=== PATIENT | male | born 1945 | race Caucasian/White ===

== ENCOUNTER 2018-08-20 23:29 | Inpatient (IN) | payer BC, MEDICARE ==
[2018-08-20] MEDS ORDERED: TRANEXAMIC ACID 1,000 MG in SODIUM CHLORIDE 0.9% 50 ML IVPB ONE (23:40)
[2018-08-20] MEDS ORDERED: LIDOCAINE 1%-EPI 1:100,000 30 ML VIAL SQ STA (23:42)
[2018-08-20] MEDS ORDERED: OXYMETAZOLINE 0.05% NASL SPRAY 1 SPRAY BOTTLE NASAL STA (23:42)
[2018-08-20] MEDS ORDERED: cloNIDine HCL 0.1 MG TAB PO STA (23:59)
[2018-08-21 00:07] LABS: Basophils % (A) 1 %; Eosinophils # (A) 0.2 k/uL (0-0.7); Eosinophils % (A) 3 %; HCT 40.9 % (39.0-53.0); HGB 13.8 gm/dL (13.0-17.5); Lymphocytes # (A) 1.8 k/uL (1.0-4.8); Lymphocytes % (A) 28 %; MCH 32.7 pg (25.0-35.0); MCHC 33.7 g/dL (31.0-37.0); Mean Platelet Volume 7.7; Monocytes # (A) 0.5 k/uL (0-1.0); Monocytes % (A) 8 %; Neutrophils # (A) 3.8 k/uL (1.3-7.7); Neutrophils % (A) 59 %; Platelet Count 167 k/uL (150-450); RBC 4.22 m/uL (4.30-5.90); RDW 12.8 % (11.5-15.5); WBC 6.5 k/uL (3.8-10.6)
[2018-08-21 00:15] LABS: INR 1.1 (<1.2); Partial Thromboplastin Time 23.4 sec (22.0-30.0); Prothrombin Time 10.7 sec (9.0-12.0)
[2018-08-21 00:17] LABS: ALT 34 U/L (21-72); AST 27 U/L (17-59); Albumin 3.9 g/dL (3.5-5.0); Alkaline Phosphatase 56 U/L (38-126); Anion Gap 8 mmol/L; Blood Urea Nitrogen 17 mg/dL (9-20); Calcium 8.9 mg/dL (8.4-10.2); Carbon Dioxide 23 mmol/L (22-30); Chloride 109 mmol/L (98-107); Glucose 108 mg/dL (74-99); Potassium 3.6 mmol/L (3.5-5.1); Sodium 140 mmol/L (137-145); Total Bilirubin 0.4 mg/dL (0.2-1.3); Total Protein 6.2 g/dL (6.3-8.2)
[2018-08-21] MEDS ORDERED: ISOSORBIDE MONONITRATE ER 30 MG TAB.ER.24H PO STA (00:54)
[2018-08-21] MEDS ORDERED: ATENOLOL 25 MG TAB PO STA (00:54)
[2018-08-21] MEDS ORDERED: DOXAZOSIN 1 MG TAB PO STA (00:54)
[2018-08-21] MEDS ORDERED: ONDANSETRON 4 MG/2 ML VIAL IVP STA (01:07)
[2018-08-21] MEDS ORDERED: NALOXONE 0.4 MG/ML 1 ML VIAL IV PRN (01:50)
[2018-08-21] MEDS ORDERED: ONDANSETRON 4 MG/2 ML VIAL IVP PRN (01:50)
--- NOTE | 2018-08-21 01:52 | ED ---
ENT HPI - General Chief complaint: ENT Stated complaint: nose bleed Time Seen by Provider: 08/20/18 23:40 Source: patient, EMS Mode of arrival: EMS Limitations: no limitations - History of Present Illness Initial comments: Kapil is a 73-year-old male with a history of coronary artery disease status post CABG is currently on Plavix who presents the emergency department today for evaluation of a persistent nosebleed. Patient states he does not have a history of nosebleeds though did have a brief nosebleed approximately 2 weeks ago and yesterday had a nosebleed lasting approximately 30 minutes. Patient reports that this evening his nosebleed began spontaneously, it lasted for approximately one hour despite him applying direct pressure by holding both of his nares. Patient reports that while holding direct pressure he noted that he could taste blood that he was swallowing and a blood began to come out of both of his eyes. This was very concerning for his who called 911 for transport to the hospital. Patient denies any recent head trauma or injury. He reports he's been compliant with his Plavix. He does report these recently traveled to [place] back to [place] and feels that some of the environmental changes contributed to his nosebleeds. Patient denies any lightheadedness, chest pain, palpitations, nausea or vomiting prior to arrival. - Related Data Home Medications Medication Instructions Recorded Confirmed ALPRAZolam [Xanax] 0.25 mg PO Q8HR PRN 10/17/17 10/17/17 Acetaminophen-Codeine 300-30mg 1 tab PO Q4-6H PRN 10/17/17 10/17/17 [Tylenol #3] Ascorbic Acid [Vitamin C with Abeba 500 mg PO HS 10/17/17 10/17/17 Hips] Aspirin 162 mg PO DAILY 10/17/17 10/17/17 Atenolol [Tenormin] 25 mg PO DAILY 10/17/17 10/17/17 Atorvastatin [Lipitor] 20 mg PO HS 10/17/17 10/17/17 Calcium Carbonate/Vitamin D3 1 tab PO HS 10/17/17 10/17/17 [Calcium 600-Vit D3 400 Tablet] Ciprofloxacin HCl [Cipro] 500 mg PO Q12HR 10/17/17 10/17/17 Clopidogrel [Plavix] 75 mg PO DAILY 10/17/17 10/17/17 Garlic 1 tab PO HS 10/17/17 10/17/17 Isosorbide Mononitrate ER [Imdur] 30 mg PO DAILY 10/17/17 10/17/17 Latanoprost Ophth [Xalatan 0.005%] 1 drops BOTH EYES HS 10/17/17 10/17/17 Meloxicam [Mobic] 15 mg PO DAILY 10/17/17 10/17/17 Multivitamins, Thera [Multivitamin 1 tab PO DAILY 10/17/17 10/17/17 (formulary)] [place]-3 Fatty Acids [[place]-3] 1,000 mg PO DAILY 10/17/17 10/17/17 Omeprazole Magnesium [Prilosec OTC] 20 mg PO DAILY 10/17/17 10/17/17 Psyllium Husk 100% [Metamucil 6 gm PO HS 10/17/17 10/17/17 Packet] Ranolazine [Ranexa] 500 mg PO BID 10/17/17 10/17/17 Retinavites 1 tab PO BID 10/17/17 10/17/17 Terazosin HCl 1 mg PO HS@199910/17/17 10/17/17 Vitamin B Complex 1 cap PO DAILY 10/17/17 10/17/17 chlordiazePOXIDE/CLIDINIUM BR 1 cap PO BID 10/17/17 10/17/17 [Librax] Previous Rx's Medication Instructions Recorded HYDROcodone/APAP 5-325MG [[place] 1 tab PO Q6HR PRN #30 tab 10/17/17 5-325] Naproxen [Naprosyn] 500 mg PO Q12HR PRN #30 tab 10/17/17 Ondansetron Odt [Zofran ODT] 4 mg PO Q8HR PRN #30 tab 10/17/17 Allergies Allergy/AdvReac Type Severity Reaction Status Date / Time No Known Allergies Allergy Verified 08/20/18 23:39 Review of Systems ROS Statement: Those systems with pertinent positive or pertinent negative responses have been documented in the HPI. ROS Other: All systems not noted in ROS Statement are negative. Past Medical History Past Medical History: Coronary Artery Disease (CAD), Hyperlipidemia, Hypertension Additional Past Medical History / Comment(s): diverticulitis. History of Any Multi-Drug Resistant Organisms: None Reported Past Surgical History: Coronary Bypass/CABG, Hernia Repair Past Psychological History: No Psychological Hx Reported Smoking Status: Former smoker Past Alcohol Use History: Occasional Past Drug Use History: None Reported General Exam - General Exam Comments Initial Comments: GENERAL: Elderly gentleman in moderate distress with an active nosebleed HENT: Normocephalic, Atraumatic. Neck is soft and supple. No significant lymphadenopathy is noted. There is persistent bleeding from bilateral nares, right greater than left, there is blood in the posterior oropharynx as well as blood from bilateral tear ducts Mallampati score 3 EYES: blood from bilateral tear ducts PULMONARY: Unlabored respirations. Good breath sounds bilaterally. No audible rales rhonchi or wheezing was noted. CARDIOVASCULAR: There is a regular rate and rhythm without any murmurs gallops or rubs. ABDOMEN: Soft and nontender with normal bowel sounds. SKIN: Skin is clear with no lesions or rashes and otherwise unremarkable. NEUROLOGIC: Patient is alert and oriented x3. Cranial nerves II through XII are grossly intact. Motor and sensory are also intact. Normal speech, volume and content. Symmetrical smile. MUSCULOSKELETAL: Normal extremities with adequate strength and full range of motion. No lower extremity swelling or edema. No calf tenderness. LYMPHATICS: No significant lymphadenopathy is noted PSYCHIATRIC: appropriately anxious Limitations: no limitations Limitations: no limitations Course Vital Signs 08/20/18 08/21/18 08/21/18 23:39 00:27 00:30 Temperature 97.6 F Pulse Rate 72 68 69 Respiratory 18 15 17 Rate Blood Pressure 194/99 192/79 O2 Sat by Pulse 94 L 95 97 Oximetry 08/21/18 08/21/18 08/21/18 00:40 00:50 01:00 Temperature Pulse Rate 65 67 63 Respiratory 25 H 22 20 Rate Blood Pressure 191/83 177/81 177/81 O2 Sat by Pulse 97 97 Oximetry 08/21/18 08/21/18 08/21/18 01:10 01:20 01:30 Temperature Pulse Rate 63 65 66 Respiratory 18 25 H 16 Rate Blood Pressure 175/79 167/70 167/70 O2 Sat by Pulse 93 L 94 L Oximetry 08/21/18 08/21/18 01:40 02:30 Temperature Pulse Rate 62 62 Respiratory 12 20 Rate Blood Pressure 176/75 146/62 O2 Sat by Pulse 96 97 Oximetry Procedures - Procedures Initial comment: Posterior nasal packing Verbal Consent was obtained Patient was on the joint terminal attack controller Right-sided posterior Rhino Rocket was placed Patient tolerated the procedure well Medical Decision Making - Medical Decision Making Patient was seen and evaluated history was obtained from the patient and his Patient is on Plavix and having a profuse nose bleed for approximately 1 hour, patient is noted be hypertensive with a heart rate in the 70s to 80s Due to the volume of blood from the nares I was unable to determine exact source of the bleed, I advised the patient to continue with direct pressure. Treated him with Afrin nasal spray and then placed posterior nasal packing which was soaked with lidocaine with epinephrine. Patient reported the previous nosebleeds were out of the right naris and that the nosebleed began out of the right therefore packing was placed in the right. Anterior packing was placed on the left Medications including TXA were ordered. Clonidine was ordered for blood pressure management Patient was reevaluated, noted to have persistent trickling of blood around the packing. Pressure was increased and the packing. TX A was infusing Patient was re-evaluated after TXA, clonidine, blood pressure is improving, bleeding has decreased Patient continues to have slow trickling of blood whenever he manipulates the packing or coughs. Technically difficult evaluation of the posterior oropharynx due to the patient's Mallampati score and very reactive gag reflex, I see only a mild trickling of blood in the posterior oropharynx. Patient's home oral antihypertensives were ordered for blood pressure management Patient care was discussed with [facility], Dr. Cartagena who agrees with the plan for admission to medicine with a ENT consult. He states she will evaluate the patient in the morning. Admission orders placed. - Lab Data Result diagrams: 08/20/18 23:40 08/20/18 23:40 Lab Results 08/20/18 08/20/18 08/20/18 Range/Units 23:40 23:40 23:40 WBC 6.5 (3.8-10.6) k/uL RBC 4.22 L (4.30-5.90) m/uL Hgb 13.8 (13.0-17.5) gm/dL Hct 40.9 (39.0-53.0) % MCV 97.0 (80.0-100.0) fL MCH 32.7 (25.0-35.0) pg MCHC 33.7 (31.0-37.0) g/dL RDW 12.8 (11.5-15.5) % Plt Count 167 (150-450) k/uL Neutrophils % 59 % Lymphocytes % 28 % Monocytes % 8 % Eosinophils % 3 % Basophils % 1 % Neutrophils # 3.8 (1.3-7.7) k/uL Lymphocytes # 1.8 (1.0-4.8) k/uL Monocytes # 0.5 (0-1.0) k/uL Eosinophils # 0.2 (0-0.7) k/uL Basophils # 0.0 (0-0.2) k/uL PT (9.0-12.0) sec INR (<1.2) APTT (22.0-30.0) sec Sodium 140 (137-145) mmol/L Potassium 3.6 (3.5-5.1) mmol/L Chloride 109 H (98-107) mmol/L Carbon Dioxide 23 (22-30) mmol/L Anion Gap 8 mmol/L BUN 17 (9-20) mg/dL Creatinine 0.70 (0.66-1.25) mg/dL Est GFR (CKD-EPI)AfAm >90 (>60 ml/min/1.73 sqM) Est GFR (CKD-EPI)NonAf >90 (>60 ml/min/1.73 sqM) Glucose 108 H (74-99) mg/dL Calcium 8.9 (8.4-10.2) mg/dL Total Bilirubin 0.4 (0.2-1.3) mg/dL AST 27 (17-59) U/L ALT 34 (21-72) U/L Alkaline Phosphatase 56 (38-126) U/L Total Protein 6.2 L (6.3-8.2) g/dL Albumin 3.9 (3.5-5.0) g/dL Blood Type AB Positive Blood Type Recheck No Antibody Screen NEGATIVE Spec Expiration Date 08/23/2018 - 233908/20/18 Range/Units 23:40 WBC (3.8-10.6) k/uL RBC (4.30-5.90) m/uL Hgb (13.0-17.5) gm/dL Hct (39.0-53.0) % MCV (80.0-100.0) fL MCH (25.0-35.0) pg MCHC (31.0-37.0) g/dL RDW (11.5-15.5) % Plt Count (150-450) k/uL Neutrophils % % Lymphocytes % % Monocytes % % Eosinophils % % Basophils % % Neutrophils # (1.3-7.7) k/uL Lymphocytes # (1.0-4.8) k/uL Monocytes # (0-1.0) k/uL Eosinophils # (0-0.7) k/uL Basophils # (0-0.2) k/uL PT 10.7 (9.0-12.0) sec INR 1.1 (<1.2) APTT 23.4 (22.0-30.0) sec Sodium (137-145) mmol/L Potassium (3.5-5.1) mmol/L Chloride (98-107) mmol/L Carbon Dioxide (22-30) mmol/L Anion Gap mmol/L BUN (9-20) mg/dL Creatinine (0.66-1.25) mg/dL Est GFR (CKD-EPI)AfAm (>60 ml/min/1.73 sqM) Est GFR (CKD-EPI)NonAf (>60 ml/min/1.73 sqM) Glucose (74-99) mg/dL Calcium (8.4-10.2) mg/dL Total Bilirubin (0.2-1.3) mg/dL AST (17-59) U/L ALT (21-72) U/L Alkaline Phosphatase (38-126) U/L Total Protein (6.3-8.2) g/dL Albumin (3.5-5.0) g/dL Blood Type Blood Type Recheck Antibody Screen Spec Expiration Date Critical Care Time Critical Care Time: Yes Total Critical Care Time: 45 Critical Care Time: Critical Care Critical care time was exclusive of separately billable procedures and treating other patients and teaching time. Critical care was necessary to treat or prevent imminent or life-threatening deterioration. Critical care was time spent personally by me on the following activities: development of treatment plan with patient or surrogate, discussions with consultants, discussions with primary provider, evaluation of patient's response to treatment, examination of patient, obtaining history from patient or surrogate, ordering and performing treatments and interventions, ordering and review of laboratory studies, ordering and review of radiographic studies, pulse oximetry, re-evaluation of patient's condition and review of old charts. Disposition Clinical Impression: Nosebleed Disposition: ADMITTED IP TO THIS HOSP Condition: Serious Is patient prescribed a controlled substance at d/c from ED?: No
[2018-08-21] MEDS ORDERED: SODIUM CHLORIDE 0.9% 1,000 ML IV SCH (02:00)
[2018-08-21 03:48] VITALS: BMI 33.4
[2018-08-21] MEDS: ISOSORBIDE MONONITRATE ER 30 MG TAB.ER.24H PO SCH (08:38)
[2018-08-21] MEDS: ATENOLOL 25 MG TAB PO SCH (08:38)
[2018-08-21] MEDS: MORPHINE SULFATE 4 MG/ML SYRINGE IV PRN ×4 (09:51→23:26)
--- NOTE | 2018-08-21 13:10 | P.HPIM ---
History of Present Illness This is a pleasant 73 years old male with past medical history of coronary artery disease status post CABG. , hyperlipidemia, hypertension, diverticulitis. Presents because of nosebleeds from both nostrils of one-day duration. The nosebleeds last about 3 hours as stopped after they came to the emergency room and had packed place into his right no stroke. However patient overnight To have some oozing from his right side and irrigated this morning he has mild epistaxis also from the left side. Of note patient has similar episode of epistaxis about one week ago from his right nostril which last about 20 minutes and controlled with local pressure. Patient denies any other history of bleeding. He denies also current or recent bleeding from the mouth or GI, or some other places. Patient denies headache. No blurred vision. No chest pain or dyspnea. No change in urine or bowel habits. No fever. Patient has history of coronary artery disease and open heart surgery service 2010 and his been placed on aspirin and Plavix since then with no problems and for this reasons he follow-up only with his ECP Dr. Gardiner his heart doctor is Dr. de jesus at [facility] which retired recently and he doesn't follow up with tobacco shaker is then. Also patient was taken Mobic daily since last January for chronic low back pain, which I advised him to stop it. Administrative we will place him on the lidocaine patch. In the emergency room patient got tranexamic acid, oxymetazoline, as well as blood pressure medication including clonidine, doxazosin sitting and atenolol with morphine for pain control. It was a started on IV fluids of normal saline at 50 mm per hour. Review of Systems CONSTITUTIONAL: No fever, no malaise, no fatigue. HEENT: No recent visual problems or hearing problems. Denied any sore throat. CARDIOVASCULAR: No orthopnea, PND, no palpitations, no syncope. PULMONARY: No shortness of breath, no cough, no hemoptysis. GASTROINTESTINAL: No diarrhea, no nausea, no vomiting, no abdominal pain. Normoactive bowel sounds. NEUROLOGICAL: No headaches, no weakness, no numbness. HEMATOLOGICAL: Denies any bleeding or petechiae. GENITOURINARY: Denies any burning micturition, frequency, or urgency. MUSCULOSKELETAL/RHEUMATOLOGICAL: Denies any joint pain, swelling, or any muscle pain. ENDOCRINE: Denies any polyuria or polydipsia. Past Medical History Past Medical History: Coronary Artery Disease (CAD), Hyperlipidemia, Hypertension Additional Past Medical History / Comment(s): diverticulitis. History of Any Multi-Drug Resistant Organisms: None Reported Past Surgical History: Coronary Bypass/CABG, Hernia Repair Past Psychological History: No Psychological Hx Reported Smoking Status: Former smoker Past Alcohol Use History: Occasional Past Drug Use History: None Reported Medications and Allergies Home Medications Medication Instructions Recorded Confirmed Type ALPRAZolam [Xanax] 0.25 mg PO Q8HR PRN 10/17/17 08/21/18 History Ascorbic Acid [Vitamin C with [place] 500 mg PO HS 10/17/17 08/21/18 History Hips] Atenolol [Tenormin] 25 mg PO DAILY 10/17/17 08/21/18 History Clopidogrel [Plavix] 75 mg PO DAILY 10/17/17 08/21/18 History Isosorbide Mononitrate ER [Imdur] 30 mg PO DAILY 10/17/17 08/21/18 History Latanoprost Ophth [Xalatan 0.005%] 1 drops BOTH EYES HS 10/17/17 08/21/18 History Meloxicam [Mobic] 15 mg PO DAILY 10/17/17 08/21/18 History Multivitamins, Thera [Multivitamin 1 tab PO DAILY 10/17/17 08/21/18 History (formulary)] Omeprazole Magnesium [Prilosec OTC] 20 mg PO DAILY 10/17/17 08/21/18 History Psyllium Husk 100% [Metamucil 6 gm PO HS 10/17/17 08/21/18 History Packet] RX: Aspirin 162 mg PO DAILY 10/17/17 08/21/18 History RX: Terazosin HCl 1 mg PO HS@199910/17/17 08/21/18 History RX: Vitamin B Complex 1 cap PO DAILY 10/17/17 08/21/18 History Ranolazine [Ranexa] 500 mg PO BID 10/17/17 08/21/18 History Retinavites 1 tab PO BID 10/17/17 08/21/18 History chlordiazePOXIDE/CLIDINIUM BR 1 cap PO BID 10/17/17 08/21/18 History [Librax] Atorvastatin [Lipitor] 40 mg PO DAILY 08/21/18 08/21/18 History Sulfamethox-Tmp 800-160Mg [Bactrim 1 tab PO BID 08/21/18 08/21/18 History DS 800-160 mg] Allergies Allergy/AdvReac Type Severity Reaction Status Date / Time No Known Allergies Allergy Verified 08/21/18 11:53 Physical Exam Vitals: Vital Signs Temp Pulse Pulse Resp BP BP Pulse Ox 08/21/18 12:00 52 L 08/21/18 11:44 52 L 16 153/70 96 08/21/18 08:00 97.0 F L 59 L 16 151/81 94 L 08/21/18 04:35 63 20 08/21/18 03:40 97.4 F L 63 20 140/84 93 L 08/21/18 03:00 97.4 F L 08/21/18 02:30 62 20 146/62 97 08/21/18 01:40 62 12 176/75 96 08/21/18 01:30 66 16 167/70 94 L 08/21/18 01:20 65 25 H 167/70 93 L 08/21/18 01:10 63 18 175/79 08/21/18 01:00 63 20 177/81 08/21/18 00:50 67 22 177/81 97 08/21/18 00:40 65 25 H 191/83 97 08/21/18 00:30 69 17 192/79 97 08/21/18 00:27 68 15 95 08/20/18 23:39 97.6 F 72 18 194/99 94 L Intake and Output 08/20/18 08/21/18 08/21/18 22:59 06:59 14:59 Intake Total 0 Output Total 1100 Balance 0 -1100 Intake: Oral 0 Output: Urine 1100 Other: Voiding Method Urinal # Voids 1 1 Weight 99.2 kg GENERAL: The patient is alert and oriented x3, not in any acute distress. Well developed, well nourished. HEENT: Pupils are round and equally reacting to light. EOMI. No scleral icterus. No conjunctival pallor. Normocephalic, atraumatic. No pharyngeal erythema. No thyromegaly. CARDIOVASCULAR: S1 and S2 present. No murmurs, rubs, or gallops. PULMONARY: Chest is clear to auscultation, no wheezing or crackles. ABDOMEN: Soft, nontender, nondistended, normoactive bowel sounds. No palpable organomegaly. MUSCULOSKELETAL: No joint swelling or deformity. EXTREMITIES: No cyanosis, clubbing, or pedal edema. NEUROLOGICAL: Gross neurological examination did not reveal any focal deficits. SKIN: No rashes. Results CBC & Chem 7: 08/20/18 23:40 08/20/18 23:40 Labs: Abnormal Lab Results - Last 24 Hours (Table) 08/20/18 08/20/18 Range/Units 23:40 23:40 RBC 4.22 L (4.30-5.90) m/uL Chloride 109 H (98-107) mmol/L Glucose 108 H (74-99) mg/dL Total Protein 6.2 L (6.3-8.2) g/dL Thrombosis Risk Factor Assmnt - Choose All That Apply Any of the Below Risk Factors Present?: Yes Each Factor Represents 1 point: Medical pt on bed rest Other Risk Factors: Yes Each Risk Factor Represents 2 Points: Age 61-74 years Other congenital or acquired thrombophilia - If yes, enter type in comment: No Thrombosis Risk Factor Assessment Total Risk Factor Score: 3 Thrombosis Risk Factor Assessment Level: Moderate Risk Assessment and Plan Assessment: Epistaxis, uncontrolled Essential hypertension History of coronary artery disease status post CABG on aspirin and Plavix Chronic low back pain on Mobic which was discontinued Plan: This is a pleasant 73 years old male who presents with epistaxis. Labs and medication were reviewed. Patient is an aspirin and Plavix. Will call cardiology consult for their recommendation about medication adjustment. ENT been consulted. Patient is already has packed in his right nostril. DC Mobic. Continue aspirin and Plavix as per cardiology team recommendation. Monitor hemoglobin. Continue with antihypertensive. Continue with same treatment. Continue symptomatic treatment. Resume home medication. Monitor vitals. GI and DVT prophylaxis. Further recommendation is based on the clinical course of the patient DVT prophylaxis: No heparin or anticoagulation in view of his bleed from his nose GI prophylaxis: Pepcid Prognosis is guarded
[2018-08-21] MEDS: amLODIPine 5 MG TAB PO SCH (13:12)
[2018-08-21 14:31] LABS: HCT 37.8 % (39.0-53.0); MCH 33.5 pg (25.0-35.0); MCHC 34.3 g/dL (31.0-37.0); MCV 97.6 fL (80.0-100.0); Mean Platelet Volume 7.3; Platelet Count 154 k/uL (150-450); RBC 3.87 m/uL (4.30-5.90); RDW 12.9 % (11.5-15.5); WBC 5.4 k/uL (3.8-10.6)
[2018-08-21] MEDS: hydrALAZINE HCL 25 MG TAB PO PRN (16:36)
[2018-08-21] MEDS ORDERED: FUROSEMIDE 10 MG/ML 4 ML VIAL IV STA (18:22)
--- NOTE | 2018-08-21 20:31 | CONS ---
CONSULTATION REASON FOR CONSULTATION: Epistaxis. HISTORY: This is a 73-year-old white male who a week ago had a brief episode of right-sided epistaxis. This stopped after a few minutes at his house with local pressure. He then had recurrence this week and quite significantly last night with right-sided epistaxis. He presented to the ER and had a balloon pack placed on the right and some mild gauze packing on the left. This controlled the bleeding. He is on Plavix and aspirin chronically as well as Mobic. He also was noted to have hypertension in the ER with a blood pressure 194/99 with a pulse of 72. This had improved during the day today, but this afternoon had diastolics twice again 190 or above. He has not had epistaxis previous to this and has no chronic nasal or sinus difficulties. PAST MEDICAL HISTORY: Positive for coronary artery disease, hyperlipidemia, hypertension. PAST SURGICAL HISTORY: Bypass surgery, coronary artery bypass surgery, herniorrhaphy. SOCIAL HISTORY: Did smoke. Does not now. Alcohol consumption is occasional. FAMILY HISTORY: Noncontributory. MEDICATIONS: Xanax, vitamin C, atenolol, Plavix, Imdur, Xalatan, Mobic, multivitamin, omeprazole, Metamucil, aspirin, terazosin, vitamin D, Ranexa, Librax, Lipitor, and Bactrim. ALLERGIES: No known drug allergies. REVIEW OF SYSTEMS: Noncontributory other than as above. PHYSICAL EXAM: Well-developed, pleasant adult white male in no acute distress. He is alert, awake, and oriented x3. HEENT: Head normocephalic and atraumatic. Ears bilaterally canals clear. Membranes unremarkable and mobile. The nose shows a gauze packing in the left side of the nose, which is dry. This was removed. No bleeding or active bleeding or even old blood on the left side. Nasal airway is patent. On the right, there is a double balloon pack in place with old blood anteriorly, but no active bleeding. Oropharynx shows no blood in the posterior oropharynx. Neck is supple without adenopathy or tenderness. ASSESSMENT: 1. Right sided epistaxis, presumed posterior based on history. 2. Hypertension. 3. Anticoagulated status. PLAN: Recommend utilizing and continuing the right nasal pack for 3 days and therefore this would be removed on Friday. This can be done in my office if the patient is discharged by then. Certainly prior to that, his hypertension needs to be better controlled. The Plavix and aspirin has been held at this point, which may be helpful also. He is on prophylactic antibiotics here and if he is discharged in the meantime, then would need continued prophylactic antibiotics at home such as Keflex or even the Bactrim that he was on previously would be adequate. Also analgesics in the meantime. If there are questions or concerns in the meantime, please feel free to contact me. If he is discharged prior to Friday, please have him call first thing Friday to our office to arrange pack removed in the office and if still hospitalized on Friday, please call office so that we can round on this patient in the hospital again after the weekend. Approximately 45 minutes was utilized for consultation, the majority in counseling. VANDANA / ALANN: [id number] /
[2018-08-21] MEDS ORDERED: ceFAZolin IN SWFI 2 GM/20 ML SYRINGE IVP SCH (21:00)
[2018-08-21] MEDS: FAMOTIDINE 20 MG/2 ML VIAL IV SCH (21:38)
[2018-08-21] MEDS: ceFAZolin 1,000 MG in DEXTROSE/WATER 1 50ML.BAG IVPB SCH (21:38)
[2018-08-22 07:06] LABS: Basophils % (A) 0 %; Eosinophils # (A) 0.1 k/uL (0-0.7); Eosinophils % (A) 2 %; HCT 41.5 % (39.0-53.0); HGB 13.7 gm/dL (13.0-17.5); Lymphocytes # (A) 1.4 k/uL (1.0-4.8); Lymphocytes % (A) 18 %; MCH 32.2 pg (25.0-35.0); MCHC 33.1 g/dL (31.0-37.0); MCV 97.5 fL (80.0-100.0); Mean Platelet Volume 7.4; Monocytes # (A) 0.6 k/uL (0-1.0); Monocytes % (A) 8 %; Neutrophils # (A) 5.4 k/uL (1.3-7.7); Neutrophils % (A) 71 %; Platelet Count 174 k/uL (150-450); RBC 4.26 m/uL (4.30-5.90); RDW 12.8 % (11.5-15.5); WBC 7.7 k/uL (3.8-10.6)
[2018-08-22 07:18] LABS: ALT 31 U/L (21-72); AST 24 U/L (17-59); Albumin 3.7 g/dL (3.5-5.0); Alkaline Phosphatase 50 U/L (38-126); Anion Gap 6 mmol/L; Blood Urea Nitrogen 15 mg/dL (9-20); Calcium 8.8 mg/dL (8.4-10.2); Carbon Dioxide 31 mmol/L (22-30); Chloride 102 mmol/L (98-107); Glucose 112 mg/dL (74-99); Potassium 4.1 mmol/L (3.5-5.1); Sodium 139 mmol/L (137-145); Total Bilirubin 0.5 mg/dL (0.2-1.3); Total Protein 6.1 g/dL (6.3-8.2)
[2018-08-22] MEDS: ATENOLOL 25 MG TAB PO SCH (08:28)
[2018-08-22] MEDS: amLODIPine 5 MG TAB PO SCH ×2 (08:28→18:50)
[2018-08-22] MEDS: ISOSORBIDE MONONITRATE ER 30 MG TAB.ER.24H PO SCH (08:28)
[2018-08-22] MEDS: MORPHINE SULFATE 4 MG/ML SYRINGE IV PRN (08:28)
[2018-08-22] MEDS: FAMOTIDINE 20 MG/2 ML VIAL IV SCH ×2 (08:28→19:45)
[2018-08-22] MEDS: ceFAZolin 1,000 MG in DEXTROSE/WATER 1 50ML.BAG IVPB SCH ×2 (08:29→18:50)
[2018-08-22] MEDS: hydrALAZINE HCL 25 MG TAB PO PRN (11:20)
--- NOTE | 2018-08-22 11:59 | P.CRDCN ---
History of Present Illness Consult date: 08/22/18 Requesting physician: Jose E Michelle Reason for Consult (text): nosebleed on plavix Chief complaint: nose bleed History of present illness: This is a pleasant 73-year-old gentleman with history significant for CAD, hypertension, hyperlipidemia, prior CABG in 2010, episode of atrial fibrillation in 2011, was on Coumadin for about a year. Currently on aspirin and Plavix. Presented to the emergency department with significant nosebleed lasting for over an hour. Currently has right nasal packing. We were asked to see the patient in consultation as the patient has not been seen by cardiology in several years. 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 He has not had any recent cardiac workup. Home medications include Terazosin, Ranexa, omeprazole, Mobic, Imdur, Plavix, Lipitor, Tenormin and aspirin. Upon admission blood pressure was noted to be elevated. He's been started on amlodipine 5 mg daily as well as hydralazine 25 mg by mouth 4 times a day. Laboratory values show normal renal function and no evidence of anemia. Upon examination, patient is resting comfortably in bed. He denies having any complaints of chest discomfort, palpitations, shortness of breath or edema. He does admit to having intermittent blurred vision which she is now attributing to poorly controlled hypertension. He is maintaining sinus rhythm. Past Medical History Past Medical History: Coronary Artery Disease (CAD), Hyperlipidemia, Hypertension Additional Past Medical History / Comment(s): diverticulitis. History of Any Multi-Drug Resistant Organisms: None Reported Past Surgical History: Coronary Bypass/CABG, Hernia Repair Past Psychological History: No Psychological Hx Reported Smoking Status: Former smoker Past Alcohol Use History: Occasional Past Drug Use History: None Reported Medications and Allergies Home Medications Medication Instructions Recorded Confirmed Type ALPRAZolam [Xanax] 0.25 mg PO Q8HR PRN 10/17/17 08/21/18 History Ascorbic Acid [Vitamin C with Abeba 500 mg PO HS 10/17/17 08/21/18 History Hips] Aspirin 162 mg PO DAILY 10/17/17 08/21/18 History Atenolol [Tenormin] 25 mg PO DAILY 10/17/17 08/21/18 History Clopidogrel [Plavix] 75 mg PO DAILY 10/17/17 08/21/18 History Isosorbide Mononitrate ER [Imdur] 30 mg PO DAILY 10/17/17 08/21/18 History Latanoprost Ophth [Xalatan 0.005%] 1 drops BOTH EYES HS 10/17/17 08/21/18 History Meloxicam [Mobic] 15 mg PO DAILY 10/17/17 08/21/18 History Multivitamins, Thera [Multivitamin 1 tab PO DAILY 10/17/17 08/21/18 History (formulary)] Omeprazole Magnesium [Prilosec OTC] 20 mg PO DAILY 10/17/17 08/21/18 History Psyllium Husk 100% [Metamucil 6 gm PO HS 10/17/17 08/21/18 History Packet] Ranolazine [Ranexa] 500 mg PO BID 10/17/17 08/21/18 History Retinavites 1 tab PO BID 10/17/17 08/21/18 History Terazosin HCl 1 mg PO HS@199910/17/17 08/21/18 History Vitamin B Complex 1 cap PO DAILY 10/17/17 08/21/18 History chlordiazePOXIDE/CLIDINIUM BR 1 cap PO BID 10/17/17 08/21/18 History [Librax] Atorvastatin [Lipitor] 40 mg PO DAILY 08/21/18 08/21/18 History Sulfamethox-Tmp 800-160Mg [Bactrim 1 tab PO BID 08/21/18 08/21/18 History DS 800-160 mg] Allergies Allergy/AdvReac Type Severity Reaction Status Date / Time No Known Allergies Allergy Verified 08/21/18 11:53 Physical Exam Vitals: Vital Signs Temp Pulse Resp BP BP BP Pulse Ox 08/22/18 08:00 63 18 159/83 95 08/22/18 03:47 97.4 F L 60 18 160/81 95 08/22/18 00:00 98.0 F 65 17 145/74 95 08/21/18 20:00 97.8 F 58 L 18 161/68 94 L 08/21/18 17:15 196/90 08/21/18 16:00 57 L 198/86 08/21/18 15:31 192/78 212/93 196/83 08/21/18 15:17 57 L 16 192/85 95 08/21/18 12:00 52 L 08/21/18 11:44 52 L 16 153/70 96 Intake and Output 08/21/18 08/22/18 08/22/18 22:59 06:59 14:59 Output Total 1700 Balance -1700 Output: Urine 1700 Other: Voiding Method Urinal Urinal # Voids 1 1 Weight 95.2 kg PHYSICAL EXAMINATION: HEENT: Head is atraumatic, normocephalic. Pupils equal, round. Neck is supple. There is no elevated jugular venous pressure. Packing noted to right nare. HEART EXAMINATION: Heart sounds regular, S1 and S2 normal. No murmur or gallop heard. CHEST EXAMINATION: Lungs are clear to auscultation and precussion. No chest wall tenderness is noted on palpation or with deep breathing. ABDOMEN: Soft, nontender. Bowel sounds are heard. No organomegaly noted. EXTREMITIES: 2+ peripheral pulses with no evidence of peripheral edema and no calf tenderness noted. NEUROLOGIC patient is awake, alert and oriented x3. . Results 08/22/18 06:21 08/22/18 06:21 Cardiac Enzymes 08/22/18 Range/Units 06:21 AST 24 (17-59) U/L CBC 08/21/18 08/22/18 Range/Units 14:15 06:21 WBC 5.4 7.7 (3.8-10.6) k/uL RBC 3.87 L 4.26 L (4.30-5.90) m/uL Hgb 13.0 13.7 (13.0-17.5) gm/dL Hct 37.8 L 41.5 (39.0-53.0) % Plt Count 154 174 (150-450) k/uL Comprehensive Metabolic Panel 08/22/18 Range/Units 06:21 Sodium 139 (137-145) mmol/L Potassium 4.1 (3.5-5.1) mmol/L Chloride 102 (98-107) mmol/L Carbon Dioxide 31 H (22-30) mmol/L BUN 15 (9-20) mg/dL Creatinine 0.92 (0.66-1.25) mg/dL Glucose 112 H (74-99) mg/dL Calcium 8.8 (8.4-10.2) mg/dL AST 24 (17-59) U/L ALT 31 (21-72) U/L Alkaline Phosphatase 50 (38-126) U/L Total Protein 6.1 L (6.3-8.2) g/dL Albumin 3.7 (3.5-5.0) g/dL Current Medications Generic Name Dose Route Start Last Admin Trade Name Freq PRN Reason Stop Dose Admin Amlodipine Besylate 5 mg 08/21/18 12:30 08/22/18 08:28 Norvasc PO 5 mg DAILY JOE Administration Atenolol 25 mg 08/21/18 09:00 08/22/18 08:28 Tenormin PO 25 mg DAILY JOE Administration Famotidine 20 mg 08/21/18 21:00 08/22/18 08:28 Pepcid IV 20 mg Q12HR JOE Administration Hydralazine HCl 25 mg 08/21/18 15:19 08/21/18 16:36 Apresoline PO 25 mg QID PRN Administration Blood Pressure - High Cefazolin Sodium/Dextrose 1, 50 mls @ 100 mls/hr 08/21/18 21:00 08/22/18 08: 29 000 mg/ IV Solution IVPB 100 mls/hr Q12HR JOE Administration Isosorbide Mononitrate 30 mg 08/21/18 09:00 08/22/18 08:28 Imdur PO 30 mg DAILY JOE Administration Morphine Sulfate 4 mg 08/21/18 01:50 08/22/18 08:28 Morphine Sulfate (Inj) IV 4 mg Q4HR PRN Administration Severe Pain Naloxone HCl 0.2 mg 08/21/18 01:50 Narcan IV Q2M PRN Opioid Reversal Ondansetron HCl 4 mg 08/21/18 01:50 Zofran IVP Q8HR PRN Nausea And Vomiting Intake and Output 08/21/18 08/22/18 08/22/18 22:59 06:59 14:59 Output Total 1700 Balance -1700 Output: Urine 1700 Other: Voiding Method Urinal Urinal # Voids 1 1 Weight 95.2 kg 08/22/18 06:21 08/22/18 06:21 Assessment and Plan Assessment: #1 posterior nosebleed, on Lasix and aspirin as well as Mobic. #2 CAD with prior CABG in 2010 #3 history of paroxysmal atrial fibrillation, not currently on anticoagulation #4 hypertension, poorly controlled #5 hyperlipidemia Plan: From cardiology perspective, continue to hold aspirin and Plavix until follow- up with ENT. We will hold off on pursuing anticoagulation for history of PAF for now. We will start the patient on losartan 50 mg daily and increase Norvasc to 5 mg by mouth twice a day. Discontinue hydralazine. We'll follow- up with the patient as an outpatient and likely pursue further cardiac workup such as echocardiogram and stress testing as needed. SENIOR SYSTEMS ARCHITECT note has been reviewed, I agree with a documented findings and plan of care. Patient was seen and examined.
[2018-08-22] MEDS: LOSARTAN 50 MG TAB PO SCH (13:56)
--- NOTE | 2018-08-22 18:25 | P.PN ---
Subjective This is a pleasant 73 years old male with past medical history of coronary artery disease status post CABG. , hyperlipidemia, hypertension, diverticulitis. Presents because of nosebleeds from both nostrils of one-day duration. The nosebleeds last about 3 hours as stopped after they came to the emergency room and had packed place into his right no stroke. However patient overnight To have some oozing from his right side and irrigated this morning he has mild epistaxis also from the left side. Of note patient has similar episode of epistaxis about one week ago from his right nostril which last about 20 minutes and controlled with local pressure. Patient denies any other history of bleeding. He denies also current or recent bleeding from the mouth or GI, or some other places. Patient denies headache. No blurred vision. No chest pain or dyspnea. No change in urine or bowel habits. No fever. Patient has history of coronary artery disease and open heart surgery service 2010 and his been placed on aspirin and Plavix since then with no problems and for this reasons he follow-up only with his ECP Dr. Gardiner his heart doctor is Dr. de jesus at [facility] which retired recently and he doesn't follow up with senior cognos developer is then. Also patient was taken Mobic daily since last January for chronic low back pain, which I advised him to stop it. Administrative we will place him on the lidocaine patch. In the emergency room patient got tranexamic acid, oxymetazoline, as well as blood pressure medication including clonidine, doxazosin sitting and atenolol with morphine for pain control. It was a started on IV fluids of normal saline at 50 mm per hour. 08/22/2018 Patient back nostril for epistaxis is in a Place at small oozing of blood this morning which is stopped eventually. ENT evaluated the patient and recommended to keep the pack for 3 days until Friday. Commercial Construction Superintendent evaluated the patient and both ENT and cardiology recommended to hold aspirin and Plavix for now and follow-up as an outpatient. Patient hydralazine was stopped and they put him on low Zartan 50 mg daily and increase Norvasc to 5 mg twice a day and recommended outpatient follow-up as echocardiogram and stress test as needed. Patient vitals are stable blood pressure is improved 145/70. Vitals and hemoglobin is stable Objective - Vital Signs Vital signs: Vital Signs Temp 97.4 F L 08/22/18 03:47 Pulse 61 08/22/18 13:55 Resp 16 08/22/18 15:34 BP 145/70 08/22/18 13:55 Pulse Ox 94 L 08/22/18 13:55 Intake & Output 08/21/18 08/22/18 08/22/18 18:59 06:59 18:59 Intake Total 480 480 Output Total 1800 1700 Balance -1320 -1700 480 Weight 95.2 kg Intake: Oral 480 480 Output: Urine 1800 1700 Other: Voiding Method Urinal # Voids 1 1 3 - Labs CBC & Chem 7: 08/22/18 06:21 08/22/18 06:21 Labs: Abnormal Lab Results - Last 24 Hours (Table) 08/22/18 08/22/18 Range/Units 06:21 06:21 RBC 4.26 L (4.30-5.90) m/uL Carbon Dioxide 31 H (22-30) mmol/L Glucose 112 H (74-99) mg/dL Total Protein 6.1 L (6.3-8.2) g/dL
[2018-08-22] MEDS: traMADol 50 MG TAB PO SCH (19:08)
[2018-08-22] MEDS: HYDROCHLOROTHIAZIDE 25 MG TAB PO SCH (19:44)
[2018-08-22] MEDS: RANOLAZINE 500 MG TAB.ER.12H PO SCH (19:45)
[2018-08-22] MEDS: LATANOPROST 0.005% OPHTH DROPS 2.5 ML BTL BOTH EYES SCH (20:58)
[2018-08-23] MEDS: traMADol 50 MG TAB PO SCH ×5 (06:30→20:29)
[2018-08-23] MEDS: ISOSORBIDE MONONITRATE ER 30 MG TAB.ER.24H PO SCH (08:15)
[2018-08-23] MEDS: amLODIPine 5 MG TAB PO SCH ×2 (08:16→20:28)
[2018-08-23] MEDS: ceFAZolin 1,000 MG in DEXTROSE/WATER 1 50ML.BAG IVPB SCH ×2 (08:16→20:28)
[2018-08-23] MEDS: ATENOLOL 25 MG TAB PO SCH (08:16)
[2018-08-23] MEDS: FAMOTIDINE 20 MG/2 ML VIAL IV SCH ×2 (08:16→20:28)
[2018-08-23] MEDS: ATORVASTATIN 40 MG TAB PO SCH (08:16)
[2018-08-23] MEDS: LOSARTAN 50 MG TAB PO SCH (08:16)
[2018-08-23] MEDS: HYDROCHLOROTHIAZIDE 25 MG TAB PO SCH (08:16)
[2018-08-23] MEDS: RANOLAZINE 500 MG TAB.ER.12H PO SCH ×2 (08:17→20:29)
--- NOTE | 2018-08-23 10:40 | P.DS ---
Providers Date of admission: 08/21/18 01:50 Attending physician: Jose Martinez MD Consults: 08/21/18 01:50 Consult Physician Stat Consulting Provider: Varun Wahl Consult Reason/Comments: posterior nosebleed Do you want consulting provider notified?: Already Contacted 08/21/18 12:58 Consult Physician Urgent Consulting Provider: Kaveh Rizvi Consult Reason/Comments: nosebleed, on plavix Do you want consulting provider notified?: Yes Primary care physician: Physician Nonstaff Hospital Course: 89-year-old admitted with her nosebleeds. Patient had a cardiac catheterization and stents 3 years ago and patient continues to be on dual antiplatelet therapy with Plavix aspirin including nonsteroidal anti- inflammatory medications all of which were discontinued. Patient will not require any dual antiplatelet therapy aspirin can be started as an outpatient once his os bleed issue is addressed. Patient blood pressure remains higher patient just received increased dose of hydrocodone thiazide losartan and amlodipine. Will monitor his blood pressure until later in the day if it doesn' t come down patient will change the doses of these medications possibility of discharge today depending on his blood pressure and nosebleed. PHYSICAL EXAMINATION: GENERAL: The patient is alert and oriented x3, not in any acute distress. Well developed, well nourished. HEENT: Pupils are round and equally reacting to light. EOMI. No scleral icterus. No conjunctival pallor. Normocephalic, atraumatic. No pharyngeal erythema. No thyromegaly. Nasal packing CARDIOVASCULAR: S1 and S2 present. No murmurs, rubs, or gallops. PULMONARY: Chest is clear to auscultation, no wheezing or crackles. ABDOMEN: Soft, nontender, nondistended, normoactive bowel sounds. No palpable organomegaly. MUSCULOSKELETAL: No joint swelling or deformity. EXTREMITIES: No cyanosis, clubbing, or pedal edema. NEUROLOGICAL: Gross neurological examination did not reveal any focal deficits. SKIN: No rashes. epistaxis: Secondary to dual antiplatelet therapy further management as mentioned above -Essential hypertension, accelerated hypertension: Further management as mentioned above -Coronary artery disease -Chronic low back pain - obesity Patient Condition at Discharge: Serious Plan - Discharge Summary Discharge Rx Participant: No New Discharge Prescriptions: New amLODIPine [Norvasc] 5 mg PO BID #60 tab Cephalexin [Keflex] 500 mg PO Q8HR #6 cap Losartan [Cozaar] 50 mg PO DAILY #30 tab Hydrochlorothiazide [Hydrodiuril] 25 mg PO DAILY #30 tab traMADol HCL [Ultram] 50 mg PO Q6HR PRN 2 Days #8 tab PRN Reason: Pain Continue Vitamin B Complex 1 cap PO DAILY Ascorbic Acid [Vitamin C with Abeba Hips] 500 mg PO HS Psyllium Husk 100% [Metamucil Packet] 6 gm PO HS chlordiazePOXIDE/CLIDINIUM BR [Librax] 1 cap PO BID Multivitamins, Thera [Multivitamin (formulary)] 1 tab PO DAILY Retinavites 1 tab PO BID Terazosin HCl 1 mg PO HS@2000 Ranolazine [Ranexa] 500 mg PO BID Omeprazole Magnesium [PriLOSEC OTC] 20 mg PO DAILY Isosorbide Mononitrate ER [Imdur] 30 mg PO DAILY Latanoprost Ophth [Xalatan 0.005%] 1 drops BOTH EYES HS Atenolol [Tenormin] 25 mg PO DAILY Atorvastatin [Lipitor] 40 mg PO DAILY Sulfamethox-Tmp 800-160Mg [Bactrim DS 800-160 mg] 1 tab PO BID Discontinued ALPRAZolam [Xanax] 0.25 mg PO Q8HR PRN PRN Reason: Anxiety Clopidogrel [Plavix] 75 mg PO DAILY Aspirin 162 mg PO DAILY Meloxicam [Mobic] 15 mg PO DAILY Discharge Medication List Ascorbic Acid [Vitamin C with Abeba Hips] 500 mg PO HS 10/17/17 [History] Atenolol [Tenormin] 25 mg PO DAILY 10/17/17 [History] Isosorbide Mononitrate ER [Imdur] 30 mg PO DAILY 10/17/17 [History] Latanoprost Ophth [Xalatan 0.005%] 1 drops BOTH EYES HS 10/17/17 [History] Multivitamins, Thera [Multivitamin (formulary)] 1 tab PO DAILY 10/17/17 [History ] Omeprazole Magnesium [PriLOSEC OTC] 20 mg PO DAILY 10/17/17 [History] Psyllium Husk 100% [Metamucil Packet] 6 gm PO HS 10/17/17 [History] Ranolazine [Ranexa] 500 mg PO BID 10/17/17 [History] Retinavites 1 tab PO BID 10/17/17 [History] Terazosin HCl 1 mg PO HS@2000 10/17/17 [History] Vitamin B Complex 1 cap PO DAILY 10/17/17 [History] chlordiazePOXIDE/CLIDINIUM BR [Librax] 1 cap PO BID 10/17/17 [History] Atorvastatin [Lipitor] 40 mg PO DAILY 08/21/18 [History] Sulfamethox-Tmp 800-160Mg [Bactrim DS 800-160 mg] 1 tab PO BID 08/21/18 [History ] Cephalexin [Keflex] 500 mg PO Q8HR #6 cap 08/22/18 [Rx] Hydrochlorothiazide [Hydrodiuril] 25 mg PO DAILY #30 tab 08/22/18 [Rx] Losartan [Cozaar] 50 mg PO DAILY #30 tab 08/22/18 [Rx] amLODIPine [Norvasc] 5 mg PO BID #60 tab 08/22/18 [Rx] traMADol HCL [Ultram] 50 mg PO Q6HR PRN 2 Days #8 tab 08/22/18 [Rx] Follow up Appointment(s)/Referral(s): Thomas Martinez MD [STAFF PHYSICIAN] - 08/25/18 3:45 pm Varun Wahl MD [STAFF PHYSICIAN] - 08/26/18 12:45 pm (please follow up on friday08/24/2018 ( rather than 08/24/18) as per Dr. Wahl recommendation for removal of your right nasal pack ) Nonstaff,Physician [Primary Care Provider] - 08/24/18 4:15 pm (Appointment made with Dr. De Paz we recommend you check your blood test with your doctor including basic metabolic panel (BMP) in 1-2 weeks) Patient Instructions/Handouts: Nosebleed (ED) Activity/Diet/Wound Care/Special Instructions: Cardiac diet Activity is limited till you see your doctor Work release form is good until 08/31/18. Please speak with your physicians in case they feel it needs to be extended. Discharge recommendation we recommend you check your blood test with your doctor including basic metabolic panel (BMP) Discharge/Stand Alone Forms: Work/School Release, Work/Release Restrictions Form Discharge Disposition: HOME SELF-CARE
[2018-08-23] MEDS ORDERED: HYDROCHLOROTHIAZIDE 25 MG TAB PO STA (11:08)
--- NOTE | 2018-08-23 11:48 | P.PN ---
Subjective Progress Note Date: 08/23/18 Principal diagnosis: CAD/hypertension This is a pleasant 73-year-old gentleman with history significant for CAD, hypertension, hyperlipidemia, prior CABG in 2010, episode of atrial fibrillation in 2011, was on Coumadin for about a year. Currently on aspirin and Plavix. Presented to the emergency department with significant nosebleed lasting for over an hour. Currently has right nasal packing. We were asked to see the patient in consultation as the patient has not been seen by cardiology in several years. 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 He has not had any recent cardiac workup. Home medications include Terazosin, Ranexa, omeprazole, Mobic, Imdur, Plavix, Lipitor, Tenormin and aspirin. Upon admission blood pressure was noted to be elevated. He's been started on amlodipine 5 mg daily as well as hydralazine 25 mg by mouth 4 times a day. Laboratory values show normal renal function and no evidence of anemia. On follow-up with the patient today, he continues to be asymptomatic from a cardiac vascular standpoint and denies having any chest pain or discomfort or shortness of breath. He did have some nosebleed earlier today. Beside that the blood pressure continues to be not well-controlled with a systolic pressure around 180 mmHg. I am going to increase the dose of losartan 100 mg by mouth daily. I recommended continue monitoring the patient for additional 24 hours. Objective - Vital Signs Vital signs: Vital Signs Temp 97.9 F 08/23/18 07:54 Pulse 61 08/23/18 10:57 Resp 16 08/23/18 11:09 BP 182/80 08/23/18 10:57 Pulse Ox 93 L 08/23/18 10:57 Intake & Output 08/22/18 08/23/18 08/23/18 18:59 06:59 18:59 Intake Total 480 230 Balance 480 230 Intake: Oral 480 230 Other: Voiding Method Urinal # Voids 3 1 1 - Constitutional General appearance: Present: no acute distress - Respiratory Respiratory: bilateral: CTA - Cardiovascular Rhythm: regular Heart sounds: normal: S1, S2 - Labs CBC & Chem 7: 08/22/18 06:21 08/22/18 06:21 Assessment and Plan Assessment: Assessment #1 nosebleed. #2 CAD with prior CABG #3 Paroxysmal atrial fibrillation #4 uncontrolled hypertension Plan #1 continue holding the aspirin and Plavix in view of the persistent bleeding #2 increase the dose of losartan 200 mg daily #3 follow-up with the patient.
[2018-08-23] MEDS ORDERED: LOSARTAN 50 MG TAB PO STA (12:52)
[2018-08-23] MEDS: LATANOPROST 0.005% OPHTH DROPS 2.5 ML BTL BOTH EYES SCH (20:23)
[2018-08-24 01:01] VITALS: RESP 16
[2018-08-24 04:09] VITALS: TEMP 97.7
[2018-08-24] MEDS: amLODIPine 5 MG TAB PO SCH (08:28)
[2018-08-24] MEDS: RANOLAZINE 500 MG TAB.ER.12H PO SCH (08:28)
[2018-08-24] MEDS: ATENOLOL 25 MG TAB PO SCH (08:28)
[2018-08-24] MEDS: ATORVASTATIN 40 MG TAB PO SCH (08:28)
[2018-08-24] MEDS: ISOSORBIDE MONONITRATE ER 30 MG TAB.ER.24H PO SCH (08:28)
[2018-08-24] MEDS: traMADol 50 MG TAB PO SCH (08:28)
[2018-08-24] MEDS: FAMOTIDINE 20 MG/2 ML VIAL IV SCH (08:29)
[2018-08-24 08:43] VITALS: BP 146/67; PULSE 68
[2018-08-24] MEDS ORDERED: HYDROCHLOROTHIAZIDE 50 MG TAB PO SCH (09:00)
[2018-08-24] MEDS ORDERED: LOSARTAN 50 MG TAB PO SCH ×2 (09:00)
--- NOTE | 2018-08-24 10:38 | P.DS ---
Providers Date of admission: 08/21/18 01:50 Attending physician: Jose Martinez MD Consults: 08/21/18 01:50 Consult Physician Stat Consulting Provider: Varun Wahl Consult Reason/Comments: posterior nosebleed Do you want consulting provider notified?: Already Contacted 08/21/18 12:58 Consult Physician Urgent Consulting Provider: Kaveh Rizvi Consult Reason/Comments: nosebleed, on plavix Do you want consulting provider notified?: Yes Primary care physician: Physician Nonstaff Hospital Course: Please refer to my discharge summary from yesterday patient blood pressure was still high because of which the cardiology recommended that patient stays 1 night. Patient blood pressure is well controlled today patient will be discharged on increased dose of hydrochlorothiazide and Keflex because of the nostril packing if cleared by ENT patient will be discharged today. PHYSICAL EXAMINATION: GENERAL: The patient is alert and oriented x3, not in any acute distress. Well developed, well nourished. HEENT: Pupils are round and equally reacting to light. EOMI. No scleral icterus. No conjunctival pallor. Normocephalic, atraumatic. No pharyngeal erythema. No thyromegaly. Nasal packing CARDIOVASCULAR: S1 and S2 present. No murmurs, rubs, or gallops. PULMONARY: Chest is clear to auscultation, no wheezing or crackles. ABDOMEN: Soft, nontender, nondistended, normoactive bowel sounds. No palpable organomegaly. MUSCULOSKELETAL: No joint swelling or deformity. EXTREMITIES: No cyanosis, clubbing, or pedal edema. NEUROLOGICAL: Gross neurological examination did not reveal any focal deficits. SKIN: No rashes. epistaxis: Secondary to dual antiplatelet therapy further management as mentioned above -Essential hypertension, accelerated hypertension: Further management as mentioned above -Coronary artery disease -Chronic low back pain - obesity Patient Condition at Discharge: Serious Plan - Discharge Summary Discharge Rx Participant: No New Discharge Prescriptions: New amLODIPine [Norvasc] 5 mg PO BID #60 tab Cephalexin [Keflex] 500 mg PO Q8HR #6 cap Losartan [Cozaar] 50 mg PO DAILY #30 tab traMADol HCL [Ultram] 50 mg PO Q6HR PRN 2 Days #8 tab PRN Reason: Pain Hydrochlorothiazide [Hydrodiuril] 50 mg PO DAILY #30 tab Continue Vitamin B Complex 1 cap PO DAILY Ascorbic Acid [Vitamin C with Abeba Hips] 500 mg PO HS Psyllium Husk 100% [Metamucil Packet] 6 gm PO HS chlordiazePOXIDE/CLIDINIUM BR [Librax] 1 cap PO BID Multivitamins, Thera [Multivitamin (formulary)] 1 tab PO DAILY Retinavites 1 tab PO BID Terazosin HCl 1 mg PO HS@1999 Ranolazine [Ranexa] 500 mg PO BID Omeprazole Magnesium [PriLOSEC OTC] 20 mg PO DAILY Isosorbide Mononitrate ER [Imdur] 30 mg PO DAILY Latanoprost Ophth [Xalatan 0.005%] 1 drops BOTH EYES HS Atenolol [Tenormin] 25 mg PO DAILY Atorvastatin [Lipitor] 40 mg PO DAILY Discontinued ALPRAZolam [Xanax] 0.25 mg PO Q8HR PRN PRN Reason: Anxiety Clopidogrel [Plavix] 75 mg PO DAILY Aspirin 162 mg PO DAILY Meloxicam [Mobic] 15 mg PO DAILY Sulfamethox-Tmp 800-160Mg [Bactrim DS 800-160 mg] 1 tab PO BID Discharge Medication List Ascorbic Acid [Vitamin C with Abeba Hips] 500 mg PO HS 10/17/17 [History] Atenolol [Tenormin] 25 mg PO DAILY 10/17/17 [History] Isosorbide Mononitrate ER [Imdur] 30 mg PO DAILY 10/17/17 [History] Latanoprost Ophth [Xalatan 0.005%] 1 drops BOTH EYES HS 10/17/17 [History] Multivitamins, Thera [Multivitamin (formulary)] 1 tab PO DAILY 10/17/17 [History ] Omeprazole Magnesium [PriLOSEC OTC] 20 mg PO DAILY 10/17/17 [History] Psyllium Husk 100% [Metamucil Packet] 6 gm PO HS 10/17/17 [History] Ranolazine [Ranexa] 500 mg PO BID 10/17/17 [History] Retinavites 1 tab PO BID 10/17/17 [History] Terazosin HCl 1 mg PO HS@199910/17/17 [History] Vitamin B Complex 1 cap PO DAILY 10/17/17 [History] chlordiazePOXIDE/CLIDINIUM BR [Librax] 1 cap PO BID 10/17/17 [History] Atorvastatin [Lipitor] 40 mg PO DAILY 08/21/18 [History] Cephalexin [Keflex] 500 mg PO Q8HR #6 cap 08/22/18 [Rx] Losartan [Cozaar] 50 mg PO DAILY #30 tab 08/22/18 [Rx] amLODIPine [Norvasc] 5 mg PO BID #60 tab 08/22/18 [Rx] traMADol HCL [Ultram] 50 mg PO Q6HR PRN 2 Days #8 tab 08/22/18 [Rx] Hydrochlorothiazide [Hydrodiuril] 50 mg PO DAILY #30 tab 08/24/18 [Rx] Follow up Appointment(s)/Referral(s): Thomas Martinez MD [STAFF PHYSICIAN] - 08/25/18 3:45 pm Varun Wahl MD [STAFF PHYSICIAN] - 08/24/18 1:30 pm (Today. Please arrive at 1pm to fill out paperwork) Sasha,Physician [Primary Care Provider] - 08/24/18 4:15 pm (Appointment made with Dr. De Paz we recommend you check your blood test with your doctor including basic metabolic panel (BMP) in 1-2 weeks) Patient Instructions/Handouts: Nosebleed (ED), Heart Healthy Diet (DC) Activity/Diet/Wound Care/Special Instructions: Cardiac diet Activity is limited till you see your doctor Discharge recommendation we recommend you check your blood test with your doctor including basic metabolic panel (BMP) Discharge Disposition: HOME SELF-CARE
== END 2018-08-24 11:10 | disposition home or self-care (01) | DRG 151 ==
LOC: EC 23:29 → 3SCARD 08-21 01:50
PROVIDERS: ADMIT Internal Medicine; ATTEND Internal Medicine
PROC: 2Y41X5Z Packing of Nasal Region using Packing Material (ICD-10-PCS; principal; 2018-08-21)
DX: R04.0 Epistaxis (principal); E78.5 Hyperlipidemia, unspecified; G89.29 Other chronic pain; I10 Essential (primary) hypertension; I25.10 Atherosclerotic heart disease of native coronary artery without angina pectoris; I48.0 Paroxysmal atrial fibrillation; K57.30 Diverticulosis of large intestine without perforation or abscess without bleeding; Z79.01 Long term (current) use of anticoagulants; Z79.02 Long term (current) use of antithrombotics/antiplatelets; Z79.1 Long term (current) use of non-steroidal anti-inflammatories (NSAID); Z79.82 Long term (current) use of aspirin; Z79.899 Other long term (current) drug therapy; Z87.891 Personal history of nicotine dependence; Z95.1 Presence of aortocoronary bypass graft; Z79.891 Long term (current) use of opiate analgesic
CPT/HCPCS: 30901; 36415; 80053; 85025; 85027; 85610; 85730; 86850; 86900; 86901; 96365; 96375; 99285

== ENCOUNTER 2019-02-21 11:21 | Observation (INO) | payer BC, MEDICARE ==
--- NOTE | 2019-02-21 11:41 | ED ---
General Adult HPI - General Chief complaint: Chest Pain Stated complaint: chest pain Time Seen by Provider: 02/21/19 11:22 Source: patient, EMS Mode of arrival: EMS Limitations: no limitations - History of Present Illness Initial comments: Dictation was produced using [employer] dictation software. please excuse any grammatical, word or spelling errors. Chief Complaint: 73-year-old male with past medical history of coronary artery disease, bypass presents with chest pain. History of Present Illness: Patient is a 73-year-old male. He has history of coronary artery bypass grafting. He presents today with chief complaint of chest pain. Patient states he was at [employer] today when he began feeling bilateral chest pressure. He states that he also had associated nausea and vomiting. Denies any diaphoresis. Positive radiation of pain to his back or shoulders or jaw. Patient has history of cardiac disease. 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 Patient was just placed back on Ranexa. Began feeling these symptoms while at [employer]. He took a sublingual nitroglycerin that was . EMS was called and patient was given aspirin and nitroglycerin. Patient states that his symptoms improved after being given the nitroglycerin. Patient otherwise feels a symptomatic at this time. Prior to today's episode patient has otherwise been feeling at baseline. The ROS documented in this emergency department record has been reviewed and confirmed by me. Those systems with pertinent positive or negative responses have been documented in the HPI. All other systems are other negative and/or noncontributory. PHYSICAL EXAM: General Impression: Alert and oriented x3, not in acute distress HEENT: Normocephalic atraumatic, extra-ocular movements intact, pupils equal and reactive to light bilaterally, mucous membranes moist. Cardiovascular: Heart regular rate and rhythm, S1&S2 audible, no murmurs, rubs or gallops Chest: Lungs clear to auscultation bilaterally, no rhonchi, no wheeze, no rales Abdomen: Bowel sounds present, abdomen soft, non-tender, non-distended, no organomegaly Musculoskeletal: Pulses present and equal in all extremities, no peripheral edema Motor: no focal deficits noted Neurological: CN II-XII grossly intact, no focal motor or sensory deficits noted Skin: Intact with no visualized rashes Psych: Normal affect and mood ED course: 73-year-old male past medical history of coronary artery disease pres ents with chief complaint of angina. Given HPI and cardiac history is concern that patient's symptoms reflect acute coronary syndrome. EKG does not show any signs of ischemia or infarction at this time. Laboratory evaluation obtained. CBC, coag panel, metabolic panel is unremarkable. Cardiac enzymes negative. Chest x-ray is nonacute. Patient reevaluated and continues to be asymptomatic. At this point patient is high risk. Recommend patient be admitted to observation for suture troponins and cardiology consultation. Patient really had received aspirin and nitroglycerin prior to the emergency department. Patient is understandable and agreeable to disposition. EKG interpretation: Ventricular rate 57, sinus bradycardia, AL interval 28, QS 84, QTC 460. No AL prolongation, no QTC prolongation, no ST or T-wave changes noted. . Overall, this EKG is unremarkable - Related Data Home Medications Medication Instructions Recorded Confirmed Ascorbic Acid [Vitamin C with Abeba 500 mg PO HS 10/17/17 02/21/19 Hips] Atenolol [Tenormin] 25 mg PO DAILY 10/17/17 02/21/19 Isosorbide Mononitrate ER [Imdur] 30 mg PO DAILY 10/17/17 02/21/19 Latanoprost Ophth [Xalatan 0.005%] 1 drops BOTH EYES HS 10/17/17 02/21/19 Multivitamins, Thera [Multivitamin 1 tab PO DAILY 10/17/17 02/21/19 (formulary)] Psyllium Husk 100% [Metamucil 6 gm PO HS 10/17/17 02/21/19 Packet] Ranolazine [Ranexa] 500 mg PO BID 10/17/17 02/21/19 Retinavites 1 tab PO BID 10/17/17 02/21/19 Terazosin HCl 1 mg PO HS@199910/17/17 02/21/19 Vitamin B Complex 1 cap PO DAILY 10/17/17 02/21/19 chlordiazePOXIDE/CLIDINIUM BR 1 cap PO BID 10/17/17 02/21/19 [Librax] Atorvastatin [Lipitor] 40 mg PO DAILY 08/21/18 02/21/19 Ciprofloxacin HCl [Cipro] 500 mg PO BID 02/21/19 02/21/19 Hydrochlorothiazide 12.5 mg PO DAILY 02/21/19 02/21/19 Meloxicam 15 mg PO DAILY 02/21/19 02/21/19 Montelukast Sodium [Singulair] 10 mg PO HS 02/21/19 02/21/19 Omeprazole 40 mg PO BID 02/21/19 02/21/19 Timolol 0.5% Ophth Gel Forming 1 drop LEFT EYE QAM 02/21/19 02/21/19 [Timoptic-Xe 0.5% Gel Form] Previous Rx's Medication Instructions Recorded Losartan [Cozaar] 50 mg PO DAILY #30 tab 08/22/18 amLODIPine [Norvasc] 5 mg PO BID #60 tab 08/22/18 Allergies Allergy/AdvReac Type Severity Reaction Status Date / Time No Known Allergies Allergy Verified 02/21/19 11:49 Review of Systems ROS Statement: Those systems with pertinent positive or pertinent negative responses have been documented in the HPI. ROS Other: All systems not noted in ROS Statement are negative. Past Medical History Past Medical History: Coronary Artery Disease (CAD), Hyperlipidemia, Hypertension Additional Past Medical History / Comment(s): diverticulitis. History of Any Multi-Drug Resistant Organisms: None Reported Past Surgical History: Coronary Bypass/CABG, Hernia Repair Past Psychological History: No Psychological Hx Reported Smoking Status: Former smoker Past Alcohol Use History: Occasional Past Drug Use History: None Reported General Exam Limitations: no limitations Course Vital Signs 02/21/19 02/21/19 02/21/19 11:22 11:43 12:10 Temperature 97.9 F Pulse Rate 57 L 56 L Pulse Rate [ 57 L Rehabilitation Services Aide ] Respiratory 18 18 Rate Blood Pressure 129/70 122/67 O2 Sat by Pulse 98 96 Oximetry 02/21/19 13:02 Temperature Pulse Rate 55 L Pulse Rate [ Rehabilitation Services Aide ] Respiratory 18 Rate Blood Pressure 119/58 O2 Sat by Pulse 96 Oximetry Medical Decision Making - Lab Data Result diagrams: 02/21/19 11:30 02/21/19 11:30 Lab Results 02/21/19 02/21/19 02/21/19 Range/Units 11:30 11:30 11:30 WBC 5.8 (3.8-10.6) k/uL RBC 4.44 (4.30-5.90) m/uL Hgb 13.6 (13.0-17.5) gm/dL Hct 41.3 (39.0-53.0) % MCV 93.0 (80.0-100.0) fL MCH 30.7 (25.0-35.0) pg MCHC 33.0 (31.0-37.0) g/dL RDW 14.0 (11.5-15.5) % Plt Count 170 (150-450) k/uL Neutrophils % 63 % Lymphocytes % 25 % Monocytes % 8 % Eosinophils % 2 % Basophils % 0 % Neutrophils # 3.7 (1.3-7.7) k/uL Lymphocytes # 1.4 (1.0-4.8) k/uL Monocytes # 0.5 (0-1.0) k/uL Eosinophils # 0.1 (0-0.7) k/uL Basophils # 0.0 (0-0.2) k/uL PT 10.7 (9.0-12.0) sec INR 1.0 (<1.2) APTT 23.2 (22.0-30.0) sec Sodium 139 (137-145) mmol/L Potassium 4.0 (3.5-5.1) mmol/L Chloride 107 (98-107) mmol/L Carbon Dioxide 20 L (22-30) mmol/L Anion Gap 12 mmol/L BUN 15 (9-20) mg/dL Creatinine 0.75 (0.66-1.25) mg/dL Est GFR (CKD-EPI)AfAm >90 (>60 ml/min/1.73 sqM) Est GFR (CKD-EPI)NonAf >90 (>60 ml/min/1.73 sqM) Glucose 117 H (74-99) mg/dL Calcium 9.3 (8.4-10.2) mg/dL Magnesium 1.9 (1.6-2.3) mg/dL Total Bilirubin 1.0 (0.2-1.3) mg/dL AST 28 (17-59) U/L ALT 28 (21-72) U/L Alkaline Phosphatase 51 (38-126) U/L Troponin I (0.000-0.034) ng/mL Total Protein 6.3 (6.3-8.2) g/dL Albumin 4.1 (3.5-5.0) g/dL Lipase 126 (23-300) U/L 02/21/19 Range/Units 11:30 WBC (3.8-10.6) k/uL RBC (4.30-5.90) m/uL Hgb (13.0-17.5) gm/dL Hct (39.0-53.0) % MCV (80.0-100.0) fL MCH (25.0-35.0) pg MCHC (31.0-37.0) g/dL RDW (11.5-15.5) % Plt Count (150-450) k/uL Neutrophils % % Lymphocytes % % Monocytes % % Eosinophils % % Basophils % % Neutrophils # (1.3-7.7) k/uL Lymphocytes # (1.0-4.8) k/uL Monocytes # (0-1.0) k/uL Eosinophils # (0-0.7) k/uL Basophils # (0-0.2) k/uL PT (9.0-12.0) sec INR (<1.2) APTT (22.0-30.0) sec Sodium (137-145) mmol/L Potassium (3.5-5.1) mmol/L Chloride (98-107) mmol/L Carbon Dioxide (22-30) mmol/L Anion Gap mmol/L BUN (9-20) mg/dL Creatinine (0.66-1.25) mg/dL Est GFR (CKD-EPI)AfAm (>60 ml/min/1.73 sqM) Est GFR (CKD-EPI)NonAf (>60 ml/min/1.73 sqM) Glucose (74-99) mg/dL Calcium (8.4-10.2) mg/dL Magnesium (1.6-2.3) mg/dL Total Bilirubin (0.2-1.3) mg/dL AST (17-59) U/L ALT (21-72) U/L Alkaline Phosphatase (38-126) U/L Troponin I <0.012 (0.000-0.034) ng/mL Total Protein (6.3-8.2) g/dL Albumin (3.5-5.0) g/dL Lipase (23-300) U/L Disposition Clinical Impression: Chest pain Disposition: ADMITTED IP TO THIS [facility] Condition: Fair Referrals: Nonstaff,Physician [Primary Care Provider] - 1-2 days Decision Time: 13:55
[2019-02-21 12:14] LABS: Basophils % (A) 0 %; Eosinophils # (A) 0.1 k/uL (0-0.7); Eosinophils % (A) 2 %; HCT 41.3 % (39.0-53.0); HGB 13.6 gm/dL (13.0-17.5); Lymphocytes # (A) 1.4 k/uL (1.0-4.8); Lymphocytes % (A) 25 %; MCH 30.7 pg (25.0-35.0); Mean Platelet Volume 7.9; Monocytes # (A) 0.5 k/uL (0-1.0); Monocytes % (A) 8 %; Neutrophils # (A) 3.7 k/uL (1.3-7.7); Neutrophils % (A) 63 %; Platelet Count 170 k/uL (150-450); RBC 4.44 m/uL (4.30-5.90); WBC 5.8 k/uL (3.8-10.6)
[2019-02-21 12:23] LABS: Partial Thromboplastin Time 23.2 sec (22.0-30.0); Prothrombin Time 10.7 sec (9.0-12.0)
[2019-02-21 12:32] LABS: ALT 28 U/L (21-72); AST 28 U/L (17-59); Albumin 4.1 g/dL (3.5-5.0); Alkaline Phosphatase 51 U/L (38-126); Anion Gap 12 mmol/L; Blood Urea Nitrogen 15 mg/dL (9-20); Calcium 9.3 mg/dL (8.4-10.2); Carbon Dioxide 20 mmol/L (22-30); Chloride 107 mmol/L (98-107); Glucose 117 mg/dL (74-99); Lipase 126 U/L (23-300); Magnesium 1.9 mg/dL (1.6-2.3); Sodium 139 mmol/L (137-145); Total Protein 6.3 g/dL (6.3-8.2)
--- NOTE | 2019-02-21 13:07 | XR ---
EXAMINATION TYPE: XR chest 2V DATE OF EXAM: 02/21/2019 COMPARISON: NONE HISTORY: Chest pain TECHNIQUE: Frontal and lateral views of the chest are obtained. FINDINGS: Heart size is normal. Lungs are clear. There are sternal wires. There is no pleural effusi on. Bony thorax is intact. IMPRESSION: No active cardiopulmonary disease. Normal heart
[2019-02-21] MEDS ORDERED: NITROGLYCERIN SL TABS 0.4 MG TAB SUBLINGUAL PRN (13:53)
--- NOTE | 2019-02-21 14:58 | P.HPIM ---
History of Present Illness H&P Date: 02/21/19 Chief Complaint: Chest pain and shortness of breath The patient is a 73-year-old male the past medical history of essential hypertension, hyperlipidemia, coronary artery disease with stenting X2 and 2 vessel CABG in 1995 and 2010 respectively at [facility] who presents to the ER via EMS with chief complaint of chest pain. Apparently the patient began having chest discomfort on his way to [facility] while his was driving, at [facility] the patient's pain increased in intensity of 8 out of 10 described as tightness and squeezing with radiation into his upper arms with associated shortness of breath, he denied any diaphoresis, palpitations, syncope or pres yncope or lower extremity swelling. The patient took a nitro tab at [facility] which improved his discomfort and received a second dose on route here by EMS and is now chest pain-free. The patient reports last having a stress test in September of last year that was reportedly normal, recently he was discontinued off his Ranexa at the beginning of the month but was just restarted yesterday by his primary regional sales engineer. In the ER the patient had a comprehensive workup, EKG shows sinus bradycardia wi thout any suggestion of any acute ischemia, initial troponin was negative less than 0.012, chest x-ray showed no acute cardio pulmonary disease. His labs were unremarkable normal with the exception of the serum bicarb of 20 and blood sugar of 117. It is recommended for admission to rule out ACS Review of Systems Pertinent positives per HPI all other systems otherwise negative Past Medical History Past Medical History: Coronary Artery Disease (CAD), Hyperlipidemia, Hypertension Additional Past Medical History / Comment(s): diverticulitis. History of Any Multi-Drug Resistant Organisms: None Reported Past Surgical History: Coronary Bypass/CABG, Hernia Repair Past Psychological History: No Psychological Hx Reported Smoking Status: Former smoker Past Alcohol Use History: Occasional Past Drug Use History: None Reported Medications and Allergies Home Medications Medication Instructions Recorded Confirmed Type Ascorbic Acid [Vitamin C with Abeba 500 mg PO HS 10/17/17 02/21/19 History Hips] Atenolol [Tenormin] 25 mg PO DAILY 10/17/17 02/21/19 History Isosorbide Mononitrate ER [Imdur] 30 mg PO DAILY 10/17/17 02/21/19 History Latanoprost Ophth [Xalatan 0.005%] 1 drops BOTH EYES HS 10/17/17 02/21/19 History Multivitamins, Thera [Multivitamin 1 tab PO DAILY 10/17/17 02/21/19 History (formulary)] Psyllium Husk 100% [Metamucil 6 gm PO HS 10/17/17 02/21/19 History Packet] Ranolazine [Ranexa] 500 mg PO BID 10/17/17 02/21/19 History Retinavites 1 tab PO BID 10/17/17 02/21/19 History Terazosin HCl 1 mg PO HS@199910/17/17 02/21/19 History Vitamin B Complex 1 cap PO DAILY 10/17/17 02/21/19 History chlordiazePOXIDE/CLIDINIUM BR 1 cap PO BID 10/17/17 02/21/19 History [Librax] Atorvastatin [Lipitor] 40 mg PO DAILY 08/21/18 02/21/19 History Losartan [Cozaar] 50 mg PO DAILY #30 tab 08/22/18 02/21/19 Rx amLODIPine [Norvasc] 5 mg PO BID #60 tab 08/22/18 02/21/19 Rx Ciprofloxacin HCl [Cipro] 500 mg PO BID 02/21/19 02/21/19 History Hydrochlorothiazide 12.5 mg PO DAILY 02/21/19 02/21/19 History Meloxicam 15 mg PO DAILY 02/21/19 02/21/19 History Montelukast Sodium [Singulair] 10 mg PO HS 02/21/19 02/21/19 History Omeprazole 40 mg PO BID 02/21/19 02/21/19 History Timolol 0.5% Ophth Gel Forming 1 drop LEFT EYE QAM 02/21/19 02/21/19 History [Timoptic-Xe 0.5% Gel Form] Allergies Allergy/AdvReac Type Severity Reaction Status Date / Time No Known Allergies Allergy Verified 02/21/19 11:49 Physical Exam Vitals: Vital Signs Temp Pulse Pulse Resp BP Pulse Ox 02/21/19 14:36 97.8 F 57 L 18 118/60 95 02/21/19 13:02 55 L 18 119/58 96 02/21/19 12:10 56 L 18 122/67 96 02/21/19 11:43 57 L 02/21/19 11:22 97.9 F 57 L 18 129/70 98 Intake and Output 02/20/19 02/21/19 02/21/19 22:59 06:59 14:59 Other: Weight 99.79 kg Constitutional: No acute distress, conversant, pleasant Eyes: Anicteric sclerae, moist conjunctiva, no lid-lag, PERRLA ENMT: NC/AT,Oropharynx clear, no erythema, exudates Neck:Supple, FROM, no masses, or JVD, No carotid bruits; No thyromegaly Lungs: Clear to auscultation, Clear to percussion, Normal respiratory effort, no accessory muscle use Cardiovascular: Heart regular in rate and rhythm, No murmurs, gallops, or rubs no peripheral edema Abdominal: Soft Nontender, nom distended, no guarding, no rebound or rigidity, Normoactive bowel sounds No hepatomegaly, No splenomegaly, No palpable mass No abdominal wall hernia noted Skin: Normal temperature, tone, texture, turgor, No induration No subcutaneous nodules, No rash, lesions, No ulcers Extremities:No digital cyanosis No clubbing, Pedal pulses intact and symmetrical Radial pulses intact and symmetrical Normal gait and station, No calf tenderness Psychiatric: Alert and oriented to person, place and time, Appropriate affect Intact judgement Neuro: Muscles Strength 5/5 in all 4 extremities, Sensation to light touch grossly present throughout, Cranial nerves II-XII grossly intact. No focal sensory deficits Results CBC & Chem 7: 02/21/19 11:30 02/21/19 11:30 Labs: Abnormal Lab Results - Last 24 Hours (Table) 02/21/19 Range/Units 11:30 Carbon Dioxide 20 L (22-30) mmol/L Glucose 117 H (74-99) mg/dL Assessment and Plan (1) Chest pain Current Visit: Yes Status: Acute Code(s): R07.9 - CHEST PAIN, UNSPECIFIED SNOMED Code(s): 35749769 (2) Coronary artery disease Current Visit: Yes Status: Acute Code(s): I25.10 - ATHSCL HEART DISEASE OF [place] CORONARY ARTERY W/O ANG PCTRS SNOMED Code(s): 21813319 (3) History of two vessel coronary artery bypass graft Current Visit: Yes Status: Acute Code(s): Z95.1 - PRESENCE OF AORTOCORONARY BYPASS GRAFT SNOMED Code(s): 131395612 (4) Essential hypertension Current Visit: Yes Status: Acute Code(s): I10 - ESSENTIAL (PRIMARY) HYPERTENSION SNOMED Code(s): 49888232 (5) Hyperlipidemia Current Visit: Yes Status: Acute Code(s): E78.5 - HYPERLIPIDEMIA, UNSPECIFIED SNOMED Code(s): 07261349 Plan: Patient is patient observation anticipate a less than 2 midnight stay after presenting with chest pain with history of coronary disease with stenting and previous CABG with ongoing cardiac risk factors, patient is currently chest pain-free is hemodynamically stable with some slight bradycardia. Initial workup with troponins and EKG is negative for any suggestion of his acute is chemia, we'll continue to trend troponins, continue routine chest pain orders continue antiplatelet therapy with aspirin, continue statin therapy with Lipitor, continue beta rosalba with atenolol. We'll plan to consult cardiology for further recommendations and continue to follow his clinical course. CODE STATUS: Full code Discussed plan of care with the patient Anticipated discharge : 1-2 days Prophylaxis: PPI therapy/ SCDs and heparin Time with Patient: Greater than 30
[2019-02-21] MEDS: HEPARIN SODIUM,PORCINE 5,000 UNIT/ML 1 ML VIAL SQ SCH (15:38)
[2019-02-21] MEDS: PANTOPRAZOLE 40 MG TABLET PO SCH (15:38)
[2019-02-21] MEDS ORDERED: DOXAZOSIN 1 MG TAB PO SCH (20:00)
[2019-02-21] MEDS ORDERED: LATANOPROST 0.005% OPHTH DROPS 2.5 ML BTL BOTH EYES SCH (21:00)
[2019-02-21] MEDS ORDERED: ASCORBIC ACID 500 MG TAB PO SCH (21:00)
[2019-02-21] MEDS ORDERED: MONTELUKAST 10 MG TAB PO SCH (21:00)
[2019-02-21] MEDS ORDERED: PSYLLIUM HUSK 100% 6 GM PACKET PO SCH (21:00)
[2019-02-21 21:55] LABS: Cholesterol 145 mg/dL (<200); HDL Cholesterol 53 mg/dL (40-60); LDL Cholesterol,Calculated 70 mg/dL (0-99); Triglycerides 111 mg/dL (<150)
[2019-02-21] MEDS: FOLIC ACID-VIT B COMPLEX-VIT C 1 CAP PO SCH (22:00)
[2019-02-21] MEDS: CLIDINIUM-chlordiazePOXIDE (2.5-5 MG) CAP PO SCH ×2 (22:00→22:01)
[2019-02-21] MEDS: CIPROFLOXACIN HCL 500 MG TAB PO SCH (22:01)
[2019-02-21] MEDS: RANOLAZINE 500 MG TAB.ER.12H PO SCH (22:01)
[2019-02-21] MEDS: amLODIPine 5 MG TAB PO SCH (22:01)
[2019-02-22] MEDS: PANTOPRAZOLE 40 MG TABLET PO SCH (06:50)
[2019-02-22 08:54] VITALS: BP 138/65; PULSE 63; RESP 18; TEMP 96.9
[2019-02-22] MEDS ORDERED: LOSARTAN 50 MG TAB PO SCH (09:00)
[2019-02-22] MEDS ORDERED: ATORVASTATIN 40 MG TAB PO SCH (09:00)
[2019-02-22] MEDS ORDERED: MELOXICAM 7.5 MG TAB PO SCH (09:00)
[2019-02-22] MEDS ORDERED: ASPIRIN 325 MG TAB PO SCH (09:00)
[2019-02-22] MEDS ORDERED: ISOSORBIDE MONONITRATE ER 30 MG TAB.ER.24H PO SCH (09:00)
[2019-02-22] MEDS ORDERED: HYDROCHLOROTHIAZIDE 12.5 MG CAP PO SCH (09:00)
[2019-02-22] MEDS ORDERED: ATENOLOL 25 MG TAB PO SCH (09:00)
[2019-02-22] MEDS ORDERED: TIMOLOL 0.5% OPHTH DROPS 5 ML BTL LEFT EYE SCH (09:00)
[2019-02-22] MEDS ORDERED: Vitamin B Complex [Vitamin B Complex] 1 CAP PO SCH (09:00)
[2019-02-22] MEDS: CIPROFLOXACIN HCL 500 MG TAB PO SCH (09:02)
[2019-02-22] MEDS: RANOLAZINE 500 MG TAB.ER.12H PO SCH (09:03)
[2019-02-22] MEDS: amLODIPine 5 MG TAB PO SCH (09:03)
[2019-02-22] MEDS: HEPARIN SODIUM,PORCINE 5,000 UNIT/ML 1 ML VIAL SQ SCH (09:04)
[2019-02-22] MEDS: FOLIC ACID-VIT B COMPLEX-VIT C 1 CAP PO SCH (09:07)
--- NOTE | 2019-02-22 10:21 | CONS ---
CONSULTATION CHIEF COMPLAINT: Chest pain. Mr. Kimball is a 73-year-old gentleman with history of coronary artery disease, status post CABG in 2010, who follows with a operational review sergeant at [place], was at [employer] yesterday, had an episode of chest pain. He ran out of his Ranexa recently and his nitroglycerin was old. He was thinking of going home and taking a nitroglycerin. There was some the soap drier operator at the [employer] that brought him to hospital. He remained ray chest pain-free since coming to the hospital. At the time of my evaluation, he is pain- free and hemodynamically stable and in no apparent distress. He has had 3 sets of troponins that are all within normal limits. Had an EKG that shows sinus bradycardia with evidence of prior inferior wall myocardial infarction. PAST MEDICAL HISTORY: Past medical history is significant for coronary artery disease, status post CABG, hypertension, dyslipidemia. MEDICATIONS: Medications at home included Tenormin 25 q. daily, Lipitor 40 q. daily, hydrochlorothiazide, Imdur, Cozaar, aspirin, meloxicam, Librax, Singulair, terazosin, and Ranexa. ALLERGIES: There are no known drug allergies. FAMILY HISTORY: Family history is negative for premature coronary artery disease. SOCIAL HISTORY: Social history is negative for current smoking, EtOH abuse or drug abuse. REVIEW OF SYSTEMS: HEENT is unremarkable. CARDIAC: As described above. RESPIRATORY: Negative. GI: Negative. GENITOURINARY: Negative. ALLERGY/IMMUNOLOGY: Negative. SKIN: Negative. MUSCULOSKELETAL: Significant for arthritis. PSYCHOSOCIAL: Negative. ENDOCRINE: Negative. HEMATOLOGICAL: Negative. DERM: Negative. CONSTITUTIONAL: Negative. ONCOLOGICAL: Negative. Rest of the system review is not relevant. PHYSICAL EXAMINATION: On exam, patient is comfortable at rest. Vital signs are stable. There is no jugular venous distention. Carotid upstroke is normal. There is no bruit. Chest exam reveals good air entry bilaterally. Heart exam reveals first and second heart sounds. No gallop. No murmur. No rub. Abdomen is soft, nontender. Examination of extremities did not reveal any edema. Peripheral pulses are felt. LABS: Labs show that 3 sets of troponins are negative. LDL is 70. EKG does not reveal acute ischemic changes. ASSESSMENT: Precordial chest pain probably related to angina. Patient is currently chest pain free. I advised him to undergo cardiac catheterization for further evaluation. Understanding risks and benefits, he does not want to have any testing done here. He wishes to manage medically to go home and follow up with his own operational review sergeant. I emphasized the importance of taking his Ranexa on a regular basis along with the nitrates. The patient should also get a sublingual nitroglycerin prescription as he goes home. Thank you for allowing us to participate in this pleasant gentleman. VANDANA / CELINA: [phone] /
[2019-02-22] MEDS ORDERED: MULTIVITAMINS, THERA 1 EACH TAB PO SCH (12:00)
--- NOTE | 2019-02-22 12:28 | ECHOF ---
Referral Reason:chest pain MEASUREMENTS -------- HEIGHT: 172.7 cm WEIGHT: 93.4 kg BP: 134/72 RVIDd: 2.4 cm (< 3.3) IVSd: 1.3 cm (0.6 - 1.1) LVIDd: 4.3 cm (3.9 - 5.3) LVPWd: 1.3 cm (0.6 - 1.1) IVSs: 1.3 cm LVIDs: 3.8 cm LVPWs: 1.2 cm LA Diam: 3.4 cm (2.7 - 3.8) LAESV Index (A-L): 23.84 ml/m Ao Diam: 3.2 cm (2.0 - 3.7) AV Cusp: 1.7 cm (1.5 - 2.6) MV EXCURSION: 21.171 mm (> 18.000) MV EF SLOPE: 88 mm/s (70 - 150) EPSS: 0.5 cm MV E Reyes: 0.53 m/s MV DecT: 291 ms MV A Reyes: 0.68 m/s MV E/A Ratio: 0.77 RAP: 5.00 mmHg RVSP: 27.65 mmHg FINDINGS -------- Sinus rhythm. This was a technically adequate study. The left ventricular size is normal. There is mild concentric left ventricular hypertrophy. Overa ll left ventricular systolic function is normal with, an EF between 55 - 60 %. The right ventricle is normal in size. The left atrial size is normal. The right atrial size is normal. Interatrial and interventricular septum intact. The aortic valve is trileaflet, and appears structurally normal. No aortic stenosis or regurgitation. Mild mitral annular calcification present. Mild mitral regurgitation is present. Mild tricuspid regurgitation present. There is no evidence of pulmonary hypertension. The right v entricular systolic pressure, as measured by Doppler, is 27.65mmHg. There is no pulmonic regurgitation present. The aortic root size is normal. Normal inferior vena cava with normal inspiratory collapse consistent with estimated right atrial pre ssure of 5 mmHg. There is no pericardial effusion. CONCLUSIONS -------- 1. The left ventricular size is normal. 2. There is mild concentric left ventricular hypertrophy. 3. Overall left ventricular systolic function is normal with, an EF between 55 - 60 %. 4. The right ventricle is normal in size. 5. The left atrial size is normal. 6. The right atrial size is normal. 7. Interatrial and interventricular septum intact. 8. The aortic valve is trileaflet, and appears structurally normal. No aortic stenosis or regurgitati on. 9. Mild mitral annular calcification present. 10. Mild mitral regurgitation is present. 11. Mild tricuspid regurgitation present. 12. There is no evidence of pulmonary hypertension. 13. The right ventricular systolic pressure, as measured by Doppler, is 27.65mmHg. 14. There is no pulmonic regurgitation present. 15. The aortic root size is normal. 16. Normal inferior vena cava with normal inspiratory collapse consistent with estimated right atrial pressure of 5 mmHg. 17. There is no pericardial effusion. SUPERVISOR BU[employer]ING [employer]STING: Dianne Ernandez RDCS
== END 2019-02-22 12:32 | disposition home or self-care (01) ==
LOC: EC 11:21 → 1SOBS 13:53 → 3SCARD 14:35
PROVIDERS: ADMIT Family Medicine; ATTEND Family Medicine
DX: R07.2 Precordial pain (principal); I25.10 Atherosclerotic heart disease of native coronary artery without angina pectoris; R00.1 Bradycardia, unspecified; I10 Essential (primary) hypertension; E78.5 Hyperlipidemia, unspecified; R06.02 Shortness of breath; Z95.1 Presence of aortocoronary bypass graft; Z79.82 Long term (current) use of aspirin; Z79.899 Other long term (current) drug therapy; Z87.891 Personal history of nicotine dependence; Z98.890 Other specified postprocedural states
CPT/HCPCS: 96372 ×2; 99285; 36415; 94760; 93005; 93306; 80061; 80053; 83690; 83735; 84484 ×2; 85025; 85610; 85730; 71046; G0378 ×3; J1644 ×2

== ENCOUNTER → 2019-03-12 | Outpatient (CLI) | payer BC, MEDICARE ==
[2019-03-12 11:18] LABS: Blood Urea Nitrogen 16 mg/dL (9-20)
--- NOTE | 2019-03-12 12:42 | CT ---
EXAMINATION TYPE: CT abdomen pelvis wo/w con DATE OF EXAM: 03/12/2019 COMPARISON: CT abdomen pelvis October 17, 2017 HISTORY: Lower abdominal pain CT DLP: 2395 mGycm, Automated Exposure Control for Dose Reduction was Utilized. CONTRAST: CT scan of the abdomen and pelvis is performed with oral and without and with IV Contrast, patient in jected with 100 ml mL of Isovue 300. FINDINGS: LUNG BASES: No significant abnormality is appreciated. LIVER/GB: Simple appearing 2.1 cm thin-walled cyst right hepatic lobe axial image 32 is present. PANCREAS: No significant abnormality is seen. SPLEEN: No significant abnormality is seen. ADRENALS: No significant abnormality is seen. KIDNEYS: There are roughly 4 calculi scattered throughout the right kidney with largest calculus javid uring up to 3 mm in size lower pole level coronal image 72. There are similar for calculi scattered t hroughout the left kidney measuring up to 3 mm in size, largest stone is seen coronal image 84 upper pole level. 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 No intraluminal calcul us and bladder is present. Mild distention of bladder is noted. BOWEL: Oral contrast extends to level of splenic flexure. There is no suspicious small or large bowel dilatation. There are diverticula in the left and sigmoid colon. There is no CT evidence for acute d iverticulitis. PROSTATE/SEMINAL VESICLES: No gross abnormality seen. LYMPH NODES: No greater than 1cm abdominal or pelvic lymph nodes are appreciated. OSSEOUS STRUCTURES: Moderate multilevel spurring in the thoracic spine is present mild to moderate di sc space narrowing L5-S1 level is seen. There is facet arthropathy in the lower lumbar spine there is moderate narrowing and spurring in both hip joints. OTHER: There is moderate calcified plaque of aorta extending into iliac branch vessels. IMPRESSION: There are small renal calculi redemonstrated bilaterally. No hydronephrosis or obstructin g ureter calculi are clearly seen bilaterally on current study. 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 No suspicious acute finding is seen to account for patient's symptoms . Distal colonic diverticulosis without CT evidence for acute diverticulitis.
== END | disposition home or self-care (01) ==
LOC: RADCTMAIN 10:28
PROVIDERS: ATTEND Internal Medicine Gastroenterology
DX: N20.0 Calculus of kidney (principal); Q63.8 Other specified congenital malformations of kidney; K57.30 Diverticulosis of large intestine without perforation or abscess without bleeding
CPT/HCPCS: 82565; 84520; 74178; 36415; Q9967

== ENCOUNTER 2020-10-11 14:46 | Inpatient (IN) | payer BC, MEDICARE ==
[2020-10-11] MEDS ORDERED: DEXAMETHASONE SOD PHOSPHATE 10 MG/ML 1 ML VIAL IV STA (15:25)
--- NOTE | 2020-10-11 15:28 | ED ---
General Adult HPI - General Chief complaint: Shortness of Breath Stated complaint: SOB,Poss Pneumonia Time Seen by Provider: 10/11/20 14:57 Source: patient Mode of arrival: wheelchair Limitations: no limitations - History of Present Illness Initial comments: Dictation was produced using [employer] dictation software. please excuse any grammatical, word or spelling errors. This patient was cared for during a federal and state declared state of emerg ency secondary to Covid 19 Chief Complaint: 75-year-old male with past medical history of coronary artery disease, disability of hypertension, CABG presents today with dyspnea History of Present Illness: 75-year-old male with past medical history of cardiac comorbidities presents to emergency department today for persistent dyspnea. Patient states that he's been sick for approximately one week. He had symptoms of fever, shortness of breath and nonproductive cough. Patient was tested for coronavirus and with a negative result. Call his primary care physician today told him to come to the emergency department. Patient states that his symptoms aren't improving. He states that he is short of breath and coughing and can't get comfortable to rest at night. Patient states he has not had any fever since 2 days ago. He does have worsening cough and dyspnea. Denies any lower extremity symptoms. No pitting edema. Denies any pain complaints. Denies any loss of taste or smell. Patient denies any exposure to anybody with coronavirus or URI-type symptoms. The ROS documented in this emergency department record has been reviewed and confirmed by me. Those systems with pertinent positive or negative responses have been documented in the HPI. All other systems are other negative and/or noncontributory. PHYSICAL EXAM: General Impression: Alert and oriented x3, not in acute distress HEENT: Normocephalic atraumatic, extra-ocular movements intact, pupils equal and reactive to light bilaterally, mucous membranes moist. Cardiovascular: Heart regular rate and rhythm Chest: Able to complete full sentences, no retractions, no tachypnea Abdomen: abdomen soft, non-tender, non-distended, no organomegaly Musculoskeletal: Pulses present and equal in all extremities, no peripheral edema Motor: no focal deficits noted Neurological: CN II-XII grossly intact, no focal motor or sensory deficits noted Skin: Intact with no visualized rashes Psych: Normal affect and mood ED course: 75-year-old male presents with persistent URI type symptoms. Signs upon arrival are within acceptable limits. Clinical presentation strongly suspicious for Covid 19 despite reported negative test. Vital signs upon arrival shows a 6% on room air, worse vital signs within acceptable limits. Patient's oxygen was turned off and patient's hypoxia was measured at 83%. Laboratory evaluation obtained. CBC is unremarkable. There is 0.2 lymphocytes any appear coag panel is negative. D-dimer 0.3. Metabolic panel shows some 129 CRP is 36.5, LDH 855. Chronic virus PCR is negative. Chest x-ray shows diffuse scattered bilateral infiltrates compatible with atypical pneumonia. There is c oncern for bacterial pneumonia. Patient given azithromycin and ceftriaxone. Patient reevaluated after being on high flow nasal cannula for several minutes and found to be in stable medical condition. Patient be admitted. Case discussed Dr. torres, he is willing to accept patients care patient's care. Pulmonology will be consulted. EKG interpretation: Ventricular rate 61, sinus rhythm,. Interval 200, QRS 80, QTC 42. No WI prolongation, no QTC prolongation, no ST or T-wave changes noted. EKG compared to February 21 2019 showing no changes. Overall, this EKG is unremarkable - Related Data Home Medications Medication Instructions Recorded Confirmed Ascorbic Acid [Vitamin C with Abeba 500 mg PO HS 10/17/17 10/11/20 Hips] Isosorbide Mononitrate ER [Imdur] 30 mg PO DAILY 10/17/17 10/11/20 Latanoprost Ophth [Xalatan 0.005%] 1 drops BOTH EYES HS 10/17/17 10/11/20 Multivitamins, Thera [Multivitamin 1 tab PO DAILY 10/17/17 10/11/20 (formulary)] Psyllium Husk 100% [Metamucil 6 gm PO HS 10/17/17 10/11/20 Packet] Ranolazine [Ranexa] 500 mg PO BID 10/17/17 10/11/20 Retinavites 1 tab PO BID 10/17/17 10/11/20 Terazosin HCl 1 mg PO HS@199910/17/17 10/11/20 Vitamin B Complex 1 cap PO DAILY 10/17/17 10/11/20 atenoloL [Tenormin] 25 mg PO DAILY 10/17/17 10/11/20 chlordiazePOXIDE/CLIDINIUM BR 1 cap PO BID 10/17/17 10/11/20 [Librax] Hydrochlorothiazide 12.5 mg PO DAILY 02/21/19 10/11/20 [hydroCHLOROthiazide] Meloxicam 15 mg PO DAILY 02/21/19 10/11/20 Montelukast Sodium [Singulair] 10 mg PO HS PRN 02/21/19 10/11/20 Omeprazole 40 mg PO DAILY 02/21/19 10/11/20 Timolol 0.5% Ophth Gel Forming 1 drop BOTH EYES QAM 02/21/19 10/11/20 [Timoptic-Xe 0.5% Gel Form] ALPRAZolam [Xanax] 0.25 mg PO BID PRN 10/11/20 10/11/20 Aspirin EC [Ecotrin Low Dose] 81 mg PO DAILY 10/11/20 10/11/20 Atorvastatin [Lipitor] 20 mg PO HS 10/11/20 10/11/20 Moxifloxacin HCl [Avelox] 400 mg PO DAILY 10/11/20 10/11/20 Nitroglycerin Sl Tabs [Nitrostat] 0.4 mg SUBLINGUAL Q5M PRN 10/11/20 10/11/20 amLODIPine [Norvasc] 5 mg PO DAILY 10/11/20 10/11/20 predniSONE 10 mg PO TID 10/11/20 10/11/20 traMADol HCL 50 mg PO DAILY PRN 10/11/20 10/11/20 Previous Rx's Medication Instructions Recorded Losartan [Cozaar] 50 mg PO DAILY #30 tab 08/22/18 Allergies Allergy/AdvReac Type Severity Reaction Status Date / Time No Known Allergies Allergy Verified 10/11/20 16:31 Review of Systems ROS Statement: Those systems with pertinent positive or pertinent negative responses have been documented in the HPI. ROS Other: All systems not noted in ROS Statement are negative. Past Medical History Past Medical History: Coronary Artery Disease (CAD), Hyperlipidemia, Hypertension Additional Past Medical History / Comment(s): diverticulitis. History of Any Multi-Drug Resistant Organisms: None Reported Past Surgical History: Coronary Bypass/CABG, Hernia Repair Additional Past Surgical History / Comment(s): stents x 6 Past Anesthesia/Blood Transfusion Reactions: No Reported Reaction Date of Last Stent Placement:: 1997 Past Psychological History: No Psychological Hx Reported Smoking Status: Never smoker Past Alcohol Use History: Occasional Past Drug Use History: None Reported - Past Family History Father Family Medical History: Coronary Artery Disease (CAD) Sister(s) Family Medical History: Coronary Artery Disease (CAD) General Exam Limitations: no limitations Course Vital Signs 10/11/20 10/11/20 10/11/20 14:49 15:39 16:50 Temperature 97.8 F Pulse Rate 72 58 L Respiratory 18 22 26 H Rate Blood Pressure 110/75 104/67 O2 Sat by Pulse 92 L Oximetry Medical Decision Making - Lab Data Result diagrams: 10/11/20 15:30 10/11/20 15:30 Lab Results 10/11/20 10/11/20 10/11/20 Range/Units 15:30 15:30 15:30 WBC 5.1 (3.8-10.6) k/uL RBC 4.48 (4.30-5.90) m/uL Hgb 14.6 (13.0-17.5) gm/dL Hct 41.0 (39.0-53.0) % MCV 91.4 (80.0-100.0) fL MCH 32.5 (25.0-35.0) pg MCHC 35.5 (31.0-37.0) g/dL RDW 12.0 (11.5-15.5) % Plt Count 179 (150-450) k/uL MPV 7.5 Neutrophils % 85 % Lymphocytes % 5 % Monocytes % 7 % Eosinophils % 0 % Basophils % 2 % Neutrophils # 4.4 (1.3-7.7) k/uL Lymphocytes # 0.2 L (1.0-4.8) k/uL Monocytes # 0.4 (0-1.0) k/uL Eosinophils # 0.0 (0-0.7) k/uL Basophils # 0.1 (0-0.2) k/uL PT 10.7 (9.0-12.0) sec INR 1.0 (<1.2) APTT 28.0 (22.0-30.0) sec D-Dimer 0.30 (<0.60) mg/L FEU Sodium (137-145) mmol/L Potassium (3.5-5.1) mmol/L Chloride (98-107) mmol/L Carbon Dioxide (22-30) mmol/L Anion Gap mmol/L BUN (9-20) mg/dL Creatinine (0.66-1.25) mg/dL Est GFR (CKD-EPI)AfAm (>60 ml/min/1.73 sqM) Est GFR (CKD-EPI)NonAf (>60 ml/min/1.73 sqM) Glucose (74-99) mg/dL Plasma Lactic Acid Ralph (0.7-2.0) mmol/L Calcium (8.4-10.2) mg/dL Magnesium (1.6-2.3) mg/dL Total Bilirubin (0.2-1.3) mg/dL AST (17-59) U/L ALT (4-49) U/L Alkaline Phosphatase (38-126) U/L Lactate Dehydrogenase (313-618) U/L C-Reactive Protein (<10.0) mg/L NT-Pro-B Natriuret Pep pg/mL Total Protein (6.3-8.2) g/dL Albumin (3.5-5.0) g/dL Coronavirus (PCR) Not Detected (Not Detectd) 10/11/20 10/11/20 10/11/20 Range/Units 15:30 15:30 15:30 WBC (3.8-10.6) k/uL RBC (4.30-5.90) m/uL Hgb (13.0-17.5) gm/dL Hct (39.0-53.0) % MCV (80.0-100.0) fL MCH (25.0-35.0) pg MCHC (31.0-37.0) g/dL RDW (11.5-15.5) % Plt Count (150-450) k/uL MPV Neutrophils % % Lymphocytes % % Monocytes % % Eosinophils % % Basophils % % Neutrophils # (1.3-7.7) k/uL Lymphocytes # (1.0-4.8) k/uL Monocytes # (0-1.0) k/uL Eosinophils # (0-0.7) k/uL Basophils # (0-0.2) k/uL PT (9.0-12.0) sec INR (<1.2) APTT (22.0-30.0) sec D-Dimer (<0.60) mg/L FEU Sodium 129 L (137-145) mmol/L Potassium 4.4 (3.5-5.1) mmol/L Chloride 97 L (98-107) mmol/L Carbon Dioxide 23 (22-30) mmol/L Anion Gap 9 mmol/L BUN 26 H (9-20) mg/dL Creatinine 1.15 (0.66-1.25) mg/dL Est GFR (CKD-EPI)AfAm 72 (>60 ml/min/1.73 sqM) Est GFR (CKD-EPI)NonAf 62 (>60 ml/min/1.73 sqM) Glucose 125 H (74-99) mg/dL Plasma Lactic Acid Ralph 1.5 (0.7-2.0) mmol/L Calcium 8.4 (8.4-10.2) mg/dL Magnesium 2.6 H (1.6-2.3) mg/dL Total Bilirubin 0.6 (0.2-1.3) mg/dL AST 70 H (17-59) U/L ALT 49 (4-49) U/L Alkaline Phosphatase 47 (38-126) U/L Lactate Dehydrogenase 855 H (313-618) U/L C-Reactive Protein 36.5 H (<10.0) mg/L NT-Pro-B Natriuret Pep 512 pg/mL Total Protein 6.4 (6.3-8.2) g/dL Albumin 3.7 (3.5-5.0) g/dL Coronavirus (PCR) (Not Detectd) Disposition Clinical Impression: Chronic respiratory failure with hypoxia Disposition: ADMITTED IP TO THIS HOSP Condition: Fair Referrals: Nonstaff,Physician [Primary Care Provider] - 1-2 days Decision Time: 17:29
[2020-10-11 16:03] LABS: Basophils # (A) 0.1 k/uL (0-0.2); Basophils % (A) 2 %; Eosinophils % (A) 0 %; HGB 14.6 gm/dL (13.0-17.5); Lymphocytes # (A) 0.2 k/uL (1.0-4.8); Lymphocytes % (A) 5 %; MCH 32.5 pg (25.0-35.0); MCHC 35.5 g/dL (31.0-37.0); MCV 91.4 fL (80.0-100.0); Mean Platelet Volume 7.5; Monocytes # (A) 0.4 k/uL (0-1.0); Monocytes % (A) 7 %; Neutrophils # (A) 4.4 k/uL (1.3-7.7); Neutrophils % (A) 85 %; Platelet Count 179 k/uL (150-450); RBC 4.48 m/uL (4.30-5.90); WBC 5.1 k/uL (3.8-10.6)
[2020-10-11 16:17] LABS: D-Dimer 0.3 mg/L FEU (<0.60); Prothrombin Time 10.7 sec (9.0-12.0)
[2020-10-11 16:26] LABS: Albumin 3.7 g/dL (3.5-5.0); C Reactive Protein 36.5 mg/L (<10.0); Calcium 8.4 mg/dL (8.4-10.2); Magnesium 2.6 mg/dL (1.6-2.3); Potassium 4.4 mmol/L (3.5-5.1); Total Bilirubin 0.6 mg/dL (0.2-1.3); Total Protein 6.4 g/dL (6.3-8.2)
--- NOTE | 2020-10-11 16:33 | XR ---
EXAMINATION TYPE: XR chest 1V portable DATE OF EXAM: 10/11/2020 COMPARISON: 02/21/2019 INDICATION: Suspected Covid, cough, short of breath TECHNIQUE: Single frontal view of the chest is obtained. FINDINGS: The heart size is normal. The pulmonary vasculature is normal. Diffuse increased lung markings are present greater in the left lower lobe. Findings are nonspecific and can be compatible with atypical pneumonia IMPRESSION: 1. Diffuse scattered bilateral infiltrates can be compatible with atypical pneumonia.
[2020-10-11] MEDS ORDERED: NALOXONE 0.4 MG/ML 1 ML VIAL IV PRN (17:14)
[2020-10-11] MEDS ORDERED: AZITHROMYCIN 500 MG in SODIUM CHLORIDE 0.9% 250 ML IVPB STA (17:25)
[2020-10-11] MEDS ORDERED: cefTRIAXone IN SWFI 1,000 MG/10 ML SYRINGE IVP STA (17:25)
[2020-10-11] MEDS: SODIUM CHLORIDE 0.9% 1,000 ML IV SCH (17:44)
[2020-10-11] MEDS ORDERED: MONTELUKAST 10 MG TAB PO PRN (18:57)
[2020-10-11] MEDS ORDERED: NITROGLYCERIN SL TABS 0.4 MG TAB SUBLINGUAL PRN (18:57)
[2020-10-11] MEDS: ALBUTEROL HFA INHALER INHALATION SCH (20:50)
[2020-10-11] MEDS: ASCORBIC ACID 500 MG TAB PO SCH (21:39)
[2020-10-11] MEDS: ATORVASTATIN 20 MG TAB PO SCH (21:40)
[2020-10-11] MEDS: LATANOPROST 0.005% OPHTH DROPS 2.5 ML BTL BOTH EYES SCH (21:40)
[2020-10-11] MEDS: RANOLAZINE 500 MG TAB.ER.12H PO SCH (21:40)
[2020-10-11] MEDS: CLIDINIUM-chlordiazePOXIDE (2.5-5 MG) CAP PO SCH (21:41)
[2020-10-11] MEDS: predniSONE 10 MG TAB PO SCH (21:42)
[2020-10-12 04:38] LABS: Ferritin 468.7 ng/mL (22.0-322.0)
[2020-10-12] MEDS: PANTOPRAZOLE 40 MG TABLET PO SCH (06:57)
[2020-10-12] MEDS: RANOLAZINE 500 MG TAB.ER.12H PO SCH ×2 (08:23→22:50)
[2020-10-12] MEDS: LOSARTAN 50 MG TAB PO SCH (08:23)
[2020-10-12] MEDS: atenoloL 25 MG TAB PO SCH (08:23)
[2020-10-12] MEDS: ISOSORBIDE MONONITRATE ER 30 MG TAB.ER.24H PO SCH (08:23)
[2020-10-12] MEDS: CLIDINIUM-chlordiazePOXIDE (2.5-5 MG) CAP PO SCH ×2 (08:23→22:50)
[2020-10-12] MEDS: ASPIRIN 81 MG PO SCH (08:23)
[2020-10-12] MEDS: predniSONE 10 MG TAB PO SCH (08:23)
[2020-10-12] MEDS: ENOXAPARIN 40 MG/0.4 ML SYRINGE SQ SCH (08:23)
[2020-10-12 08:35] LABS: Basophils % (A) 1 %; Eosinophils % (A) 0 %; HCT 41.1 % (39.0-53.0); Lymphocytes # (A) 0.3 k/uL (1.0-4.8); Lymphocytes % (A) 5 %; MCV 93.9 fL (80.0-100.0); Monocytes # (A) 0.2 k/uL (0-1.0); Monocytes % (A) 4 %; Neutrophils # (A) 5.1 k/uL (1.3-7.7); Neutrophils % (A) 90 %; Platelet Count 179 k/uL (150-450); RBC 4.38 m/uL (4.30-5.90); WBC 5.7 k/uL (3.8-10.6)
[2020-10-12] MEDS: ALBUTEROL HFA INHALER INHALATION SCH ×4 (08:38→20:43)
[2020-10-12 08:46] LABS: C Reactive Protein 23.5 mg/L (<10.0); Calcium 8.4 mg/dL (8.4-10.2); Potassium 4.7 mmol/L (3.5-5.1)
[2020-10-12] MEDS ORDERED: hydroCHLOROthiazide 12.5 MG CAP PO SCH (09:00)
[2020-10-12] MEDS ORDERED: RX INFO: IV CONTRAST WAS GIVEN 1 EACH MISC MISCELLANE PRN (10:18)
--- NOTE | 2020-10-12 10:22 | P.CNPUL ---
History of Present Illness Consult date: 10/12/20 Reason for consult: pneumonia History of present illness: 75-year-old patient, known history of coronary artery disease hypertension and previous bypass surgery, came into the emergency department feeling sick for almost a week. He had fever and shortness of breath and cough. He had tested COVID 19 and the results came back negative. Because of his worsening condition, he was told them to come to the ED by his PCP. He was not improving. He stated that he was getting progressively more short of breath. He started off by having symptoms of URI. Denies having any loss in the taste or smell. Denies having any chest pain. He was alert and oriented 3. In the emergency department, the patient was found to be hypoxic and the patient is currently on 15 L about 2 by nasal cannula. She is chest x-ray showed bilateral interstitial pulmonary infiltrates worse in the left lower lobe. The patient had some lymphopenia on his blood work with a d-dimer of 0.3. CRP was 36.5. LDH was 855 and a repeat coronavirus Covid 19 testing was done that came back negative by PCR. She is on level is at 0.08. Review of Systems Constitutional: Reports weakness Eyes: denies as per HPI, denies blurred vision, denies bulging eye, denies decreased vision, denies diplopia, denies discharge, denies dry eye, denies irritation, denies itching, denies pain, denies photophobia, denies loss of peripheral vision, denies loss of vision, denies tunnel vision/blind spots Ears: deny: decreased hearing, ear discharge, earache, tinnitus Ears, nose, mouth and throat: Reports ant. neck pain Cardiovascular: Reports shortness of breath Respiratory: Reports cough, Reports dyspnea Gastrointestinal: Reports as per HPI Genitourinary: Reports as per HPI Musculoskeletal: Reports as per HPI Musculoskeletal: absent: ankle pain, ankle stiffness, ankle swelling Integumentary: Reports as per HPI Neurological: Reports as per HPI Psychiatric: Reports as per HPI Endocrine: Reports as per HPI, Reports fatigue Hematologic/Lymphatic: Reports as per HPI Allergic/Immunologic: Reports as per HPI Past Medical History Past Medical History: Coronary Artery Disease (CAD), Hyperlipidemia, Hypertension Additional Past Medical History / Comment(s): diverticulosis/diverticulitis. History of Any Multi-Drug Resistant Organisms: None Reported Past Surgical History: Coronary Bypass/CABG, Hernia Repair Additional Past Surgical History / Comment(s): stents x 6 Past Anesthesia/Blood Transfusion Reactions: No Reported Reaction Date of Last Stent Placement:: 1997 Past Psychological History: No Psychological Hx Reported Smoking Status: Former smoker Past Alcohol Use History: Occasional Past Drug Use History: None Reported - Past Family History Father Family Medical History: Coronary Artery Disease (CAD) Sister(s) Family Medical History: Coronary Artery Disease (CAD) Medications and Allergies Home Medications Medication Instructions Recorded Confirmed Type Ascorbic Acid [Vitamin C with Abeba 500 mg PO HS 10/17/17 10/11/20 History Hips] Isosorbide Mononitrate ER [Imdur] 30 mg PO DAILY 10/17/17 10/11/20 History Latanoprost Ophth [Xalatan 0.005%] 1 drops BOTH EYES HS 10/17/17 10/11/20 History Multivitamins, Thera [Multivitamin 1 tab PO DAILY 10/17/17 10/11/20 History (formulary)] Psyllium Husk 100% [Metamucil 6 gm PO HS 10/17/17 10/11/20 History Packet] Ranolazine [Ranexa] 500 mg PO BID 10/17/17 10/11/20 History Retinavites 1 tab PO BID 10/17/17 10/11/20 History Terazosin HCl 1 mg PO HS@199910/17/17 10/11/20 History Vitamin B Complex 1 cap PO DAILY 10/17/17 10/11/20 History atenoloL [Tenormin] 25 mg PO DAILY 10/17/17 10/11/20 History chlordiazePOXIDE/CLIDINIUM BR 1 cap PO BID 10/17/17 10/11/20 History [Librax] Losartan [Cozaar] 50 mg PO DAILY #30 tab 08/22/18 10/11/20 Rx Hydrochlorothiazide 12.5 mg PO DAILY 02/21/19 10/11/20 History [hydroCHLOROthiazide] Meloxicam 15 mg PO DAILY 02/21/19 10/11/20 History Montelukast Sodium [Singulair] 10 mg PO HS PRN 02/21/19 10/11/20 History Omeprazole 40 mg PO DAILY 02/21/19 10/11/20 History Timolol 0.5% Ophth Gel Forming 1 drop BOTH EYES QAM 02/21/19 10/11/20 History [Timoptic-Xe 0.5% Gel Form] ALPRAZolam [Xanax] 0.25 mg PO BID PRN 10/11/20 10/11/20 History Aspirin EC [Ecotrin Low Dose] 81 mg PO DAILY 10/11/20 10/11/20 History Atorvastatin [Lipitor] 20 mg PO HS 10/11/20 10/11/20 History Moxifloxacin HCl [Avelox] 400 mg PO DAILY 10/11/20 10/11/20 History Nitroglycerin Sl Tabs [Nitrostat] 0.4 mg SUBLINGUAL Q5M PRN 10/11/20 10/11/20 History amLODIPine [Norvasc] 5 mg PO DAILY 10/11/20 10/11/20 History predniSONE 10 mg PO TID 10/11/20 10/11/20 History traMADol HCL 50 mg PO DAILY PRN 10/11/20 10/11/20 History Allergies Allergy/AdvReac Type Severity Reaction Status Date / Time No Known Allergies Allergy Verified 10/11/20 16:31 Physical Exam Vitals: Vital Signs Temp Pulse Pulse Resp BP BP Pulse Ox 10/12/20 08:00 97.6 F 83 20 145/82 95 10/12/20 04:32 63 20 102/54 91 L 10/12/20 02:06 60 16 10/11/20 23:51 97.7 F 58 L 16 109/60 88 L 10/11/20 23:00 56 L 20 109/60 88 L 10/11/20 22:00 60 20 103/52 87 L 10/11/20 21:30 63 19 156/74 90 L 10/11/20 21:05 22 86 L 10/11/20 18:49 59 L 22 108/91 92 L 10/11/20 16:50 58 L 26 H 104/67 92 L 10/11/20 15:39 22 10/11/20 14:52 60 19 135/66 91 L 10/11/20 14:49 97.8 F 72 18 110/75 Intake and Output 10/11/20 10/12/20 10/12/20 22:59 06:59 14:59 Intake Total 480 Balance 480 Intake: Oral 480 Other: Voiding Method Toilet # Voids 0 1 Weight 102.058 kg 99 kg Results - Laboratory Findings CBC and BMP: 10/12/20 08:08 10/12/20 08:08 PT/INR, D-dimer PT 10.7 sec (9.0-12.0) 10/11/20 15:30 INR 1.0 (<1.2) 10/11/20 15:30 D-Dimer 0.30 mg/L FEU (<0.60) 10/11/20 15:30 Abnormal lab findings: Abnormal Labs 10/11/20 10/11/20 10/12/20 15:30 15:30 08:08 Lymphocytes # 0.2 L 0.3 L Sodium 129 L Chloride 97 L BUN 26 H Glucose 125 H Magnesium 2.6 H Ferritin 468.7 H AST 70 H Lactate Dehydrogenase 855 H C-Reactive Protein 36.5 H 10/12/20 08:08 Lymphocytes # Sodium 134 L Chloride BUN 27 H Glucose 187 H Magnesium Ferritin AST Lactate Dehydrogenase 826 H C-Reactive Protein 23.5 H - Diagnostic Findings Chest x-ray: image reviewed Assessment and Plan Plan: 1 acute hypoxic respiratory failure with development of interstitial but the pulmonary infiltrates, most consistent with a viral pneumonia, consider coronavirus coordinating infection despite the negative PCR on 2 separate occasions. Presentation is typical. Consider also poor embolism. doubt a bacterial infection at this point in time. 2 shortness of breath and cough secondary to above 3 elevated inflammatory markers likely secondary to above 4 coronary artery disease appears bypass surgery and previous coronary stenting 5 hypertension 6 hyperlipidemia PLAN Proceed with a CTA of the chest. This will further characterize the pulmonary valve abnormalities and may support an underlying viral infection. Also rule out pulmonary embolism. Check influenza A/B nasal swab Provide the patient Decadron 6 mg by mouth daily Wean down the FiO2 and titrated down to maintain a saturation above 90% Lovenox 40 mg subcu for DVT prophylaxis. We'll continue to follow
[2020-10-12] MEDS ORDERED: traMADol 50 MG TAB PO PRN (11:24)
[2020-10-12] MEDS ORDERED: amLODIPine 5 MG TAB PO SCH (11:30)
[2020-10-12] MEDS: TIMOLOL 0.5% OPHTH DROPS 5 ML BTL BOTH EYES SCH (11:51)
[2020-10-12] MEDS: dexAMETHasone 2 MG TAB PO SCH (11:51)
--- NOTE | 2020-10-12 12:26 | CT ---
EXAMINATION TYPE: CT angio chest DATE OF EXAM: 10/12/2020 11:27 AM COMPARISON: Chest x-ray 10/11/2020 HISTORY: Hypoxemia, r/o PE. CT DLP: 481.1 mGycm Automated exposure control for dose reduction was used. CONTRAST: CTA scan of the thorax is performed with IV Contrast, patient injected with 100 mL of Isovue 370, pul monary embolism protocol. . FINDINGS: LUNGS: There are diffuse groundglass infiltrates bilaterally correlate for pneumonia. The heart is en larged and there are sternotomy wires. Underlying COPD suspected. Areas of consolidation are also see n particularly posteriorly and along the lung bases. Assessment for nodules limited. No obvious pneum othorax or sizable pleural effusion. MEDIASTINUM: Coronary artery calcifications are noted. The heart is enlarged. Artifact limits the exa m. There is soft tissue fullness involving both perihilar regions greater on the left aorta measures approximately 1.3 cm in greatest axis. Findings compatible with bilateral hilar adenopathy. Severe artifact limits assessment of the pulmonary arteries. Greater limitation with regard to the se condary and distal branches. There is suboptimal enhancement in the right lower lobe pulmonary artery branch on image 79. No central pulmonary embolism. OTHER: Suspect a soft tissue lipoma along the right chest wall laterally measuring 4.7 cm. Atypical lipoma not excluded. Hypertrophic and degenerative changes of the spine. Sternotomy wires noted. IMPRESSION: 1. Limited assessment for pulmonary embolism due to artifact demonstrates no diagnostic evidence of c entral pulmonary embolism. Cannot exclude a small distal pulmonary embolism on axial image 79 within the right lower lobe. 2. Diffuse areas of ground glass and areas of consolidation suggestive of widespread pneumonia or BENITA S. 3. Right flank soft tissue lipoma. Atypical lipoma in the differential diagnosis correlate clinically .
--- NOTE | 2020-10-12 13:26 | P.HPIM ---
History of Present Illness Patient came in with complaints of short of breath and cough. Patient is negative for Covid 19. She is lab data and hypoxemia is consistent with Covid 19. Patient started having symptoms on the October 05 at that time patient was tested for Covid 19 as well which was negative. Repeat PCR testing at this time is also negative. Patient is presently on 15 L of oxygen by mask cannula patient was on Avelox as an outpatient. Patient has a influenza testing that was done today which was also negative. Review of Systems REVIEW OF SYSTEMS: CONSTITUTIONAL: No fever, no malaise, no fatigue. HEENT: No recent visual problems or hearing problems. Denied any sore throat. CARDIOVASCULAR: No chest pain, orthopnea, PND, no palpitations, no syncope. PULMONARY: no hemoptysis. GASTROINTESTINAL: No diarrhea, no nausea, no vomiting, no abdominal pain. NEUROLOGICAL: No headaches, no weakness, no numbness. HEMATOLOGICAL: Denies any bleeding or petechiae. GENITOURINARY: Denies any burning micturition, frequency, or urgency. MUSCULOSKELETAL/RHEUMATOLOGICAL: Denies any joint pain, swelling, or any muscle pain. ENDOCRINE: Denies any polyuria or polydipsia. The rest of the 14-point review of systems is negative. Past Medical History Past Medical History: Coronary Artery Disease (CAD), Hyperlipidemia, Hypertension Additional Past Medical History / Comment(s): diverticulosis/diverticulitis. History of Any Multi-Drug Resistant Organisms: None Reported Past Surgical History: Coronary Bypass/CABG, Hernia Repair Additional Past Surgical History / Comment(s): stents x 6 Past Anesthesia/Blood Transfusion Reactions: No Reported Reaction Date of Last Stent Placement:: 1997 Past Psychological History: No Psychological Hx Reported Smoking Status: Former smoker Past Alcohol Use History: Occasional Past Drug Use History: None Reported - Past Family History Father Family Medical History: Coronary Artery Disease (CAD) Sister(s) Family Medical History: Coronary Artery Disease (CAD) Medications and Allergies Home Medications Medication Instructions Recorded Confirmed Type Ascorbic Acid [Vitamin C with Abeba 500 mg PO HS 10/17/17 10/11/20 History Hips] Isosorbide Mononitrate ER [Imdur] 30 mg PO DAILY 10/17/17 10/11/20 History Latanoprost Ophth [Xalatan 0.005%] 1 drops BOTH EYES HS 10/17/17 10/11/20 History Multivitamins, Thera [Multivitamin 1 tab PO DAILY 10/17/17 10/11/20 History (formulary)] Psyllium Husk 100% [Metamucil 6 gm PO HS 10/17/17 10/11/20 History Packet] Ranolazine [Ranexa] 500 mg PO BID 10/17/17 10/11/20 History Retinavites 1 tab PO BID 10/17/17 10/11/20 History Terazosin HCl 1 mg PO HS@199910/17/17 10/11/20 History Vitamin B Complex 1 cap PO DAILY 10/17/17 10/11/20 History atenoloL [Tenormin] 25 mg PO DAILY 10/17/17 10/11/20 History chlordiazePOXIDE/CLIDINIUM BR 1 cap PO BID 10/17/17 10/11/20 History [Librax] Losartan [Cozaar] 50 mg PO DAILY #30 tab 08/22/18 10/11/20 Rx Hydrochlorothiazide 12.5 mg PO DAILY 02/21/19 10/11/20 History [hydroCHLOROthiazide] Meloxicam 15 mg PO DAILY 02/21/19 10/11/20 History Montelukast Sodium [Singulair] 10 mg PO HS PRN 02/21/19 10/11/20 History Omeprazole 40 mg PO DAILY 02/21/19 10/11/20 History Timolol 0.5% Ophth Gel Forming 1 drop BOTH EYES QAM 02/21/19 10/11/20 History [Timoptic-Xe 0.5% Gel Form] ALPRAZolam [Xanax] 0.25 mg PO BID PRN 10/11/20 10/11/20 History Aspirin EC [Ecotrin Low Dose] 81 mg PO DAILY 10/11/20 10/11/20 History Atorvastatin [Lipitor] 20 mg PO HS 10/11/20 10/11/20 History Moxifloxacin HCl [Avelox] 400 mg PO DAILY 10/11/20 10/11/20 History Nitroglycerin Sl Tabs [Nitrostat] 0.4 mg SUBLINGUAL Q5M PRN 10/11/20 10/11/20 History amLODIPine [Norvasc] 5 mg PO DAILY 10/11/20 10/11/20 History predniSONE 10 mg PO TID 10/11/20 10/11/20 History traMADol HCL 50 mg PO DAILY PRN 10/11/20 10/11/20 History Allergies Allergy/AdvReac Type Severity Reaction Status Date / Time No Known Allergies Allergy Verified 10/11/20 16:31 Physical Exam Vitals: Vital Signs Temp Pulse Pulse Resp BP BP Pulse Ox 10/12/20 11:44 96.9 F L 63 20 114/66 90 L 10/12/20 08:00 97.6 F 83 20 145/82 95 10/12/20 04:32 63 20 102/54 91 L 10/12/20 02:06 60 16 10/11/20 23:51 97.7 F 58 L 16 109/60 88 L 10/11/20 23:00 56 L 20 109/60 88 L 10/11/20 22:00 60 20 103/52 87 L 10/11/20 21:30 63 19 156/74 90 L 10/11/20 21:05 22 86 L 10/11/20 18:49 59 L 22 108/91 92 L 10/11/20 16:50 58 L 26 H 104/67 92 L 10/11/20 15:39 22 10/11/20 14:52 60 19 135/66 91 L 10/11/20 14:49 97.8 F 72 18 110/75 Intake and Output 10/11/20 10/12/20 10/12/20 22:59 06:59 14:59 Intake Total 480 Balance 480 Intake: Oral 480 Other: Voiding Method Toilet # Voids 0 1 Weight 102.058 kg 99 kg PHYSICAL EXAMINATION: GENERAL: The patient is alert and oriented x3, not in any acute distress. Well developed, well nourished. HEENT: Pupils are round and equally reacting to light. EOMI. No scleral icterus. No conjunctival pallor. Normocephalic, atraumatic. No pharyngeal erythema. No thyromegaly. CARDIOVASCULAR: S1 and S2 present. No murmurs, rubs, or gallops. PULMONARY: Chest is clear to auscultation, no wheezing or crackles. ABDOMEN: Soft, nontender, nondistended, normoactive bowel sounds. No palpable organomegaly. MUSCULOSKELETAL: No joint swelling or deformity. EXTREMITIES: No cyanosis, clubbing, or pedal edema. NEUROLOGICAL: Gross neurological examination did not reveal any focal deficits. SKIN: No rashes. Note: Because of COVID 19 isolation, some of the history and physical exam findings are indirect and obtained from nursing staff, and other physician examinations to avoid unnecessary contact with the patient. Results CBC & Chem 7: 10/12/20 08:08 10/12/20 08:08 Labs: Abnormal Lab Results - Last 24 Hours (Table) 10/11/20 10/11/20 10/12/20 Range/Units 15:30 15:30 08:08 Lymphocytes # 0.2 L 0.3 L (1.0-4.8) k/uL Sodium 129 L (137-145) mmol/L Chloride 97 L (98-107) mmol/L BUN 26 H (9-20) mg/dL Glucose 125 H (74-99) mg/dL Magnesium 2.6 H (1.6-2.3) mg/dL Ferritin 468.7 H (22.0-322.0) ng/mL AST 70 H (17-59) U/L Lactate Dehydrogenase 855 H (313-618) U/L C-Reactive Protein 36.5 H (<10.0) mg/L 10/12/20 Range/Units 08:08 Lymphocytes # (1.0-4.8) k/uL Sodium 134 L (137-145) mmol/L Chloride (98-107) mmol/L BUN 27 H (9-20) mg/dL Glucose 187 H (74-99) mg/dL Magnesium (1.6-2.3) mg/dL Ferritin (22.0-322.0) ng/mL AST (17-59) U/L Lactate Dehydrogenase 826 H (313-618) U/L C-Reactive Protein 23.5 H (<10.0) mg/L Thrombosis Risk Factor Assmnt - Choose All That Apply Any of the Below Risk Factors Present?: Yes Each Factor Represents 1 point: Obesity (BMI >25) Each Risk Factor Represents 2 Points: Age 61-74 years Thrombosis Risk Factor Assessment Total Risk Factor Score: 3 Thrombosis Risk Factor Assessment Level: Moderate Risk Assessment and Plan Plan: -Acute hypoxic respiratory failure: Possibly of a cough with 19 pneumonitis cannot be ruled out in spite of negative PCR. Patient may have a some other viral pneumonia as well. Computed tomography scan findings are consistent with ARDS. We'll continue with respiratory support. Patient is on systemic steroids. He is also on Lovenox. -Coronary artery disease with previous history of bypass surgery hyperlipidemia -Hypertension -Hypovolemic hyponatremia: Hydrochlorothiazide will be discontinued patient was started on IV fluids next and have an acute renal failure secondary to diuretics and and evidence of medications which will be held as mentioned above.
[2020-10-12 17:07] LABS: Ferritin 527.8 ng/mL (22.0-322.0)
[2020-10-12] MEDS: ALPRAZolam 0.25 MG TAB PO PRN (18:52)
[2020-10-12 20:30] LABS: ABG Base Excess -1.6 mmol/L; ABG HCO3 22 mmol/L (21-25); ABG Oxygen Saturation 86.3 % (94-97); ABG PCO2 31 mmHg (35-45); ABG PH 7.46 (7.35-7.45); ABG TCO2 23 mmol/L (19-24); Allen Test Performed? Yes
[2020-10-12 20:35] LABS: ABG PO2 50 mmHg (83-108)
--- NOTE | 2020-10-12 20:46 | P.EN ---
A Team note Activated at 7:58 pm. Patient seen and examined at the bedside shortly after. Chart reviewed and the case discussed with the patient's RN. The patient is admitted with COVID Pneumonia with gradually worsening hypoxia throughout the day. At time of the evaluation, the patient's SpO2 was 84% with 15 L nonrebreather, pulse 64, BP 130/63. On physical examination, the patient is an elderly male in mild to moderate respiratory distress. Lung auscultation revealed scattered rhonchi with no rales or wheezing. Cardiovascular examination revealed an S1 and S2 with regular rate and rhythm and no murmurs appreciated. Lower extremities were unremarkable with dorsalis pedis pulses 2+ bilaterally with no edema noted. The patient was alert and oriented 3. Patient reported some shortness of breath though denied chest discomfort or leg pain. He also denied nausea, vomiting. The patient's laboratory evaluation was reviewed with unremarkable protocol calcitonin and a proBNP of 512. Placed an order for BiPAP for suspected worsening Covid pneumonitis. RN notified the primary team who ordered repeat chest x-ray and ABGs.
[2020-10-12 22:13] LABS: ABG Base Excess -0.4 mmol/L; ABG HCO3 24 mmol/L (21-25); ABG Oxygen Saturation 92.7 % (94-97); ABG PCO2 34 mmHg (35-45); ABG PH 7.45 (7.35-7.45); ABG PO2 64 mmHg (83-108); ABG TCO2 25 mmol/L (19-24); Allen Test Performed? Yes
--- NOTE | 2020-10-12 22:16 | XR ---
EXAMINATION: XR chest 1V portable DATE AND TIME: 10/12/2020 8:29 PM CLINICAL INDICATION: Resp distress TECHNIQUE: AP portable upright COMPARISON: 10/11/2020 at 425 FINDINGS: Sternal sutures and mediastinal clips and EKG leads noted. There are coalescing bilateral infiltrative consolidative opacities throughout the lungs bilaterally, most notably involving the midlung zones bilaterally. There is mild interval progression of the pulm onary infiltrates compared to the prior study. The pleural spaces are negative. The cardiac silhouette is mildly enlarged. The remainder of the mediastinal silhouette is unremarkable. The skeletal structures and soft tissues are negative for acute findings. IMPRESSION: Mild interval worsening of the bilateral pulmonary infiltrates.
[2020-10-12] MEDS: ATORVASTATIN 20 MG TAB PO SCH (22:49)
[2020-10-12] MEDS: ASCORBIC ACID 500 MG TAB PO SCH (22:50)
[2020-10-12] MEDS: LATANOPROST 0.005% OPHTH DROPS 2.5 ML BTL BOTH EYES SCH (22:50)
[2020-10-13] MEDS: ALPRAZolam 0.25 MG TAB PO PRN ×2 (03:09→20:09)
[2020-10-13] MEDS: PANTOPRAZOLE 40 MG TABLET PO SCH (06:31)
[2020-10-13] MEDS: SODIUM CHLORIDE 0.9% 1,000 ML IV SCH ×2 (06:31→22:43)
[2020-10-13] MEDS: ALBUTEROL HFA INHALER INHALATION SCH ×4 (07:57→19:27)
[2020-10-13] MEDS: atenoloL 25 MG TAB PO SCH (08:53)
[2020-10-13] MEDS: dexAMETHasone 2 MG TAB PO SCH (08:53)
[2020-10-13] MEDS: LOSARTAN 50 MG TAB PO SCH (08:53)
[2020-10-13] MEDS: ASPIRIN 81 MG PO SCH (08:53)
[2020-10-13] MEDS: RANOLAZINE 500 MG TAB.ER.12H PO SCH ×2 (08:53→20:09)
[2020-10-13] MEDS: CLIDINIUM-chlordiazePOXIDE (2.5-5 MG) CAP PO SCH ×2 (08:53→20:09)
[2020-10-13] MEDS: ENOXAPARIN 40 MG/0.4 ML SYRINGE SQ SCH (08:53)
[2020-10-13] MEDS: ISOSORBIDE MONONITRATE ER 30 MG TAB.ER.24H PO SCH (08:53)
[2020-10-13] MEDS ORDERED: PANTOPRAZOLE 40 MG TABLET PO SCH (09:00)
[2020-10-13] MEDS: TIMOLOL 0.5% OPHTH DROPS 5 ML BTL BOTH EYES SCH (09:03)
[2020-10-13] MEDS: ACETAMINOPHEN TAB 325 MG TAB PO PRN (11:28)
[2020-10-13] MEDS ORDERED: REMDESIVIR 200 MG in SODIUM CHLORIDE 0.9% 250 ML IVPB ONE (13:00)
--- NOTE | 2020-10-13 14:40 | CDI ---
Documentation Clarification Form Date: 10/13/2020 02:24:42 PM From: Mirian Haynes CCS, CCDS Admit Date: 10/11/2020 05:14:00 PM Patient Name: Kapil Kimball Visit Number: [id number] Discharge Date: ATTENTION: The Clinical Documentation Specialists (CDI) and [facility] Coding Staff appreciate your assistance in clarifying documentation. Please respond to the clarification below the line at the bottom and electronically sign. The CDI & [facility] Coding staff will review the response and follow-up if needed. Please note: Queries are made part of the Legal Health Record. If you have any questions, please contact the author of this message via ITS. Dr. Linda Burks or Dr. Maisha Worrell or Dr. Josiah Jones: Per the 10/12 History & Physical: "Acute hypoxic respiratory failure: Possibly of a cough with 19 pneumonitis cannot be ruled out in spite of negative PCR. Patient may have a some other viral pneumonia as well. Computed tomography scan findings are consistent with ARDS." Per the 10/12 A Team Note: "The patient is admitted with COVID Pneumonia with gradually worsening hypoxia throughout the day." "Placed an order for BiPAP for suspected worsening COVID pneumonitis." History/Risk Factors: CAD status post CABG and Stents, Hypertension, Hyperlipidemia. Former smoker. Clinical Indicators: Presented to the ED on 10/11 with SOB. Admit with Chronic Respiratory Failure with Hypoxia. 10/11 VS: T 97.8, P 72 - 59*, R 18 - 22 - 26^ (SOB), BP 110/75, PO 91 15L high flow - 87 10L high flow. 10/12 VS: T 98.1, P 64, R 25^, BP 113/55, PO 91 BiPAP - 90 6L high flow LAB 10/11: Lymph 0.2*, Na 129*, Cl 97*, BUN 26^, Glucose 125^, Mag 2.6^, Ferritin 468.7^, Lactate Dehyd 855^, CRP 36.5^. 10/11 COVID NEGATIVE 10/14 Retest COVID POSITIVE 10/12 ABG: pCO2 34*, pO2 64*, Total CO2 25^, O2 Sat 92.7* Treatment 10/11: IV Decadron, IV fluid 1,000 mls @ 20 mls/hr q24, IV Azithromycin, IV Rocephin, INH Ventolin, Vit C, po Prednisone. 10/12: Lovenox sq, po Hexadrol, IV Remdesivir ordered. BiPAP. ICU. In order to capture the severity of condition, please clarify the COVID-19 status: False negative, treating for COVID-19 infection COVID-19 ruled in COVID-19 ruled out Other, please specify Present on Admission: Yes or No (Last Form Revision: January 2020) COVID-19 ruled in POA MTDD
--- NOTE | 2020-10-13 17:16 | P.PN ---
Subjective Progress Note Date: 10/13/20 75-year-old patient, known history of coronary artery disease hypertension and previous bypass surgery, came into the emergency department feeling sick for almost a week. He had fever and shortness of breath and cough. He had tested COVID 19 and the results came back negative. Because of his worsening condition, he was told them to come to the ED by his PCP. He was not improving. He stated that he was getting progressively more short of breath. He started off by having symptoms of URI. Denies having any loss in the taste or smell. Denies having any chest pain. He was alert and oriented 3. In the emergency department, the patient was found to be hypoxic and the patient is currently on 15 L about 2 by nasal cannula. She is chest x-ray showed bilateral interstitial pulmonary infiltrates worse in the left lower lobe. The patient had some lymphopenia on his blood work with a d-dimer of 0.3. CRP was 36.5. LDH was 855 and a repeat coronavirus Covid 19 testing was done that came back negative by PCR. She is on level is at 0.08. On 10/13/2020, the patient is being seen in follow-up regarding his pneumonia. Note that the patient was having worsening shortness of breath. He developed worsening hypoxemia overnight. On 100% nonrebreather facemask, the patient had a pH of 7.45 with episodes of 34 and pO2 of 64. Subsequently, the patient was switched to high flow oxygen at 60 L. Despite the negative coronavirus/Covid 19 PCR, the patient is highly suspected to have the infection and the patient's had the typical clinical presentation, physical x-ray findings indicative CAT scan findings. A CT angios was performed yesterday that showed no evidence of any pulmonary embolism. The patient had diffuse areas of groundglass infiltrates and areas of consolidation. This is consistent with a viral pneumonia or early ARDS. Meanwhile, the patient's oxygenation has been worse. He is having coarse crackles in lung bases bilaterally. During the morning evaluation, the patient was on high flow oxygen at 6 L with a FiO2 of 90%. He was a bit anxious. He reported desaturation with limited amount of activity. This was noted today. He was able to sit up on a recliner. Nevertheless, his pulse ox was dropping with talking and some activity. I would say his condition is extremely borderline. I placed an order for Remdesivir , however, this was declined the patient did not have the positive confirmation for the viral infection. Objective - Vital Signs Vital signs: Vital Signs Temp 97.9 F 10/13/20 16:32 Pulse 66 10/13/20 16:32 Resp 24 10/13/20 16:32 BP 132/61 10/13/20 16:32 Pulse Ox 87 L 10/13/20 16:00 Intake & Output 10/12/20 10/13/20 10/13/20 18:59 06:59 18:59 Intake Total 760 377 Output Total 100 825 Balance 660 -448 Weight 98.5 kg Intake: Intake, IV Titration 160 160 Amount Sodium Chloride 0.9% 1, 160 160 000 ml @ 20 mls/hr IV . Q24H JOE Rx#:[id number] Oral 600 Blood Product 217 Ffp Pher Conval Covid19 0 Acda 2 Unit [id number] Output: Urine 100 825 Other: Voiding Method Toilet # Voids 1 - Exam Gen. appearance the patient is a mild degree of respiratory distress. He is currently on a high flow oxygen 60 L with an FiO2 of 90%. Head exam was generally normal. There was no scleral icterus or corneal arcus. Mucous membranes were moist. Neck was supple and without jugular venous distension, thyromegaly, or carotid bruits. Carotids were easily palpable bilaterally. There was no adenopathy. Lungs sounds are diminished and the patient is coarse crackles in the mid and lower lung nagel bilaterally. He is unable to fully expand his lungs because of cough and episodes. Cardiac exam revealed the PMI to be normally situated and sized. The rhythm was regular and no extrasystoles were noted during several minutes of auscultation. The first and second heart sounds were normal and physiologic splitting of the second heart sound was noted. There were no murmurs, rubs, clicks, or gallops. Abdominal exam revealed normal bowel sounds. The abdomen was soft, non-tender, and without masses, organomegaly, or appreciable enlargement of the abdominal aorta. Examination of the extremities revealed easily palpable radial, femoral and pedal pulses. There was no cyanosis, clubbing or edema. Examination of the skin revealed no evidence of significant rashes, suspicious appearing nevi or other concerning lesions. Neurologically, the patient is awake and alert and the patient does not have any focal neurological deficit. Cranial nerves are essentially intact. - Labs CBC & Chem 7: 10/12/20 08:08 10/12/20 08:08 Labs: Abnormal Lab Results - Last 24 Hours (Table) 10/12/20 10/12/20 Range/Units 20:20 22:06 ABG pH 7.46 H (7.35-7.45) ABG pCO2 31 L 34 L (35-45) mmHg ABG pO2 50 L* 64 L (83-108) mmHg ABG Total CO2 25 H (19-24) mmol/L ABG O2 Saturation 86.3 L 92.7 L (94-97) % Microbiology - Last 24 Hours (Table) 10/11/20 15:30 Blood Culture - Preliminary Blood No Growth after 24 hours Assessment and Plan Plan: 1 acute hypoxic respiratory failure with development of interstitial but the pulmonary infiltrates, most consistent with a viral pneumonia, consider coronavirus coordinating infection despite the negative PCR on 2 separate occasions. Presentation is typical. This CT angios and showed also areas of groundglass infiltrates bilaterally along with some consolidation worse in the lung bases. I think the presentation and the clinical picture and the CAT scan pictures typical of coronavirus coordinating infection. The patient is currently on Decadron. The patient is currently on high flow oxygen with 60 L of high flow oxygen along with an FiO2 of 90%. 2 shortness of breath and cough secondary to above 3 elevated inflammatory markers likely secondary to above 4 coronary artery disease appears bypass surgery and previous coronary stenting 5 hypertension 6 hyperlipidemia PLAN Check influenza A/B nasal swab was negative May need to repeat the coronavirus, Covid 19 nasal swab Provide the patient Decadron 6 mg by mouth daily Keep high flow oxygen at 60 L with an FiO2 of 90% We'll try to see if we can get this patient convalesced plasma Lovenox 40 mg subcu for DVT prophylaxis. We'll continue to follow
[2020-10-13] MEDS: ASCORBIC ACID 500 MG TAB PO SCH (20:09)
[2020-10-13] MEDS: ATORVASTATIN 20 MG TAB PO SCH (20:09)
[2020-10-13] MEDS: LATANOPROST 0.005% OPHTH DROPS 2.5 ML BTL BOTH EYES SCH (20:10)
[2020-10-14] MEDS: ACETAMINOPHEN TAB 325 MG TAB PO PRN (04:17)
[2020-10-14] MEDS: PANTOPRAZOLE 40 MG TABLET PO SCH (06:54)
[2020-10-14] MEDS: ALBUTEROL HFA INHALER INHALATION SCH ×4 (09:38→19:53)
--- NOTE | 2020-10-14 10:50 | P.PN ---
Subjective Progress Note Date: 10/14/20 75-year-old patient, known history of coronary artery disease hypertension and previous bypass surgery, came into the emergency department feeling sick for almost a week. He had fever and shortness of breath and cough. He had tested COVID 19 and the results came back negative. Because of his worsening condition, he was told them to come to the ED by his PCP. He was not improving. He stated that he was getting progressively more short of breath. He started off by having symptoms of URI. Denies having any loss in the taste or smell. Denies having any chest pain. He was alert and oriented 3. In the emergency department, the patient was found to be hypoxic and the patient is currently on 15 L about 2 by nasal cannula. She is chest x-ray showed bilateral interstitial pulmonary infiltrates worse in the left lower lobe. The patient had some lymphopenia on his blood work with a d-dimer of 0.3. CRP was 36.5. LDH was 855 and a repeat coronavirus Covid 19 testing was done that came back negative by PCR. She is on level is at 0.08. On 10/13/2020, the patient is being seen in follow-up regarding his pneumonia. Note that the patient was having worsening shortness of breath. He developed worsening hypoxemia overnight. On 100% nonrebreather facemask, the patient had a pH of 7.45 with episodes of 34 and pO2 of 64. Subsequently, the patient was switched to high flow oxygen at 60 L. Despite the negative coronavirus/Covid 19 PCR, the patient is highly suspected to have the infection and the patient's had the typical clinical presentation, physical x-ray findings indicative CAT scan findings. A CT angios was performed yesterday that showed no evidence of any pulmonary embolism. The patient had diffuse areas of groundglass infiltrates and areas of consolidation. This is consistent with a viral pneumonia or early ARDS. Meanwhile, the patient's oxygenation has been worse. He is having coarse crackles in lung bases bilaterally. During the morning evaluation, the patient was on high flow oxygen at 6 L with a FiO2 of 90%. He was a bit anxious. He reported desaturation with limited amount of activity. This was noted today. He was able to sit up on a recliner. Nevertheless, his pulse ox was dropping with talking and some activity. I would say his condition is extremely borderline. I placed an order for Remdesivir , however, this was declined the patient did not have the positive confirmation for the viral infection. On 10/14/2020, the patient remains on a BiPAP at a pressure of 12/6 with an FiO2 of 100%. Obviously his condition decompensated. Initially was on regular oxygen flowing he was switched to high flow oxygen 6 L and upon further decompensation, the patient was placed on a BiPAP. He is resting comfortably in bed. His pulse ox currently is in the percent. She is on IV Decadron. He is also on Lovenox for DVT prophylaxis. He got declined forRemdesivir and he was given convalescent plasma one unit yesterday. His most recent blood gases from yesterday and no follow-up blood gases has been obtained today. He is looking lethargic. Is getting progressively more weak. He is awake and alert. He is following commands. A repeat chest x-ray will be obtained today. I also think it's reasonable for this patient to get transferred to the intensive care unit for further monitoring. He is known to have coronary artery bypass surgery for an underlying coronary artery disease. Inflammatory markers are also to follow. Objective - Vital Signs Vital signs: Vital Signs Temp 100.6 F H 10/14/20 04:00 Pulse 76 10/14/20 04:00 Resp 32 H 10/14/20 04:00 BP 150/67 10/14/20 04:00 Pulse Ox 92 L 10/14/20 04:11 Intake & Output 10/13/20 10/14/20 10/14/20 18:59 06:59 18:59 Intake Total 617 217 120 Output Total 825 900 Balance -208 -683 120 Weight 97.5 kg Intake: Intake, IV Titration 160 Amount Sodium Chloride 0.9% 1, 160 000 ml @ 20 mls/hr IV . Q24H [facility] Rx#:[id number] Oral 240 120 Blood Product 217 217 Ffp Pher Conval Covid19 0 217 Acda 2 Unit [id number] Output: Urine 825 900 Other: Voiding Method Urinal - Exam Gen. appearance the patient is a mild degree of respiratory distress. He is currently on a BiPAP at a pressure of 12/6 cm of water with an FiO2 of 100%. He is in respiratory distress. He is not using her muscle breathing. He has a high minute ventilation of 18 L and the patient's pulse ox is around 88%. Head exam was generally normal. There was no scleral icterus or corneal arcus. Mucous membranes were moist. Neck was supple and without jugular venous distension, thyromegaly, or carotid bruits. Carotids were easily palpable bilaterally. There was no adenopathy. Lungs sounds are diminished and the patient is coarse crackles in the mid and lower lung nagel bilaterally. He is unable to fully expand his lungs because of cough and episodes. Cardiac exam revealed the PMI to be normally situated and sized. The rhythm was regular and no extrasystoles were noted during several minutes of auscultation. The first and second heart sounds were normal and physiologic splitting of the second heart sound was noted. There were no murmurs, rubs, clicks, or gallops. Abdominal exam revealed normal bowel sounds. The abdomen was soft, non-tender, and without masses, organomegaly, or appreciable enlargement of the abdominal aorta. Examination of the extremities revealed easily palpable radial, femoral and pedal pulses. There was no cyanosis, clubbing or edema. Examination of the skin revealed no evidence of significant rashes, suspicious appearing nevi or other concerning lesions. Neurologically, the patient is awake and alert and the patient does not have any focal neurological deficit. Cranial nerves are essentially intact. - Labs CBC & Chem 7: 10/12/20 08:08 10/12/20 08:08 Labs: Microbiology - Last 24 Hours (Table) 10/11/20 15:30 Blood Culture - Preliminary Blood No Growth after 48 hours Assessment and Plan Plan: 1 acute hypoxic respiratory failure with development of interstitial but the pulmonary infiltrates, most consistent with a viral pneumonia, consider coronavirus coordinating infection despite the negative PCR on 2 separate occasions. Presentation is typical. This CT angios and showed also areas of groundglass infiltrates bilaterally along with some consolidation worse in the lung bases. I think the presentation and the clinical picture and the CAT scan pictures typical of coronavirus COVID infection. The patient is currently on Decadron. The patient was on high flow oxygen with 60 L of high flow oxygen along with an FiO2 of 90%.Subsequently, the patient was switched to BiPAP and currently is on a pressure of 12/6 with an FiO2 of 100%. 2 shortness of breath and cough secondary to above 3 elevated inflammatory markers likely secondary to above 4 coronary artery disease appears bypass surgery and previous coronary stenting 5 hypertension 6 hyperlipidemia PLAN Check influenza A/B nasal swab was negative May need to repeat the coronavirus, Covid 19 nasal swab Transfer this patient in intensive care unit. Continue Decadron 6 mg IV daily continue BiPAP for respiratory support Obtain a blood gases Obtain a follow-up chest x-ray Repeat inflammatory markers Less than plasma given Lovenox 40 mg subcu for DVT prophylaxis. We'll continue to follow
--- NOTE | 2020-10-14 11:06 | XR ---
EXAMINATION TYPE: XR chest 1V portable DATE OF EXAM: 10/14/2020 COMPARISON: 10/12/2020 INDICATION: Covid TECHNIQUE: Single frontal view of the chest is obtained. FINDINGS: The heart size is normal. The pulmonary vasculature is normal. Diffuse increased lung markings are present bilaterally greater on the right. Findings are worsening over the interval. IMPRESSION: 1. Worsening bilateral lung infiltrates.
[2020-10-14 12:03] LABS: ALT 35 U/L (4-49); AST 67 U/L (17-59); African American GFR (CKD) >90 (>60 ml/min/1.73 sqM); Albumin 3.2 g/dL (3.5-5.0); Alkaline Phosphatase 62 U/L (38-126); Anion Gap 5 mmol/L; Blood Urea Nitrogen 24 mg/dL (9-20); Calcium 8.4 mg/dL (8.4-10.2); Carbon Dioxide 29 mmol/L (22-30); Chloride 104 mmol/L (98-107); Glucose 126 mg/dL (74-99); Non-African American GFR(CKD) 84 (>60 ml/min/1.73 sqM); Sodium 138 mmol/L (137-145); Total Bilirubin 0.9 mg/dL (0.2-1.3)
[2020-10-14 12:13] LABS: ABG Base Excess 0.9 mmol/L; ABG HCO3 25 mmol/L (21-25); ABG Oxygen Saturation 92.5 % (94-97); ABG PCO2 34 mmHg (35-45); ABG PH 7.46 (7.35-7.45); ABG PO2 65 mmHg (83-108); ABG TCO2 26 mmol/L (19-24); Allen Test Performed? Yes
[2020-10-14 12:53] LABS: LDH 2381 U/L (313-618)
[2020-10-14] MEDS ORDERED: REMDESIVIR 100 MG in SODIUM CHLORIDE 0.9% 250 ML IVPB SCH (13:00)
[2020-10-14 13:28] LABS: Basophils % (A) 0 %; Eosinophils % (A) 0 %; HCT 42.8 % (39.0-53.0); HGB 14.2 gm/dL (13.0-17.5); Lymphocytes # (A) 0.3 k/uL (1.0-4.8); Lymphocytes % (A) 4 %; MCH 31.5 pg (25.0-35.0); MCHC 33.2 g/dL (31.0-37.0); MCV 94.7 fL (80.0-100.0); Mean Platelet Volume 7.3; Monocytes # (A) 0.2 k/uL (0-1.0); Monocytes % (A) 2 %; Neutrophils # (A) 7.9 k/uL (1.3-7.7); Neutrophils % (A) 93 %; Platelet Count 205 k/uL (150-450); RBC 4.52 m/uL (4.30-5.90); RDW 12.8 % (11.5-15.5); WBC 8.6 k/uL (3.8-10.6)
[2020-10-14] MEDS: ASPIRIN 81 MG PO SCH (16:23)
[2020-10-14] MEDS: CLIDINIUM-chlordiazePOXIDE (2.5-5 MG) CAP PO SCH ×2 (16:24→21:27)
[2020-10-14] MEDS: LOSARTAN 50 MG TAB PO SCH (16:24)
[2020-10-14] MEDS: dexAMETHasone 2 MG TAB PO SCH (16:24)
[2020-10-14] MEDS: RANOLAZINE 500 MG TAB.ER.12H PO SCH ×2 (16:24→21:27)
[2020-10-14] MEDS: atenoloL 25 MG TAB PO SCH (16:24)
[2020-10-14] MEDS: ISOSORBIDE MONONITRATE ER 30 MG TAB.ER.24H PO SCH (16:24)
[2020-10-14] MEDS: TIMOLOL 0.5% OPHTH DROPS 5 ML BTL BOTH EYES SCH (17:03)
[2020-10-14] MEDS: ENOXAPARIN 40 MG/0.4 ML SYRINGE SQ SCH (17:04)
[2020-10-14 20:30] LABS: Glucose,Whole Blood 104 mg/dL (75-99)
[2020-10-14] MEDS: ATORVASTATIN 20 MG TAB PO SCH (21:27)
[2020-10-14] MEDS: ASCORBIC ACID 500 MG TAB PO SCH (21:27)
[2020-10-14] MEDS: LATANOPROST 0.005% OPHTH DROPS 2.5 ML BTL BOTH EYES SCH (21:28)
[2020-10-14] MEDS: SODIUM CHLORIDE 0.9% 1,000 ML IV SCH (21:28)
--- NOTE | 2020-10-14 22:32 | P.PN ---
Subjective Progress Note Date: 10/13/20 Principal diagnosis: Acute hypoxic respiratory failure 10/13/2020 the patient is being seen in follow-up regarding his pneumonia. Note that the patient was having worsening shortness of breath. He developed worsening hypoxemia overnight. On 100% nonrebreather facemask, the patient had a pH of 7.45 with episodes of 34 and pO2 of 64; patient was switched to high flow oxygen at 60 L. Despite the negative Covid 19 PCR, the patient is highly suspected to have the infection and the patient's had the typical clinical presentation, physical x-ray findings indicative CAT scan findings. A CT angios was performed yesterday that showed no evidence of any pulmonary embolism. The patient had diffuse areas of ground-glass infiltrates and areas of consolidation. This is consistent with a viral pneumonia or early ARDS. Meanwhile, the patient's oxygenation has been worse. He is having coarse crackles in lung bases bilaterally. During the morning evaluation, the patient was on high flow oxygen at 6 L with a FiO2 of 90%. He was a bit anxious. He reported desaturation with limited amount of activity. This was noted today. He was able to sit up on a recliner. Nevertheless, his pulse ox was dropping with talking and some activity. I would say his condition is extremely borderline. Remdesivir was ordered by pulm, but declined the patient did not have the positive confirmation for the viral infection. Objective - Vital Signs Vital signs: Vital Signs Temp 97.8 F 10/13/20 12:00 Pulse 64 10/13/20 12:00 Resp 20 10/13/20 12:00 BP 107/55 10/13/20 12:00 Pulse Ox 85 L 10/13/20 12:00 Intake & Output 10/12/20 10/13/20 10/13/20 18:59 06:59 18:59 Intake Total 760 Output Total 100 325 Balance 660 -325 Weight 98.5 kg Intake: Intake, IV Titration 160 Amount Sodium Chloride 0.9% 1, 160 000 ml @ 20 mls/hr IV . Q24H [facility] Rx#:[id number] Oral 600 Output: Urine 100 325 Other: Voiding Method Toilet # Voids 1 - Exam GENERAL: The patient is alert and oriented x3, not in any acute distress. Well developed, well nourished. HEENT: Pupils are round and equally reacting to light. EOMI. No scleral icterus. No conjunctival pallor. Normocephalic, atraumatic. No pharyngeal erythema. No thyromegaly. CARDIOVASCULAR: S1 and S2 present. No murmurs, rubs, or gallops. PULMONARY: Chest is clear to auscultation, no wheezing or crackles. ABDOMEN: Soft, nontender, nondistended, normoactive bowel sounds. No palpable organomegaly. MUSCULOSKELETAL: No joint swelling or deformity. EXTREMITIES: No cyanosis, clubbing, or pedal edema. NEUROLOGICAL: Gross neurological examination did not reveal any focal deficits. SKIN: No rashes. - Labs CBC & Chem 7: 10/14/20 13:10 10/14/20 11:24 Labs: Abnormal Lab Results - Last 24 Hours (Table) 10/12/20 10/12/20 10/12/20 Range/Units 08:08 20:20 22:06 ABG pH 7.46 H (7.35-7.45) ABG pCO2 31 L 34 L (35-45) mmHg ABG pO2 50 L* 64 L (83-108) mmHg ABG Total CO2 25 H (19-24) mmol/L ABG O2 Saturation 86.3 L 92.7 L (94-97) % Ferritin 527.8 H (22.0-322.0) ng/mL Microbiology - Last 24 Hours (Table) 10/11/20 15:30 Blood Culture - Preliminary Blood No Growth after 24 hours Assessment and Plan Assessment: -Acute hypoxic respiratory failure: Possibly of a cough with 19 pneumonitis cannot be ruled out in spite of negative PCR. Patient may have a some other viral pneumonia as well. Computed tomography scan findings are consistent with ARDS. We'll continue with respiratory support. Patient is on systemic steroids. He is also on Lovenox. -Coronary artery disease with previous history of bypass surgery hyperlipidemia -Hypertension -Hypovolemic hyponatremia: Hydrochlorothiazide will be discontinued patient was started on IV fluids next and have an acute renal failure secondary to diuretics and and evidence of medications which will be held as mentioned above.
--- NOTE | 2020-10-14 22:32 | P.PN ---
Subjective Progress Note Date: 10/14/20 Principal diagnosis: Acute hypoxic respiratory failure 10/14/2020, the patient has been placed on a BiPAP at a pressure of 12/6 with an FiO2 of 100%. Initially was on regular oxygen flowing he was switched to high flow oxygen 6 L and upon further decompensation, the patient was placed on a BiPAP. He is resting comfortably in bed. Patient is on IV Decadron. He is also on Lovenox for DVT prophylaxis. Patient didn't qualify for Remdesivir and he was given convalescent plasma one unit yesterday. His most recent blood gases from yesterday and no follow-up blood gases has been obtained today. He is looking lethargic. Is getting progressively more weak. A repeat chest x-ray is recommended by pulmonary and recommended transfer to ICU Objective - Vital Signs Vital signs: Vital Signs Temp 98.3 F 10/14/20 08:00 Pulse 66 10/14/20 08:00 Resp 34 H 10/14/20 08:00 BP 171/71 10/14/20 08:00 Pulse Ox 96 10/14/20 08:10 Intake & Output 10/13/20 10/14/20 10/14/20 18:59 06:59 18:59 Intake Total 617 217 120 Output Total 825 900 400 Balance -208 -683 -280 Weight 97.5 kg Intake: Intake, IV Titration 160 Amount Sodium Chloride 0.9% 1, 160 000 ml @ 20 mls/hr IV . Q24H [facility] Rx#:[id number] Oral 240 120 Blood Product 217 217 Ffp Pher Conval Covid19 0 217 Acda 2 Unit [id number] Output: Urine 825 900 400 Other: Voiding Method Urinal Urinal Indwelling Catheter - Exam GENERAL: The patient is alert and oriented x3, not in any acute distress. Well developed, well nourished. HEENT: Pupils are round and equally reacting to light. EOMI. No scleral icterus. No conjunctival pallor. Normocephalic, atraumatic. No pharyngeal erythema. No thyromegaly. CARDIOVASCULAR: S1 and S2 present. No murmurs, rubs, or gallops. PULMONARY: Chest is clear to auscultation, no wheezing or crackles. ABDOMEN: Soft, nontender, nondistended, normoactive bowel sounds. No palpable organomegaly. MUSCULOSKELETAL: No joint swelling or deformity. EXTREMITIES: No cyanosis, clubbing, or pedal edema. NEUROLOGICAL: Gross neurological examination did not reveal any focal deficits. SKIN: No rashes. - Labs CBC & Chem 7: 10/14/20 13:10 10/14/20 11:24 Labs: Abnormal Lab Results - Last 24 Hours (Table) 10/14/20 10/14/20 10/14/20 Range/Units 11:24 11:24 12:07 Neutrophils # (1.3-7.7) k/uL Lymphocytes # (1.0-4.8) k/uL D-Dimer 5.57 H (<0.60) mg/L FEU ABG pH 7.46 H (7.35-7.45) ABG pCO2 34 L (35-45) mmHg ABG pO2 65 L (83-108) mmHg ABG Total CO2 26 H (19-24) mmol/L ABG O2 Saturation 92.5 L (94-97) % BUN 24 H (9-20) mg/dL Glucose 126 H (74-99) mg/dL AST 67 H (17-59) U/L Lactate Dehydrogenase 2381 H (313-618) U/L Total Protein 6.0 L (6.3-8.2) g/dL Albumin 3.2 L (3.5-5.0) g/dL 10/14/20 Range/Units 13:10 Neutrophils # 7.9 H (1.3-7.7) k/uL Lymphocytes # 0.3 L (1.0-4.8) k/uL D-Dimer (<0.60) mg/L FEU ABG pH (7.35-7.45) ABG pCO2 (35-45) mmHg ABG pO2 (83-108) mmHg ABG Total CO2 (19-24) mmol/L ABG O2 Saturation (94-97) % BUN (9-20) mg/dL Glucose (74-99) mg/dL AST (17-59) U/L Lactate Dehydrogenase (313-618) U/L Total Protein (6.3-8.2) g/dL Albumin (3.5-5.0) g/dL Microbiology - Last 24 Hours (Table) 10/11/20 15:30 Blood Culture - Preliminary Blood No Growth after 48 hours Assessment and Plan Assessment: -Acute hypoxic respiratory failure: Possibly of a cough with 19 pneumonitis cannot be ruled out in spite of negative PCR. Patient may have a some other viral pneumonia as well. Computed tomography scan findings are consistent with ARDS. We'll continue with respiratory support. Patient is on systemic steroids. He is also on Lovenox. -Coronary artery disease with previous history of bypass surgery hyperlipidemia -Hypertension -Hypovolemic hyponatremia: Hydrochlorothiazide will be discontinued patient was started on IV fluids next and have an acute renal failure secondary to diuretics and and evidence of medications which will be held as mentioned above.
[2020-10-15 00:52] LABS: ABG Base Excess 0.8 mmol/L; ABG HCO3 25 mmol/L (21-25); ABG Oxygen Saturation 86.5 % (94-97); ABG PCO2 33 mmHg (35-45); ABG PH 7.47 (7.35-7.45); ABG TCO2 26 mmol/L (19-24); Allen Test Performed? Yes
[2020-10-15 00:54] LABS: ABG PO2 51 mmHg (83-108)
[2020-10-15] MEDS: DEXMEDETOMIDINE/0.9% NACL(PMX) 400 MCG in EMPTY BAG 1 BAG IV SCH ×3 (01:25→14:16)
[2020-10-15 05:00] LABS: Basophils # (A) 0.1 k/uL (0-0.2); Basophils % (A) 1 %; Eosinophils % (A) 0 %; HCT 40.9 % (39.0-53.0); HGB 13.7 gm/dL (13.0-17.5); Lymphocytes # (A) 0.4 k/uL (1.0-4.8); Lymphocytes % (A) 5 %; MCH 31.8 pg (25.0-35.0); MCHC 33.4 g/dL (31.0-37.0); MCV 95.3 fL (80.0-100.0); Mean Platelet Volume 7.6; Monocytes # (A) 0.3 k/uL (0-1.0); Monocytes % (A) 4 %; Neutrophils # (A) 6.5 k/uL (1.3-7.7); Neutrophils % (A) 87 %; Platelet Count 198 k/uL (150-450); RDW 12.4 % (11.5-15.5); WBC 7.4 k/uL (3.8-10.6)
[2020-10-15 05:06] LABS: African American GFR (CKD) >90 (>60 ml/min/1.73 sqM); Anion Gap 3 mmol/L; Blood Urea Nitrogen 24 mg/dL (9-20); Calcium 7.7 mg/dL (8.4-10.2); Carbon Dioxide 30 mmol/L (22-30); Chloride 106 mmol/L (98-107); Glucose 119 mg/dL (74-99); Non-African American GFR(CKD) 81 (>60 ml/min/1.73 sqM); Potassium 5.1 mmol/L (3.5-5.1); Sodium 139 mmol/L (137-145)
--- NOTE | 2020-10-15 08:07 | XR ---
EXAMINATION TYPE: XR chest 1V DATE OF EXAM: 10/15/2020 COMPARISON: 10/14/2020 INDICATION: Possible Covid TECHNIQUE: Single frontal view of the chest is obtained. FINDINGS: The heart size is enlarged. The pulmonary vasculature is normal. Diffuse increasing opacities through the right lung. Left lower lung field infiltrate is also present . IMPRESSION: 1. Worsening bilateral lung infiltrates
--- NOTE | 2020-10-15 08:47 | P.PN ---
Subjective Progress Note Date: 10/15/20 75-year-old patient, known history of coronary artery disease hypertension and previous bypass surgery, came into the emergency department feeling sick for almost a week. He had fever and shortness of breath and cough. He had tested COVID 19 and the results came back negative. Because of his worsening condition, he was told them to come to the ED by his PCP. He was not improving. He stated that he was getting progressively more short of breath. He started off by having symptoms of URI. Denies having any loss in the taste or smell. Denies having any chest pain. He was alert and oriented 3. In the emergency department, the patient was found to be hypoxic and the patient is currently on 15 L about 2 by nasal cannula. She is chest x-ray showed bilateral interstitial pulmonary infiltrates worse in the left lower lobe. The patient had some lymphopenia on his blood work with a d-dimer of 0.3. CRP was 36.5. LDH was 855 and a repeat coronavirus Covid 19 testing was done that came back negative by PCR. She is on level is at 0.08. On 10/13/2020, the patient is being seen in follow-up regarding his pneumonia. Note that the patient was having worsening shortness of breath. He developed worsening hypoxemia overnight. On 100% nonrebreather facemask, the patient had a pH of 7.45 with episodes of 34 and pO2 of 64. Subsequently, the patient was switched to high flow oxygen at 60 L. Despite the negative coronavirus/Covid 19 PCR, the patient is highly suspected to have the infection and the patient's had the typical clinical presentation, physical x-ray findings indicative CAT scan findings. A CT angios was performed yesterday that showed no evidence of any pulmonary embolism. The patient had diffuse areas of groundglass infiltrates and areas of consolidation. This is consistent with a viral pneumonia or early ARDS. Meanwhile, the patient's oxygenation has been worse. He is having coarse crackles in lung bases bilaterally. During the morning evaluation, the patient was on high flow oxygen at 6 L with a FiO2 of 90%. He was a bit anxious. He reported desaturation with limited amount of activity. This was noted today. He was able to sit up on a recliner. Nevertheless, his pulse ox was dropping with talking and some activity. I would say his condition is extremely borderline. I placed an order for Remdesivir , however, this was declined the patient did not have the positive confirmation for the viral infection. On 10/14/2020, the patient remains on a BiPAP at a pressure of 12/6 with an FiO2 of 100%. Obviously his condition decompensated. Initially was on regular oxygen flowing he was switched to high flow oxygen 6 L and upon further decompensation, the patient was placed on a BiPAP. He is resting comfortably in bed. His pulse ox currently is in the percent. She is on IV Decadron. He is also on Lovenox for DVT prophylaxis. He got declined forRemdesivir and he was given convalescent plasma one unit yesterday. His most recent blood gases from yesterday and no follow-up blood gases has been obtained today. He is looking lethargic. Is getting progressively more weak. He is awake and alert. He is following commands. A repeat chest x-ray will be obtained today. I also think it's reasonable for this patient to get transferred to the intensive care unit for further monitoring. He is known to have coronary artery bypass surgery for an underlying coronary artery disease. Inflammatory markers are also to follow. On 10/15/2022 months seeing the patient for a follow-up. The patient got transferred to the intensive care unit because of worsening in hypoxemia and acute hypoxic respiratory failure. His chest x-ray showing diffuse bilateral pulmonary infiltrates with groundglass changes Bilaterally more so on the right compared to the left. The patient was on 100% nonrebreather facemask. He failed that. He was started on BiPAP at a pressure of 14/8 cm of water. Her blood gases from last night showed a pH of 7.47 with a pCO2 of 33 and pO2 of 51 and this blood gas was done while the patient was on 100%. Subsequently, the patient was placed on a BiPAP. The patient is currently on IV Decadron. The patient received convalescent plasma. He did not qualify for Remdesivir. His repeat coronavirus/Covid 19 PCR was sent and this is still pending. Meanwhile, the patient is still on IV fluids at the rate of 75 mL an hour. Urine output is no other 30 mL an hour. He is on Lovenox at a dose of 40 mg subcu on a daily basis. Overnight, he became quite restless and agitated. He was started on Precedex which is currently running at 0.4 mcg/kg/h. This, the situation and the patient seems to be much more appropriate. On today's evaluation, he is still on Precedex. He is following commands. His answering questions. He is more rested. Nevertheless, he remains in the 100% on his BiPAP and his pulse ox is ranging between 86 and 90%. D-dimer is elevated at 21.7. His d-dimer is elevated and the patient's Lovenox will be adjusted to half a dose twice a day. He is in a normal sinus rhythm for now. Objective - Vital Signs Vital signs: Vital Signs Temp 98.3 F 10/15/20 08:00 Pulse 55 L 10/15/20 08:00 Resp 22 10/15/20 08:00 BP 118/63 10/15/20 08:00 Pulse Ox 88 L 10/15/20 08:00 Intake & Output 10/14/20 10/15/20 10/15/20 18:59 06:59 18:59 Intake Total 120 756.456 150 Output Total 1100 610 70 Balance -980 146.456 80 Weight 95.6 kg Intake: IV 675 150 Sodium Chloride 0.9% 1, 675 150 000 ml @ 75 mls/hr IV . [id number] [facility] Rx#:[id number] Intake, IV Titration 81.456 Amount Dexmedetomidine/0.9% NaCl 81.456 (Pmx) 400 mcg In Empty Bag 1 bag @ Titrate IV . Q0M [facility] Rx#:[id number] Oral 120 Output: Urine 1100 610 70 Uretheral (Ellis) 350 Other: Voiding Method Indwelling Catheter Indwelling Catheter Indwelling Catheter - Exam Gen. appearance the patient is a mild degree of respiratory distress. He is currently on a BiPAP at a pressure of 14/8 cm of water with an FiO2 of 100%. He is in respiratory distress. He is not using her muscle breathing. He is well rested while being on Precedex drip. Head exam was generally normal. There was no scleral icterus or corneal arcus. Mucous membranes were moist. Neck was supple and without jugular venous distension, thyromegaly, or carotid bruits. Carotids were easily palpable bilaterally. There was no adenopathy. Lungs sounds are diminished and the patient is coarse crackles in the mid and lower lung nagel bilaterally. He is unable to fully expand his lungs because of cough and episodes. Cardiac exam revealed the PMI to be normally situated and sized. The rhythm was regular and no extrasystoles were noted during several minutes of auscultation. The first and second heart sounds were normal and physiologic splitting of the second heart sound was noted. There were no murmurs, rubs, clicks, or gallops. Abdominal exam revealed normal bowel sounds. The abdomen was soft, non-tender, and without masses, organomegaly, or appreciable enlargement of the abdominal aorta. Examination of the extremities revealed easily palpable radial, femoral and pedal pulses. There was no cyanosis, clubbing or edema. Examination of the skin revealed no evidence of significant rashes, suspicious appearing nevi or other concerning lesions. Neurologically, the patient is awake and alert and the patient does not have any focal neurological deficit. Cranial nerves are essentially intact. - Labs CBC & Chem 7: 10/15/20 04:31 10/15/20 04:31 Labs: Abnormal Lab Results - Last 24 Hours (Table) 10/14/20 10/14/20 10/14/20 Range/Units 11:24 11:24 12:07 Neutrophils # (1.3-7.7) k/uL Lymphocytes # (1.0-4.8) k/uL D-Dimer 5.57 H (<0.60) mg/L FEU ABG pH 7.46 H (7.35-7.45) ABG pCO2 34 L (35-45) mmHg ABG pO2 65 L (83-108) mmHg ABG Total CO2 26 H (19-24) mmol/L ABG O2 Saturation 92.5 L (94-97) % BUN 24 H (9-20) mg/dL Glucose 126 H (74-99) mg/dL POC Glucose (mg/dL) (75-99) mg/dL Calcium (8.4-10.2) mg/dL AST 67 H (17-59) U/L Lactate Dehydrogenase 2381 H (313-618) U/L Total Protein 6.0 L (6.3-8.2) g/dL Albumin 3.2 L (3.5-5.0) g/dL 10/14/20 10/14/20 10/15/20 Range/Units 13:10 20:28 00:50 Neutrophils # 7.9 H (1.3-7.7) k/uL Lymphocytes # 0.3 L (1.0-4.8) k/uL D-Dimer (<0.60) mg/L FEU ABG pH 7.47 H (7.35-7.45) ABG pCO2 33 L (35-45) mmHg ABG pO2 51 L* (83-108) mmHg ABG Total CO2 26 H (19-24) mmol/L ABG O2 Saturation 86.5 L (94-97) % BUN (9-20) mg/dL Glucose (74-99) mg/dL POC Glucose (mg/dL) 104 H (75-99) mg/dL Calcium (8.4-10.2) mg/dL AST (17-59) U/L Lactate Dehydrogenase (313-618) U/L Total Protein (6.3-8.2) g/dL Albumin (3.5-5.0) g/dL 10/15/20 10/15/20 10/15/20 Range/Units 04:31 04:31 04:31 Neutrophils # (1.3-7.7) k/uL Lymphocytes # 0.4 L (1.0-4.8) k/uL D-Dimer 21.70 H (<0.60) mg/L FEU ABG pH (7.35-7.45) ABG pCO2 (35-45) mmHg ABG pO2 (83-108) mmHg ABG Total CO2 (19-24) mmol/L ABG O2 Saturation (94-97) % BUN 24 H (9-20) mg/dL Glucose 119 H (74-99) mg/dL POC Glucose (mg/dL) (75-99) mg/dL Calcium 7.7 L (8.4-10.2) mg/dL AST (17-59) U/L Lactate Dehydrogenase (313-618) U/L Total Protein (6.3-8.2) g/dL Albumin (3.5-5.0) g/dL Microbiology - Last 24 Hours (Table) 10/11/20 15:30 Blood Culture - Preliminary Blood No Growth after 72 hours Assessment and Plan Plan: 1 acute hypoxic respiratory failure with development of interstitial groundglass bilateral pulmonary infiltrates, most consistent with a viral pneumonia, consider coronavirus coordinating infection despite the negative PCR on 2 separate occasions. PCR was sent. The patient is treated with Decadron. The patient was also given, less than plasma. The patient is currently on a BiPAP at a pressure of 14/8 of water and FiO2 of on the percent. The patient is maintaining a saturation of about 85%. The d-dimer is considerably elevated. Lovenox dose will be adjusted to 0.5 mg/kg every 12 hours. 2 shortness of breath and cough secondary to above 3 elevated inflammatory markers likely secondary to above the LDH from yesterday was 2381 4 coronary artery disease appears bypass surgery and previous coronary stenting 5 hypertension 6 hyperlipidemia PLAN repeat the coronavirus, Covid 19 nasal swab and there is also still pending for now. Continue Decadron 6 mg IV daily continue BiPAP for respiratory support Keep the patient on Precedex for agitation and synchrony with the BiPAP. Obtain a blood gases on a daily basis Obtain a follow-up chest x-ray on a daily basis Repeat inflammatory markers Lovenox 50 mg subcu twice a day and the dose has been adjusted as the patient's d-dimer is quite elevated. Patient is critical. The patient will be kept in ICU. We'll continue to follow make further recommendations based on his progress. Highly likely with the patient may require intubation mechanical ventilation. CC management , >30 min Time with Patient: Greater than 30
[2020-10-15] MEDS: ALBUTEROL HFA INHALER INHALATION SCH ×4 (08:52→20:36)
[2020-10-15] MEDS: dexAMETHasone 2 MG TAB PO SCH (10:16)
[2020-10-15] MEDS: ASPIRIN 81 MG PO SCH (10:16)
[2020-10-15] MEDS: PANTOPRAZOLE 40 MG TABLET PO SCH (10:16)
[2020-10-15] MEDS: CLIDINIUM-chlordiazePOXIDE (2.5-5 MG) CAP PO SCH ×3 (10:16→21:21)
[2020-10-15] MEDS: ISOSORBIDE MONONITRATE ER 30 MG TAB.ER.24H PO SCH (10:16)
[2020-10-15] MEDS: atenoloL 25 MG TAB PO SCH (10:17)
[2020-10-15] MEDS: ENOXAPARIN 60 MG/0.6 ML SYRINGE SQ SCH ×2 (10:19→21:00)
[2020-10-15 13:04] LABS: Ferritin 1243.7 ng/mL (22.0-322.0)
[2020-10-15] MEDS: LOSARTAN 50 MG TAB PO SCH (14:14)
[2020-10-15] MEDS: RANOLAZINE 500 MG TAB.ER.12H PO SCH ×3 (14:14→21:21)
[2020-10-15] MEDS: SODIUM CHLORIDE 0.9% 1,000 ML IV SCH (14:15)
--- NOTE | 2020-10-15 15:41 | P.PN ---
Subjective Progress Note Date: 10/15/20 Principal diagnosis: Acute hypoxic respiratory failure 10/14/2020, the patient has been placed on a BiPAP at a pressure of 12/6 with an FiO2 of 100%. Initially was on regular oxygen flowing he was switched to high flow oxygen 6 L and upon further decompensation, the patient was placed on a BiPAP. He is resting comfortably in bed. Patient is on IV Decadron. He is also on Lovenox for DVT prophylaxis. Patient didn't qualify for Remdesivir and he was given convalescent plasma one unit yesterday. His most recent blood gases from yesterday and no follow-up blood gases has been obtained today. He is looking lethargic. Is getting progressively more weak. A repeat chest x-ray is recommended by pulmonary and recommended transfer to ICU 10/15/2022 The patient got transferred to the intensive care unit because of worsening in hypoxemia and acute hypoxic respiratory failure; chest x-ray showing diffuse bilateral pulmonary infiltrates with groundglass changes Bilaterally more so on the right compared to the left. The patient is on a BiPAP. The patient is currently on IV Decadron. The patient received convalescent plasma. He did not qualify for Remdesivir. His repeat coronavirus/Covid 19 PCR was sent and this is still pending. He is on Lovenox at a dose of 40 mg subcu on a daily basis. Overnight, he became quite restless and agitated. He was started on Precedex; emains in the 100% on his BiPAP and his pulse ox is ranging between 86 and 90%. D-dimer is elevated at 21.7. His d-dimer is elevated and the patient's Lovenox will be adjusted to half a dose twice a day. He is in a normal sinus rhythm for now. Objective - Vital Signs Vital signs: Vital Signs Temp 98.2 F 10/15/20 12:00 Pulse 57 L 10/15/20 14:00 Resp 28 H 10/15/20 14:00 BP 123/55 10/15/20 14:00 Pulse Ox 89 L 10/15/20 14:00 Intake & Output 10/14/20 10/15/20 10/15/20 18:59 06:59 18:59 Intake Total 120 756.456 842.812 Output Total 1100 610 335 Balance -980 146.456 507.812 Weight 95.6 kg Intake: IV 675 600 Sodium Chloride 0.9% 1, 675 600 000 ml @ 75 mls/hr IV . [id number] [facility] Rx#:[id number] Intake, IV Titration 81.456 92.812 Amount Dexmedetomidine/0.9% NaCl 81.456 92.812 (Pmx) 400 mcg In Empty Bag 1 bag @ Titrate IV . Q0M [facility] Rx#:[id number] Oral 120 150 Output: Urine 1100 610 335 Uretheral (Ellis) 350 Other: Voiding Method Indwelling Catheter Indwelling Catheter Indwelling Catheter - Exam GENERAL: The patient is alert and oriented x3, not in any acute distress. Well developed, well nourished. HEENT: Pupils are round and equally reacting to light. EOMI. No scleral icterus. No conjunctival pallor. Normocephalic, atraumatic. No pharyngeal erythema. No thyromegaly. CARDIOVASCULAR: S1 and S2 present. No murmurs, rubs, or gallops. PULMONARY: Chest is clear to auscultation, no wheezing or crackles. ABDOMEN: Soft, nontender, nondistended, normoactive bowel sounds. No palpable organomegaly. MUSCULOSKELETAL: No joint swelling or deformity. EXTREMITIES: No cyanosis, clubbing, or pedal edema. NEUROLOGICAL: Gross neurological examination did not reveal any focal deficits. SKIN: No rashes. - Labs CBC & Chem 7: 10/15/20 04:31 10/15/20 04:31 Labs: Abnormal Lab Results - Last 24 Hours (Table) 10/14/20 10/14/20 10/14/20 Range/Units 11:24 17:00 20:28 Lymphocytes # (1.0-4.8) k/uL D-Dimer (<0.60) mg/L FEU ABG pH (7.35-7.45) ABG pCO2 (35-45) mmHg ABG pO2 (83-108) mmHg ABG Total CO2 (19-24) mmol/L ABG O2 Saturation (94-97) % BUN (9-20) mg/dL Glucose (74-99) mg/dL POC Glucose (mg/dL) 104 H (75-99) mg/dL Calcium (8.4-10.2) mg/dL Ferritin 1243.7 H (22.0-322.0) ng/mL Coronavirus (PCR) Detected A (Not Detected) 10/15/20 10/15/20 10/15/20 Range/Units 00:50 04:31 04:31 Lymphocytes # 0.4 L (1.0-4.8) k/uL D-Dimer (<0.60) mg/L FEU ABG pH 7.47 H (7.35-7.45) ABG pCO2 33 L (35-45) mmHg ABG pO2 51 L* (83-108) mmHg ABG Total CO2 26 H (19-24) mmol/L ABG O2 Saturation 86.5 L (94-97) % BUN 24 H (9-20) mg/dL Glucose 119 H (74-99) mg/dL POC Glucose (mg/dL) (75-99) mg/dL Calcium 7.7 L (8.4-10.2) mg/dL Ferritin (22.0-322.0) ng/mL Coronavirus (PCR) (Not Detected) 10/15/20 Range/Units 04:31 Lymphocytes # (1.0-4.8) k/uL D-Dimer 21.70 H (<0.60) mg/L FEU ABG pH (7.35-7.45) ABG pCO2 (35-45) mmHg ABG pO2 (83-108) mmHg ABG Total CO2 (19-24) mmol/L ABG O2 Saturation (94-97) % BUN (9-20) mg/dL Glucose (74-99) mg/dL POC Glucose (mg/dL) (75-99) mg/dL Calcium (8.4-10.2) mg/dL Ferritin (22.0-322.0) ng/mL Coronavirus (PCR) (Not Detected) Microbiology - Last 24 Hours (Table) 10/11/20 15:30 Blood Culture - Preliminary Blood No Growth after 72 hours Assessment and Plan Assessment: -Acute hypoxic respiratory failure: Possibly of a cough with 19 pneumonitis cannot be ruled out in spite of negative PCR. Patient may have a some other viral pneumonia as well. Computed tomography scan findings are consistent with ARDS. We'll continue with respiratory support. Patient is on systemic steroids. He is also on Lovenox. -Coronary artery disease with previous history of bypass surgery hyperlipidemia -Hypertension -Hypovolemic hyponatremia: Hydrochlorothiazide will be discontinued patient was started on IV fluids next and have an acute renal failure secondary to diuretics and and evidence of medications which will be held as mentioned above.
[2020-10-15 17:40] LABS: Glucose,Whole Blood 152 mg/dL (75-99)
[2020-10-15] MEDS ORDERED: REMDESIVIR 200 MG in SODIUM CHLORIDE 0.9% 250 ML IVPB ONE (18:00)
[2020-10-15] MEDS: TIMOLOL 0.5% OPHTH DROPS 5 ML BTL BOTH EYES SCH (18:13)
[2020-10-15] MEDS: ATORVASTATIN 20 MG TAB PO SCH ×2 (21:00→21:21)
[2020-10-15] MEDS: ASCORBIC ACID 500 MG TAB PO SCH ×2 (21:00→21:20)
[2020-10-15] MEDS: LATANOPROST 0.005% OPHTH DROPS 2.5 ML BTL BOTH EYES SCH (21:01)
[2020-10-16] MEDS: DEXMEDETOMIDINE/0.9% NACL(PMX) 400 MCG in EMPTY BAG 1 BAG IV SCH (00:35)
[2020-10-16] MEDS: SODIUM CHLORIDE 0.9% 1,000 ML IV SCH ×2 (02:30→18:32)
[2020-10-16 04:16] LABS: Basophils # (A) 0.1 k/uL (0-0.2); Basophils % (A) 2 %; Eosinophils % (A) 0 %; HCT 42.5 % (39.0-53.0); HGB 13.7 gm/dL (13.0-17.5); Lymphocytes # (A) 0.3 k/uL (1.0-4.8); Lymphocytes % (A) 4 %; MCH 31.4 pg (25.0-35.0); MCHC 32.3 g/dL (31.0-37.0); MCV 97.2 fL (80.0-100.0); Mean Platelet Volume 7.8; Monocytes # (A) 0.3 k/uL (0-1.0); Monocytes % (A) 5 %; Neutrophils # (A) 6.2 k/uL (1.3-7.7); Neutrophils % (A) 87 %; Platelet Count 176 k/uL (150-450); RBC 4.37 m/uL (4.30-5.90); RDW 12.4 % (11.5-15.5); WBC 7.1 k/uL (3.8-10.6)
[2020-10-16 04:32] LABS: African American GFR (CKD) >90 (>60 ml/min/1.73 sqM); Anion Gap 3 mmol/L; Blood Urea Nitrogen 28 mg/dL (9-20); Calcium 7.9 mg/dL (8.4-10.2); Carbon Dioxide 26 mmol/L (22-30); Chloride 114 mmol/L (98-107); Glucose 168 mg/dL (74-99); Non-African American GFR(CKD) 89 (>60 ml/min/1.73 sqM); Potassium 4.9 mmol/L (3.5-5.1); Sodium 143 mmol/L (137-145)
[2020-10-16 04:45] LABS: C Reactive Protein 225.9 mg/L (<10.0); LDH 2279 U/L (313-618)
--- NOTE | 2020-10-16 07:37 | XR ---
EXAMINATION TYPE: XR chest 1V DATE OF EXAM: 10/16/2020 HISTORY: Shortness of breath. COMPARISON: 10/15/2020 TECHNIQUE: Single view of the chest is submitted. FINDINGS: Demonstrated are scattered senescent parenchymal change. Diffuse bilateral reticulonodular infiltrates persist without significant interval change. The heart is stable. Hilar and mediastinal structures are within normal limits. Degenerative changes are seen of the dorsal spine. IMPRESSION: 1. Diffuse bilateral reticulonodular infiltrates persist without significant interval change.
[2020-10-16] MEDS: ALBUTEROL HFA INHALER INHALATION SCH ×4 (07:38→20:12)
[2020-10-16] MEDS: dexAMETHasone 2 MG TAB PO SCH (08:02)
[2020-10-16] MEDS: ASPIRIN 81 MG PO SCH ×2 (08:02→09:28)
[2020-10-16] MEDS: ISOSORBIDE MONONITRATE ER 30 MG TAB.ER.24H PO SCH ×2 (08:02→11:51)
[2020-10-16] MEDS: PANTOPRAZOLE 40 MG TABLET PO SCH ×2 (08:02→09:28)
[2020-10-16] MEDS: LOSARTAN 50 MG TAB PO SCH ×2 (08:02→11:51)
[2020-10-16] MEDS: CLIDINIUM-chlordiazePOXIDE (2.5-5 MG) CAP PO SCH ×2 (08:03→22:22)
[2020-10-16] MEDS: RANOLAZINE 500 MG TAB.ER.12H PO SCH ×3 (08:03→22:23)
[2020-10-16] MEDS: ENOXAPARIN 60 MG/0.6 ML SYRINGE SQ SCH ×2 (08:03→22:22)
[2020-10-16] MEDS: atenoloL 25 MG TAB PO SCH ×2 (08:03→11:51)
[2020-10-16] MEDS: TIMOLOL 0.5% OPHTH DROPS 5 ML BTL BOTH EYES SCH (08:07)
[2020-10-16 09:54] LABS: Ferritin 1318.3 ng/mL (22.0-322.0)
--- NOTE | 2020-10-16 11:26 | P.PN ---
Subjective Progress Note Date: 10/16/20 Principal diagnosis: Acute hypoxic respiratory failure related to COVID 19 pneumonia 75-year-old patient, known history of coronary artery disease hypertension and previous bypass surgery, came into the emergency department feeling sick for almost a week. He had fever and shortness of breath and cough. He had tested COVID 19 and the results came back negative. Because of his worsening condition, he was told them to come to the ED by his PCP. He was not improving. He stated that he was getting progressively more short of breath. He started off by having symptoms of URI. Denies having any loss in the taste or smell. Denies having any chest pain. He was alert and oriented 3. In the emergency department, the patient was found to be hypoxic and the patient is currently on 15 L about 2 by nasal cannula. She is chest x-ray showed bilateral interstitial pulmonary infiltrates worse in the left lower lobe. The patient had some lymphopenia on his blood work with a d-dimer of 0.3. CRP was 36.5. LDH was 855 and a repeat coronavirus Covid 19 testing was done that came back negative by PCR. She is on level is at 0.08. On 10/13/2020, the patient is being seen in follow-up regarding his pneumonia. Note that the patient was having worsening shortness of breath. He developed worsening hypoxemia overnight. On 100% nonrebreather facemask, the patient had a pH of 7.45 with episodes of 34 and pO2 of 64. Subsequently, the patient was switched to high flow oxygen at 60 L. Despite the negative coronavirus/Covid 19 PCR, the patient is highly suspected to have the infection and the patient's had the typical clinical presentation, physical x-ray findings indicative CAT scan findings. A CT angios was performed yesterday that showed no evidence of any pulmonary embolism. The patient had diffuse areas of groundglass infiltrates and areas of consolidation. This is consistent with a viral pneumonia or early ARDS. Meanwhile, the patient's oxygenation has been worse. He is having coarse crackles in lung bases bilaterally. During the morning evaluation, the patient was on high flow oxygen at 6 L with a FiO2 of 90%. He was a bit anxious. He reported desaturation with limited amount of activity. This was noted today. He was able to sit up on a recliner. Nevertheless, his pulse ox was dropping with talking and some activity. I would say his condition is extremely borderline. I placed an order for Remdesivir , however, this was declined the patient did not have the positive confirmation for the viral infection. On 10/14/2020, the patient remains on a BiPAP at a pressure of 12/6 with an FiO2 of 100%. Obviously his condition decompensated. Initially was on regular oxygen flowing he was switched to high flow oxygen 6 L and upon further decompensation, the patient was placed on a BiPAP. He is resting comfortably in bed. His pulse ox currently is in the percent. She is on IV Decadron. He is also on Lovenox for DVT prophylaxis. He got declined forRemdesivir and he was given convalescent plasma one unit yesterday. His most recent blood gases from yesterday and no follow-up blood gases has been obtained today. He is looking lethargic. Is getting progressively more weak. He is awake and alert. He is following commands. A repeat chest x-ray will be obtained today. I also think it's reasonable for this patient to get transferred to the intensive care unit for further monitoring. He is known to have coronary artery bypass surgery for an underlying coronary artery disease. Inflammatory markers are also to follow. On 10/15/2022 months seeing the patient for a follow-up. The patient got transferred to the intensive care unit because of worsening in hypoxemia and acute hypoxic respiratory failure. His chest x-ray showing diffuse bilateral pulmonary infiltrates with groundglass changes Bilaterally more so on the right compared to the left. The patient was on 100% nonrebreather facemask. He fail ed that. He was started on BiPAP at a pressure of 14/8 cm of water. Her blood gases from last night showed a pH of 7.47 with a pCO2 of 33 and pO2 of 51 and this blood gas was done while the patient was on 100%. Subsequently, the patient was placed on a BiPAP. The patient is currently on IV Decadron. The patient received convalescent plasma. He did not qualify for Remdesivir. His repeat coronavirus/Covid 19 PCR was sent and this is still pending. Meanwhile, the patient is still on IV fluids at the rate of 75 mL an hour. Urine output is no other 30 mL an hour. He is on Lovenox at a dose of 40 mg subcu on a daily basis. Overnight, he became quite restless and agitated. He was started on Precedex which is currently running at 0.4 mcg/kg/h. This, the situation and the patient seems to be much more appropriate. On today's evaluation, he is still on Precedex. He is following commands. His answering questions. He is more rested. Nevertheless, he remains in the 100% on his BiPAP and his pulse ox is ranging between 86 and 90%. D-dimer is elevated at 21.7. His d-dimer is matthew vated and the patient's Lovenox will be adjusted to half a dose twice a day. He is in a normal sinus rhythm for now. On 10/16/2020 patient seen in follow-up in the intensive care unit, he is retest PCR from 10/14/2020 came back positive for Covid 19, he remains on BiPAP currently of pressures of 14/8 and FiO2 of 100%, his pulse ox is 8990%, he is on Precedex at 0.3 mics per kilo per minute, and 0.9 at 75 ML per hour, no other drips. He was started on Remdesivir, today is day 2 of treatment, he remains on Decadron and Lovenox for anticoagulation. His chest x-ray shows diffuse bilateral reticulonodular infiltrates significant interval change. Is afebrile, hemodynamically stable, his labs have been reviewed, showing persistent lymphopenia, with lymphocyte count 0.3, the rest of the CBC was within normal limits, d-dimer has increased to 34.1, his chloride is 114, the rest of electrolytes were unremarkable, BUN is 28, creatinine of 0.76, his ferritin level is 1318, LDH is still significantly elevated at 2279, and CRP has significantly increased to 225.9, pro calcitonin was negative at 0.08, and we will discontinue his Zithromax. Denies any chest discomfort, remains in sinus mechanism, he remains on Precedex because of periodic restlessness, appears to be quite comfortable right now, a bit drowsy. Objective - Vital Signs Vital signs: Vital Signs Temp 96 F L 10/16/20 08:00 Pulse 50 L 10/16/20 09:00 Resp 26 H 10/16/20 09:00 BP 138/64 10/16/20 09:00 Pulse Ox 89 L 10/16/20 09:00 Intake & Output 10/15/20 10/16/20 10/16/20 18:59 06:59 18:59 Intake Total 1155.957 3053.759 225 Output Total 515 600 160 Balance 825.413 409.759 65 Weight 95.8 kg Intake: IV 900 825 225 Sodium Chloride 0.9% 1, 900 825 225 000 ml @ 75 mls/hr IV . [id number] [facility] Rx#:[id number] Intake, IV Titration 140.413 109.759 Amount Dexmedetomidine/0.9% NaCl 140.413 109.759 (Pmx) 400 mcg In Empty Bag 1 bag @ Titrate IV . Q0M [facility] Rx#:[id number] Oral 300 Lipid 75 Sodium Chloride 0.9% 1, 75 000 ml @ 75 mls/hr IV . [id number] [facility] Rx#:[id number] Output: Urine 515 600 160 Other: Voiding Method Indwelling Catheter Indwelling Catheter Indwelling Catheter - Exam GENERAL EXAM: Drowsy, but easily arousable, 75-year-old white male, on BiPAP support, with pressures of 14/8 and FiO2 of 100%, and a pulse ox of 80-89% comfortable in no apparent distress. HEAD: Normocephalic/atraumatic. EYES: Normal reaction of pupils, equal size. Conjunctiva pink, sclera white. NOSE: Clear with pink turbinates. THROAT: No erythema or exudates. NECK: No masses, no JVD, no thyroid enlargement, no adenopathy. CHEST: No chest wall deformity. Symmetrical expansion. LUNGS: Equal air entry with no crackles, wheeze, rhonchi or dullness. CVS: Regular rate and rhythm, normal S1 and S2, no gallops, no murmurs, no rubs ABDOMEN: Soft, nontender. No hepatosplenomegaly, normal bowel sounds, no guarding or rigidity. EXTREMITIES: No clubbing, no edema, no cyanosis, 2+ pulses and upper and lower extremities. MUSCULOSKELETAL: Muscle strength and tone normal. SPINE: No scoliosis or deformity SKIN: No rashes CENTRAL NERVOUS SYSTEM: Drowsy, On Precedex drip at 0.3 mics per kilo per minute No focal deficits, tone is normal in all 4 extremities. - Labs CBC & Chem 7: 10/16/20 03:39 10/16/20 03:39 Labs: Abnormal Lab Results - Last 24 Hours (Table) 10/14/20 10/14/20 10/15/20 Range/Units 11:24 17:00 17:39 Lymphocytes # (1.0-4.8) k/uL D-Dimer (<0.60) mg/L FEU Chloride (98-107) mmol/L BUN (9-20) mg/dL Glucose (74-99) mg/dL POC Glucose (mg/dL) 152 H (75-99) mg/dL Calcium (8.4-10.2) mg/dL Ferritin 1243.7 H (22.0-322.0) ng/mL Lactate Dehydrogenase (313-618) U/L C-Reactive Protein (<10.0) mg/L Coronavirus (PCR) Detected A (Not Detected) 10/16/20 10/16/20 10/16/20 Range/Units 03:39 03:39 03:39 Lymphocytes # 0.3 L (1.0-4.8) k/uL D-Dimer >34.10 H (<0.60) mg/L FEU Chloride 114 H (98-107) mmol/L BUN 28 H (9-20) mg/dL Glucose 168 H (74-99) mg/dL POC Glucose (mg/dL) (75-99) mg/dL Calcium 7.9 L (8.4-10.2) mg/dL Ferritin 1318.3 H (22.0-322.0) ng/mL Lactate Dehydrogenase 2279 H (313-618) U/L C-Reactive Protein 225.9 H (<10.0) mg/L Coronavirus (PCR) (Not Detected) Microbiology - Last 24 Hours (Table) 10/11/20 15:30 Blood Culture - Preliminary Blood No Growth after 96 hours Assessment and Plan Plan: 1 acute hypoxic respiratory failure related to COVID 19 pneumonia. Chest x-ray showed interstitial groundglass bilateral pulmonary infiltrates, most consistent with a viral pneumonia, consider coronavirus coordinating infection despite the negative PCR on 2 separate occasions. PCR was sent. The patient is treated with Decadron. The patient was also given, less than plasma. The patient is currently on a BiPAP at a pressure of 14/8 of water and FiO2 of on the percent. The patient is maintaining a saturation of about 85%. The d-dimer is cons iderably elevated. Lovenox dose will be adjusted to 0.5 mg/kg every 12 hours. Patient's repeat COVID 19 PCR came back positive on 10/14/2020 2 shortness of breath and cough secondary to above 3 elevated inflammatory markers likely secondary to above the LDH from yesterday was 2381 4 coronary artery disease appears bypass surgery and previous coronary stenting 5 hypertension 6 hyperlipidemia 7 significant elevated d-dimer, related to hypercoagulable state related to COVID 19 infection, currently on Lovenox at 0.5 mg per kilogram twice daily dose Plan: We'll continue with Remdesivir, patient's last PCR came back positive confirming COVID 19 pneumonitis, we will continue current dose Lovenox, Decadron, patient has received a dose of, received 1 unit convalescent plasma, continue close monitoring in the intensive care unit, respiratory status is marginal. Prognosis is guarded. I performed a history & physical examination of the patient and discussed their management with my nurse practitioner, Manda Peoples. I reviewed the nurse practitioner's note and agree with the documented findings and plan of care. Lung sounds are positive for diffuse crackles. The findings and the impression was discussed with the patient. I attest to the documentation by the nurse practitioner. Time with Patient: Greater than 30
[2020-10-16] MEDS: DEXAMETHASONE SOD PHOSPHATE 10 MG/ML 1 ML VIAL IV SCH (12:00)
[2020-10-16] MEDS: REMDESIVIR 100 MG in SODIUM CHLORIDE 0.9% 250 ML IVPB SCH (18:37)
[2020-10-16] MEDS: ATORVASTATIN 20 MG TAB PO SCH (22:22)
[2020-10-16] MEDS: ASCORBIC ACID 500 MG TAB PO SCH (22:22)
[2020-10-16] MEDS: LATANOPROST 0.005% OPHTH DROPS 2.5 ML BTL BOTH EYES SCH (22:23)
[2020-10-17 05:10] LABS: Basophils # (A) 0.1 k/uL (0-0.2); Basophils % (A) 1 %; Eosinophils % (A) 0 %; HCT 45.3 % (39.0-53.0); HGB 15.1 gm/dL (13.0-17.5); Lymphocytes # (A) 0.2 k/uL (1.0-4.8); Lymphocytes % (A) 2 %; MCH 32.2 pg (25.0-35.0); MCHC 33.3 g/dL (31.0-37.0); MCV 96.7 fL (80.0-100.0); Mean Platelet Volume 8.5; Monocytes # (A) 0.5 k/uL (0-1.0); Monocytes % (A) 5 %; Neutrophils # (A) 7.9 k/uL (1.3-7.7); Neutrophils % (A) 89 %; Platelet Count 174 k/uL (150-450); RBC 4.69 m/uL (4.30-5.90); RDW 12.6 % (11.5-15.5); WBC 8.8 k/uL (3.8-10.6)
[2020-10-17 05:23] LABS: D-Dimer >34.10 mg/L FEU (<0.60); Fibrinogen 637 mg/dL (200-500)
[2020-10-17 05:28] LABS: ALT 39 U/L (4-49); AST 62 U/L (17-59); African American GFR (CKD) >90 (>60 ml/min/1.73 sqM); Albumin 2.8 g/dL (3.5-5.0); Alkaline Phosphatase 141 U/L (38-126); Anion Gap 4 mmol/L; Blood Urea Nitrogen 29 mg/dL (9-20); C Reactive Protein 77.5 mg/L (<10.0); Calcium 7.9 mg/dL (8.4-10.2); Carbon Dioxide 25 mmol/L (22-30); Chloride 117 mmol/L (98-107); Creatine Kinase 63 U/L (55-170); Glucose 152 mg/dL (74-99); Non-African American GFR(CKD) >90 (>60 ml/min/1.73 sqM); Sodium 146 mmol/L (137-145); Total Protein 5.9 g/dL (6.3-8.2)
[2020-10-17 05:45] LABS: LDH 2524 U/L (313-618); Potassium 5.1 mmol/L (3.5-5.1)
[2020-10-17] MEDS: SODIUM CHLORIDE 0.9% 1,000 ML IV SCH ×2 (05:45→16:13)
[2020-10-17] MEDS: CLEVIDIPINE BUTYRATE 25 MG in EMPTY BAG 1 BAG IV SCH ×2 (07:10→21:14)
[2020-10-17] MEDS: PANTOPRAZOLE 40 MG TABLET PO SCH (07:10)
[2020-10-17] MEDS: ALBUTEROL HFA INHALER INHALATION SCH ×4 (08:01→20:57)
[2020-10-17] MEDS: LOSARTAN 50 MG TAB PO SCH (08:04)
[2020-10-17] MEDS: RANOLAZINE 500 MG TAB.ER.12H PO SCH ×2 (08:04→21:05)
[2020-10-17] MEDS: atenoloL 25 MG TAB PO SCH (08:04)
[2020-10-17] MEDS: ASPIRIN 81 MG PO SCH (08:04)
[2020-10-17] MEDS: CLIDINIUM-chlordiazePOXIDE (2.5-5 MG) CAP PO SCH ×2 (08:04→21:05)
[2020-10-17] MEDS: ISOSORBIDE MONONITRATE ER 30 MG TAB.ER.24H PO SCH (08:04)
[2020-10-17] MEDS: DEXAMETHASONE SOD PHOSPHATE 10 MG/ML 1 ML VIAL IV SCH (08:07)
[2020-10-17] MEDS: ENOXAPARIN 60 MG/0.6 ML SYRINGE SQ SCH ×2 (08:07→23:00)
[2020-10-17] MEDS: TIMOLOL 0.5% OPHTH DROPS 5 ML BTL BOTH EYES SCH (08:31)
[2020-10-17 10:15] LABS: Ferritin 991.1 ng/mL (22.0-322.0)
[2020-10-17 12:11] LABS: Glucose,Whole Blood 152 mg/dL (75-99)
[2020-10-17] MEDS: INSULIN ASPART (NovoLOG) 100 UNIT/ML VIAL SQ SCH ×3 (12:13→21:13)
--- NOTE | 2020-10-17 13:47 | P.PN ---
Subjective Progress Note Date: 10/17/20 Principal diagnosis: Acute hypoxic episode of failure secondary to covid 19 pneumonitis. Acute hypoxic respiratory failure related to COVID 19 pneumonia 75-year-old patient, known history of coronary artery disease hypertension and previous bypass surgery, came into the emergency department feeling sick for almost a week. He had fever and shortness of breath and cough. He had tested COVID 19 and the results came back negative. Because of his worsening condition, he was told them to come to the ED by his PCP. He was not improving. He stated that he was getting progressively more short of breath. He started off by having symptoms of URI. Denies having any loss in the taste or smell. Denies having any chest pain. He was alert and oriented 3. In the emergency department, the patient was found to be hypoxic and the patient is currently on 15 L about 2 by nasal cannula. She is chest x-ray showed bilateral interstitial pulmonary infiltrates worse in the left lower lobe. The patient had some lymphopenia on his blood work with a d-dimer of 0.3. CRP was 36.5. LDH was 855 and a repeat coronavirus Covid 19 testing was done that came back negative by PCR. She is on level is at 0.08. On 10/13/2020, the patient is being seen in follow-up regarding his pneumonia. Note that the patient was having worsening shortness of breath. He developed worsening hypoxemia overnight. On 100% nonrebreather facemask, the patient had a pH of 7.45 with episodes of 34 and pO2 of 64. Subsequently, the patient was switched to high flow oxygen at 60 L. Despite the negative coronavirus/Covid 19 PCR, the patient is highly suspected to have the infection and the patient's had the typical clinical presentation, physical x-ray findings indicative CAT scan findings. A CT angios was performed yesterday that showed no evidence of any pulmonary embolism. The patient had diffuse areas of groundglass infiltrates and areas of consolidation. This is consistent with a viral pneumonia or early ARDS. Meanwhile, the patient's oxygenation has been worse. He is having coarse crackles in lung bases bilaterally. During the morning evaluation, the patient was on high flow oxygen at 6 L with a FiO2 of 90%. He was a bit anxious. He reported desaturation with limited amount of activity. This was noted today. He was able to sit up on a recliner. Nevertheless, his pulse ox was dropping with talking and some activity. I would say his condition is extremely borderline. I placed an order for Remdesivir , however, this was declined the patient did not have the positive confirmation for the viral infection. On 10/14/2020, the patient remains on a BiPAP at a pressure of 12/6 with an FiO2 of 100%. Obviously his condition decompensated. Initially was on regular oxygen flowing he was switched to high flow oxygen 6 L and upon further decompensation, the patient was placed on a BiPAP. He is resting comfortably in bed. His pulse ox currently is in the percent. She is on IV Decadron. He is also on Lovenox for DVT prophylaxis. He got declined forRemdesivir and he was given convalescent plasma one unit yesterday. His most recent blood gases from yesterday and no follow-up blood gases has been obtained today. He is looking lethargic. Is getting progressively more weak. He is awake and alert. He is following commands. A repeat chest x-ray will be obtained today. I also think it's reasonable for this patient to get transferred to the intensive care unit for further monitoring. He is known to have coronary artery bypass surgery for an underlying coronary artery disease. Inflammatory markers are also to follow. On 10/15/2022 months seeing the patient for a follow-up. The patient got transferred to the intensive care unit because of worsening in hypoxemia and acute hypoxic respiratory failure. His chest x-ray showing diffuse bilateral pulmonary infiltrates with groundglass changes Bilaterally more so on the right compared to the left. The patient was on 100% nonrebreather facemask. He failed that. He was started on BiPAP at a pressure of 14/8 cm of water. Her blood gases from last night showed a pH of 7.47 with a pCO2 of 33 and pO2 of 51 and this blood gas was done while the patient was on 100%. Subsequently, the patient was placed on a BiPAP. The patient is currently on IV Decadron. The patient received convalescent plasma. He did not qualify for Remdesivir. His repeat coronavirus/Covid 19 PCR was sent and this is still pending. Meanwhile, the patient is still on IV fluids at the rate of 75 mL an hour. Urine output is no other 30 mL an hour. He is on Lovenox at a dose of 40 mg subcu on a daily basis. Overnight, he became quite restless and agitated. He was started on Precedex which is currently running at 0.4 mcg/kg/h. This, the situation and the patient seems to be much more appropriate. On today's evaluation, he is still on Precedex. He is following commands. His answering questions. He is more rested. Nevertheless, he remains in the 100% on his BiPAP and his pulse ox is ranging between 86 and 90%. D-dimer is elevated at 21.7. His d-dimer is elevated and the patient's Lovenox will be adjusted to half a dose twice a day. He is in a normal sinus rhythm for now. On 10/16/2020 patient seen in follow-up in the intensive care unit, he is retest PCR from 10/14/2020 came back positive for Covid 19, he remains on BiPAP currently of pressures of 14/8 and FiO2 of 100%, his pulse ox is 8990%, he is on Precedex at 0.3 mics per kilo per minute, and 0.9 at 75 ML per hour, no other drips. He was started on Remdesivir, today is day 2 of treatment, he remains on Decadron and Lovenox for anticoagulation. His chest x-ray shows diffuse bilateral reticulonodular infiltrates significant interval change. Is afebrile, hemodynamically stable, his labs have been reviewed, showing persistent lymphopenia, with lymphocyte count 0.3, the rest of the CBC was within normal limits, d-dimer has increased to 34.1, his chloride is 114, the rest of electrolytes were unremarkable, BUN is 28, creatinine of 0.76, his ferritin level is 1318, LDH is still significantly elevated at 2279, and CRP has significantly increased to 225.9, pro calcitonin was negative at 0.08, and we will discontinue his Zithromax. Denies any chest discomfort, remains in sinus mechanism, he remains on Precedex because of periodic restlessness, appears to be quite comfortable right now, a bit drowsy. Reevaluated today on 10/17/20, patient remains in the ICU, maintained on BiPAP, IPAP of 14 and EPAP of 8 and FiO2 is 100%. O2 saturation is marginal. Patient is also on clevidipine drip at 1 mg/h to adequately control his blood pressure. IV fluid at 75 mL per hour. Patient remains on the Covid 19 cocktail, remains on remdesivir' received 1 unit of convalescent plasma and remains on Decadron. Chest x-ray continues to show bilateral interstitial and. 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 CBC is relatively normal. D-dimer is above 54 electrolytes are normal renal profile is normal LDH is quite elevated at 2524, and C-reactive protein is 77.5, improved compared to yesterday patient remains on Lovenox at 50 mg subcu every 12 hours Objective - Vital Signs Vital signs: Vital Signs Temp 97.6 F 10/17/20 12:00 Pulse 63 10/17/20 12:00 Resp 28 H 10/17/20 12:00 BP 129/69 10/17/20 12:00 Pulse Ox 91 L 10/17/20 12:00 Intake & Output 10/16/20 10/17/20 10/17/20 18:59 06:59 18:59 Intake Total 975 1075 570 Output Total 730 925 485 Balance 245 150 85 Weight 97.1 kg Intake: IV 975 825 450 Sodium Chloride 0.9% 1, 975 825 450 000 ml @ 75 mls/hr IV . [id number] [facility] Rx#:[id number] Intake, IV Titration 250 Amount Remdesivir 100 mg In 250 Sodium Chloride 0.9% 250 ml @ 250 mls/hr IVPB DAILY@[facility] Rx#: [id number] Oral 120 Output: Urine 730 925 485 Other: Voiding Method Indwelling Catheter Indwelling Catheter Indwelling Catheter - Exam GENERAL EXAM: Drowsy, but easily arousable, 75-year-old white male, on BiPAP support, with pressures of 14/8 and FiO2 of 100%, and a pulse ox of 80-89% comfortable in no apparent distress. HEAD: Normocephalic/atraumatic. HEENT: PERRLA, EOMI, neck test, no neck masses, no JVD, no stridor. CHEST: No chest wall deformity. Symmetrical expansion. LUNGS: Fine crackles at the bases bilaterally. CVS: Regular rate and rhythm, normal S1 and S2, no gallops, no murmurs, no rubs ABDOMEN: Obese, soft, nontender, no megaly, no rebound. EXTREMITIES: No clubbing, no edema, no cyanosis, 2+ pulses and upper and lower extremities. MUSCULOSKELETAL: Muscle strength and tone normal. SKIN: No rashes CENTRAL NERVOUS SYSTEM: Alert and oriented 3, no gross focal deficits. Psychiatric: Normal mood, affect and normal mental status examination. - Labs CBC & Chem 7: 10/17/20 04:46 10/17/20 04:46 Labs: Abnormal Lab Results - Last 24 Hours (Table) 10/17/20 10/17/20 10/17/20 Range/Units 04:46 04:46 04:46 Neutrophils # 7.9 H (1.3-7.7) k/uL Lymphocytes # 0.2 L (1.0-4.8) k/uL Fibrinogen 637 H (200-500) mg/dL D-Dimer >34.10 H (<0.60) mg/L FEU Sodium 146 H (137-145) mmol/L Chloride 117 H (98-107) mmol/L BUN 29 H (9-20) mg/dL Creatinine 0.61 L (0.66-1.25) mg/dL Glucose 152 H (74-99) mg/dL POC Glucose (mg/dL) (75-99) mg/dL Calcium 7.9 L (8.4-10.2) mg/dL Ferritin 991.1 H (22.0-322.0) ng/mL AST 62 H (17-59) U/L Alkaline Phosphatase 141 H (38-126) U/L Lactate Dehydrogenase 2524 H (313-618) U/L C-Reactive Protein 77.5 H (<10.0) mg/L Total Protein 5.9 L (6.3-8.2) g/dL Albumin 2.8 L (3.5-5.0) g/dL 10/17/20 Range/Units 12:09 Neutrophils # (1.3-7.7) k/uL Lymphocytes # (1.0-4.8) k/uL Fibrinogen (200-500) mg/dL D-Dimer (<0.60) mg/L FEU Sodium (137-145) mmol/L Chloride (98-107) mmol/L BUN (9-20) mg/dL Creatinine (0.66-1.25) mg/dL Glucose (74-99) mg/dL POC Glucose (mg/dL) 152 H (75-99) mg/dL Calcium (8.4-10.2) mg/dL Ferritin (22.0-322.0) ng/mL AST (17-59) U/L Alkaline Phosphatase (38-126) U/L Lactate Dehydrogenase (313-618) U/L C-Reactive Protein (<10.0) mg/L Total Protein (6.3-8.2) g/dL Albumin (3.5-5.0) g/dL Microbiology - Last 24 Hours (Table) 10/11/20 15:30 Blood Culture - Preliminary Blood No Growth after 120 hours Assessment and Plan Assessment: Impression: Acute hypoxic respiratory failure secondary to covid 19 pneumonia. Elevated inflammatory markers and significantly elevated d-dimer. Benign essential hypertension. Dyslipidemia. Obesity. Recommendation: Continue to titrate oxygen and maintain O2 sat showed 90%. Continue the Covid 19 cocktail. Continue remdesivir Continue Lovenox at 0.5 mcg/kg twice a day. Received 1 unit of convalescent plasma. Pulmonary status remains marginal at best. We'll continue to monitor in the ICU. Critical care time is over 30 minutes. Time with Patient: Greater than 30
[2020-10-17 16:46] LABS: Glucose,Whole Blood 137 mg/dL (75-99)
[2020-10-17] MEDS: REMDESIVIR 100 MG in SODIUM CHLORIDE 0.9% 250 ML IVPB SCH (16:55)
[2020-10-17] MEDS: ATORVASTATIN 20 MG TAB PO SCH (21:05)
[2020-10-17] MEDS: ASCORBIC ACID 500 MG TAB PO SCH (21:05)
[2020-10-17 21:11] LABS: Glucose,Whole Blood 134 mg/dL (75-99)
[2020-10-17] MEDS: LATANOPROST 0.005% OPHTH DROPS 2.5 ML BTL BOTH EYES SCH (21:24)
[2020-10-18] MEDS: SODIUM CHLORIDE 0.9% 1,000 ML IV SCH ×2 (03:54→17:42)
[2020-10-18] MEDS: CLEVIDIPINE BUTYRATE 25 MG in EMPTY BAG 1 BAG IV SCH (03:55)
[2020-10-18 04:46] LABS: Basophils # (A) 0.1 k/uL (0-0.2); Basophils % (A) 1 %; Eosinophils % (A) 0 %; HCT 47.2 % (39.0-53.0); HGB 15.5 gm/dL (13.0-17.5); Lymphocytes # (A) 0.3 k/uL (1.0-4.8); Lymphocytes % (A) 2 %; MCH 31.5 pg (25.0-35.0); MCHC 32.7 g/dL (31.0-37.0); MCV 96.2 fL (80.0-100.0); Monocytes # (A) 0.4 k/uL (0-1.0); Monocytes % (A) 4 %; Neutrophils # (A) 10.8 k/uL (1.3-7.7); Neutrophils % (A) 92 %; Platelet Count 168 k/uL (150-450); RBC 4.91 m/uL (4.30-5.90); RDW 12.8 % (11.5-15.5); WBC 11.8 k/uL (3.8-10.6)
[2020-10-18 04:57] LABS: ALT 32 U/L (4-49); AST 43 U/L (17-59); African American GFR (CKD) >90 (>60 ml/min/1.73 sqM); Albumin 2.8 g/dL (3.5-5.0); Alkaline Phosphatase 161 U/L (38-126); Anion Gap 3 mmol/L; Blood Urea Nitrogen 28 mg/dL (9-20); C Reactive Protein 60.4 mg/L (<10.0); Calcium 8.1 mg/dL (8.4-10.2); Carbon Dioxide 25 mmol/L (22-30); Chloride 118 mmol/L (98-107); Creatine Kinase 38 U/L (55-170); Glucose 128 mg/dL (74-99); Non-African American GFR(CKD) >90 (>60 ml/min/1.73 sqM); Potassium 4.3 mmol/L (3.5-5.1); Sodium 146 mmol/L (137-145); Total Bilirubin 0.8 mg/dL (0.2-1.3); Total Protein 5.7 g/dL (6.3-8.2)
[2020-10-18 05:07] LABS: LDH 2480 U/L (313-618)
[2020-10-18] MEDS: INSULIN ASPART (NovoLOG) 100 UNIT/ML VIAL SQ SCH ×3 (06:49→17:41)
[2020-10-18] MEDS: PANTOPRAZOLE 40 MG TABLET PO SCH (06:49)
--- NOTE | 2020-10-18 07:00 | XR ---
EXAMINATION TYPE: XR chest 1V portable DATE OF EXAM: 10/18/2020 HISTORY: Shortness of breath. COMPARISON: 10/16/2020 TECHNIQUE: Single view of the chest is submitted. FINDINGS: Demonstrated are scattered senescent parenchymal change. Diffuse bilateral airspace infiltrates persist although there is improving aeration noted at the lung bases. The heart is stable. Hilar and mediastinal structures are within normal limits. Degenerative changes are seen of the dorsal spine. IMPRESSION: 1. Diffuse bilateral airspace infiltrates persist although there is improving aeration noted at the lung bases.
[2020-10-18] MEDS ORDERED: LORazepam 2 MG/ML INJ IV PRN (07:41)
[2020-10-18] MEDS ORDERED: propofoL 100 ML IV ONE (07:45)
[2020-10-18] MEDS ORDERED: SUCCINYLCHOLINE CHLORIDE VIAL 200 MG/10 ML VIAL IV ONE (07:52)
[2020-10-18] MEDS ORDERED: PROPOFOL 10 MG/ML 20 ML VIAL IV ONE (07:52)
[2020-10-18] MEDS ORDERED: EPINEPHrine 10 ML SYRINGE (0.1 MG/ML) ONE (08:00)
[2020-10-18] MEDS ORDERED: IPRATROPIUM-ALBUTEROL 3 ML NEB INHALATION SCH (08:00)
[2020-10-18] MEDS ORDERED: SODIUM BICARB 8.4% 50 ML SYR (1 MEQ/ML) ONE (08:00)
[2020-10-18] MEDS ORDERED: CISATRACURIUM 2 MG/ML 5 ML VIAL IV ONE ×2 (08:04→08:05)
[2020-10-18] MEDS: CISATRACURIUM 200 MG in SODIUM CHLORIDE 0.9% 180 ML IV SCH ×2 (08:26→23:03)
[2020-10-18 08:37] LABS: ABG Base Excess -14.5 mmol/L; ABG HCO3 17 mmol/L (21-25); ABG Oxygen Saturation 23.2 % (94-97); ABG TCO2 20 mmol/L (19-24); Allen Test Performed? Yes
[2020-10-18] MEDS: NOREPINEPHRINE 8 MG in SODIUM CHLORIDE 0.9% 250 ML IV SCH ×2 (08:45→23:03)
[2020-10-18] MEDS ORDERED: SODIUM CHLORIDE 0.9% 1,000 ML IV ONE ×2 (08:45→22:33)
[2020-10-18] MEDS ORDERED: SODIUM BICARB 8.4% 50 ML SYR (1 MEQ/ML) IV STA (08:49)
--- NOTE | 2020-10-18 09:03 | XR ---
EXAMINATION TYPE: XR chest 1V portable DATE OF EXAM: 10/18/2020 COMPARISON: 10/18/2020 HISTORY: SOB, Follow Up FINDINGS: Endotracheal tube is appropriately positioned. NG tube is seen coursing towards the stomach. Diffuse bilateral infiltrates appear to have increased in the interval. Continued progress studies ar e advised. Stable appearance of the cardio-mediastinal structures at this time. IMPRESSION: 1. Diffuse bilateral infiltrates appear to have increased in the interval. Continued progress studie s are advised.
[2020-10-18] MEDS: ALBUTEROL HFA INHALER INHALATION SCH ×4 (09:14→19:54)
[2020-10-18] MEDS: ASPIRIN 81 MG PO SCH (09:35)
[2020-10-18] MEDS: ENOXAPARIN 80 MG/0.8 ML SYRINGE SQ SCH ×2 (09:35→20:55)
[2020-10-18] MEDS: CLIDINIUM-chlordiazePOXIDE (2.5-5 MG) CAP PO SCH ×2 (09:35→20:55)
[2020-10-18] MEDS: DEXAMETHASONE SOD PHOSPHATE 10 MG/ML 1 ML VIAL IV SCH (09:36)
[2020-10-18] MEDS: TIMOLOL 0.5% OPHTH DROPS 5 ML BTL BOTH EYES SCH (09:36)
[2020-10-18] MEDS: RANOLAZINE 500 MG TAB.ER.12H PO SCH ×2 (09:36→20:55)
[2020-10-18] MEDS: atenoloL 25 MG TAB PO SCH (09:36)
[2020-10-18] MEDS: ISOSORBIDE MONONITRATE ER 30 MG TAB.ER.24H PO SCH (09:37)
[2020-10-18] MEDS: LOSARTAN 50 MG TAB PO SCH (09:37)
[2020-10-18 10:20] LABS: Ferritin 885.8 ng/mL (22.0-322.0)
[2020-10-18 11:40] LABS: ABG Base Excess 0.6 mmol/L; ABG HCO3 27 mmol/L (21-25); ABG Oxygen Saturation 76.6 % (94-97); ABG PCO2 60 mmHg (35-45); ABG PH 7.27 (7.35-7.45); ABG TCO2 29 mmol/L (19-24); Allen Test Performed? Yes
[2020-10-18 11:43] LABS: ABG PCO2 75 mmHg (35-45); ABG PH 6.97 (7.35-7.45)
[2020-10-18 11:44] LABS: ABG PO2 28 mmHg (83-108)
[2020-10-18 11:46] LABS: Glucose,Whole Blood 189 mg/dL (75-99)
[2020-10-18 11:46] LABS: ABG PO2 49 mmHg (83-108)
--- NOTE | 2020-10-18 14:22 | P.PN ---
Subjective Progress Note Date: 10/18/20 Principal diagnosis: Acute hypoxic episode of failure secondary to covid 19 pneumonitis. Acute hypoxic respiratory failure related to COVID 19 pneumonia 75-year-old patient, known history of coronary artery disease hypertension and previous bypass surgery, came into the emergency department feeling sick for almost a week. He had fever and shortness of breath and cough. He had tested COVID 19 and the results came back negative. Because of his worsening condition, he was told them to come to the ED by his PCP. He was not improving. He stated that he was getting progressively more short of breath. He started off by having symptoms of URI. Denies having any loss in the taste or smell. Denies having any chest pain. He was alert and oriented 3. In the emergency department, the patient was found to be hypoxic and the patient is currently on 15 L about 2 by nasal cannula. She is chest x-ray showed bilateral interstitial pulmonary infiltrates worse in the left lower lobe. The patient had some lymphopenia on his blood work with a d-dimer of 0.3. CRP was 36.5. LDH was 855 and a repeat coronavirus Covid 19 testing was done that came back negative by PCR. She is on level is at 0.08. On 10/13/2020, the patient is being seen in follow-up regarding his pneumonia. Note that the patient was having worsening shortness of breath. He developed worsening hypoxemia overnight. On 100% nonrebreather facemask, the patient had a pH of 7.45 with episodes of 34 and pO2 of 64. Subsequently, the patient was switched to high flow oxygen at 60 L. Despite the negative coronavirus/Covid 19 PCR, the patient is highly suspected to have the infection and the patient's had the typical clinical presentation, physical x-ray findings indicative CAT scan findings. A CT angios was performed yesterday that showed no evidence of any pulmonary embolism. The patient had diffuse areas of groundglass infiltrates and areas of consolidation. This is consistent with a viral pneumonia or early ARDS. Meanwhile, the patient's oxygenation has been worse. He is having coarse crackles in lung bases bilaterally. During the morning evaluation, the patient was on high flow oxygen at 6 L with a FiO2 of 90%. He was a bit anxious. He reported desaturation with limited amount of activity. This was noted today. He was able to sit up on a recliner. Nevertheless, his pulse ox was dropping with talking and some activity. I would say his condition is extremely borderline. I placed an order for Remdesivir , however, this was declined the patient did not have the positive confirmation for the viral infection. On 10/14/2020, the patient remains on a BiPAP at a pressure of 12/6 with an FiO2 of 100%. Obviously his condition decompensated. Initially was on regular oxygen flowing he was switched to high flow oxygen 6 L and upon further decompensation, the patient was placed on a BiPAP. He is resting comfortably in bed. His pulse ox currently is in the percent. She is on IV Decadron. He is also on Lovenox for DVT prophylaxis. He got declined forRemdesivir and he was given convalescent plasma one unit yesterday. His most recent blood gases from yesterday and no follow-up blood gases has been obtained today. He is looking lethargic. Is getting progressively more weak. He is awake and alert. He is following commands. A repeat chest x-ray will be obtained today. I also think it's reasonable for this patient to get transferred to the intensive care unit for further monitoring. He is known to have coronary artery bypass surgery for an underlying coronary artery disease. Inflammatory markers are also to follow. On 10/15/2022 months seeing the patient for a follow-up. The patient got transferred to the intensive care unit because of worsening in hypoxemia and acute hypoxic respiratory failure. His chest x-ray showing diffuse bilateral pulmonary infiltrates with groundglass changes Bilaterally more so on the right compared to the left. The patient was on 100% nonrebreather facemask. He failed that. He was started on BiPAP at a pressure of 14/8 cm of water. Her blood gases from last night showed a pH of 7.47 with a pCO2 of 33 and pO2 of 51 and this blood gas was done while the patient was on 100%. Subsequently, the patient was placed on a BiPAP. The patient is currently on IV Decadron. The patient received convalescent plasma. He did not qualify for Remdesivir. His repeat coronavirus/Covid 19 PCR was sent and this is still pending. Meanwhile, the patient is still on IV fluids at the rate of 75 mL an hour. Urine output is no other 30 mL an hour. He is on Lovenox at a dose of 40 mg subcu on a daily basis. Overnight, he became quite restless and agitated. He was started on Precedex which is currently running at 0.4 mcg/kg/h. This, the situation and the patient seems to be much more appropriate. On today's evaluation, he is still on Precedex. He is following commands. His answering questions. He is more rested. Nevertheless, he remains in the 100% on his BiPAP and his pulse ox is ranging between 86 and 90%. D-dimer is elevated at 21.7. His d-dimer is elevated and the patient's Lovenox will be adjusted to half a dose twice a day. He is in a normal sinus rhythm for now. On 10/16/2020 patient seen in follow-up in the intensive care unit, he is retest PCR from 10/14/2020 came back positive for Covid 19, he remains on BiPAP currently of pressures of 14/8 and FiO2 of 100%, his pulse ox is 8990%, he is on Precedex at 0.3 mics per kilo per minute, and 0.9 at 75 ML per hour, no other drips. He was started on Remdesivir, today is day 2 of treatment, he remains on Decadron and Lovenox for anticoagulation. His chest x-ray shows diffuse bilateral reticulonodular infiltrates significant interval change. Is afebrile, hemodynamically stable, his labs have been reviewed, showing persistent lymphopenia, with lymphocyte count 0.3, the rest of the CBC was within normal limits, d-dimer has increased to 34.1, his chloride is 114, the rest of electrolytes were unremarkable, BUN is 28, creatinine of 0.76, his ferritin level is 1318, LDH is still significantly elevated at 2279, and CRP has significantly increased to 225.9, pro calcitonin was negative at 0.08, and we will discontinue his Zithromax. Denies any chest discomfort, remains in sinus mechanism, he remains on Precedex because of periodic restlessness, appears to be quite comfortable right now, a bit drowsy. Reevaluated today on 10/17/20, patient remains in the ICU, maintained on BiPAP, IPAP of 14 and EPAP of 8 and FiO2 is 100%. O2 saturation is marginal. Patient is also on clevidipine drip at 1 mg/h to adequately control his blood pressure. IV fluid at 75 mL per hour. Patient remains on the Covid 19 cocktail, remains on remdesivir' received 1 unit of convalescent plasma and remains on Decadron. Chest x-ray continues to show bilateral interstitial and. 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 CBC is relatively normal. D-dimer is above 54 electrolytes are normal renal profile is normal LDH is quite elevated at 2524, and C-reactive protein is 77.5, improved compared to yesterday patient remains on Lovenox at 50 mg subcu every 12 hours Reevaluated today on 10/18/20, patient's clinical status deteriorated this morning, and his O2 saturation went down to the low 70s. Patient was noted to be tachypneic, and in moderate respiratory distress, I was notified about this patient, and I recommended immediate intubation and mechanical ventilation. However as the patient was being intubated by [employer], patient went into pulseless electrical activity, CPR was started immediately, received 1 dose of epinephrine and 1 dose of bicarb. There was return of spontaneous circulation within less than a minute. However the patient continued to have extremely poor oxygenation in spite of FiO2 of 100%, PEEP was increased to 16, rate was placed at 30, and tidal volume was placed at 500. Initial ABG post intubation showed a pO2 of 28 pCO2 of 75 pH of 6.97. 15 minutes later, his pO2 went up to 49 pCO2 was 60 pH of 7.27. Patient is now on pressure control mode of mechanical ventilation, rate is set at 30. Pressure control is set at 22. TIA is 0.8. And he is on 100% and PEEP of 16. Discussed his condition with the shortly after he coded, and explained to the the situation, and the prognosis is extremely poor and guarded. is agreeable to proceed with DO NOT RESUSCITATE CODE STA TUS, however we continue the same supportive care measures he is presently on including full mechanical ventilation, Covid 19 cocktail, and continue present supportive care measures fully however the patient is to coded again, no CPR would be done. Labs today showed relatively normal electrolytes normal renal profile. His LDH is up to 2480 and C-reactive protein is 60.4 chest x-ray post intubation showed worsening interstitial infiltrates bilaterally. And this was in spite of the PEEP of 16. Objective - Vital Signs Vital signs: Vital Signs Temp 99.1 F 10/18/20 04:00 Pulse 89 10/18/20 12:30 Resp 30 H 10/18/20 12:30 BP 106/62 10/18/20 12:30 Pulse Ox 79 L 10/18/20 12:30 Intake & Output 10/17/20 10/18/20 10/18/20 18:59 06:59 18:59 Intake Total 1270 961.500 800 Output Total 1095 1315 190 Balance 175 -353.500 610 Weight 95.8 kg 95.8 kg Intake: IV 1150 900 800 Remdesivir 100 mg In 250 Sodium Chloride 0.9% 250 ml @ 250 mls/hr IVPB DAILY@1800 JOE Rx#: [id number] Sodium Chloride 0.9% 1, 900 900 800 000 ml @ 75 mls/hr IV . [id number] JOE Rx#:[id number] Intake, IV Titration 61.500 Amount Clevidipine Butyrate 25 61.500 mg In Empty Bag 1 bag @ 1 MG/HR 2 mls/hr IV .Q24H JOE Rx#:[id number] Oral 120 Output: Urine 1095 1315 190 Other: Voiding Method Indwelling Catheter Indwelling Catheter Indwelling Catheter ABP, PAP, CO, CI - Last Documented Arterial Blood Pressure 101/48 - Exam GENERAL EXAM: Revealed 75-year-old white male, intubated and mechanically ventilated, and he had to be placed on Nimbex. HEAD: Normocephalic/atraumatic. Endotracheal tube and orogastric tubes are intact HEENT: PERRLA, EOMI, neck test, no neck masses, no JVD, no stridor. CHEST: No chest wall deformity. Symmetrical expansion. LUNGS: Crackles and rhonchi noted bilaterally. CVS: Regular rate and rhythm, normal S1 and S2, no gallops, no murmurs, no rubs ABDOMEN: Obese, soft, nontender, no megaly, no rebound. EXTREMITIES: No clubbing, no edema, no cyanosis, 2+ pulses and upper and lower extremities. MUSCULOSKELETAL: Patient is paralyzed, on Nimbex, could not assess. SKIN: No rashes CENTRAL NERVOUS SYSTEM: Fully sedated and paralyzed, on mechanical ventilation. Psychiatric: Could not assess - Labs CBC & Chem 7: 10/18/20 04:22 10/18/20 04:22 Labs: Abnormal Lab Results - Last 24 Hours (Table) 10/17/20 10/17/20 10/18/20 Range/Units 16:45 21:09 04:22 WBC 11.8 H (3.8-10.6) k/uL Neutrophils # 10.8 H (1.3-7.7) k/uL Lymphocytes # 0.3 L (1.0-4.8) k/uL ABG pH (7.35-7.45) ABG pCO2 (35-45) mmHg ABG pO2 (83-108) mmHg ABG HCO3 (21-25) mmol/L ABG Total CO2 (19-24) mmol/L ABG O2 Saturation (94-97) % Sodium (137-145) mmol/L Chloride (98-107) mmol/L BUN (9-20) mg/dL Creatinine (0.66-1.25) mg/dL Glucose (74-99) mg/dL POC Glucose (mg/dL) 137 H 134 H (75-99) mg/dL Calcium (8.4-10.2) mg/dL Ferritin (22.0-322.0) ng/mL Alkaline Phosphatase (38-126) U/L Lactate Dehydrogenase (313-618) U/L Creatine Kinase (55-170) U/L C-Reactive Protein (<10.0) mg/L Total Protein (6.3-8.2) g/dL Albumin (3.5-5.0) g/dL 10/18/20 10/18/20 10/18/20 Range/Units 04:22 08:34 11:37 WBC (3.8-10.6) k/uL Neutrophils # (1.3-7.7) k/uL Lymphocytes # (1.0-4.8) k/uL ABG pH 6.97 L* 7.27 L (7.35-7.45) ABG pCO2 75 H* 60 H (35-45) mmHg ABG pO2 28 L* 49 L* (83-108) mmHg ABG HCO3 17 L 27 H (21-25) mmol/L ABG Total CO2 29 H (19-24) mmol/L ABG O2 Saturation 23.2 L 76.6 L (94-97) % Sodium 146 H (137-145) mmol/L Chloride 118 H (98-107) mmol/L BUN 28 H (9-20) mg/dL Creatinine 0.59 L (0.66-1.25) mg/dL Glucose 128 H (74-99) mg/dL POC Glucose (mg/dL) (75-99) mg/dL Calcium 8.1 L (8.4-10.2) mg/dL Ferritin 885.8 H (22.0-322.0) ng/mL Alkaline Phosphatase 161 H (38-126) U/L Lactate Dehydrogenase 2480 H (313-618) U/L Creatine Kinase 38 L (55-170) U/L C-Reactive Protein 60.4 H (<10.0) mg/L Total Protein 5.7 L (6.3-8.2) g/dL Albumin 2.8 L (3.5-5.0) g/dL 10/18/20 Range/Units 11:45 WBC (3.8-10.6) k/uL Neutrophils # (1.3-7.7) k/uL Lymphocytes # (1.0-4.8) k/uL ABG pH (7.35-7.45) ABG pCO2 (35-45) mmHg ABG pO2 (83-108) mmHg ABG HCO3 (21-25) mmol/L ABG Total CO2 (19-24) mmol/L ABG O2 Saturation (94-97) % Sodium (137-145) mmol/L Chloride (98-107) mmol/L BUN (9-20) mg/dL Creatinine (0.66-1.25) mg/dL Glucose (74-99) mg/dL POC Glucose (mg/dL) 189 H (75-99) mg/dL Calcium (8.4-10.2) mg/dL Ferritin (22.0-322.0) ng/mL Alkaline Phosphatase (38-126) U/L Lactate Dehydrogenase (313-618) U/L Creatine Kinase (55-170) U/L C-Reactive Protein (<10.0) mg/L Total Protein (6.3-8.2) g/dL Albumin (3.5-5.0) g/dL Microbiology - Last 24 Hours (Table) 10/18/20 08:00 Sputum Culture - Preliminary Sputum 10/11/20 15:30 Blood Culture - Final Blood No Growth after 144 hours Assessment and Plan Assessment: Impression: Acute hypoxic respiratory failure secondary to covid 19 pneumonia. Cardiac arrest requiring brief CPR for less than 1 minute and requiring intubation and mechanical ventilation this is secondary to profound hypoxemia secondary to Covid 19 pneumonitis. Elevated inflammatory markers and significantly elevated d-dimer. Benign essential hypertension. Dyslipidemia. Obesity. Recommendation: Continue ventilatory support, Continue the Covid 19 cocktail. Continue remdesivir Continue Lovenox at 0.5 mcg/kg twice a day. Received 1 unit of convalescent plasma. Prognosis is extremely poor and guarded. Updated the on his condition and change CODE STATUS to DO NOT RESUSCITATE CODE STATUS. We'll continue to monitor in the ICU. Critical care time is over 30 minutes. Not including the time spent on procedures including arterial line and central line placement. Time with Patient: Greater than 30
[2020-10-18] MEDS ORDERED: fentaNYL (PF) 1,000 MCG in SODIUM CHLORIDE 0.9% 80 ML IV SCH ×2 (14:30→16:45)
[2020-10-18] MEDS: fentaNYL (PF) 1,000 MCG in SODIUM CHLORIDE 0.9% 80 ML IV SCH ×2 (17:27→23:26)
--- NOTE | 2020-10-18 17:34 | PCN ---
PROCEDURE NOTE PROCEDURE: Placement of right brachial arterial line. PREOPERATIVE DIAGNOSIS: Acute hypoxic respiratory failure and cardiac arrest. POSTOPERATIVE DIAGNOSIS: Acute hypoxic respiratory failure and cardiac arrest. ANESTHESIA: None deployed. PROCEDURE: The patient was placed in a supine position. The right brachial region was prepared in a sterile fashion, drapes were applied. The right brachial artery was palpated, cannulated easily. A guidewire was placed. A Cook catheter was inserted over the guidewire. The guidewire was removed. The line was secured using 3.0 silk sutures, and no evidence of any immediate complications. There was good waveform and good blood flow. MMODL / IJN: [id number] /
[2020-10-18 17:41] LABS: Glucose,Whole Blood 146 mg/dL (75-99)
[2020-10-18] MEDS: REMDESIVIR 100 MG in SODIUM CHLORIDE 0.9% 250 ML IVPB SCH (17:42)
--- NOTE | 2020-10-18 17:43 | OP ---
OPERATIVE REPORT OPERATIVE REPORT: Placement of a right femoral triple-lumen catheter. PREOPERATIVE DIAGNOSIS: Acute hypoxic respiratory failure and cardiac arrest. POSTOPERATIVE DIAGNOSIS: Acute hypoxic respiratory failure and cardiac arrest. ANESTHESIA USED: None deployed. PROCEDURE DESCRIPTION: The patient was placed in a supine position. The right groin was prepared in a sterile fashion. Drapes were applied. The right femoral vein was easily cannulated. A guidewire was placed, and the area around the guidewire was dilated. Then a triple- lumen catheter was inserted over the guidewire, and the guidewire was removed. Good blood flow noted. No evidence of any immediate complications. Line was secured using 3.0 silk sutures. MMODL / IJN: [id number] /
[2020-10-18] MEDS: ASCORBIC ACID 500 MG TAB PO SCH (20:53)
[2020-10-18] MEDS: ATORVASTATIN 20 MG TAB PO SCH (20:53)
[2020-10-18] MEDS: CHLORHEXIDINE GLUCONATE 15 ML CUP MUCOUS MEM SCH (20:53)
[2020-10-18] MEDS: LATANOPROST 0.005% OPHTH DROPS 2.5 ML BTL BOTH EYES SCH (20:55)
[2020-10-18] MEDS: ARTIFICIAL TEARS-HYPROMELLOSE DROPS 15 ML BTL BOTH EYES SCH (20:56)
[2020-10-18] MEDS: ACETAMINOPHEN TAB 325 MG TAB PO PRN (21:04)
[2020-10-18 23:59] LABS: Glucose,Whole Blood 152 mg/dL (75-99)
[2020-10-19] MEDS: INSULIN ASPART (NovoLOG) 100 UNIT/ML VIAL SQ SCH ×4 (00:10→17:19)
[2020-10-19] MEDS: ARTIFICIAL TEARS-HYPROMELLOSE DROPS 15 ML BTL BOTH EYES SCH ×6 (00:16→20:52)
[2020-10-19] MEDS ORDERED: FUROSEMIDE 10 MG/ML 4 ML VIAL IV STA (02:53)
[2020-10-19 05:04] LABS: ABG Base Excess 0.7 mmol/L; ABG HCO3 25 mmol/L (21-25); ABG Oxygen Saturation 96.5 % (94-97); ABG PCO2 41 mmHg (35-45); ABG PO2 78 mmHg (83-108); ABG TCO2 27 mmol/L (19-24); Allen Test Performed? Yes
[2020-10-19 05:13] LABS: Basophils % (A) 0 %; Eosinophils % (A) 0 %; HCT 40.1 % (39.0-53.0); HGB 12.7 gm/dL (13.0-17.5); Hypochromasia Slight; Lymphocytes # (A) 0.4 k/uL (1.0-4.8); Lymphocytes % (A) 4 %; MCHC 31.7 g/dL (31.0-37.0); MCV 97.9 fL (80.0-100.0); Mean Platelet Volume 8.8; Monocytes # (A) 0.2 k/uL (0-1.0); Monocytes % (A) 2 %; Neutrophils # (A) 10.4 k/uL (1.3-7.7); Neutrophils % (A) 94 %; Platelet Count 168 k/uL (150-450); RBC 4.09 m/uL (4.30-5.90); RDW 13.5 % (11.5-15.5); WBC 11.1 k/uL (3.8-10.6)
[2020-10-19 05:30] LABS: D-Dimer 16.97 mg/L FEU (<0.60)
[2020-10-19 05:32] LABS: Albumin 2.2 g/dL (3.5-5.0); Total Bilirubin 0.6 mg/dL (0.2-1.3); Total Protein 4.8 g/dL (6.3-8.2)
[2020-10-19 05:41] LABS: Potassium 4.6 mmol/L (3.5-5.1)
[2020-10-19 05:49] LABS: C Reactive Protein 211.1 mg/L (<10.0)
--- NOTE | 2020-10-19 06:19 | XR ---
EXAMINATION TYPE: XR chest 1V portable DATE OF EXAM: 10/19/2020 CLINICAL HISTORY: Difficulty breathing and covid pneumonia progress study. TECHNIQUE: Single AP portable semiupright view of the chest is obtained. COMPARISON: Chest x-ray from one day earlier and older studies. FINDINGS: Stable endotracheal and orogastric tubes. Overlying sternal wires and mediastinal clips re demonstrated. Bilateral increased opacities redemonstrated greatest in the lower lungs. Some overall improved aeration noted. Cardiac silhouette size stable and within normal limits with atherosclerotic thoracic aorta. IMPRESSION: Persistent bilateral multifocal acute infiltrates consistent with covid 19 infection. Imp roved aeration bilaterally though this may be product of technique change from most recent study.
[2020-10-19 06:22] LABS: Glucose,Whole Blood 134 mg/dL (75-99)
[2020-10-19] MEDS: PANTOPRAZOLE 40 MG TABLET PO SCH (06:58)
[2020-10-19] MEDS: SODIUM CHLORIDE 0.9% 1,000 ML IV SCH ×2 (07:08→20:53)
[2020-10-19] MEDS: CHLORHEXIDINE GLUCONATE 15 ML CUP MUCOUS MEM SCH ×2 (08:03→20:52)
[2020-10-19] MEDS: ENOXAPARIN 80 MG/0.8 ML SYRINGE SQ SCH ×2 (08:03→20:52)
[2020-10-19] MEDS: ASPIRIN 81 MG PO SCH (08:03)
[2020-10-19] MEDS: ALBUTEROL HFA INHALER INHALATION SCH ×4 (08:04→19:27)
[2020-10-19] MEDS: RANOLAZINE 500 MG TAB.ER.12H PO SCH ×2 (08:04→20:53)
[2020-10-19] MEDS: CLIDINIUM-chlordiazePOXIDE (2.5-5 MG) CAP PO SCH ×2 (08:04→20:52)
[2020-10-19] MEDS: ISOSORBIDE MONONITRATE ER 30 MG TAB.ER.24H PO SCH (08:04)
[2020-10-19] MEDS: LOSARTAN 50 MG TAB PO SCH (08:04)
[2020-10-19] MEDS: atenoloL 25 MG TAB PO SCH (08:04)
[2020-10-19] MEDS: TIMOLOL 0.5% OPHTH DROPS 5 ML BTL BOTH EYES SCH (08:05)
[2020-10-19] MEDS: DEXAMETHASONE SOD PHOSPHATE 10 MG/ML 1 ML VIAL IV SCH (08:06)
[2020-10-19 10:46] LABS: Ferritin 776.9 ng/mL (22.0-322.0)
[2020-10-19 11:19] LABS: Glucose,Whole Blood 165 mg/dL (75-99)
[2020-10-19] MEDS: fentaNYL (PF) 1,000 MCG in SODIUM CHLORIDE 0.9% 80 ML IV SCH ×2 (11:32→22:41)
--- NOTE | 2020-10-19 12:14 | P.PN ---
Subjective Progress Note Date: 10/16/20 Principal diagnosis: Acute hypoxic respiratory failure secondary to Covid pneumonia 10/14/2020, the patient has been placed on a BiPAP at a pressure of 12/6 with an FiO2 of 100%. Initially was on regular oxygen flowing he was switched to high flow ox ygen 6 L and upon further decompensation, the patient was placed on a BiPAP. He is resting comfortably in bed. Patient is on IV Decadron. He is also on Lovenox for DVT prophylaxis. Patient didn't qualify for Remdesivir and he was given convalescent plasma one unit yesterday. His most recent blood gases from yesterday and no follow-up blood gases has been obtained today. He is looking lethargic. Is getting progressively more weak. A repeat chest x-ray is recommended by pulmonary and recommended transfer to ICU 10/15/2022 The patient got transferred to the intensive care unit because of worsening in hypoxemia and acute hypoxic respiratory failure; chest x-ray showing diffuse bilateral pulmonary infiltrates with groundglass changes Bilaterally more so on the right compared to the left. The patient is on a BiPAP. The patient is currently on IV Decadron. The patient received convalescent plasma. He did not qualify for Remdesivir. His repeat coronavirus/Covid 19 PCR was sent and this is still pending. He is on Lovenox at a dose of 40 mg subcu on a daily basis. Overnight, he became quite restless and agitated. He was started on Precedex; emains in the 100% on his BiPAP and his pulse ox is ranging between 86 and 90%. D-dimer is elevated at 21.7. His d-dimer is elevated and the patient's Lovenox will be adjusted to half a dose twice a day. He is in a normal sinus rhythm for now. 10/16/2017 Patient currently remains in the MICU.. on BiPAP on FiO2 100%. Awake and alert. chest x-ray showed diffuse bilateral reticular nodular infiltrates without significant interval change. Patient has been afebrile today. Laboratory data showed absolute lymphocyte count 0.3, d-dimer level is 34.1 and BUN 28 and creatinine 0.76, ferritin level is 1318 and LDH is 2279 CRP to 25.9 pro calcitonin level is 0.08 not elevated Patient is being continued on Remdesivir. Pulmonary is following. Current Medications Reviewed. Objective - Vital Signs Vital signs: Vital Signs Temp 99.0 F 10/16/20 20:00 Pulse 75 10/16/20 20:00 Resp 30 H 10/16/20 20:00 BP 158/67 10/16/20 20:00 Pulse Ox 90 L 10/16/20 20:00 Intake & Output 10/16/20 10/16/20 10/17/20 06:59 18:59 06:59 Intake Total 1009.759 975 75 Output Total 600 730 100 Balance 409.759 245 -25 Weight 95.8 kg Intake: IV 825 975 75 Sodium Chloride 0.9% 1, 825 975 75 000 ml @ 75 mls/hr IV . [id number] JOE Rx#:[id number] Intake, IV Titration 109.759 Amount Dexmedetomidine/0.9% NaCl 109.759 (Pmx) 400 mcg In Empty Bag 1 bag @ Titrate IV . Q0M JOE Rx#:[id number] Lipid 75 Sodium Chloride 0.9% 1, 75 000 ml @ 75 mls/hr IV . [id number] JOE Rx#:[id number] Output: Urine 600 730 100 Other: Voiding Method Indwelling Catheter Indwelling Catheter Indwelling Catheter - Exam - Exam GENERAL: The patient is alert and oriented x3, not in any acute distress. Well developed, well nourished. Remains on BiPAP. HEENT: Pupils are round and equally reacting to light. EOMI. No scleral icterus. No conjunctival pallor. Normocephalic, atraumatic. No pharyngeal erythema. No thyromegaly. CARDIOVASCULAR: S1 and S2 present. No murmurs, rubs, or gallops. PULMONARY: Chest is clear to auscultation, no wheezing or crackles. ABDOMEN: Soft, nontender, nondistended, normoactive bowel sounds. No palpable organomegaly. MUSCULOSKELETAL: No joint swelling or deformity. EXTREMITIES: No cyanosis, clubbing, or pedal edema. NEUROLOGICAL: Gross neurological examination did not reveal any focal deficits. SKIN: No rashes. - Labs CBC & Chem 7: 10/19/20 04:50 10/19/20 04:50 Labs: Abnormal Lab Results - Last 24 Hours (Table) 10/16/20 10/16/20 10/16/20 Range/Units 03:39 03:39 03:39 Lymphocytes # 0.3 L (1.0-4.8) k/uL D-Dimer >34.10 H (<0.60) mg/L FEU Chloride 114 H (98-107) mmol/L BUN 28 H (9-20) mg/dL Glucose 168 H (74-99) mg/dL Calcium 7.9 L (8.4-10.2) mg/dL Ferritin 1318.3 H (22.0-322.0) ng/mL Lactate Dehydrogenase 2279 H (313-618) U/L C-Reactive Protein 225.9 H (<10.0) mg/L Microbiology - Last 24 Hours (Table) 10/11/20 15:30 Blood Culture - Preliminary Blood No Growth after 120 hours Assessment and Plan Assessment: -Acute hypoxic respiratory failure: Possibly of a cough with 19 pneumonitis cannot be ruled out negative PCR. Patient may have a some other viral pneumonia as well. Computed tomography scan findings are consistent with ARDS. We'll continue with respiratory support. Patient is on systemic steroids. He is also on Lovenox. -Coronary artery disease with previous history of bypass surgery hyperlipidemia -Hypertension -Hypovolemic hyponatremia: Hydrochlorothiazide will be discontinued patient was started on IV fluids next and have an acute renal failure secondary to diuretics and and evidence of medications which will be held as mentioned above. Time with Patient: Greater than 30
--- NOTE | 2020-10-19 16:12 | P.PN ---
Subjective Progress Note Date: 10/19/20 Principal diagnosis: Acute hypoxic episode of failure secondary to covid 19 pneumonitis. Acute hypoxic respiratory failure related to COVID 19 pneumonia 75-year-old patient, known history of coronary artery disease hypertension and previous bypass surgery, came into the emergency department feeling sick for almost a week. He had fever and shortness of breath and cough. He had tested COVID 19 and the results came back negative. Because of his worsening condition, he was told them to come to the ED by his PCP. He was not improving. He stated that he was getting progressively more short of breath. He started off by having symptoms of URI. Denies having any loss in the taste or smell. Denies having any chest pain. He was alert and oriented 3. In the emergency department, the patient was found to be hypoxic and the patient is currently on 15 L about 2 by nasal cannula. She is chest x-ray showed bilateral interstitial pulmonary infiltrates worse in the left lower lobe. The patient had some lymphopenia on his blood work with a d-dimer of 0.3. CRP was 36.5. LDH was 855 and a repeat coronavirus Covid 19 testing was done that came back negative by PCR. She is on level is at 0.08. On 10/13/2020, the patient is being seen in follow-up regarding his pneumonia. Note that the patient was having worsening shortness of breath. He developed worsening hypoxemia overnight. On 100% nonrebreather facemask, the patient had a pH of 7.45 with episodes of 34 and pO2 of 64. Subsequently, the patient was switched to high flow oxygen at 60 L. Despite the negative coronavirus/Covid 19 PCR, the patient is highly suspected to have the infection and the patient's had the typical clinical presentation, physical x-ray findings indicative CAT scan findings. A CT angios was performed yesterday that showed no evidence of any pulmonary embolism. The patient had diffuse areas of groundglass infiltrates and areas of consolidation. This is consistent with a viral pneumonia or early ARDS. Meanwhile, the patient's oxygenation has been worse. He is having coarse crackles in lung bases bilaterally. During the morning evaluation, the patient was on high flow oxygen at 6 L with a FiO2 of 90%. He was a bit anxious. He reported desaturation with limited amount of activity. This was noted today. He was able to sit up on a recliner. Nevertheless, his pulse ox was dropping with talking and some activity. I would say his condition is extremely borderline. I placed an order for Remdesivir , however, this was declined the patient did not have the positive confirmation for the viral infection. On 10/14/2020, the patient remains on a BiPAP at a pressure of 12/6 with an FiO2 of 100%. Obviously his condition decompensated. Initially was on regular oxygen flowing he was switched to high flow oxygen 6 L and upon further decompensation, the patient was placed on a BiPAP. He is resting comfortably in bed. His pulse ox currently is in the percent. She is on IV Decadron. He is also on Lovenox for DVT prophylaxis. He got declined forRemdesivir and he was given convalescent plasma one unit yesterday. His most recent blood gases from yesterday and no follow-up blood gases has been obtained today. He is looking lethargic. Is getting progressively more weak. He is awake and alert. He is following commands. A repeat chest x-ray will be obtained today. I also think it's reasonable for this patient to get transferred to the intensive care unit for further monitoring. He is known to have coronary artery bypass surgery for an underlying coronary artery disease. Inflammatory markers are also to follow. On 10/15/2022 months seeing the patient for a follow-up. The patient got transferred to the intensive care unit because of worsening in hypoxemia and acute hypoxic respiratory failure. His chest x-ray showing diffuse bilateral pulmonary infiltrates with groundglass changes Bilaterally more so on the right compared to the left. The patient was on 100% nonrebreather facemask. He failed that. He was started on BiPAP at a pressure of 14/8 cm of water. Her blood gases from last night showed a pH of 7.47 with a pCO2 of 33 and pO2 of 51 and this blood gas was done while the patient was on 100%. Subsequently, the patient was placed on a BiPAP. The patient is currently on IV Decadron. The patient received convalescent plasma. He did not qualify for Remdesivir. His repeat coronavirus/Covid 19 PCR was sent and this is still pending. Meanwhile, the patient is still on IV fluids at the rate of 75 mL an hour. Urine output is no other 30 mL an hour. He is on Lovenox at a dose of 40 mg subcu on a daily basis. Overnight, he became quite restless and agitated. He was started on Precedex which is currently running at 0.4 mcg/kg/h. This, the situation and the patient seems to be much more appropriate. On today's evaluation, he is still on Precedex. He is following commands. His answering questions. He is more rested. Nevertheless, he remains in the 100% on his BiPAP and his pulse ox is ranging between 86 and 90%. D-dimer is elevated at 21.7. His d-dimer is elevated and the patient's Lovenox will be adjusted to half a dose twice a day. He is in a normal sinus rhythm for now. On 10/16/2020 patient seen in follow-up in the intensive care unit, he is retest PCR from 10/14/2020 came back positive for Covid 19, he remains on BiPAP currently of pressures of 14/8 and FiO2 of 100%, his pulse ox is 8990%, he is on Precedex at 0.3 mics per kilo per minute, and 0.9 at 75 ML per hour, no other drips. He was started on Remdesivir, today is day 2 of treatment, he remains on Decadron and Lovenox for anticoagulation. His chest x-ray shows diffuse bilateral reticulonodular infiltrates significant interval change. Is afebrile, hemodynamically stable, his labs have been reviewed, showing persistent lymphopenia, with lymphocyte count 0.3, the rest of the CBC was within normal limits, d-dimer has increased to 34.1, his chloride is 114, the rest of electrolytes were unremarkable, BUN is 28, creatinine of 0.76, his ferritin level is 1318, LDH is still significantly elevated at 2279, and CRP has significantly increased to 225.9, pro calcitonin was negative at 0.08, and we will discontinue his Zithromax. Denies any chest discomfort, remains in sinus mechanism, he remains on Precedex because of periodic restlessness, appears to be quite comfortable right now, a bit drowsy. Reevaluated today on 10/17/20, patient remains in the ICU, maintained on BiPAP, IPAP of 14 and EPAP of 8 and FiO2 is 100%. O2 saturation is marginal. Patient is also on clevidipine drip at 1 mg/h to adequately control his blood pressure. IV fluid at 75 mL per hour. Patient remains on the Covid 19 cocktail, remains on remdesivir' received 1 unit of convalescent plasma and remains on Decadron. Chest x-ray continues to show bilateral interstitial and. 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 CBC is relatively normal. D-dimer is above 54 electrolytes are normal renal profile is normal LDH is quite elevated at 2524, and C-reactive protein is 77.5, improved compared to yesterday patient remains on Lovenox at 50 mg subcu every 12 hours Reevaluated today on 10/18/20, patient's clinical status deteriorated this morning, and his O2 saturation went down to the low 70s. Patient was noted to be tachypneic, and in moderate respiratory distress, I was notified about this patient, and I recommended immediate intubation and mechanical ventilation. However as the patient was being intubated by GEOTHERMAL INSTALLER, patient went into pulseless electrical activity, CPR was started immediately, received 1 dose of epinephrine and 1 dose of bicarb. There was return of spontaneous circulation within less than a minute. However the patient continued to have extremely poor oxygenation in spite of FiO2 of 100%, PEEP was increased to 16, rate was placed at 30, and tidal volume was placed at 500. Initial ABG post intubation showed a pO2 of 28 pCO2 of 75 pH of 6.97. 15 minutes later, his pO2 went up to 49 pCO2 was 60 pH of 7.27. Patient is now on pressure control mode of mechanical ventilation, rate is set at 30. Pressure control is set at 22. TIA is 0.8. And he is on 100% and PEEP of 16. Discussed his condition with the shortly after he coded, and explained to the the situation, and the prognosis is extremely poor and guarded. is agreeable to proceed with DO NOT RESUSCITATE CODE STA TUS, however we continue the same supportive care measures he is presently on including full mechanical ventilation, Covid 19 cocktail, and continue present supportive care measures fully however the patient is to coded again, no CPR would be done. Labs today showed relatively normal electrolytes normal renal profile. His LDH is up to 2480 and C-reactive protein is 60.4 chest x-ray post intubation showed worsening interstitial infiltrates bilaterally. And this was in spite of the PEEP of 16. Reevaluated today on 10/19/20, patient remains in the ICU, intubated and mechanically ventilated. Patient is on pressure control mode of mechanical ventilation, pc at 22, rate is 30, FiO2 is 90%, TI is 0.7 seconds today. Adjusted down from 0.8. ABG showed a pO2 of 78 pCO2 of 41 pH of 7.4. Patient remains on Nimbex, 1.5 mcg/kg/m. He is also on fentanyl 1 mcg/kg/h, propofol at 30 mcg/kg/m, IV fluid at 75 mL/h, and he is requiring roughly about 12 mcg/m of norepinephrine. Patient is receiving remdesivir, and he remains on the Covid 19 cocktail. Patient is also receiving bolus feedings via orogastric tube. Chest x-ray continues to show bilateral interstitial infiltrates, slight improvement compared to the chest x-ray yesterday, however the patient is on relatively high PEEP which may show false improvement of the chest x-ray appearance. WBC count is 11.1. Elective lites are normal except for sodium is 148. BUN is 52 creatinine is 1.27. Inflammatory markers including LDH and C-reactive protein remain quite high. LDH is 2036 and C-reactive protein is 211 Objective - Vital Signs Vital signs: Vital Signs Temp 99.4 F 10/19/20 14:54 Pulse 79 10/19/20 15:00 Resp 31 H 10/19/20 15:00 BP 119/61 10/19/20 15:00 Pulse Ox 94 L 10/19/20 15:00 Intake & Output 10/18/20 10/19/20 10/19/20 18:59 06:59 18:59 Intake Total 7132.445 1204.089 1500.73 Output Total 440 335 460 Balance 1350.258 1710.089 1040.73 Weight 95.8 kg 96.2 kg Intake: IV 1575 75 600 Remdesivir 100 mg In 250 Sodium Chloride 0.9% 250 ml @ 250 mls/hr IVPB DAILY@1800 [facility] Rx#: [id number] Sodium Chloride 0.9% 1, 1325 75 600 000 ml @ 75 mls/hr IV . [id number] [facility] Rx#:[id number] Intake, IV Titration 199.539 9103.089 554.73 Amount Cisatracurium 200 mg In 95.082 Sodium Chloride 0.9% 180 ml @ 1 MCG/KG/MIN 5.748 mls/hr IV .Q24H [facility] Rx#: [id number] Norepinephrine 8 mg In 132.547 254.73 Sodium Chloride 0.9% 250 ml @ 0.05 MCG/KG/MIN 9. 269 mls/hr IV .Q24H [facility] Rx#:[id number] Sodium Chloride 0.9% 1, 1000 000 ml @ 999 mls/hr IV . Q1H1M [facility] Rx#:[id number] fentaNYL (PF) 1,000 mcg 15.675 In Sodium Chloride 0.9% 80 ml @ Per Protocol IV . Q0M [facility] Rx#:[id number] fentaNYL (PF) 1,000 mcg 57.32 100 In Sodium Chloride 0.9% 80 ml @ Per Protocol IV . Q0M [facility] Rx#:[id number] propofoL 1,000 mg In 100 170.140 200 Empty Bag 1 bag @ Titrate IV .Q0M [facility] Rx#: [id number] Tube Feeding 100 100 Blood Product 216 Ffp Pher Conval Covid19 216 Acda 3 Unit [id number] Other 60 30 Output: Urine 440 335 460 Other: Voiding Method Indwelling Catheter Indwelling Catheter Indwelling Catheter ABP, PAP, CO, CI - Last Documented Arterial Blood Pressure 116/45 - Exam GENERAL EXAM: Revealed 75-year-old white male, intubated and mechanically ventilated, sedated and paralyzed. HEAD: Normocephalic/atraumatic. Endotracheal tube and orogastric tubes are intact HEENT: PERRLA, EOMI, neck test, no neck masses, no JVD, no stridor. CHEST: No chest wall deformity. Symmetrical expansion. LUNGS: Crackles and rhonchi noted bilaterally. CVS: Regular rate and rhythm, normal S1 and S2, no gallops, no murmurs, no rubs ABDOMEN: Obese, soft, nontender, no megaly, no rebound. EXTREMITIES: No clubbing, no edema, no cyanosis, 2+ pulses and upper and lower extremities. MUSCULOSKELETAL: Patient is paralyzed, on Nimbex, could not assess. SKIN: No rashes CENTRAL NERVOUS SYSTEM: Fully sedated and paralyzed, on mechanical ventilation. Psychiatric: Could not assess - Labs CBC & Chem 7: 10/19/20 04:50 10/19/20 04:50 Labs: Abnormal Lab Results - Last 24 Hours (Table) 10/18/20 10/18/20 10/19/20 Range/Units 17:39 23:57 04:09 WBC (3.8-10.6) k/uL RBC (4.30-5.90) m/uL Hgb (13.0-17.5) gm/dL Neutrophils # (1.3-7.7) k/uL Lymphocytes # (1.0-4.8) k/uL D-Dimer (<0.60) mg/L FEU ABG pO2 78 L (83-108) mmHg ABG Total CO2 27 H (19-24) mmol/L Sodium (137-145) mmol/L Chloride (98-107) mmol/L BUN (9-20) mg/dL Creatinine (0.66-1.25) mg/dL Glucose (74-99) mg/dL POC Glucose (mg/dL) 146 H 152 H (75-99) mg/dL Calcium (8.4-10.2) mg/dL Ferritin (22.0-322.0) ng/mL Lactate Dehydrogenase (313-618) U/L Creatine Kinase (55-170) U/L C-Reactive Protein (<10.0) mg/L Total Protein (6.3-8.2) g/dL Albumin (3.5-5.0) g/dL 10/19/20 10/19/20 10/19/20 Range/Units 04:50 04:50 04:50 WBC 11.1 H (3.8-10.6) k/uL RBC 4.09 L (4.30-5.90) m/uL Hgb 12.7 L (13.0-17.5) gm/dL Neutrophils # 10.4 H (1.3-7.7) k/uL Lymphocytes # 0.4 L (1.0-4.8) k/uL D-Dimer 16.97 H (<0.60) mg/L FEU ABG pO2 (83-108) mmHg ABG Total CO2 (19-24) mmol/L Sodium 148 H (137-145) mmol/L Chloride 119 H (98-107) mmol/L BUN 52 H (9-20) mg/dL Creatinine 1.27 H (0.66-1.25) mg/dL Glucose 163 H (74-99) mg/dL POC Glucose (mg/dL) (75-99) mg/dL Calcium 7.0 L (8.4-10.2) mg/dL Ferritin 776.9 H (22.0-322.0) ng/mL Lactate Dehydrogenase 2036 H (313-618) U/L Creatine Kinase 383 H (55-170) U/L C-Reactive Protein 211.1 H (<10.0) mg/L Total Protein 4.8 L (6.3-8.2) g/dL Albumin 2.2 L (3.5-5.0) g/dL 10/19/20 10/19/20 Range/Units 06:20 11:17 WBC (3.8-10.6) k/uL RBC (4.30-5.90) m/uL Hgb (13.0-17.5) gm/dL Neutrophils # (1.3-7.7) k/uL Lymphocytes # (1.0-4.8) k/uL D-Dimer (<0.60) mg/L FEU ABG pO2 (83-108) mmHg ABG Total CO2 (19-24) mmol/L Sodium (137-145) mmol/L Chloride (98-107) mmol/L BUN (9-20) mg/dL Creatinine (0.66-1.25) mg/dL Glucose (74-99) mg/dL POC Glucose (mg/dL) 134 H 165 H (75-99) mg/dL Calcium (8.4-10.2) mg/dL Ferritin (22.0-322.0) ng/mL Lactate Dehydrogenase (313-618) U/L Creatine Kinase (55-170) U/L C-Reactive Protein (<10.0) mg/L Total Protein (6.3-8.2) g/dL Albumin (3.5-5.0) g/dL Microbiology - Last 24 Hours (Table) 10/18/20 08:00 Gram Stain - Preliminary Sputum Sputum Culture - Preliminary Assessment and Plan Assessment: Impression: Acute hypoxic respiratory failure secondary to covid 19 pneumonia. Requiring intubation and mechanical ventilation. Cardiac arrest requiring brief CPR for less than 1 minute Elevated inflammatory markers and significantly elevated d-dimer. Benign essential hypertension. Dyslipidemia. Obesity. Recommendation: Continue ventilatory support, titrate FiO2 down to keep O2 saturation above 90%. Continue the Covid 19 cocktail. Continue remdesivir Continue Lovenox at 0.5 mcg/kg twice a day. Received 1 unit of convalescent plasma. Prognosis is extremely poor and guarded. Yesterday I had a long discussion with the at bedside regarding his condition. We'll continue to monitor in the ICU. Critical care time is over 30 minutes. Time with Patient: Greater than 30
[2020-10-19 17:13] LABS: Glucose,Whole Blood 223 mg/dL (75-99)
[2020-10-19] MEDS: REMDESIVIR 100 MG in SODIUM CHLORIDE 0.9% 250 ML IVPB SCH (17:19)
[2020-10-19] MEDS: CISATRACURIUM 200 MG in SODIUM CHLORIDE 0.9% 180 ML IV SCH (19:57)
[2020-10-19] MEDS: NOREPINEPHRINE 8 MG in SODIUM CHLORIDE 0.9% 250 ML IV SCH (19:58)
[2020-10-19] MEDS: ASCORBIC ACID 500 MG TAB PO SCH (20:52)
[2020-10-19] MEDS: ATORVASTATIN 20 MG TAB PO SCH (20:52)
[2020-10-19] MEDS: LATANOPROST 0.005% OPHTH DROPS 2.5 ML BTL BOTH EYES SCH (20:52)
[2020-10-20] MEDS: CLEVIDIPINE BUTYRATE 25 MG in EMPTY BAG 1 BAG IV SCH (00:45)
[2020-10-20 00:54] LABS: Glucose,Whole Blood 182 mg/dL (75-99)
[2020-10-20] MEDS: INSULIN ASPART (NovoLOG) 100 UNIT/ML VIAL SQ SCH ×4 (00:55→19:05)
[2020-10-20] MEDS: ARTIFICIAL TEARS-HYPROMELLOSE DROPS 15 ML BTL BOTH EYES SCH ×6 (00:56→20:18)
[2020-10-20 05:28] LABS: Basophils % (A) 0 %; Eosinophils % (A) 0 %; HCT 35.6 % (39.0-53.0); HGB 11.9 gm/dL (13.0-17.5); Lymphocytes # (A) 0.4 k/uL (1.0-4.8); Lymphocytes % (A) 3 %; MCH 32.5 pg (25.0-35.0); MCHC 33.4 g/dL (31.0-37.0); MCV 97.3 fL (80.0-100.0); Mean Platelet Volume 9.9; Monocytes # (A) 0.2 k/uL (0-1.0); Monocytes % (A) 2 %; Neutrophils % (A) 94 %; Platelet Count 155 k/uL (150-450); RBC 3.66 m/uL (4.30-5.90); RDW 13.4 % (11.5-15.5); WBC 11.7 k/uL (3.8-10.6)
[2020-10-20 05:29] LABS: ABG HCO3 25 mmol/L (21-25); ABG PCO2 38 mmHg (35-45); ABG PH 7.42 (7.35-7.45); ABG PO2 93 mmHg (83-108); ABG TCO2 27 mmol/L (19-24); Allen Test Performed? Yes
[2020-10-20 06:04] LABS: Albumin 2.2 g/dL (3.5-5.0); Calcium 7.2 mg/dL (8.4-10.2); Potassium 4.3 mmol/L (3.5-5.1); Total Bilirubin 0.4 mg/dL (0.2-1.3); Total Protein 4.7 g/dL (6.3-8.2)
[2020-10-20 06:15] LABS: C Reactive Protein 141.6 mg/L (<10.0)
[2020-10-20] MEDS: PANTOPRAZOLE 40 MG TABLET PO SCH (06:33)
[2020-10-20] MEDS: fentaNYL (PF) 1,000 MCG in SODIUM CHLORIDE 0.9% 80 ML IV SCH ×2 (06:34→17:38)
[2020-10-20] MEDS: ALBUTEROL HFA INHALER INHALATION SCH ×4 (07:40→18:54)
--- NOTE | 2020-10-20 08:21 | XR ---
EXAMINATION TYPE: XR chest 1V portable DATE OF EXAM: 10/20/2020 COMPARISON: 10/19/2020 INDICATION: Tube placement TECHNIQUE: Single frontal view of the chest is obtained. FINDINGS: The heart size is normal. The pulmonary vasculature is somewhat prominent. Diffuse groundglass opacities through the bilateral lung nagel. Findings appear stable Endotracheal tube tip is above the melecio. Nasogastric tube transverses the thorax with tip within th e proximal left upper quadrant of the abdomen. This could be advanced approximately 6-10 cm IMPRESSION: 1. Diffuse increased lung markings can be compatible with atypical pneumonia or pulmonary edema. 2. Lines and catheters discussed above. 3. The nasogastric tube could be advanced 6 to 10 cm for more typical positioning.
[2020-10-20] MEDS: CHLORHEXIDINE GLUCONATE 15 ML CUP MUCOUS MEM SCH ×2 (08:58→20:50)
[2020-10-20] MEDS: DEXAMETHASONE SOD PHOSPHATE 10 MG/ML 1 ML VIAL IV SCH (08:58)
[2020-10-20] MEDS: ASPIRIN 81 MG PO SCH (08:59)
[2020-10-20] MEDS: CLIDINIUM-chlordiazePOXIDE (2.5-5 MG) CAP PO SCH ×2 (08:59→20:50)
[2020-10-20] MEDS: ENOXAPARIN 80 MG/0.8 ML SYRINGE SQ SCH ×2 (08:59→20:51)
[2020-10-20] MEDS: RANOLAZINE 500 MG TAB.ER.12H PO SCH ×2 (08:59→22:45)
[2020-10-20] MEDS: ISOSORBIDE MONONITRATE ER 30 MG TAB.ER.24H PO SCH (09:00)
[2020-10-20] MEDS: LOSARTAN 50 MG TAB PO SCH (09:00)
[2020-10-20] MEDS: atenoloL 25 MG TAB PO SCH (09:00)
[2020-10-20] MEDS: SODIUM CHLORIDE 0.9% 1,000 ML IV SCH (09:01)
[2020-10-20] MEDS: TIMOLOL 0.5% OPHTH DROPS 5 ML BTL BOTH EYES SCH (09:02)
[2020-10-20] MEDS: DEXTROSE 5% IN WATER 1,000 ML IV SCH ×2 (09:42→22:46)
[2020-10-20 12:09] LABS: Glucose,Whole Blood 249 mg/dL (75-99)
[2020-10-20 12:16] LABS: Ferritin 609.3 ng/mL (22.0-322.0)
--- NOTE | 2020-10-20 14:15 | P.PN ---
Subjective Progress Note Date: 10/17/20 Principal diagnosis: Acute hypoxic respiratory failure secondary to Covid pneumonia 10/14/2020, the patient has been placed on a BiPAP at a pressure of 12/6 with an FiO2 of 100%. Initially was on regular oxygen flowing he was switched to high flow ox ygen 6 L and upon further decompensation, the patient was placed on a BiPAP. He is resting comfortably in bed. Patient is on IV Decadron. He is also on Lovenox for DVT prophylaxis. Patient didn't qualify for Remdesivir and he was given convalescent plasma one unit yesterday. His most recent blood gases from yesterday and no follow-up blood gases has been obtained today. He is looking lethargic. Is getting progressively more weak. A repeat chest x-ray is recommended by pulmonary and recommended transfer to ICU 10/15/2022 The patient got transferred to the intensive care unit because of worsening in hypoxemia and acute hypoxic respiratory failure; chest x-ray showing diffuse bilateral pulmonary infiltrates with groundglass changes Bilaterally more so on the right compared to the left. The patient is on a BiPAP. The patient is currently on IV Decadron. The patient received convalescent plasma. He did not qualify for Remdesivir. His repeat coronavirus/Covid 19 PCR was sent and this is still pending. He is on Lovenox at a dose of 40 mg subcu on a daily basis. Overnight, he became quite restless and agitated. He was started on Precedex; emains in the 100% on his BiPAP and his pulse ox is ranging between 86 and 90%. D-dimer is elevated at 21.7. His d-dimer is elevated and the patient's Lovenox will be adjusted to half a dose twice a day. He is in a normal sinus rhythm for now. 10/16/20 Patient currently remains in the MICU.. on BiPAP on FiO2 100%. Awake and alert. chest x-ray showed diffuse bilateral reticular nodular infiltrates without significant interval change. Patient has been afebrile today. Laboratory data showed absolute lymphocyte count 0.3, d-dimer level is 34.1 and BUN 28 and creatinine 0.76, ferritin level is 1318 and LDH is 2279 CRP to 25.9 pro calcitonin level is 0.08 not elevated Patient is being continued on Remdesivir. Pulmonary is following. 10/17/2020 Patient is currently on BiPAP with FiO2 100%. Remains in the MICU. Continued on Remdesivir, dexamethasone and patient received convalescent plasma. Continue on Lovenox subcu 50 g every 12 Chest x-ray showed bilateral interstitial infiltrates without much change from previous exam. Still having elevated inflammatory markers. Current Medications Reviewed. Objective - Vital Signs Vital signs: Vital Signs Temp 98.0 F 10/17/20 20:00 Pulse 78 10/17/20 22:00 Resp 29 H 10/17/20 22:00 BP 170/76 10/17/20 22:00 Pulse Ox 88 L 10/17/20 22:00 Intake & Output 10/17/20 10/17/20 10/18/20 06:59 18:59 06:59 Intake Total 1075 1270 328.133 Output Total 925 1095 365 Balance 150 175 -36.867 Weight 97.1 kg Intake: IV 825 1150 300 Remdesivir 100 mg In 250 Sodium Chloride 0.9% 250 ml @ 250 mls/hr IVPB DAILY@1800 [facility] Rx#: [id number] Sodium Chloride 0.9% 1, 825 900 300 000 ml @ 75 mls/hr IV . [id number] [facility] Rx#:[id number] Intake, IV Titration 250 28.133 Amount Clevidipine Butyrate 25 28.133 mg In Empty Bag 1 bag @ 1 MG/HR 2 mls/hr IV .Q24H [facility] Rx#:[id number] Remdesivir 100 mg In 250 Sodium Chloride 0.9% 250 ml @ 250 mls/hr IVPB DAILY@1800 [facility] Rx#: [id number] Oral 120 Output: Urine 925 1095 365 Other: Voiding Method Indwelling Catheter Indwelling Catheter Indwelling Catheter - Exam - Exam GENERAL: The patient is alert and oriented x3, not in any acute distress. Well developed, well nourished. Remains on BiPAP. HEENT: Pupils are round and equally reacting to light. EOMI. No scleral icterus. No conjunctival pallor. Normocephalic, atraumatic. No pharyngeal erythema. No thyromegaly. CARDIOVASCULAR: S1 and S2 present. No murmurs, rubs, or gallops. PULMONARY: Chest is clear to auscultation, no wheezing or crackles. ABDOMEN: Soft, nontender, nondistended, normoactive bowel sounds. No palpable organomegaly. MUSCULOSKELETAL: No joint swelling or deformity. EXTREMITIES: No cyanosis, clubbing, or pedal edema. NEUROLOGICAL: Gross neurological examination did not reveal any focal deficits. SKIN: No rashes. - Labs CBC & Chem 7: 10/20/20 05:20 10/20/20 05:20 Labs: Abnormal Lab Results - Last 24 Hours (Table) 10/17/20 10/17/20 10/17/20 Range/Units 04:46 04:46 04:46 Neutrophils # 7.9 H (1.3-7.7) k/uL Lymphocytes # 0.2 L (1.0-4.8) k/uL Fibrinogen 637 H (200-500) mg/dL D-Dimer >34.10 H (<0.60) mg/L FEU Sodium 146 H (137-145) mmol/L Chloride 117 H (98-107) mmol/L BUN 29 H (9-20) mg/dL Creatinine 0.61 L (0.66-1.25) mg/dL Glucose 152 H (74-99) mg/dL POC Glucose (mg/dL) (75-99) mg/dL Calcium 7.9 L (8.4-10.2) mg/dL Ferritin 991.1 H (22.0-322.0) ng/mL AST 62 H (17-59) U/L Alkaline Phosphatase 141 H (38-126) U/L Lactate Dehydrogenase 2524 H (313-618) U/L C-Reactive Protein 77.5 H (<10.0) mg/L Total Protein 5.9 L (6.3-8.2) g/dL Albumin 2.8 L (3.5-5.0) g/dL 10/17/20 10/17/20 10/17/20 Range/Units 12:09 16:45 21:09 Neutrophils # (1.3-7.7) k/uL Lymphocytes # (1.0-4.8) k/uL Fibrinogen (200-500) mg/dL D-Dimer (<0.60) mg/L FEU Sodium (137-145) mmol/L Chloride (98-107) mmol/L BUN (9-20) mg/dL Creatinine (0.66-1.25) mg/dL Glucose (74-99) mg/dL POC Glucose (mg/dL) 152 H 137 H 134 H (75-99) mg/dL Calcium (8.4-10.2) mg/dL Ferritin (22.0-322.0) ng/mL AST (17-59) U/L Alkaline Phosphatase (38-126) U/L Lactate Dehydrogenase (313-618) U/L C-Reactive Protein (<10.0) mg/L Total Protein (6.3-8.2) g/dL Albumin (3.5-5.0) g/dL Microbiology - Last 24 Hours (Table) 10/11/20 15:30 Blood Culture - Final Blood No Growth after 144 hours Assessment and Plan Assessment: -Acute hypoxic respiratory failure: Secondary to: 19 pneumonia.. Patient may have a some other viral pneumonia as well. Computed tomography scan findings are consistent with ARDS. Patient is being continued on BiPAP. Continue with dexamethasone, Lovenox and was given convulsant plasma.. -Coronary artery disease with previous history of bypass surgery hyperlipidemia -Hypertension -Hypovolemic hyponatremia: Hydrochlorothiazide was discontinued patient was started on IV fluids -acute renal failure secondary to diuretics and and evidence of medications which will be held as mentioned above. Time with Patient: Greater than 30
--- NOTE | 2020-10-20 14:18 | P.PN ---
Subjective Progress Note Date: 10/18/20 Principal diagnosis: Acute hypoxic respiratory failure secondary to Covid pneumonia 10/14/2020, the patient has been placed on a BiPAP at a pressure of 12/6 with an FiO2 of 100%. Initially was on regular oxygen flowing he was switched to high flow ox ygen 6 L and upon further decompensation, the patient was placed on a BiPAP. He is resting comfortably in bed. Patient is on IV Decadron. He is also on Lovenox for DVT prophylaxis. Patient didn't qualify for Remdesivir and he was given convalescent plasma one unit yesterday. His most recent blood gases from yesterday and no follow-up blood gases has been obtained today. He is looking lethargic. Is getting progressively more weak. A repeat chest x-ray is recommended by pulmonary and recommended transfer to ICU 10/15/2022 The patient got transferred to the intensive care unit because of worsening in hypoxemia and acute hypoxic respiratory failure; chest x-ray showing diffuse bilateral pulmonary infiltrates with groundglass changes Bilaterally more so on the right compared to the left. The patient is on a BiPAP. The patient is currently on IV Decadron. The patient received convalescent plasma. He did not qualify for Remdesivir. His repeat coronavirus/Covid 19 PCR was sent and this is still pending. He is on Lovenox at a dose of 40 mg subcu on a daily basis. Overnight, he became quite restless and agitated. He was started on Precedex; emains in the 100% on his BiPAP and his pulse ox is ranging between 86 and 90%. D-dimer is elevated at 21.7. His d-dimer is elevated and the patient's Lovenox will be adjusted to half a dose twice a day. He is in a normal sinus rhythm for now. 10/16/20 Patient currently remains in the MICU.. on BiPAP on FiO2 100%. Awake and alert. chest x-ray showed diffuse bilateral reticular nodular infiltrates without significant interval change. Patient has been afebrile today. Laboratory data showed absolute lymphocyte count 0.3, d-dimer level is 34.1 and BUN 28 and creatinine 0.76, ferritin level is 1318 and LDH is 2279 CRP to 25.9 pro calcitonin level is 0.08 not elevated Patient is being continued on Remdesivir. Pulmonary is following. 10/17/2020 Patient is currently on BiPAP with FiO2 100%. Remains in the MICU. Continued on Remdesivir, dexamethasone and patient received convalescent plasma. Continue on Lovenox subcu 50 g every 12 Chest x-ray showed bilateral interstitial infiltrates without much change from previous exam. Still having elevated inflammatory markers. 10/18/20 Patient is currently in the MICU. Intubated today. Patient was tachypneic and was in respiratory distress. Eventually patient was intubated. Currently sedated. FiO2 100% and PEEP of 16. Chest x-ray showed worsening interstitial infiltrates bilaterally. Code status discussed with with his by pulmonary. CODE STATUS was changed to DO NOT RESUSCITATE/DO NOT INTUBATE. Current Medications Reviewed. Objective - Vital Signs Vital signs: Vital Signs Temp 99.1 F 10/18/20 04:00 Pulse 92 10/18/20 15:15 Resp 30 H 10/18/20 15:15 BP 113/58 10/18/20 15:15 Pulse Ox 90 L 10/18/20 15:15 Intake & Output 10/17/20 10/18/20 10/18/20 18:59 06:59 18:59 Intake Total 1270 994.867 8212 Output Total 1095 1315 310 Balance 175 -353.500 790 Weight 95.8 kg 95.8 kg Intake: IV 9535 551 1843 Remdesivir 100 mg In 250 Sodium Chloride 0.9% 250 ml @ 250 mls/hr IVPB DAILY@1800 [facility] Rx#: [id number] Sodium Chloride 0.9% 1, 845 285 4891 000 ml @ 75 mls/hr IV . [id number] [facility] Rx#:[id number] Intake, IV Titration 61.500 Amount Clevidipine Butyrate 25 61.500 mg In Empty Bag 1 bag @ 1 MG/HR 2 mls/hr IV .Q24H [facility] Rx#:[id number] Oral 120 Output: Urine 1095 1315 310 Other: Voiding Method Indwelling Catheter Indwelling Catheter Indwelling Catheter ABP, PAP, CO, CI - Last Documented Arterial Blood Pressure 117/53 - Exam - Exam GENERAL: The patient is currently intubated and on mechanical ventilator. Sedated.. HEENT: Pupils are round and equally reacting to light. EOMI. No scleral icterus. No conjunctival pallor. Normocephalic, atraumatic. No pharyngeal erythema. No thyromegaly. CARDIOVASCULAR: S1 and S2 present. No murmurs, rubs, or gallops. PULMONARY: Coarse breath sounds bilaterally, no wheezing or crackles. ABDOMEN: Soft, nontender, nondistended, normoactive bowel sounds. No palpable organomegaly. MUSCULOSKELETAL: No joint swelling or deformity. EXTREMITIES: No cyanosis, clubbing, or pedal edema. NEUROLOGICAL: Gross neurological examination did not reveal any focal deficits. SKIN: No rashes. - Labs CBC & Chem 7: 10/20/20 05:20 10/20/20 05:20 Labs: Abnormal Lab Results - Last 24 Hours (Table) 10/17/20 10/17/20 10/18/20 Range/Units 16:45 21:09 04:22 WBC 11.8 H (3.8-10.6) k/uL Neutrophils # 10.8 H (1.3-7.7) k/uL Lymphocytes # 0.3 L (1.0-4.8) k/uL ABG pH (7.35-7.45) ABG pCO2 (35-45) mmHg ABG pO2 (83-108) mmHg ABG HCO3 (21-25) mmol/L ABG Total CO2 (19-24) mmol/L ABG O2 Saturation (94-97) % Sodium (137-145) mmol/L Chloride (98-107) mmol/L BUN (9-20) mg/dL Creatinine (0.66-1.25) mg/dL Glucose (74-99) mg/dL POC Glucose (mg/dL) 137 H 134 H (75-99) mg/dL Calcium (8.4-10.2) mg/dL Ferritin (22.0-322.0) ng/mL Alkaline Phosphatase (38-126) U/L Lactate Dehydrogenase (313-618) U/L Creatine Kinase (55-170) U/L C-Reactive Protein (<10.0) mg/L Total Protein (6.3-8.2) g/dL Albumin (3.5-5.0) g/dL 10/18/20 10/18/20 10/18/20 Range/Units 04:22 08:34 11:37 WBC (3.8-10.6) k/uL Neutrophils # (1.3-7.7) k/uL Lymphocytes # (1.0-4.8) k/uL ABG pH 6.97 L* 7.27 L (7.35-7.45) ABG pCO2 75 H* 60 H (35-45) mmHg ABG pO2 28 L* 49 L* (83-108) mmHg ABG HCO3 17 L 27 H (21-25) mmol/L ABG Total CO2 29 H (19-24) mmol/L ABG O2 Saturation 23.2 L 76.6 L (94-97) % Sodium 146 H (137-145) mmol/L Chloride 118 H (98-107) mmol/L BUN 28 H (9-20) mg/dL Creatinine 0.59 L (0.66-1.25) mg/dL Glucose 128 H (74-99) mg/dL POC Glucose (mg/dL) (75-99) mg/dL Calcium 8.1 L (8.4-10.2) mg/dL Ferritin 885.8 H (22.0-322.0) ng/mL Alkaline Phosphatase 161 H (38-126) U/L Lactate Dehydrogenase 2480 H (313-618) U/L Creatine Kinase 38 L (55-170) U/L C-Reactive Protein 60.4 H (<10.0) mg/L Total Protein 5.7 L (6.3-8.2) g/dL Albumin 2.8 L (3.5-5.0) g/dL 10/18/20 Range/Units 11:45 WBC (3.8-10.6) k/uL Neutrophils # (1.3-7.7) k/uL Lymphocytes # (1.0-4.8) k/uL ABG pH (7.35-7.45) ABG pCO2 (35-45) mmHg ABG pO2 (83-108) mmHg ABG HCO3 (21-25) mmol/L ABG Total CO2 (19-24) mmol/L ABG O2 Saturation (94-97) % Sodium (137-145) mmol/L Chloride (98-107) mmol/L BUN (9-20) mg/dL Creatinine (0.66-1.25) mg/dL Glucose (74-99) mg/dL POC Glucose (mg/dL) 189 H (75-99) mg/dL Calcium (8.4-10.2) mg/dL Ferritin (22.0-322.0) ng/mL Alkaline Phosphatase (38-126) U/L Lactate Dehydrogenase (313-618) U/L Creatine Kinase (55-170) U/L C-Reactive Protein (<10.0) mg/L Total Protein (6.3-8.2) g/dL Albumin (3.5-5.0) g/dL Microbiology - Last 24 Hours (Table) 10/18/20 08:00 Sputum Culture - Preliminary Sputum 10/11/20 15:30 Blood Culture - Final Blood No Growth after 144 hours Assessment and Plan Assessment: -Acute hypoxic respiratory failure: Secondary to: 19 pneumonia.. Computed tomography scan findings are consistent with ARDS. Patient is being continued on BiPAP--> on mechanical ventilator.. Continue with dexamethasone, Lovenox and was given convulsant plasma.. -Coronary artery disease with previous history of bypass surgery hyperlipidemia -Hypertension -Hypovolemic hyponatremia: Hydrochlorothiazide was discontinued patient was started on IV fluids -acute renal failure secondary to diuretics and and evidence of medications which will be held as mentioned above. Time with Patient: Greater than 30
--- NOTE | 2020-10-20 14:21 | P.PN ---
Subjective Progress Note Date: 10/19/20 Principal diagnosis: Acute hypoxic respiratory failure secondary to Covid pneumonia 10/14/2020, the patient has been placed on a BiPAP at a pressure of 12/6 with an FiO2 of 100%. Initially was on regular oxygen flowing he was switched to high flow ox ygen 6 L and upon further decompensation, the patient was placed on a BiPAP. He is resting comfortably in bed. Patient is on IV Decadron. He is also on Lovenox for DVT prophylaxis. Patient didn't qualify for Remdesivir and he was given convalescent plasma one unit yesterday. His most recent blood gases from yesterday and no follow-up blood gases has been obtained today. He is looking lethargic. Is getting progressively more weak. A repeat chest x-ray is recommended by pulmonary and recommended transfer to ICU 10/15/2022 The patient got transferred to the intensive care unit because of worsening in hypoxemia and acute hypoxic respiratory failure; chest x-ray showing diffuse bilateral pulmonary infiltrates with groundglass changes Bilaterally more so on the right compared to the left. The patient is on a BiPAP. The patient is currently on IV Decadron. The patient received convalescent plasma. He did not qualify for Remdesivir. His repeat coronavirus/Covid 19 PCR was sent and this is still pending. He is on Lovenox at a dose of 40 mg subcu on a daily basis. Overnight, he became quite restless and agitated. He was started on Precedex; emains in the 100% on his BiPAP and his pulse ox is ranging between 86 and 90%. D-dimer is elevated at 21.7. His d-dimer is elevated and the patient's Lovenox will be adjusted to half a dose twice a day. He is in a normal sinus rhythm for now. 10/16/20 Patient currently remains in the MICU.. on BiPAP on FiO2 100%. Awake and alert. chest x-ray showed diffuse bilateral reticular nodular infiltrates without significant interval change. Patient has been afebrile today. Laboratory data showed absolute lymphocyte count 0.3, d-dimer level is 34.1 and BUN 28 and creatinine 0.76, ferritin level is 1318 and LDH is 2279 CRP to 25.9 pro calcitonin level is 0.08 not elevated Patient is being continued on Remdesivir. Pulmonary is following. 10/17/2020 Patient is currently on BiPAP with FiO2 100%. Remains in the MICU. Continued on Remdesivir, dexamethasone and patient received convalescent plasma. Continue on Lovenox subcu 50 g every 12 Chest x-ray showed bilateral interstitial infiltrates without much change from previous exam. Still having elevated inflammatory markers. 10/18/20 Patient is currently in the MICU. Intubated today. Patient was tachypneic and was in respiratory distress. Eventually patient was intubated. Currently sedated. FiO2 100% and PEEP of 16. Chest x-ray showed worsening interstitial infiltrates bilaterally. Code status discussed with with his by pulmonary. CODE STATUS was changed to DO NOT RESUSCITATE/DO NOT INTUBATE. 10/19/2020 Patient remained on mechanical ventilator. FiO2 90%. Currently sedated and on muscle relaxants. Patient is requiring pressor support with norepinephrine. Otherwise being continued on remdesivir, dexamethasone and Lovenox subcu 50 g twice daily. Chest x-ray showed bilateral interstitial infiltrates. Laboratory data reviewed. Inflammatory markers are still elevated significantly. Pulmonary is on board. Patient has been afebrile otherwise. Sodium level increased to 140 today and BUN 52 and creatinine 1.27 Current Medications Reviewed. Objective - Vital Signs Vital signs: Vital Signs Temp 100.4 F H 10/19/20 14:12 Pulse 73 10/19/20 14:12 Resp 30 H 10/19/20 14:12 BP 93/41 10/19/20 14:12 Pulse Ox 94 L 10/19/20 14:12 Intake & Output 10/18/20 10/19/20 10/19/20 18:59 06:59 18:59 Intake Total 5409.885 4607.089 959.73 Output Total 440 335 310 Balance 9613.571 5450.089 649.73 Weight 95.8 kg 96.2 kg Intake: IV 1575 75 375 Remdesivir 100 mg In 250 Sodium Chloride 0.9% 250 ml @ 250 mls/hr IVPB DAILY@1800 [facility] Rx#: [id number] Sodium Chloride 0.9% 1, 1325 75 375 000 ml @ 75 mls/hr IV . [id number] [facility] Rx#:[id number] Intake, IV Titration 020.169 1573.089 454.73 Amount Cisatracurium 200 mg In 95.082 Sodium Chloride 0.9% 180 ml @ 1 MCG/KG/MIN 5.748 mls/hr IV .Q24H [facility] Rx#: [id number] Norepinephrine 8 mg In 132.547 254.73 Sodium Chloride 0.9% 250 ml @ 0.05 MCG/KG/MIN 9. 269 mls/hr IV .Q24H [facility] Rx#:[id number] Sodium Chloride 0.9% 1, 1000 000 ml @ 999 mls/hr IV . Q1H1M [facility] Rx#:[id number] fentaNYL (PF) 1,000 mcg 15.675 In Sodium Chloride 0.9% 80 ml @ Per Protocol IV . Q0M [facility] Rx#:[id number] fentaNYL (PF) 1,000 mcg 57.32 100 In Sodium Chloride 0.9% 80 ml @ Per Protocol IV . Q0M [facility] Rx#:[id number] propofoL 1,000 mg In 100 170.140 100 Empty Bag 1 bag @ Titrate IV .Q0M [facility] Rx#: [id number] Tube Feeding 100 100 Blood Product 0 Ffp Pher Conval Covid19 0 Acda 3 Unit [id number] Other 60 30 Output: Urine 440 335 310 Other: Voiding Method Indwelling Catheter Indwelling Catheter Indwelling Catheter ABP, PAP, CO, CI - Last Documented Arterial Blood Pressure 108/46 - Exam - Exam GENERAL: The patient is currently intubated and on mechanical ventilator. Sedated.. HEENT: Pupils are round and equally reacting to light. EOMI. No scleral icterus. No conjunctival pallor. Normocephalic, atraumatic. No pharyngeal erythema. No thyromegaly. CARDIOVASCULAR: S1 and S2 present. No murmurs, rubs, or gallops. PULMONARY: Coarse breath sounds bilaterally, no wheezing or crackles. ABDOMEN: Soft, nontender, nondistended, normoactive bowel sounds. No palpable organomegaly. MUSCULOSKELETAL: No joint swelling or deformity. EXTREMITIES: No cyanosis, clubbing, or pedal edema. NEUROLOGICAL: Gross neurological examination did not reveal any focal deficits. SKIN: No rashes. - Labs CBC & Chem 7: 10/20/20 05:20 10/20/20 05:20 Labs: Abnormal Lab Results - Last 24 Hours (Table) 10/18/20 10/18/20 10/19/20 Range/Units 17:39 23:57 04:09 WBC (3.8-10.6) k/uL RBC (4.30-5.90) m/uL Hgb (13.0-17.5) gm/dL Neutrophils # (1.3-7.7) k/uL Lymphocytes # (1.0-4.8) k/uL D-Dimer (<0.60) mg/L FEU ABG pO2 78 L (83-108) mmHg ABG Total CO2 27 H (19-24) mmol/L Sodium (137-145) mmol/L Chloride (98-107) mmol/L BUN (9-20) mg/dL Creatinine (0.66-1.25) mg/dL Glucose (74-99) mg/dL POC Glucose (mg/dL) 146 H 152 H (75-99) mg/dL Calcium (8.4-10.2) mg/dL Ferritin (22.0-322.0) ng/mL Lactate Dehydrogenase (313-618) U/L Creatine Kinase (55-170) U/L C-Reactive Protein (<10.0) mg/L Total Protein (6.3-8.2) g/dL Albumin (3.5-5.0) g/dL 10/19/20 10/19/20 10/19/20 Range/Units 04:50 04:50 04:50 WBC 11.1 H (3.8-10.6) k/uL RBC 4.09 L (4.30-5.90) m/uL Hgb 12.7 L (13.0-17.5) gm/dL Neutrophils # 10.4 H (1.3-7.7) k/uL Lymphocytes # 0.4 L (1.0-4.8) k/uL D-Dimer 16.97 H (<0.60) mg/L FEU ABG pO2 (83-108) mmHg ABG Total CO2 (19-24) mmol/L Sodium 148 H (137-145) mmol/L Chloride 119 H (98-107) mmol/L BUN 52 H (9-20) mg/dL Creatinine 1.27 H (0.66-1.25) mg/dL Glucose 163 H (74-99) mg/dL POC Glucose (mg/dL) (75-99) mg/dL Calcium 7.0 L (8.4-10.2) mg/dL Ferritin 776.9 H (22.0-322.0) ng/mL Lactate Dehydrogenase 2036 H (313-618) U/L Creatine Kinase 383 H (55-170) U/L C-Reactive Protein 211.1 H (<10.0) mg/L Total Protein 4.8 L (6.3-8.2) g/dL Albumin 2.2 L (3.5-5.0) g/dL 10/19/20 10/19/20 Range/Units 06:20 11:17 WBC (3.8-10.6) k/uL RBC (4.30-5.90) m/uL Hgb (13.0-17.5) gm/dL Neutrophils # (1.3-7.7) k/uL Lymphocytes # (1.0-4.8) k/uL D-Dimer (<0.60) mg/L FEU ABG pO2 (83-108) mmHg ABG Total CO2 (19-24) mmol/L Sodium (137-145) mmol/L Chloride (98-107) mmol/L BUN (9-20) mg/dL Creatinine (0.66-1.25) mg/dL Glucose (74-99) mg/dL POC Glucose (mg/dL) 134 H 165 H (75-99) mg/dL Calcium (8.4-10.2) mg/dL Ferritin (22.0-322.0) ng/mL Lactate Dehydrogenase (313-618) U/L Creatine Kinase (55-170) U/L C-Reactive Protein (<10.0) mg/L Total Protein (6.3-8.2) g/dL Albumin (3.5-5.0) g/dL Microbiology - Last 24 Hours (Table) 10/18/20 08:00 Gram Stain - Preliminary Sputum Sputum Culture - Preliminary Assessment and Plan Assessment: -Acute hypoxic respiratory failure: Secondary to: 19 pneumonia.. Computed tomography scan findings are consistent with ARDS. Patient is being continued on BiPAP--> on mechanical ventilator.. Continue with dexamethasone, Lovenox and was given convulsant plasma.. -Coronary artery disease with previous history of bypass surgery hyperlipidemia -Hypertension -Hypovolemic hyponatremia: Hydrochlorothiazide was discontinued patient was started on IV fluids -acute renal failure secondary to infection and possible ATN.. Time with Patient: Greater than 30
--- NOTE | 2020-10-20 14:50 | P.PN ---
Subjective Progress Note Date: 10/20/20 Principal diagnosis: Acute hypoxic respiratory failure secondary to Covid pneumonia 10/14/2020, the patient has been placed on a BiPAP at a pressure of 12/6 with an FiO2 of 100%. Initially was on regular oxygen flowing he was switched to high flow ox ygen 6 L and upon further decompensation, the patient was placed on a BiPAP. He is resting comfortably in bed. Patient is on IV Decadron. He is also on Lovenox for DVT prophylaxis. Patient didn't qualify for Remdesivir and he was given convalescent plasma one unit yesterday. His most recent blood gases from yesterday and no follow-up blood gases has been obtained today. He is looking lethargic. Is getting progressively more weak. A repeat chest x-ray is recommended by pulmonary and recommended transfer to ICU 10/15/2022 The patient got transferred to the intensive care unit because of worsening in hypoxemia and acute hypoxic respiratory failure; chest x-ray showing diffuse bilateral pulmonary infiltrates with groundglass changes Bilaterally more so on the right compared to the left. The patient is on a BiPAP. The patient is currently on IV Decadron. The patient received convalescent plasma. He did not qualify for Remdesivir. His repeat coronavirus/Covid 19 PCR was sent and this is still pending. He is on Lovenox at a dose of 40 mg subcu on a daily basis. Overnight, he became quite restless and agitated. He was started on Precedex; emains in the 100% on his BiPAP and his pulse ox is ranging between 86 and 90%. D-dimer is elevated at 21.7. His d-dimer is elevated and the patient's Lovenox will be adjusted to half a dose twice a day. He is in a normal sinus rhythm for now. 10/16/20 Patient currently remains in the MICU.. on BiPAP on FiO2 100%. Awake and alert. chest x-ray showed diffuse bilateral reticular nodular infiltrates without significant interval change. Patient has been afebrile today. Laboratory data showed absolute lymphocyte count 0.3, d-dimer level is 34.1 and BUN 28 and creatinine 0.76, ferritin level is 1318 and LDH is 2279 CRP to 25.9 pro calcitonin level is 0.08 not elevated Patient is being continued on Remdesivir. Pulmonary is following. 10/17/2020 Patient is currently on BiPAP with FiO2 100%. Remains in the MICU. Continued on Remdesivir, dexamethasone and patient received convalescent plasma. Continue on Lovenox subcu 50 g every 12 Chest x-ray showed bilateral interstitial infiltrates without much change from previous exam. Still having elevated inflammatory markers. 10/18/20 Patient is currently in the MICU. Intubated today. Patient was tachypneic and was in respiratory distress. Eventually patient was intubated. Currently sedated. FiO2 100% and PEEP of 16. Chest x-ray showed worsening interstitial infiltrates bilaterally. Code status discussed with with his by pulmonary. CODE STATUS was changed to DO NOT RESUSCITATE/DO NOT INTUBATE. 10/19/2020 Patient remained on mechanical ventilator. FiO2 90%. Currently sedated and on muscle relaxants. Patient is requiring pressor support with norepinephrine. Otherwise being continued on remdesivir, dexamethasone and Lovenox subcu 50 g twice daily. Chest x-ray showed bilateral interstitial infiltrates. Laboratory data reviewed. Inflammatory markers are still elevated significantly. Pulmonary is on board. Patient has been afebrile otherwise. Sodium level increased to 140 today and BUN 52 and creatinine 1.27 10/20/2020 Patient is currently on mechanical ventilator. Remains in the MICU. On pressor support. IV fluids changed to D5 water due to hyponatremia. Patient completed remdesivir course. And on dexamethasone and Lovenox 80 mg every 12. ABG showed pH 7.42, pCO2 38 and pO2 93 on 60% FiO2. Laboratory data showed obesity (0.7, hemoglobin 11.9 and platelets 155 Sodium 150, potassium 4.3, chloride 121, BUN 50 and creatinine 1.11 Patient still has elevated in [place] markers. Chest x-ray showed diffuse increase in lung markings can be compatible with atypical pneumonia or pulmonary edema. NG tube could be advanced 6-10 cm. Tolerating tube feeding. Current Medications Reviewed. Objective - Vital Signs Vital signs: Vital Signs Temp 98.4 F 10/20/20 08:00 Pulse 59 L 10/20/20 11:00 Resp 30 H 10/20/20 11:00 BP 103/58 10/20/20 11:00 Pulse Ox 93 L 10/20/20 11:00 Intake & Output 12/17/20 12/18/20 12/18/20 18:59 06:59 18:59 Intake Total 2239.00 1877.942 635.067 Output Total 685 1135 345 Balance 1554.00 742.942 290.067 Weight 99 kg 99 kg Intake: IV 1075 900 225 Remdesivir 100 mg In 250 Sodium Chloride 0.9% 250 ml @ 250 mls/hr IVPB DAILY@1800 JOE Rx#: [id number] Sodium Chloride 0.9% 1, 825 900 225 000 ml @ 75 mls/hr IV . [id number] JOE Rx#:[id number] Intake, IV Titration 558.00 587.942 210.067 Amount Cisatracurium 200 mg In 180.2 Sodium Chloride 0.9% 180 ml @ 1 MCG/KG/MIN 5.748 mls/hr IV .Q24H JOE Rx#: [id number] Dextrose 5% in Water 1, 150 000 ml @ 75 mls/hr IV . [id number] JOE Rx#:[id number] Norepinephrine 8 mg In 258.00 Sodium Chloride 0.9% 250 ml @ 0.05 MCG/KG/MIN 9. 269 mls/hr IV .Q24H JOE Rx#:[id number] fentaNYL (PF) 1,000 mcg 100 175.522 In Sodium Chloride 0.9% 80 ml @ Per Protocol IV . Q0M JOE Rx#:[id number] propofoL 1,000 mg In 200 232.220 60.067 Empty Bag 1 bag @ Titrate IV .Q0M JOE Rx#: [id number] Tube Feeding 300 300 100 Blood Product 216 Ffp Pher Conval Covid19 216 Acda 3 Unit [id number] Other 90 90 100 Output: Urine 685 1135 345 Other: Voiding Method Indwelling Catheter Indwelling Catheter Indwelling Catheter ABP, PAP, CO, CI - Last Documented Arterial Blood Pressure 102/48 - Exam - Exam GENERAL: The patient is currently intubated and on mechanical ventilator. Sedated.. HEENT: Pupils are round and equally reacting to light. EOMI. No scleral icterus. No conjunctival pallor. Normocephalic, atraumatic. No pharyngeal erythema. No thyromegaly. CARDIOVASCULAR: S1 and S2 present. No murmurs, rubs, or gallops. PULMONARY: Coarse breath sounds bilaterally, no wheezing or crackles. ABDOMEN: Soft, nontender, nondistended, normoactive bowel sounds. No palpable organomegaly. MUSCULOSKELETAL: No joint swelling or deformity. EXTREMITIES: No cyanosis, clubbing, or pedal edema. NEUROLOGICAL: Gross neurological examination did not reveal any focal deficits. SKIN: No rashes. - Labs CBC & Chem 7: 10/20/20 05:20 10/20/20 05:20 Labs: Abnormal Lab Results - Last 24 Hours (Table) 10/19/20 10/20/20 10/20/20 Range/Units 17:11 00:52 04:54 WBC (3.8-10.6) k/uL RBC (4.30-5.90) m/uL Hgb (13.0-17.5) gm/dL Hct (39.0-53.0) % Neutrophils # (1.3-7.7) k/uL Lymphocytes # (1.0-4.8) k/uL ABG Total CO2 27 H (19-24) mmol/L ABG O2 Saturation 98.0 H (94-97) % Sodium (137-145) mmol/L Chloride (98-107) mmol/L BUN (9-20) mg/dL Glucose (74-99) mg/dL POC Glucose (mg/dL) 223 H 182 H (75-99) mg/dL Calcium (8.4-10.2) mg/dL Lactate Dehydrogenase (313-618) U/L Creatine Kinase (55-170) U/L C-Reactive Protein (<10.0) mg/L Total Protein (6.3-8.2) g/dL Albumin (3.5-5.0) g/dL 10/20/20 10/20/20 Range/Units 05:20 05:20 WBC 11.7 H (3.8-10.6) k/uL RBC 3.66 L (4.30-5.90) m/uL Hgb 11.9 L (13.0-17.5) gm/dL Hct 35.6 L (39.0-53.0) % Neutrophils # 11.0 H (1.3-7.7) k/uL Lymphocytes # 0.4 L (1.0-4.8) k/uL ABG Total CO2 (19-24) mmol/L ABG O2 Saturation (94-97) % Sodium 150 H (137-145) mmol/L Chloride 121 H (98-107) mmol/L BUN 50 H (9-20) mg/dL Glucose 169 H (74-99) mg/dL POC Glucose (mg/dL) (75-99) mg/dL Calcium 7.2 L (8.4-10.2) mg/dL Lactate Dehydrogenase 1747 H (313-618) U/L Creatine Kinase 486 H (55-170) U/L C-Reactive Protein 141.6 H (<10.0) mg/L Total Protein 4.7 L (6.3-8.2) g/dL Albumin 2.2 L (3.5-5.0) g/dL Microbiology - Last 24 Hours (Table) 10/18/20 08:00 Gram Stain - Final Sputum Sputum Culture - Final Assessment and Plan Assessment: -Acute hypoxic respiratory failure: Secondary to: 19 pneumonia.. Computed tomography scan findings are consistent with ARDS. Patient is being continued on BiPAP--> on mechanical ventilator.. Continue with dexamethasone, Lovenox and was given convulsant plasma.. -Coronary artery disease with previous history of bypass surgery hyperlipidemia -Hypertension -Hypovolemic hyponatremia: Hydrochlorothiazide was discontinued patient was started on IV fluids -acute renal failure secondary to infection and possible ATN.. Time with Patient: Greater than 30
--- NOTE | 2020-10-20 15:29 | P.PN ---
Subjective Progress Note Date: 10/20/20 Principal diagnosis: Acute hypoxic episode of failure secondary to covid 19 pneumonitis. Acute hypoxic respiratory failure related to COVID 19 pneumonia 75-year-old patient, known history of coronary artery disease hypertension and previous bypass surgery, came into the emergency department feeling sick for almost a week. He had fever and shortness of breath and cough. He had tested COVID 19 and the results came back negative. Because of his worsening condition, he was told them to come to the ED by his PCP. He was not improving. He stated that he was getting progressively more short of breath. He started off by having symptoms of URI. Denies having any loss in the taste or smell. Denies having any chest pain. He was alert and oriented 3. In the emergency department, the patient was found to be hypoxic and the patient is currently on 15 L about 2 by nasal cannula. She is chest x-ray showed bilateral interstitial pulmonary infiltrates worse in the left lower lobe. The patient had some lymphopenia on his blood work with a d-dimer of 0.3. CRP was 36.5. LDH was 855 and a repeat coronavirus Covid 19 testing was done that came back negative by PCR. She is on level is at 0.08. On 10/13/2020, the patient is being seen in follow-up regarding his pneumonia. Note that the patient was having worsening shortness of breath. He developed worsening hypoxemia overnight. On 100% nonrebreather facemask, the patient had a pH of 7.45 with episodes of 34 and pO2 of 64. Subsequently, the patient was switched to high flow oxygen at 60 L. Despite the negative coronavirus/Covid 19 PCR, the patient is highly suspected to have the infection and the patient's had the typical clinical presentation, physical x-ray findings indicative CAT scan findings. A CT angios was performed yesterday that showed no evidence of any pulmonary embolism. The patient had diffuse areas of groundglass infiltrates and areas of consolidation. This is consistent with a viral pneumonia or early ARDS. Meanwhile, the patient's oxygenation has been worse. He is having coarse crackles in lung bases bilaterally. During the morning evaluation, the patient was on high flow oxygen at 6 L with a FiO2 of 90%. He was a bit anxious. He reported desaturation with limited amount of activity. This was noted today. He was able to sit up on a recliner. Nevertheless, his pulse ox was dropping with talking and some activity. I would say his condition is extremely borderline. I placed an order for Remdesivir , however, this was declined the patient did not have the positive confirmation for the viral infection. On 10/14/2020, the patient remains on a BiPAP at a pressure of 12/6 with an FiO2 of 100%. Obviously his condition decompensated. Initially was on regular oxygen flowing he was switched to high flow oxygen 6 L and upon further decompensation, the patient was placed on a BiPAP. He is resting comfortably in bed. His pulse ox currently is in the percent. She is on IV Decadron. He is also on Lovenox for DVT prophylaxis. He got declined forRemdesivir and he was given convalescent plasma one unit yesterday. His most recent blood gases from yesterday and no follow-up blood gases has been obtained today. He is looking lethargic. Is getting progressively more weak. He is awake and alert. He is following commands. A repeat chest x-ray will be obtained today. I also think it's reasonable for this patient to get transferred to the intensive care unit for further monitoring. He is known to have coronary artery bypass surgery for an underlying coronary artery disease. Inflammatory markers are also to follow. On 10/15/2022 months seeing the patient for a follow-up. The patient got transferred to the intensive care unit because of worsening in hypoxemia and acute hypoxic respiratory failure. His chest x-ray showing diffuse bilateral pulmonary infiltrates with groundglass changes Bilaterally more so on the right compared to the left. The patient was on 100% nonrebreather facemask. He failed that. He was started on BiPAP at a pressure of 14/8 cm of water. Her blood gases from last night showed a pH of 7.47 with a pCO2 of 33 and pO2 of 51 and this blood gas was done while the patient was on 100%. Subsequently, the patient was placed on a BiPAP. The patient is currently on IV Decadron. The patient received convalescent plasma. He did not qualify for Remdesivir. His repeat coronavirus/Covid 19 PCR was sent and this is still pending. Meanwhile, the patient is still on IV fluids at the rate of 75 mL an hour. Urine output is no other 30 mL an hour. He is on Lovenox at a dose of 40 mg subcu on a daily basis. Overnight, he became quite restless and agitated. He was started on Precedex which is currently running at 0.4 mcg/kg/h. This, the situation and the patient seems to be much more appropriate. On today's evaluation, he is still on Precedex. He is following commands. His answering questions. He is more rested. Nevertheless, he remains in the 100% on his BiPAP and his pulse ox is ranging between 86 and 90%. D-dimer is elevated at 21.7. His d-dimer is elevated and the patient's Lovenox will be adjusted to half a dose twice a day. He is in a normal sinus rhythm for now. On 10/16/2020 patient seen in follow-up in the intensive care unit, he is retest PCR from 10/14/2020 came back positive for Covid 19, he remains on BiPAP currently of pressures of 14/8 and FiO2 of 100%, his pulse ox is 8990%, he is on Precedex at 0.3 mics per kilo per minute, and 0.9 at 75 ML per hour, no other drips. He was started on Remdesivir, today is day 2 of treatment, he remains on Decadron and Lovenox for anticoagulation. His chest x-ray shows diffuse bilateral reticulonodular infiltrates significant interval change. Is afebrile, hemodynamically stable, his labs have been reviewed, showing persistent lymphopenia, with lymphocyte count 0.3, the rest of the CBC was within normal limits, d-dimer has increased to 34.1, his chloride is 114, the rest of electrolytes were unremarkable, BUN is 28, creatinine of 0.76, his ferritin level is 1318, LDH is still significantly elevated at 2279, and CRP has significantly increased to 225.9, pro calcitonin was negative at 0.08, and we will discontinue his Zithromax. Denies any chest discomfort, remains in sinus mechanism, he remains on Precedex because of periodic restlessness, appears to be quite comfortable right now, a bit drowsy. Reevaluated today on 10/17/20, patient remains in the ICU, maintained on BiPAP, IPAP of 14 and EPAP of 8 and FiO2 is 100%. O2 saturation is marginal. Patient is also on clevidipine drip at 1 mg/h to adequately control his blood pressure. IV fluid at 75 mL per hour. Patient remains on the Covid 19 cocktail, remains on remdesivir' received 1 unit of convalescent plasma and remains on Decadron. Chest x-ray continues to show bilateral interstitial and. Not much of a global director air and climate change the last few days. CBC is relatively normal. D-dimer is above 54 electrolytes are normal renal profile is normal LDH is quite elevated at 2524, and C-reactive protein is 77.5, improved compared to yesterday patient remains on Lovenox at 50 mg subcu every 12 hours Reevaluated today on 10/18/20, patient's clinical status deteriorated this morning, and his O2 saturation went down to the low 70s. Patient was noted to be tachypneic, and in moderate respiratory distress, I was notified about this patient, and I recommended immediate intubation and mechanical ventilation. However as the patient was being intubated by [employer], patient went into pulseless electrical activity, CPR was started immediately, received 1 dose of epinephrine and 1 dose of bicarb. There was return of spontaneous circulation within less than a minute. However the patient continued to have extremely poor oxygenation in spite of FiO2 of 100%, PEEP was increased to 16, rate was placed at 30, and tidal volume was placed at 500. Initial ABG post intubation showed a pO2 of 28 pCO2 of 75 pH of 6.97. 15 minutes later, his pO2 went up to 49 pCO2 was 60 pH of 7.27. Patient is now on pressure control mode of mechanical ventilation, rate is set at 30. Pressure control is set at 22. TIA is 0.8. And he is on 100% and PEEP of 16. Discussed his condition with the shortly after he coded, and explained to the the situation, and the prognosis is extremely poor and guarded. is agreeable to proceed with DO NOT RESUSCITATE CODE STA TUS, however we continue the same supportive care measures he is presently on including full mechanical ventilation, Covid 19 cocktail, and continue present supportive care measures fully however the patient is to coded again, no CPR would be done. Labs today showed relatively normal electrolytes normal renal profile. His LDH is up to 2480 and C-reactive protein is 60.4 chest x-ray post intubation showed worsening interstitial infiltrates bilaterally. And this was in spite of the PEEP of 16. Reevaluated today on 10/19/20, patient remains in the ICU, intubated and mechanically ventilated. Patient is on pressure control mode of mechanical ventilation, pc at 22, rate is 30, FiO2 is 90%, TI is 0.7 seconds today. Adjusted down from 0.8. ABG showed a pO2 of 78 pCO2 of 41 pH of 7.4. Patient remains on Nimbex, 1.5 mcg/kg/m. He is also on fentanyl 1 mcg/kg/h, propofol at 30 mcg/kg/m, IV fluid at 75 mL/h, and he is requiring roughly about 12 mcg/m of norepinephrine. Patient is receiving remdesivir, and he remains on the Covid 19 cocktail. Patient is also receiving bolus feedings via orogastric tube. Chest x-ray continues to show bilateral interstitial infiltrates, slight improvement compared to the chest x-ray yesterday, however the patient is on relatively high PEEP which may show false improvement of the chest x-ray appearance. WBC count is 11.1. Elective lites are normal except for sodium is 148. BUN is 52 creatinine is 1.27. Inflammatory markers including LDH and C-reactive protein remain quite high. LDH is 2036 and C-reactive protein is 211 Patient was reevaluated today on 10/20/20, patient remains in the ICU, remains intubated, mechanically ventilated, sedated, and paralyzed. He is now on pressure control mode of mechanical ventilation, pc 22,ti 0.76, FiO2 is 70% PEEP is 16. Patient is requiring small dose of norepinephrine 0.04 mcg/kg/m, he is also on propofol at 30 mcg/kg/m, and fentanyl 1 mcg/kg/m. Patient is also on Nimbex titrated based on the train of 4. Chest x-ray continues to show bilateral interstitial infiltrates, and suspect some component of ARDS. His CBC is relatively normal. ABG showed a pO2 of 93 pCO2 of 38 pH of 7.42. Electr olytes showed elevated sodium of 150 and chloride is 121, hence I will give the patient free water today. His main IV fluid was changed to D5W, and I will give him free water flushes via orogastric tube. Ferritin level today is 609. LDH is 1747, and C-reactive protein is 141.6 FiO2 was decreased today to 60%, and instructed to titrate FiO2 down keep O2 saturation just above 90%. Before we could address any tapering of the PEEP. Objective - Vital Signs Vital signs: Vital Signs Temp 98.4 F 10/20/20 12:00 Pulse 58 L 10/20/20 14:00 Resp 30 H 10/20/20 14:00 BP 117/60 10/20/20 14:00 Pulse Ox 93 L 10/20/20 14:00 Intake & Output 10/19/20 10/20/20 10/20/20 18:59 06:59 18:59 Intake Total 2239.00 1877.942 960.067 Output Total 685 1135 465 Balance 1554.00 742.942 495.067 Weight 99 kg 99 kg Intake: IV 1075 900 225 Remdesivir 100 mg In 250 Sodium Chloride 0.9% 250 ml @ 250 mls/hr IVPB DAILY@1800 JOE Rx#: [id number] Sodium Chloride 0.9% 1, 825 900 225 000 ml @ 75 mls/hr IV . [id number] JOE Rx#:[id number] Intake, IV Titration 558.00 587.942 435.067 Amount Cisatracurium 200 mg In 180.2 Sodium Chloride 0.9% 180 ml @ 1 MCG/KG/MIN 5.748 mls/hr IV .Q24H JOE Rx#: [id number] Dextrose 5% in Water 1, 375 000 ml @ 75 mls/hr IV . [id number] JOE Rx#:[id number] Norepinephrine 8 mg In 258.00 Sodium Chloride 0.9% 250 ml @ 0.05 MCG/KG/MIN 9. 269 mls/hr IV .Q24H JOE Rx#:[id number] fentaNYL (PF) 1,000 mcg 100 175.522 In Sodium Chloride 0.9% 80 ml @ Per Protocol IV . Q0M JOE Rx#:[id number] propofoL 1,000 mg In 200 232.220 60.067 Empty Bag 1 bag @ Titrate IV .Q0M JOE Rx#: [id number] Tube Feeding 300 300 200 Blood Product 216 Ffp Pher Conval Covid19 216 Acda 3 Unit [id number] Other 90 90 100 Output: Urine 685 1135 465 Other: Voiding Method Indwelling Catheter Indwelling Catheter Indwelling Catheter ABP, PAP, CO, CI - Last Documented Arterial Blood Pressure 116/53 - Exam GENERAL EXAM: Revealed 75-year-old white male, intubated and mechanically ventilated, sedated and paralyzed. HEAD: Normocephalic/atraumatic. Endotracheal tube and orogastric tubes are intact HEENT: PERRLA, EOMI, neck test, no neck masses, no JVD, no stridor. CHEST: No chest wall deformity. Symmetrical expansion. LUNGS: Crackles and rhonchi noted bilaterally. CVS: Regular rate and rhythm, normal S1 and S2, no gallops, no murmurs, no rubs ABDOMEN: Obese, soft, nontender, no megaly, no rebound. EXTREMITIES: No clubbing, no edema, no cyanosis, 2+ pulses and upper and lower extremities. MUSCULOSKELETAL: Patient is paralyzed, on Nimbex, could not assess. SKIN: No rashes CENTRAL NERVOUS SYSTEM: Could not be assessed. Psychiatric: Could not assess - Labs CBC & Chem 7: 10/20/20 05:20 10/20/20 05:20 Labs: Abnormal Lab Results - Last 24 Hours (Table) 10/19/20 10/20/20 10/20/20 Range/Units 17:11 00:52 04:54 WBC (3.8-10.6) k/uL RBC (4.30-5.90) m/uL Hgb (13.0-17.5) gm/dL Hct (39.0-53.0) % Neutrophils # (1.3-7.7) k/uL Lymphocytes # (1.0-4.8) k/uL ABG Total CO2 27 H (19-24) mmol/L ABG O2 Saturation 98.0 H (94-97) % Sodium (137-145) mmol/L Chloride (98-107) mmol/L BUN (9-20) mg/dL Glucose (74-99) mg/dL POC Glucose (mg/dL) 223 H 182 H (75-99) mg/dL Calcium (8.4-10.2) mg/dL Ferritin (22.0-322.0) ng/mL Lactate Dehydrogenase (313-618) U/L Creatine Kinase (55-170) U/L C-Reactive Protein (<10.0) mg/L Total Protein (6.3-8.2) g/dL Albumin (3.5-5.0) g/dL 10/20/20 10/20/20 10/20/20 Range/Units 05:20 05:20 12:08 WBC 11.7 H (3.8-10.6) k/uL RBC 3.66 L (4.30-5.90) m/uL Hgb 11.9 L (13.0-17.5) gm/dL Hct 35.6 L (39.0-53.0) % Neutrophils # 11.0 H (1.3-7.7) k/uL Lymphocytes # 0.4 L (1.0-4.8) k/uL ABG Total CO2 (19-24) mmol/L ABG O2 Saturation (94-97) % Sodium 150 H (137-145) mmol/L Chloride 121 H (98-107) mmol/L BUN 50 H (9-20) mg/dL Glucose 169 H (74-99) mg/dL POC Glucose (mg/dL) 249 H (75-99) mg/dL Calcium 7.2 L (8.4-10.2) mg/dL Ferritin 609.3 H (22.0-322.0) ng/mL Lactate Dehydrogenase 1747 H (313-618) U/L Creatine Kinase 486 H (55-170) U/L C-Reactive Protein 141.6 H (<10.0) mg/L Total Protein 4.7 L (6.3-8.2) g/dL Albumin 2.2 L (3.5-5.0) g/dL Microbiology - Last 24 Hours (Table) 10/18/20 08:00 Gram Stain - Final Sputum Sputum Culture - Final Assessment and Plan Assessment: Impression: Acute hypoxic respiratory failure secondary to covid 19 pneumonia. And ARDS. Requiring intubation and mechanical ventilation. Cardiac arrest requiring brief CPR for less than 1 minute Elevated inflammatory markers and significantly elevated d-dimer. Benign essential hypertension. Dyslipidemia. Obesity. Recommendation: Continue ventilatory support, titrate FiO2 down to keep O2 saturation above 90%. Continue the Covid 19 cocktail. Continue remdesivir Continue Lovenox at 0.5 mcg/kg twice a day. Received 1 unit of convalescent plasma. Remains critically ill, but I'm surprised that the patient is showing slight improvement in the last 24 hours. Prognosis remains guarded. We'll continue to monitor in the ICU. Critical care time is over 30 minutes. Time with Patient: Greater than 30
[2020-10-20 17:46] LABS: Glucose,Whole Blood 252 mg/dL (75-99)
[2020-10-20] MEDS ORDERED: INSULIN REGULAR BOLUS (FROM DRIP BAG) IV PRN (18:10)
[2020-10-20] MEDS: CISATRACURIUM 200 MG in SODIUM CHLORIDE 0.9% 180 ML IV SCH (18:13)
[2020-10-20] MEDS: INSULIN REGULAR 100 UNIT in SODIUM CHLORIDE 0.9% 100 ML IV SCH (19:02)
[2020-10-20 19:09] LABS: Glucose,Whole Blood 244 mg/dL (75-99)
[2020-10-20 20:26] LABS: Glucose,Whole Blood 205 mg/dL (75-99)
[2020-10-20] MEDS: LATANOPROST 0.005% OPHTH DROPS 2.5 ML BTL BOTH EYES SCH (20:27)
[2020-10-20] MEDS: ATORVASTATIN 20 MG TAB PO SCH (20:50)
[2020-10-20] MEDS: ASCORBIC ACID 500 MG TAB PO SCH (20:50)
[2020-10-20 21:07] LABS: Glucose,Whole Blood 221 mg/dL (75-99)
[2020-10-20 23:19] LABS: Glucose,Whole Blood 251 mg/dL (75-99)
[2020-10-21] MEDS: NOREPINEPHRINE 8 MG in SODIUM CHLORIDE 0.9% 250 ML IV SCH (00:06)
[2020-10-21] MEDS: ARTIFICIAL TEARS-HYPROMELLOSE DROPS 15 ML BTL BOTH EYES SCH ×7 (00:06→23:18)
[2020-10-21 00:26] LABS: Glucose,Whole Blood 188 mg/dL (75-99)
[2020-10-21 01:09] LABS: Glucose,Whole Blood 196 mg/dL (75-99)
[2020-10-21 02:03] LABS: Glucose,Whole Blood 237 mg/dL (75-99)
[2020-10-21 03:10] LABS: Glucose,Whole Blood 236 mg/dL (75-99)
[2020-10-21] MEDS: fentaNYL (PF) 1,000 MCG in SODIUM CHLORIDE 0.9% 80 ML IV SCH ×2 (03:50→23:18)
[2020-10-21 03:56] LABS: Glucose,Whole Blood 213 mg/dL (75-99)
[2020-10-21 05:49] LABS: Basophils % (A) 0 %; Eosinophils % (A) 0 %; HCT 34.4 % (39.0-53.0); HGB 11.1 gm/dL (13.0-17.5); Hypochromasia Slight; Lymphocytes # (A) 0.4 k/uL (1.0-4.8); Lymphocytes % (A) 4 %; MCH 31.7 pg (25.0-35.0); MCHC 32.4 g/dL (31.0-37.0); MCV 98.1 fL (80.0-100.0); Mean Platelet Volume 10.2; Monocytes # (A) 0.3 k/uL (0-1.0); Monocytes % (A) 3 %; Neutrophils # (A) 8.2 k/uL (1.3-7.7); Neutrophils % (A) 92 %; Platelet Count 132 k/uL (150-450); RDW 13.6 % (11.5-15.5); WBC 8.9 k/uL (3.8-10.6)
[2020-10-21 05:49] LABS: ABG Base Excess 0.5 mmol/L; ABG HCO3 25 mmol/L (21-25); ABG Oxygen Saturation 92.5 % (94-97); ABG PCO2 36 mmHg (35-45); ABG PH 7.44 (7.35-7.45); ABG PO2 61 mmHg (83-108); ABG TCO2 26 mmol/L (19-24); Allen Test Performed? Yes
[2020-10-21 05:58] LABS: Glucose,Whole Blood 205 mg/dL (75-99)
[2020-10-21] MEDS: INSULIN REGULAR 100 UNIT in SODIUM CHLORIDE 0.9% 100 ML IV SCH (05:58)
[2020-10-21 06:12] LABS: African American GFR (CKD) >90 (>60 ml/min/1.73 sqM); Albumin 2.1 g/dL (3.5-5.0); Anion Gap 1 mmol/L; Blood Urea Nitrogen 49 mg/dL (9-20); Carbon Dioxide 25 mmol/L (22-30); Chloride 119 mmol/L (98-107); Glucose 215 mg/dL (74-99); Non-African American GFR(CKD) 80 (>60 ml/min/1.73 sqM); Potassium 4.3 mmol/L (3.5-5.1); Sodium 145 mmol/L (137-145); Total Protein 4.6 g/dL (6.3-8.2)
[2020-10-21 06:14] LABS: ALT 21 U/L (4-49); AST 27 U/L (17-59); Alkaline Phosphatase 55 U/L (38-126); Calcium 7.3 mg/dL (8.4-10.2); LDH 1343 U/L (313-618); Total Bilirubin 0.5 mg/dL (0.2-1.3)
[2020-10-21 06:27] LABS: C Reactive Protein 54.8 mg/L (<10.0)
[2020-10-21] MEDS: CLEVIDIPINE BUTYRATE 25 MG in EMPTY BAG 1 BAG IV SCH (06:50)
[2020-10-21 06:55] LABS: Glucose,Whole Blood 202 mg/dL (75-99)
--- NOTE | 2020-10-21 07:46 | XR ---
EXAMINATION TYPE: XR chest 1V portable DATE OF EXAM: 10/21/2020 COMPARISON: 10/20/2020 HISTORY: Shortness of breath TECHNIQUE: Single frontal view of the chest is obtained. FINDINGS: ET and NG tube stable postsurgical changes. Diffuse interstitial pattern. There are subseg mental infiltrate. Heart size normal. IMPRESSION: Stable diffuse interstitial changes with basilar infiltrate or atelectasis. Correlate fo r interstitial pneumonia otherwise consider CHF.
[2020-10-21] MEDS: CHLORHEXIDINE GLUCONATE 15 ML CUP MUCOUS MEM SCH ×2 (07:53→20:05)
[2020-10-21] MEDS: PANTOPRAZOLE 40 MG/10 ML VIAL IVP SCH (07:53)
[2020-10-21] MEDS: ASPIRIN 81 MG PO SCH (07:54)
[2020-10-21] MEDS: DEXAMETHASONE SOD PHOSPHATE 10 MG/ML 1 ML VIAL IV SCH (07:54)
[2020-10-21] MEDS: CLIDINIUM-chlordiazePOXIDE (2.5-5 MG) CAP PO SCH ×2 (07:54→20:05)
[2020-10-21] MEDS: ALBUTEROL HFA INHALER INHALATION SCH ×4 (07:54→19:34)
[2020-10-21] MEDS: RANOLAZINE 500 MG TAB.ER.12H PO SCH ×2 (07:54→21:11)
[2020-10-21] MEDS: ENOXAPARIN 80 MG/0.8 ML SYRINGE SQ SCH ×2 (07:54→20:05)
[2020-10-21 08:05] LABS: Glucose,Whole Blood 209 mg/dL (75-99)
[2020-10-21 09:01] LABS: Glucose,Whole Blood 185 mg/dL (75-99)
[2020-10-21] MEDS: ISOSORBIDE MONONITRATE ER 30 MG TAB.ER.24H PO SCH (09:18)
[2020-10-21] MEDS: LOSARTAN 50 MG TAB PO SCH (09:18)
[2020-10-21] MEDS: TIMOLOL 0.5% OPHTH DROPS 5 ML BTL BOTH EYES SCH (09:19)
[2020-10-21] MEDS: SODIUM CHLORIDE 0.9% 1,000 ML IV SCH ×2 (09:48→22:23)
[2020-10-21 10:06] LABS: Glucose,Whole Blood 187 mg/dL (75-99)
[2020-10-21] MEDS: atenoloL 25 MG TAB PO SCH (10:11)
[2020-10-21 10:55] LABS: Ferritin 485.2 ng/mL (22.0-322.0)
[2020-10-21 11:00] LABS: Glucose,Whole Blood 165 mg/dL (75-99)
[2020-10-21 12:10] LABS: Glucose,Whole Blood 160 mg/dL (75-99)
--- NOTE | 2020-10-21 13:23 | P.PN ---
Subjective Progress Note Date: 10/21/20 Principal diagnosis: Acute hypoxic episode of failure secondary to covid 19 pneumonitis. Acute hypoxic respiratory failure related to COVID 19 pneumonia 75-year-old patient, known history of coronary artery disease hypertension and previous bypass surgery, came into the emergency department feeling sick for almost a week. He had fever and shortness of breath and cough. He had tested COVID 19 and the results came back negative. Because of his worsening condition, he was told them to come to the ED by his PCP. He was not improving. He stated that he was getting progressively more short of breath. He started off by having symptoms of URI. Denies having any loss in the taste or smell. Denies having any chest pain. He was alert and oriented 3. In the emergency department, the patient was found to be hypoxic and the patient is currently on 15 L about 2 by nasal cannula. She is chest x-ray showed bilateral interstitial pulmonary infiltrates worse in the left lower lobe. The patient had some lymphopenia on his blood work with a d-dimer of 0.3. CRP was 36.5. LDH was 855 and a repeat coronavirus Covid 19 testing was done that came back negative by PCR. She is on level is at 0.08. On 10/13/2020, the patient is being seen in follow-up regarding his pneumonia. Note that the patient was having worsening shortness of breath. He developed worsening hypoxemia overnight. On 100% nonrebreather facemask, the patient had a pH of 7.45 with episodes of 34 and pO2 of 64. Subsequently, the patient was switched to high flow oxygen at 60 L. Despite the negative coronavirus/Covid 19 PCR, the patient is highly suspected to have the infection and the patient's had the typical clinical presentation, physical x-ray findings indicative CAT scan findings. A CT angios was performed yesterday that showed no evidence of any pulmonary embolism. The patient had diffuse areas of groundglass infiltrates and areas of consolidation. This is consistent with a viral pneumonia or early ARDS. Meanwhile, the patient's oxygenation has been worse. He is having coarse crackles in lung bases bilaterally. During the morning evaluation, the patient was on high flow oxygen at 6 L with a FiO2 of 90%. He was a bit anxious. He reported desaturation with limited amount of activity. This was noted today. He was able to sit up on a recliner. Nevertheless, his pulse ox was dropping with talking and some activity. I would say his condition is extremely borderline. I placed an order for Remdesivir , however, this was declined the patient did not have the positive confirmation for the viral infection. On 10/14/2020, the patient remains on a BiPAP at a pressure of 12/6 with an FiO2 of 100%. Obviously his condition decompensated. Initially was on regular oxygen flowing he was switched to high flow oxygen 6 L and upon further decompensation, the patient was placed on a BiPAP. He is resting comfortably in bed. His pulse ox currently is in the percent. She is on IV Decadron. He is also on Lovenox for DVT prophylaxis. He got declined forRemdesivir and he was given convalescent plasma one unit yesterday. His most recent blood gases from yesterday and no follow-up blood gases has been obtained today. He is looking lethargic. Is getting progressively more weak. He is awake and alert. He is following commands. A repeat chest x-ray will be obtained today. I also think it's reasonable for this patient to get transferred to the intensive care unit for further monitoring. He is known to have coronary artery bypass surgery for an underlying coronary artery disease. Inflammatory markers are also to follow. On 10/15/2022 months seeing the patient for a follow-up. The patient got transferred to the intensive care unit because of worsening in hypoxemia and acute hypoxic respiratory failure. His chest x-ray showing diffuse bilateral pulmonary infiltrates with groundglass changes Bilaterally more so on the right compared to the left. The patient was on 100% nonrebreather facemask. He failed that. He was started on BiPAP at a pressure of 14/8 cm of water. Her blood gases from last night showed a pH of 7.47 with a pCO2 of 33 and pO2 of 51 and this blood gas was done while the patient was on 100%. Subsequently, the patient was placed on a BiPAP. The patient is currently on IV Decadron. The patient received convalescent plasma. He did not qualify for Remdesivir. His repeat coronavirus/Covid 19 PCR was sent and this is still pending. Meanwhile, the patient is still on IV fluids at the rate of 75 mL an hour. Urine output is no other 30 mL an hour. He is on Lovenox at a dose of 40 mg subcu on a daily basis. Overnight, he became quite restless and agitated. He was started on Precedex which is currently running at 0.4 mcg/kg/h. This, the situation and the patient seems to be much more appropriate. On today's evaluation, he is still on Precedex. He is following commands. His answering questions. He is more rested. Nevertheless, he remains in the 100% on his BiPAP and his pulse ox is ranging between 86 and 90%. D-dimer is elevated at 21.7. His d-dimer is elevated and the patient's Lovenox will be adjusted to half a dose twice a day. He is in a normal sinus rhythm for now. On 10/16/2020 patient seen in follow-up in the intensive care unit, he is retest PCR from 10/14/2020 came back positive for Covid 19, he remains on BiPAP currently of pressures of 14/8 and FiO2 of 100%, his pulse ox is 8990%, he is on Precedex at 0.3 mics per kilo per minute, and 0.9 at 75 ML per hour, no other drips. He was started on Remdesivir, today is day 2 of treatment, he remains on Decadron and Lovenox for anticoagulation. His chest x-ray shows diffuse bilateral reticulonodular infiltrates significant interval change. Is afebrile, hemodynamically stable, his labs have been reviewed, showing persistent lymphopenia, with lymphocyte count 0.3, the rest of the CBC was within normal limits, d-dimer has increased to 34.1, his chloride is 114, the rest of electrolytes were unremarkable, BUN is 28, creatinine of 0.76, his ferritin level is 1318, LDH is still significantly elevated at 2279, and CRP has significantly increased to 225.9, pro calcitonin was negative at 0.08, and we will discontinue his Zithromax. Denies any chest discomfort, remains in sinus mechanism, he remains on Precedex because of periodic restlessness, appears to be quite comfortable right now, a bit drowsy. Reevaluated today on 10/17/20, patient remains in the ICU, maintained on BiPAP, IPAP of 14 and EPAP of 8 and FiO2 is 100%. O2 saturation is marginal. Patient is also on clevidipine drip at 1 mg/h to adequately control his blood pressure. IV fluid at 75 mL per hour. Patient remains on the Covid 19 cocktail, remains on remdesivir' received 1 unit of convalescent plasma and remains on Decadron. Chest x-ray continues to show bilateral interstitial and. 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 CBC is relatively normal. D-dimer is above 54 electrolytes are normal renal profile is normal LDH is quite elevated at 2524, and C-reactive protein is 77.5, improved compared to yesterday patient remains on Lovenox at 50 mg subcu every 12 hours Reevaluated today on 10/18/20, patient's clinical status deteriorated this morning, and his O2 saturation went down to the low 70s. Patient was noted to be tachypneic, and in moderate respiratory distress, I was notified about this patient, and I recommended immediate intubation and mechanical ventilation. However as the patient was being intubated by HIDE CURER, patient went into pulseless electrical activity, CPR was started immediately, received 1 dose of epinephrine and 1 dose of bicarb. There was return of spontaneous circulation within less than a minute. However the patient continued to have extremely poor oxygenation in spite of FiO2 of 100%, PEEP was increased to 16, rate was placed at 30, and tidal volume was placed at 500. Initial ABG post intubation showed a pO2 of 28 pCO2 of 75 pH of 6.97. 15 minutes later, his pO2 went up to 49 pCO2 was 60 pH of 7.27. Patient is now on pressure control mode of mechanical ventilation, rate is set at 30. Pressure control is set at 22. TIA is 0.8. And he is on 100% and PEEP of 16. Discussed his condition with the shortly after he coded, and explained to the the situation, and the prognosis is extremely poor and guarded. is agreeable to proceed with DO NOT RESUSCITATE CODE STA TUS, however we continue the same supportive care measures he is presently on including full mechanical ventilation, Covid 19 cocktail, and continue present supportive care measures fully however the patient is to coded again, no CPR would be done. Labs today showed relatively normal electrolytes normal renal profile. His LDH is up to 2480 and C-reactive protein is 60.4 chest x-ray post intubation showed worsening interstitial infiltrates bilaterally. And this was in spite of the PEEP of 16. Reevaluated today on 10/19/20, patient remains in the ICU, intubated and mechanically ventilated. Patient is on pressure control mode of mechanical ventilation, pc at 22, rate is 30, FiO2 is 90%, TI is 0.7 seconds today. Adjusted down from 0.8. ABG showed a pO2 of 78 pCO2 of 41 pH of 7.4. Patient remains on Nimbex, 1.5 mcg/kg/m. He is also on fentanyl 1 mcg/kg/h, propofol at 30 mcg/kg/m, IV fluid at 75 mL/h, and he is requiring roughly about 12 mcg/m of norepinephrine. Patient is receiving remdesivir, and he remains on the Covid 19 cocktail. Patient is also receiving bolus feedings via orogastric tube. Chest x-ray continues to show bilateral interstitial infiltrates, slight improvement compared to the chest x-ray yesterday, however the patient is on relatively high PEEP which may show false improvement of the chest x-ray appearance. WBC count is 11.1. Elective lites are normal except for sodium is 148. BUN is 52 creatinine is 1.27. Inflammatory markers including LDH and C-reactive protein remain quite high. LDH is 2036 and C-reactive protein is 211 Patient was reevaluated today on 10/20/20, patient remains in the ICU, remains intubated, mechanically ventilated, sedated, and paralyzed. He is now on pressure control mode of mechanical ventilation, pc 22,ti 0.76, FiO2 is 70% PEEP is 16. Patient is requiring small dose of norepinephrine 0.04 mcg/kg/m, he is also on propofol at 30 mcg/kg/m, and fentanyl 1 mcg/kg/m. Patient is also on Nimbex titrated based on the train of 4. Chest x-ray continues to show bilateral interstitial infiltrates, and suspect some component of ARDS. His CBC is relatively normal. ABG showed a pO2 of 93 pCO2 of 38 pH of 7.42. Electr olytes showed elevated sodium of 150 and chloride is 121, hence I will give the patient free water today. His main IV fluid was changed to D5W, and I will give him free water flushes via orogastric tube. Ferritin level today is 609. LDH is 1747, and C-reactive protein is 141.6 FiO2 was decreased today to 60%, and instructed to titrate FiO2 down keep O2 saturation just above 90%. Before we could address any tapering of the PEEP. Reevaluated today on 10/21/20, patient remains in the ICU, intubated and mechanically ventilated. Patient remains on pressure control mode of mechanical ventilation, pressure set at 22, inspiratory time is 0.76, rate is at 30, patient is receiving roughly about 570 mL tidal volume, and he is on 50% now, PEEP remains at 16. PO2 was 61 today, pCO2 of 36 pH of 7.44, hence I have increased his FiO2 back up to 55%. The PEEP the same at 16. Patient did receive remdesivir , and 2 units of convalescent plasma. He remains on IV fluid at 75 ML per hour, and I switch that to 0.9 normal saline today since his sodium has corrected nicely. Patient remains on enteral feeding vital HP at 40 ML per hour. Patient is on minimal dose of norepinephrine at 0.03 mcg/kg/m, remains on propofol at 30 mcg/kg/m, insulin at 5 units per hour, fentanyl 12 mcg/kg/h, and on Nimbex at 1.5 mcg/kg/m. Patient is sedated and paralyzed, chest x-ray is actually showing improvement in his bilateral interstitial infiltrates, again that could be misleading because of the fact the patient is on PEEP of 16. But considering his gases are improving, I believe the improvement is real. Hence I have instructed the nurses today to continue the same ventilatory settings except increase FiO2 to 55%, and I plan to discontinue Nimbex of possible but continue the rest of the other medications including fentanyl and propofol. Objective - Vital Signs Vital signs: Vital Signs Temp 98.2 F 10/21/20 12:00 Pulse 59 L 10/21/20 12:00 Resp 30 H 10/21/20 12:00 BP 122/67 10/21/20 12:00 Pulse Ox 92 L 10/21/20 12:00 Intake & Output 10/20/20 10/21/20 10/21/20 18:59 06:59 18:59 Intake Total 2274.423 0957.015 4886.990 Output Total 745 690 310 Balance 7283.608 8054.578 845.990 Weight 99 kg 99.5 kg Intake: IV 225 825 225 Dextrose 5% in Water 1, 825 225 000 ml @ 75 mls/hr IV . [id number] JOE Rx#:[id number] Sodium Chloride 0.9% 1, 225 000 ml @ 75 mls/hr IV . [id number] JOE Rx#:[id number] Intake, IV Titration 1329.423 416.578 623.990 Amount Cisatracurium 200 mg In 191.983 133.21 Sodium Chloride 0.9% 180 ml @ 1 MCG/KG/MIN 5.748 mls/hr IV .Q24H JOE Rx#: [id number] Dextrose 5% in Water 1, 675 75 000 ml @ 75 mls/hr IV . [id number] JOE Rx#:[id number] Insulin Regular 100 unit 49.541 23.752 In Sodium Chloride 0.9% 100 ml @ Per Protocol IV .Q0M JOE Rx#:[id number] Norepinephrine 8 mg In 202.373 33.644 Sodium Chloride 0.9% 250 ml @ 0.05 MCG/KG/MIN 9. 269 mls/hr IV .Q24H JOE Rx#:[id number] Sodium Chloride 0.9% 1, 225 000 ml @ 75 mls/hr IV . [id number] JOE Rx#:[id number] fentaNYL (PF) 1,000 mcg 100 97.716 57.32 In Sodium Chloride 0.9% 80 ml @ Per Protocol IV . Q0M JOE Rx#:[id number] propofoL 1,000 mg In 160.067 160.677 184.708 Empty Bag 1 bag @ Titrate IV .Q0M JOE Rx#: [id number] Tube Feeding 520 427 240 Other 200 201 67 Output: Urine 745 690 310 Other: Voiding Method Indwelling Catheter Indwelling Catheter Indwelling Catheter ABP, PAP, CO, CI - Last Documented Arterial Blood Pressure 07/12 - Exam GENERAL EXAM: Revealed 75-year-old white male, intubated and mechanically ventilated, sedated and paralyzed. HEAD: Normocephalic/atraumatic. Endotracheal tube and orogastric tubes are intact HEENT: PERRLA, EOMI, neck test, no neck masses, no JVD, no stridor. CHEST: No chest wall deformity. Symmetrical expansion. LUNGS: Crackles and rhonchi noted bilaterally. CVS: Regular rate and rhythm, normal S1 and S2, no gallops, no murmurs, no rubs ABDOMEN: Obese, soft, nontender, no megaly, no rebound. EXTREMITIES: No clubbing, no edema, no cyanosis, 2+ pulses and upper and lower extremities. MUSCULOSKELETAL: Patient is paralyzed, on Nimbex, could not assess. SKIN: No rashes CENTRAL NERVOUS SYSTEM: Could not be assessed. Psychiatric: Could not assess - Labs CBC & Chem 7: 10/21/20 05:13 10/21/20 05:13 Labs: Abnormal Lab Results - Last 24 Hours (Table) 10/19/20 10/20/20 10/20/20 Range/Units 10:10 17:45 19:08 RBC (4.30-5.90) m/uL Hgb (13.0-17.5) gm/dL Hct (39.0-53.0) % Plt Count (150-450) k/uL Neutrophils # (1.3-7.7) k/uL Lymphocytes # (1.0-4.8) k/uL D-Dimer (<0.60) mg/L FEU ABG pO2 (83-108) mmHg ABG Total CO2 (19-24) mmol/L ABG O2 Saturation (94-97) % Chloride (98-107) mmol/L BUN (9-20) mg/dL Glucose (74-99) mg/dL POC Glucose (mg/dL) 252 H 244 H (75-99) mg/dL Calcium (8.4-10.2) mg/dL Ferritin (22.0-322.0) ng/mL Lactate Dehydrogenase (313-618) U/L C-Reactive Protein (<10.0) mg/L Total Protein (6.3-8.2) g/dL Albumin (3.5-5.0) g/dL Interleukin 6 128.2 H (<6.4) pg/mL 10/20/20 10/20/20 10/20/20 Range/Units 20:25 21:06 23:17 RBC (4.30-5.90) m/uL Hgb (13.0-17.5) gm/dL Hct (39.0-53.0) % Plt Count (150-450) k/uL Neutrophils # (1.3-7.7) k/uL Lymphocytes # (1.0-4.8) k/uL D-Dimer (<0.60) mg/L FEU ABG pO2 (83-108) mmHg ABG Total CO2 (19-24) mmol/L ABG O2 Saturation (94-97) % Chloride (98-107) mmol/L BUN (9-20) mg/dL Glucose (74-99) mg/dL POC Glucose (mg/dL) 205 H 221 H 251 H (75-99) mg/dL Calcium (8.4-10.2) mg/dL Ferritin (22.0-322.0) ng/mL Lactate Dehydrogenase (313-618) U/L C-Reactive Protein (<10.0) mg/L Total Protein (6.3-8.2) g/dL Albumin (3.5-5.0) g/dL Interleukin 6 (<6.4) pg/mL 10/21/20 10/21/20 10/21/20 Range/Units 00:25 01:07 02:01 RBC (4.30-5.90) m/uL Hgb (13.0-17.5) gm/dL Hct (39.0-53.0) % Plt Count (150-450) k/uL Neutrophils # (1.3-7.7) k/uL Lymphocytes # (1.0-4.8) k/uL D-Dimer (<0.60) mg/L FEU ABG pO2 (83-108) mmHg ABG Total CO2 (19-24) mmol/L ABG O2 Saturation (94-97) % Chloride (98-107) mmol/L BUN (9-20) mg/dL Glucose (74-99) mg/dL POC Glucose (mg/dL) 188 H 196 H 237 H (75-99) mg/dL Calcium (8.4-10.2) mg/dL Ferritin (22.0-322.0) ng/mL Lactate Dehydrogenase (313-618) U/L C-Reactive Protein (<10.0) mg/L Total Protein (6.3-8.2) g/dL Albumin (3.5-5.0) g/dL Interleukin 6 (<6.4) pg/mL 10/21/20 10/21/20 10/21/20 Range/Units 03:09 03:54 05:13 RBC 3.50 L (4.30-5.90) m/uL Hgb 11.1 L (13.0-17.5) gm/dL Hct 34.4 L (39.0-53.0) % Plt Count 132 L (150-450) k/uL Neutrophils # 8.2 H (1.3-7.7) k/uL Lymphocytes # 0.4 L (1.0-4.8) k/uL D-Dimer (<0.60) mg/L FEU ABG pO2 (83-108) mmHg ABG Total CO2 (19-24) mmol/L ABG O2 Saturation (94-97) % Chloride (98-107) mmol/L BUN (9-20) mg/dL Glucose (74-99) mg/dL POC Glucose (mg/dL) 236 H 213 H (75-99) mg/dL Calcium (8.4-10.2) mg/dL Ferritin (22.0-322.0) ng/mL Lactate Dehydrogenase (313-618) U/L C-Reactive Protein (<10.0) mg/L Total Protein (6.3-8.2) g/dL Albumin (3.5-5.0) g/dL Interleukin 6 (<6.4) pg/mL 10/21/20 10/21/20 10/21/20 Range/Units 05:13 05:13 05:43 RBC (4.30-5.90) m/uL Hgb (13.0-17.5) gm/dL Hct (39.0-53.0) % Plt Count (150-450) k/uL Neutrophils # (1.3-7.7) k/uL Lymphocytes # (1.0-4.8) k/uL D-Dimer 3.88 H (<0.60) mg/L FEU ABG pO2 61 L (83-108) mmHg ABG Total CO2 26 H (19-24) mmol/L ABG O2 Saturation 92.5 L (94-97) % Chloride 119 H (98-107) mmol/L BUN 49 H (9-20) mg/dL Glucose 215 H (74-99) mg/dL POC Glucose (mg/dL) (75-99) mg/dL Calcium 7.3 L (8.4-10.2) mg/dL Ferritin 485.2 H (22.0-322.0) ng/mL Lactate Dehydrogenase 1343 H (313-618) U/L C-Reactive Protein 54.8 H (<10.0) mg/L Total Protein 4.6 L (6.3-8.2) g/dL Albumin 2.1 L (3.5-5.0) g/dL Interleukin 6 (<6.4) pg/mL 10/21/20 10/21/20 10/21/20 Range/Units 05:57 06:54 08:03 RBC (4.30-5.90) m/uL Hgb (13.0-17.5) gm/dL Hct (39.0-53.0) % Plt Count (150-450) k/uL Neutrophils # (1.3-7.7) k/uL Lymphocytes # (1.0-4.8) k/uL D-Dimer (<0.60) mg/L FEU ABG pO2 (83-108) mmHg ABG Total CO2 (19-24) mmol/L ABG O2 Saturation (94-97) % Chloride (98-107) mmol/L BUN (9-20) mg/dL Glucose (74-99) mg/dL POC Glucose (mg/dL) 205 H 202 H 209 H (75-99) mg/dL Calcium (8.4-10.2) mg/dL Ferritin (22.0-322.0) ng/mL Lactate Dehydrogenase (313-618) U/L C-Reactive Protein (<10.0) mg/L Total Protein (6.3-8.2) g/dL Albumin (3.5-5.0) g/dL Interleukin 6 (<6.4) pg/mL 10/21/20 10/21/20 10/21/20 Range/Units 09:00 10:05 10:58 RBC (4.30-5.90) m/uL Hgb (13.0-17.5) gm/dL Hct (39.0-53.0) % Plt Count (150-450) k/uL Neutrophils # (1.3-7.7) k/uL Lymphocytes # (1.0-4.8) k/uL D-Dimer (<0.60) mg/L FEU ABG pO2 (83-108) mmHg ABG Total CO2 (19-24) mmol/L ABG O2 Saturation (94-97) % Chloride (98-107) mmol/L BUN (9-20) mg/dL Glucose (74-99) mg/dL POC Glucose (mg/dL) 185 H 187 H 165 H (75-99) mg/dL Calcium (8.4-10.2) mg/dL Ferritin (22.0-322.0) ng/mL Lactate Dehydrogenase (313-618) U/L C-Reactive Protein (<10.0) mg/L Total Protein (6.3-8.2) g/dL Albumin (3.5-5.0) g/dL Interleukin 6 (<6.4) pg/mL 10/21/20 Range/Units 12:08 RBC (4.30-5.90) m/uL Hgb (13.0-17.5) gm/dL Hct (39.0-53.0) % Plt Count (150-450) k/uL Neutrophils # (1.3-7.7) k/uL Lymphocytes # (1.0-4.8) k/uL D-Dimer (<0.60) mg/L FEU ABG pO2 (83-108) mmHg ABG Total CO2 (19-24) mmol/L ABG O2 Saturation (94-97) % Chloride (98-107) mmol/L BUN (9-20) mg/dL Glucose (74-99) mg/dL POC Glucose (mg/dL) 160 H (75-99) mg/dL Calcium (8.4-10.2) mg/dL Ferritin (22.0-322.0) ng/mL Lactate Dehydrogenase (313-618) U/L C-Reactive Protein (<10.0) mg/L Total Protein (6.3-8.2) g/dL Albumin (3.5-5.0) g/dL Interleukin 6 (<6.4) pg/mL Microbiology - Last 24 Hours (Table) 10/18/20 08:00 Gram Stain - Final Sputum Sputum Culture - Final Assessment and Plan Assessment: Impression: Acute hypoxic respiratory failure secondary to covid 19 pneumonia. And ARDS. Requiring intubation and mechanical ventilation. Cardiac arrest requiring brief CPR for less than 1 minute , this happened while the patient was being intubated. Elevated inflammatory markers and significantly elevated d-dimer. Benign essential hypertension. Dyslipidemia. Obesity. Recommendation: Continue ventilatory support, today the patient was placed on 55% FiO2, and the ventilator settings remained the same otherwise. Kept him on PEEP of 16. Continue the Covid 19 cocktail. Continue remdesivir Continue convalescent plasma. Patient received 2 units of convalescent plasma. Continue Lovenox at 0.5 mcg/kg twice a day. Remains critically ill,, surprisingly improving in spite of his initial presentation. Continue enteral feeding. Continue GI and DVT prophylaxis. Prognosis remains guarded. We'll continue to monitor in the ICU. Critical care time is over 30 minutes. Time with Patient: Greater than 30
[2020-10-21 13:39] LABS: Glucose,Whole Blood 190 mg/dL (75-99)
[2020-10-21 14:34] LABS: Glucose,Whole Blood 194 mg/dL (75-99)
[2020-10-21 15:09] LABS: Glucose,Whole Blood 166 mg/dL (75-99)
[2020-10-21 16:10] LABS: Glucose,Whole Blood 172 mg/dL (75-99)
[2020-10-21 17:13] LABS: Glucose,Whole Blood 163 mg/dL (75-99)
[2020-10-21 18:20] LABS: Glucose,Whole Blood 175 mg/dL (75-99)
[2020-10-21 19:12] LABS: Glucose,Whole Blood 183 mg/dL (75-99)
[2020-10-21 19:56] LABS: Glucose,Whole Blood 155 mg/dL (75-99)
[2020-10-21] MEDS: LATANOPROST 0.005% OPHTH DROPS 2.5 ML BTL BOTH EYES SCH (20:00)
[2020-10-21] MEDS: ASCORBIC ACID 500 MG TAB PO SCH (20:05)
[2020-10-21] MEDS: ATORVASTATIN 20 MG TAB PO SCH (20:05)
[2020-10-21 21:12] LABS: Glucose,Whole Blood 156 mg/dL (75-99)
[2020-10-21 21:59] LABS: Glucose,Whole Blood 151 mg/dL (75-99)
[2020-10-21 23:07] LABS: Glucose,Whole Blood 160 mg/dL (75-99)
[2020-10-22 00:19] LABS: Glucose,Whole Blood 144 mg/dL (75-99)
[2020-10-22 02:07] LABS: Glucose,Whole Blood 141 mg/dL (75-99)
[2020-10-22 03:51] LABS: Glucose,Whole Blood 126 mg/dL (75-99)
[2020-10-22] MEDS: ARTIFICIAL TEARS-HYPROMELLOSE DROPS 15 ML BTL BOTH EYES SCH ×6 (03:54→23:21)
[2020-10-22 04:34] LABS: ABG Base Excess -0.9 mmol/L; ABG HCO3 24 mmol/L (21-25); ABG Oxygen Saturation 92.7 % (94-97); ABG PCO2 37 mmHg (35-45); ABG PH 7.42 (7.35-7.45); ABG PO2 64 mmHg (83-108); ABG TCO2 25 mmol/L (19-24); Allen Test Performed? Yes
[2020-10-22 05:00] LABS: Glucose,Whole Blood 144 mg/dL (75-99)
[2020-10-22] MEDS: CLEVIDIPINE BUTYRATE 25 MG in EMPTY BAG 1 BAG IV SCH (05:31)
[2020-10-22] MEDS: INSULIN REGULAR 100 UNIT in SODIUM CHLORIDE 0.9% 100 ML IV SCH ×2 (05:35→21:05)
[2020-10-22 05:47] LABS: Glucose,Whole Blood 131 mg/dL (75-99)
[2020-10-22 05:58] LABS: Basophils % (A) 0 %; Eosinophils % (A) 0 %; HCT 32.9 % (39.0-53.0); Hypochromasia Slight; Lymphocytes # (A) 0.6 k/uL (1.0-4.8); Lymphocytes % (A) 7 %; MCH 32.5 pg (25.0-35.0); MCHC 33.3 g/dL (31.0-37.0); MCV 97.7 fL (80.0-100.0); Monocytes # (A) 0.3 k/uL (0-1.0); Monocytes % (A) 3 %; Neutrophils # (A) 7.2 k/uL (1.3-7.7); Neutrophils % (A) 88 %; Platelet Count 120 k/uL (150-450); RBC 3.37 m/uL (4.30-5.90); RDW 13.5 % (11.5-15.5); WBC 8.1 k/uL (3.8-10.6)
[2020-10-22 06:11] LABS: ALT 19 U/L (4-49); AST 23 U/L (17-59); African American GFR (CKD) >90 (>60 ml/min/1.73 sqM); Albumin 2.1 g/dL (3.5-5.0); Alkaline Phosphatase 48 U/L (38-126); Anion Gap 1 mmol/L; Blood Urea Nitrogen 49 mg/dL (9-20); C Reactive Protein 29.2 mg/L (<10.0); Calcium 7.3 mg/dL (8.4-10.2); Carbon Dioxide 26 mmol/L (22-30); Chloride 117 mmol/L (98-107); Glucose 128 mg/dL (74-99); LDH 1141 U/L (313-618); Non-African American GFR(CKD) 79 (>60 ml/min/1.73 sqM); Potassium 4.5 mmol/L (3.5-5.1); Sodium 144 mmol/L (137-145); Total Bilirubin 0.4 mg/dL (0.2-1.3); Total Protein 4.4 g/dL (6.3-8.2)
[2020-10-22 07:04] LABS: Glucose,Whole Blood 126 mg/dL (75-99)
--- NOTE | 2020-10-22 07:27 | XR ---
EXAMINATION TYPE: XR chest 1V portable DATE OF EXAM: 10/22/2020 HISTORY: Shortness of breath. COMPARISON: 10/21/2020 TECHNIQUE: Single view of the chest is submitted. FINDINGS: Demonstrated are scattered senescent parenchymal change. Patchy bilateral infiltrates remain unchanged. NG tube is seen coursing into the stomach. The heart is stable. Hilar and mediastinal structures are within normal limits. Degenerative changes are seen of the dorsal spine. IMPRESSION: 1. Patchy bilateral infiltrates remain unchanged.
[2020-10-22] MEDS: ALBUTEROL HFA INHALER INHALATION SCH ×4 (07:45→19:33)
[2020-10-22 07:48] LABS: Glucose,Whole Blood 119 mg/dL (75-99)
[2020-10-22] MEDS: fentaNYL (PF) 1,000 MCG in SODIUM CHLORIDE 0.9% 80 ML IV SCH ×2 (08:26→18:59)
[2020-10-22] MEDS: NOREPINEPHRINE 8 MG in SODIUM CHLORIDE 0.9% 250 ML IV SCH (09:13)
[2020-10-22] MEDS: CISATRACURIUM 200 MG in SODIUM CHLORIDE 0.9% 180 ML IV SCH (09:13)
[2020-10-22] MEDS: CLIDINIUM-chlordiazePOXIDE (2.5-5 MG) CAP PO SCH ×2 (09:19→20:51)
[2020-10-22] MEDS: PANTOPRAZOLE 40 MG/10 ML VIAL IVP SCH (09:19)
[2020-10-22] MEDS: RANOLAZINE 500 MG TAB.ER.12H PO SCH ×2 (09:19→20:45)
[2020-10-22] MEDS: ASPIRIN 81 MG PO SCH (09:20)
[2020-10-22] MEDS: CHLORHEXIDINE GLUCONATE 15 ML CUP MUCOUS MEM SCH ×2 (09:20→20:51)
[2020-10-22] MEDS: DEXAMETHASONE SOD PHOSPHATE 10 MG/ML 1 ML VIAL IV SCH (09:20)
[2020-10-22] MEDS: ISOSORBIDE MONONITRATE ER 30 MG TAB.ER.24H PO SCH ×2 (09:20→12:21)
[2020-10-22] MEDS: LOSARTAN 50 MG TAB PO SCH ×2 (09:20→12:20)
[2020-10-22] MEDS: atenoloL 25 MG TAB PO SCH ×2 (09:20→12:20)
[2020-10-22] MEDS: ENOXAPARIN 80 MG/0.8 ML SYRINGE SQ SCH ×2 (09:21→20:51)
[2020-10-22] MEDS: TIMOLOL 0.5% OPHTH DROPS 5 ML BTL BOTH EYES SCH (09:21)
[2020-10-22 09:29] LABS: Glucose,Whole Blood 97 mg/dL (75-99)
[2020-10-22 10:09] LABS: Glucose,Whole Blood 96 mg/dL (75-99)
[2020-10-22 11:17] LABS: Glucose,Whole Blood 125 mg/dL (75-99)
[2020-10-22 11:31] LABS: Ferritin 367.2 ng/mL (22.0-322.0)
[2020-10-22 12:27] LABS: Glucose,Whole Blood 140 mg/dL (75-99)
[2020-10-22 13:11] LABS: Glucose,Whole Blood 155 mg/dL (75-99)
[2020-10-22] MEDS: SODIUM CHLORIDE 0.9% 1,000 ML IV SCH (13:12)
[2020-10-22 13:56] LABS: Glucose,Whole Blood 165 mg/dL (75-99)
--- NOTE | 2020-10-22 14:47 | P.PN ---
Subjective Progress Note Date: 10/22/20 Principal diagnosis: Acute hypoxic episode of failure secondary to covid 19 pneumonitis. Acute hypoxic respiratory failure related to COVID 19 pneumonia 75-year-old patient, known history of coronary artery disease hypertension and previous bypass surgery, came into the emergency department feeling sick for almost a week. He had fever and shortness of breath and cough. He had tested COVID 19 and the results came back negative. Because of his worsening condition, he was told them to come to the ED by his PCP. He was not improving. He stated that he was getting progressively more short of breath. He started off by having symptoms of URI. Denies having any loss in the taste or smell. Denies having any chest pain. He was alert and oriented 3. In the emergency department, the patient was found to be hypoxic and the patient is currently on 15 L about 2 by nasal cannula. She is chest x-ray showed bilateral interstitial pulmonary infiltrates worse in the left lower lobe. The patient had some lymphopenia on his blood work with a d-dimer of 0.3. CRP was 36.5. LDH was 855 and a repeat coronavirus Covid 19 testing was done that came back negative by PCR. She is on level is at 0.08. On 10/13/2020, the patient is being seen in follow-up regarding his pneumonia. Note that the patient was having worsening shortness of breath. He developed worsening hypoxemia overnight. On 100% nonrebreather facemask, the patient had a pH of 7.45 with episodes of 34 and pO2 of 64. Subsequently, the patient was switched to high flow oxygen at 60 L. Despite the negative coronavirus/Covid 19 PCR, the patient is highly suspected to have the infection and the patient's had the typical clinical presentation, physical x-ray findings indicative CAT scan findings. A CT angios was performed yesterday that showed no evidence of any pulmonary embolism. The patient had diffuse areas of groundglass infiltrates and areas of consolidation. This is consistent with a viral pneumonia or early ARDS. Meanwhile, the patient's oxygenation has been worse. He is having coarse crackles in lung bases bilaterally. During the morning evaluation, the patient was on high flow oxygen at 6 L with a FiO2 of 90%. He was a bit anxious. He reported desaturation with limited amount of activity. This was noted today. He was able to sit up on a recliner. Nevertheless, his pulse ox was dropping with talking and some activity. I would say his condition is extremely borderline. I placed an order for Remdesivir , however, this was declined the patient did not have the positive confirmation for the viral infection. On 10/14/2020, the patient remains on a BiPAP at a pressure of 12/6 with an FiO2 of 100%. Obviously his condition decompensated. Initially was on regular oxygen flowing he was switched to high flow oxygen 6 L and upon further decompensation, the patient was placed on a BiPAP. He is resting comfortably in bed. His pulse ox currently is in the percent. She is on IV Decadron. He is also on Lovenox for DVT prophylaxis. He got declined forRemdesivir and he was given convalescent plasma one unit yesterday. His most recent blood gases from yesterday and no follow-up blood gases has been obtained today. He is looking lethargic. Is getting progressively more weak. He is awake and alert. He is following commands. A repeat chest x-ray will be obtained today. I also think it's reasonable for this patient to get transferred to the intensive care unit for further monitoring. He is known to have coronary artery bypass surgery for an underlying coronary artery disease. Inflammatory markers are also to follow. On 10/15/2022 months seeing the patient for a follow-up. The patient got transferred to the intensive care unit because of worsening in hypoxemia and acute hypoxic respiratory failure. His chest x-ray showing diffuse bilateral pulmonary infiltrates with groundglass changes Bilaterally more so on the right compared to the left. The patient was on 100% nonrebreather facemask. He failed that. He was started on BiPAP at a pressure of 14/8 cm of water. Her blood gases from last night showed a pH of 7.47 with a pCO2 of 33 and pO2 of 51 and this blood gas was done while the patient was on 100%. Subsequently, the patient was placed on a BiPAP. The patient is currently on IV Decadron. The patient received convalescent plasma. He did not qualify for Remdesivir. His repeat coronavirus/Covid 19 PCR was sent and this is still pending. Meanwhile, the patient is still on IV fluids at the rate of 75 mL an hour. Urine output is no other 30 mL an hour. He is on Lovenox at a dose of 40 mg subcu on a daily basis. Overnight, he became quite restless and agitated. He was started on Precedex which is currently running at 0.4 mcg/kg/h. This, the situation and the patient seems to be much more appropriate. On today's evaluation, he is still on Precedex. He is following commands. His answering questions. He is more rested. Nevertheless, he remains in the 100% on his BiPAP and his pulse ox is ranging between 86 and 90%. D-dimer is elevated at 21.7. His d-dimer is elevated and the patient's Lovenox will be adjusted to half a dose twice a day. He is in a normal sinus rhythm for now. On 10/16/2020 patient seen in follow-up in the intensive care unit, he is retest PCR from 10/14/2020 came back positive for Covid 19, he remains on BiPAP currently of pressures of 14/8 and FiO2 of 100%, his pulse ox is 8990%, he is on Precedex at 0.3 mics per kilo per minute, and 0.9 at 75 ML per hour, no other drips. He was started on Remdesivir, today is day 2 of treatment, he remains on Decadron and Lovenox for anticoagulation. His chest x-ray shows diffuse bilateral reticulonodular infiltrates significant interval change. Is afebrile, hemodynamically stable, his labs have been reviewed, showing persistent lymphopenia, with lymphocyte count 0.3, the rest of the CBC was within normal limits, d-dimer has increased to 34.1, his chloride is 114, the rest of electrolytes were unremarkable, BUN is 28, creatinine of 0.76, his ferritin level is 1318, LDH is still significantly elevated at 2279, and CRP has significantly increased to 225.9, pro calcitonin was negative at 0.08, and we will discontinue his Zithromax. Denies any chest discomfort, remains in sinus mechanism, he remains on Precedex because of periodic restlessness, appears to be quite comfortable right now, a bit drowsy. Reevaluated today on 10/17/20, patient remains in the ICU, maintained on BiPAP, IPAP of 14 and EPAP of 8 and FiO2 is 100%. O2 saturation is marginal. Patient is also on clevidipine drip at 1 mg/h to adequately control his blood pressure. IV fluid at 75 mL per hour. Patient remains on the Covid 19 cocktail, remains on remdesivir' received 1 unit of convalescent plasma and remains on Decadron. Chest x-ray continues to show bilateral interstitial and. Not much of a exchange teller the last few days. CBC is relatively normal. D-dimer is above 54 electrolytes are normal renal profile is normal LDH is quite elevated at 2524, and C-reactive protein is 77.5, improved compared to yesterday patient remains on Lovenox at 50 mg subcu every 12 hours Reevaluated today on 10/18/20, patient's clinical status deteriorated this morning, and his O2 saturation went down to the low 70s. Patient was noted to be tachypneic, and in moderate respiratory distress, I was notified about this patient, and I recommended immediate intubation and mechanical ventilation. However as the patient was being intubated by LOAN AUDITOR, patient went into pulseless electrical activity, CPR was started immediately, received 1 dose of epinephrine and 1 dose of bicarb. There was return of spontaneous circulation within less than a minute. However the patient continued to have extremely poor oxygenation in spite of FiO2 of 100%, PEEP was increased to 16, rate was placed at 30, and tidal volume was placed at 500. Initial ABG post intubation showed a pO2 of 28 pCO2 of 75 pH of 6.97. 15 minutes later, his pO2 went up to 49 pCO2 was 60 pH of 7.27. Patient is now on pressure control mode of mechanical ventilation, rate is set at 30. Pressure control is set at 22. TIA is 0.8. And he is on 100% and PEEP of 16. Discussed his condition with the shortly after he coded, and explained to the the situation, and the prognosis is extremely poor and guarded. is agreeable to proceed with DO NOT RESUSCITATE CODE STA TUS, however we continue the same supportive care measures he is presently on including full mechanical ventilation, Covid 19 cocktail, and continue present supportive care measures fully however the patient is to coded again, no CPR would be done. Labs today showed relatively normal electrolytes normal renal profile. His LDH is up to 2480 and C-reactive protein is 60.4 chest x-ray post intubation showed worsening interstitial infiltrates bilaterally. And this was in spite of the PEEP of 16. Reevaluated today on 10/19/20, patient remains in the ICU, intubated and mechanically ventilated. Patient is on pressure control mode of mechanical ventilation, pc at 22, rate is 30, FiO2 is 90%, TI is 0.7 seconds today. Adjusted down from 0.8. ABG showed a pO2 of 78 pCO2 of 41 pH of 7.4. Patient remains on Nimbex, 1.5 mcg/kg/m. He is also on fentanyl 1 mcg/kg/h, propofol at 30 mcg/kg/m, IV fluid at 75 mL/h, and he is requiring roughly about 12 mcg/m of norepinephrine. Patient is receiving remdesivir, and he remains on the Covid 19 cocktail. Patient is also receiving bolus feedings via orogastric tube. Chest x-ray continues to show bilateral interstitial infiltrates, slight improvement compared to the chest x-ray yesterday, however the patient is on relatively high PEEP which may show false improvement of the chest x-ray appearance. WBC count is 11.1. Elective lites are normal except for sodium is 148. BUN is 52 creatinine is 1.27. Inflammatory markers including LDH and C-reactive protein remain quite high. LDH is 2036 and C-reactive protein is 211 Patient was reevaluated today on 10/20/20, patient remains in the ICU, remains intubated, mechanically ventilated, sedated, and paralyzed. He is now on pressure control mode of mechanical ventilation, pc 22,ti 0.76, FiO2 is 70% PEEP is 16. Patient is requiring small dose of norepinephrine 0.04 mcg/kg/m, he is also on propofol at 30 mcg/kg/m, and fentanyl 1 mcg/kg/m. Patient is also on Nimbex titrated based on the train of 4. Chest x-ray continues to show bilateral interstitial infiltrates, and suspect some component of ARDS. His CBC is relatively normal. ABG showed a pO2 of 93 pCO2 of 38 pH of 7.42. Electr olytes showed elevated sodium of 150 and chloride is 121, hence I will give the patient free water today. His main IV fluid was changed to D5W, and I will give him free water flushes via orogastric tube. Ferritin level today is 609. LDH is 1747, and C-reactive protein is 141.6 FiO2 was decreased today to 60%, and instructed to titrate FiO2 down keep O2 saturation just above 90%. Before we could address any tapering of the PEEP. Reevaluated today on 10/21/20, patient remains in the ICU, intubated and mechanically ventilated. Patient remains on pressure control mode of mechanical ventilation, pressure set at 22, inspiratory time is 0.76, rate is at 30, patient is receiving roughly about 570 mL tidal volume, and he is on 50% now, PEEP remains at 16. PO2 was 61 today, pCO2 of 36 pH of 7.44, hence I have increased his FiO2 back up to 55%. The PEEP the same at 16. Patient did receive remdesivir , and 2 units of convalescent plasma. He remains on IV fluid at 75 ML per hour, and I switch that to 0.9 normal saline today since his sodium has corrected nicely. Patient remains on enteral feeding vital HP at 40 ML per hour. Patient is on minimal dose of norepinephrine at 0.03 mcg/kg/m, remains on propofol at 30 mcg/kg/m, insulin at 5 units per hour, fentanyl 12 mcg/kg/h, and on Nimbex at 1.5 mcg/kg/m. Patient is sedated and paralyzed, chest x-ray is actually showing improvement in his bilateral interstitial infiltrates, again that could be misleading because of the fact the patient is on PEEP of 16. But considering his gases are improving, I believe the improvement is real. Hence I have instructed the nurses today to continue the same ventilatory settings except increase FiO2 to 55%, and I plan to discontinue Nimbex of possible but continue the rest of the other medications including fentanyl and propofol. Reevaluated today on 10/22/20, remains in the ICU, intubated and mechanically ventilated. Patient is on pressure control mode of mechanical ventilation, pressure set at 22, inspiratory time is 0.76, rate is 30, PEEP is 16, FiO2 is 55%. ABG this morning showed a pO2 of 64 pCO2 of 37 pH of 7.42. Patient remains on fentanyl at 1mcg/kg/h, propofol at 50 mcg/kg/m, he is receiving enteral feeding vital HP at 75 mL per hour. Patient is off Nimbex for the last 24 hours. He is off norepinephrine. O2 saturation is in the low 90s on the present ventilator settings. Chest x-ray showed bilateral patchy infiltrates, significantly improved compared to a few days ago, but about the same compared to yesterday. WBC count today is 8.1 hemoglobin is 11 basic metabolic profile is normal sodium is down to 144. Renal profile is normal. However BUN is 49. Creatinine is 0.94. Objective - Vital Signs Vital signs: Vital Signs Temp 98.7 F 10/22/20 12:00 Pulse 56 L 10/22/20 13:00 Resp 19 10/22/20 13:00 BP 105/50 10/22/20 13:00 Pulse Ox 93 L 10/22/20 13:00 Intake & Output 10/21/20 10/22/20 10/22/20 18:59 06:59 18:59 Intake Total 0133.687 1896.301 936.187 Output Total 570 775 545 Balance 2691.367 4050.301 391.187 Weight 98 kg Intake: IV 225 825 525 Dextrose 5% in Water 1, 225 000 ml @ 75 mls/hr IV . [id number] [facility] Rx#:[id number] Sodium Chloride 0.9% 1, 150 000 ml @ 75 mls/hr IV . [id number] [facility] Rx#:[id number] Sodium Chloride 0.9% 1, 675 525 000 ml @ 75 mls/hr IV . [id number] [facility] Rx#:[id number] Intake, IV Titration 1237.341 527.301 101.187 Amount Cisatracurium 200 mg In 133.21 Sodium Chloride 0.9% 180 ml @ 1 MCG/KG/MIN 5.748 mls/hr IV .Q24H [facility] Rx#: [id number] Insulin Regular 100 unit 44.423 45.399 1.187 In Sodium Chloride 0.9% 100 ml @ Per Protocol IV .Q0M [facility] Rx#:[id number] Norepinephrine 8 mg In 105.103 Sodium Chloride 0.9% 250 ml @ 0.05 MCG/KG/MIN 9. 269 mls/hr IV .Q24H [facility] Rx#:[id number] Sodium Chloride 0.9% 1, 675 75 000 ml @ 75 mls/hr IV . [id number] [facility] Rx#:[id number] fentaNYL (PF) 1,000 mcg 100.00 24.189 In Sodium Chloride 0.9% 80 ml @ Per Protocol IV . Q0M [facility] Rx#:[id number] propofoL 1,000 mg In 284.708 277.61 100 Empty Bag 1 bag @ Titrate IV .Q0M [facility] Rx#: [id number] Tube Feeding 400 400 280 Other 134 201 30 Output: Urine 570 775 545 Other: Voiding Method Indwelling Catheter Indwelling Catheter ABP, PAP, CO, CI - Last Documented Arterial Blood Pressure 07/12 - Exam GENERAL EXAM: Revealed 75-year-old white male, intubated and mechanically ventilated, sedated , not paralyzed. HEAD: Normocephalic/atraumatic. Endotracheal tube and orogastric tubes are intact HEENT: PERRLA, EOMI, neck test, no neck masses, no JVD, no stridor. CHEST: No chest wall deformity. Symmetrical expansion. LUNGS: Crackles and rhonchi noted bilaterally. CVS: Regular rate and rhythm, normal S1 and S2, no gallops, no murmurs, no rubs ABDOMEN: Obese, soft, nontender, no megaly, no rebound. EXTREMITIES: No clubbing, no edema, no cyanosis, 2+ pulses and upper and lower extremities. MUSCULOSKELETAL: Could not assess mostly because of sedation. SKIN: No rashes CENTRAL NERVOUS SYSTEM: Could not be assessed. Psychiatric: Could not assess - Labs CBC & Chem 7: 10/22/20 05:47 10/22/20 05:47 Labs: Abnormal Lab Results - Last 24 Hours (Table) 10/21/20 10/21/20 10/21/20 Range/Units 15:07 16:09 17:12 RBC (4.30-5.90) m/uL Hgb (13.0-17.5) gm/dL Hct (39.0-53.0) % Plt Count (150-450) k/uL Lymphocytes # (1.0-4.8) k/uL D-Dimer (<0.60) mg/L FEU ABG pO2 (83-108) mmHg ABG Total CO2 (19-24) mmol/L ABG O2 Saturation (94-97) % Chloride (98-107) mmol/L BUN (9-20) mg/dL Glucose (74-99) mg/dL POC Glucose (mg/dL) 166 H 172 H 163 H (75-99) mg/dL Calcium (8.4-10.2) mg/dL Ferritin (22.0-322.0) ng/mL Lactate Dehydrogenase (313-618) U/L C-Reactive Protein (<10.0) mg/L Total Protein (6.3-8.2) g/dL Albumin (3.5-5.0) g/dL 10/21/20 10/21/20 10/21/20 Range/Units 18:19 19:10 19:55 RBC (4.30-5.90) m/uL Hgb (13.0-17.5) gm/dL Hct (39.0-53.0) % Plt Count (150-450) k/uL Lymphocytes # (1.0-4.8) k/uL D-Dimer (<0.60) mg/L FEU ABG pO2 (83-108) mmHg ABG Total CO2 (19-24) mmol/L ABG O2 Saturation (94-97) % Chloride (98-107) mmol/L BUN (9-20) mg/dL Glucose (74-99) mg/dL POC Glucose (mg/dL) 175 H 183 H 155 H (75-99) mg/dL Calcium (8.4-10.2) mg/dL Ferritin (22.0-322.0) ng/mL Lactate Dehydrogenase (313-618) U/L C-Reactive Protein (<10.0) mg/L Total Protein (6.3-8.2) g/dL Albumin (3.5-5.0) g/dL 10/21/20 10/21/20 10/21/20 Range/Units 21:10 21:58 23:06 RBC (4.30-5.90) m/uL Hgb (13.0-17.5) gm/dL Hct (39.0-53.0) % Plt Count (150-450) k/uL Lymphocytes # (1.0-4.8) k/uL D-Dimer (<0.60) mg/L FEU ABG pO2 (83-108) mmHg ABG Total CO2 (19-24) mmol/L ABG O2 Saturation (94-97) % Chloride (98-107) mmol/L BUN (9-20) mg/dL Glucose (74-99) mg/dL POC Glucose (mg/dL) 156 H 151 H 160 H (75-99) mg/dL Calcium (8.4-10.2) mg/dL Ferritin (22.0-322.0) ng/mL Lactate Dehydrogenase (313-618) U/L C-Reactive Protein (<10.0) mg/L Total Protein (6.3-8.2) g/dL Albumin (3.5-5.0) g/dL 10/22/20 10/22/20 10/22/20 Range/Units 00:17 02:06 03:50 RBC (4.30-5.90) m/uL Hgb (13.0-17.5) gm/dL Hct (39.0-53.0) % Plt Count (150-450) k/uL Lymphocytes # (1.0-4.8) k/uL D-Dimer (<0.60) mg/L FEU ABG pO2 (83-108) mmHg ABG Total CO2 (19-24) mmol/L ABG O2 Saturation (94-97) % Chloride (98-107) mmol/L BUN (9-20) mg/dL Glucose (74-99) mg/dL POC Glucose (mg/dL) 144 H 141 H 126 H (75-99) mg/dL Calcium (8.4-10.2) mg/dL Ferritin (22.0-322.0) ng/mL Lactate Dehydrogenase (313-618) U/L C-Reactive Protein (<10.0) mg/L Total Protein (6.3-8.2) g/dL Albumin (3.5-5.0) g/dL 10/22/20 10/22/20 10/22/20 Range/Units 04:33 04:58 05:45 RBC (4.30-5.90) m/uL Hgb (13.0-17.5) gm/dL Hct (39.0-53.0) % Plt Count (150-450) k/uL Lymphocytes # (1.0-4.8) k/uL D-Dimer (<0.60) mg/L FEU ABG pO2 64 L (83-108) mmHg ABG Total CO2 25 H (19-24) mmol/L ABG O2 Saturation 92.7 L (94-97) % Chloride (98-107) mmol/L BUN (9-20) mg/dL Glucose (74-99) mg/dL POC Glucose (mg/dL) 144 H 131 H (75-99) mg/dL Calcium (8.4-10.2) mg/dL Ferritin (22.0-322.0) ng/mL Lactate Dehydrogenase (313-618) U/L C-Reactive Protein (<10.0) mg/L Total Protein (6.3-8.2) g/dL Albumin (3.5-5.0) g/dL 10/22/20 10/22/20 10/22/20 Range/Units 05:47 05:47 05:47 RBC 3.37 L (4.30-5.90) m/uL Hgb 11.0 L (13.0-17.5) gm/dL Hct 32.9 L (39.0-53.0) % Plt Count 120 L (150-450) k/uL Lymphocytes # 0.6 L (1.0-4.8) k/uL D-Dimer 4.29 H (<0.60) mg/L FEU ABG pO2 (83-108) mmHg ABG Total CO2 (19-24) mmol/L ABG O2 Saturation (94-97) % Chloride 117 H (98-107) mmol/L BUN 49 H (9-20) mg/dL Glucose 128 H (74-99) mg/dL POC Glucose (mg/dL) (75-99) mg/dL Calcium 7.3 L (8.4-10.2) mg/dL Ferritin 367.2 H (22.0-322.0) ng/mL Lactate Dehydrogenase 1141 H (313-618) U/L C-Reactive Protein 29.2 H (<10.0) mg/L Total Protein 4.4 L (6.3-8.2) g/dL Albumin 2.1 L (3.5-5.0) g/dL 10/22/20 10/22/20 10/22/20 Range/Units 07:02 07:47 11:15 RBC (4.30-5.90) m/uL Hgb (13.0-17.5) gm/dL Hct (39.0-53.0) % Plt Count (150-450) k/uL Lymphocytes # (1.0-4.8) k/uL D-Dimer (<0.60) mg/L FEU ABG pO2 (83-108) mmHg ABG Total CO2 (19-24) mmol/L ABG O2 Saturation (94-97) % Chloride (98-107) mmol/L BUN (9-20) mg/dL Glucose (74-99) mg/dL POC Glucose (mg/dL) 126 H 119 H 125 H (75-99) mg/dL Calcium (8.4-10.2) mg/dL Ferritin (22.0-322.0) ng/mL Lactate Dehydrogenase (313-618) U/L C-Reactive Protein (<10.0) mg/L Total Protein (6.3-8.2) g/dL Albumin (3.5-5.0) g/dL 10/22/20 10/22/20 10/22/20 Range/Units 12:26 13:09 13:55 RBC (4.30-5.90) m/uL Hgb (13.0-17.5) gm/dL Hct (39.0-53.0) % Plt Count (150-450) k/uL Lymphocytes # (1.0-4.8) k/uL D-Dimer (<0.60) mg/L FEU ABG pO2 (83-108) mmHg ABG Total CO2 (19-24) mmol/L ABG O2 Saturation (94-97) % Chloride (98-107) mmol/L BUN (9-20) mg/dL Glucose (74-99) mg/dL POC Glucose (mg/dL) 140 H 155 H 165 H (75-99) mg/dL Calcium (8.4-10.2) mg/dL Ferritin (22.0-322.0) ng/mL Lactate Dehydrogenase (313-618) U/L C-Reactive Protein (<10.0) mg/L Total Protein (6.3-8.2) g/dL Albumin (3.5-5.0) g/dL Assessment and Plan Assessment: Impression: Acute hypoxic respiratory failure secondary to covid 19 pneumonia. And ARDS. Requiring intubation and mechanical ventilation. Cardiac arrest requiring brief CPR for less than 1 minute , this happened while the patient was being intubated. Elevated inflammatory markers and significantly elevated d-dimer. Benign essential hypertension. Dyslipidemia. Obesity. Recommendation: Continue ventilatory support, not ready for any weaning trials at this point as is requiring significant FiO2 and significant PEEP at this point. Continue the Covid 19 cocktail. received remdesivir received 2 units of convalescent plasma. Continue Lovenox at 0.5 mcg/kg twice a day. Remains critically ill Continue enteral feeding. Continue GI and DVT prophylaxis. Prognosis remains guarded. We'll continue to monitor in the ICU. Critical care time is over 30 minutes. Time with Patient: Greater than 30
[2020-10-22 15:00] LABS: Glucose,Whole Blood 175 mg/dL (75-99)
[2020-10-22 16:00] LABS: Glucose,Whole Blood 194 mg/dL (75-99)
[2020-10-22 17:00] LABS: Glucose,Whole Blood 201 mg/dL (75-99)
[2020-10-22 17:57] LABS: Glucose,Whole Blood 171 mg/dL (75-99)
[2020-10-22 18:59] LABS: Glucose,Whole Blood 181 mg/dL (75-99)
[2020-10-22 20:09] LABS: Glucose,Whole Blood 191 mg/dL (75-99)
[2020-10-22] MEDS: ATORVASTATIN 20 MG TAB PO SCH (20:52)
[2020-10-22] MEDS: ASCORBIC ACID 500 MG TAB PO SCH (20:52)
[2020-10-22] MEDS: LATANOPROST 0.005% OPHTH DROPS 2.5 ML BTL BOTH EYES SCH (20:53)
[2020-10-22 21:12] LABS: Glucose,Whole Blood 153 mg/dL (75-99)
[2020-10-22 22:19] LABS: Glucose,Whole Blood 142 mg/dL (75-99)
--- NOTE | 2020-10-22 22:22 | P.PN ---
Subjective Progress Note Date: 10/21/20 Principal diagnosis: Acute hypoxic respiratory failure secondary to Covid pneumonia 10/14/2020, the patient has been placed on a BiPAP at a pressure of 12/6 with an FiO2 of 100%. Initially was on regular oxygen flowing he was switched to high flow ox ygen 6 L and upon further decompensation, the patient was placed on a BiPAP. He is resting comfortably in bed. Patient is on IV Decadron. He is also on Lovenox for DVT prophylaxis. Patient didn't qualify for Remdesivir and he was given convalescent plasma one unit yesterday. His most recent blood gases from yesterday and no follow-up blood gases has been obtained today. He is looking lethargic. Is getting progressively more weak. A repeat chest x-ray is recommended by pulmonary and recommended transfer to ICU 10/15/2022 The patient got transferred to the intensive care unit because of worsening in hypoxemia and acute hypoxic respiratory failure; chest x-ray showing diffuse bilateral pulmonary infiltrates with groundglass changes Bilaterally more so on the right compared to the left. The patient is on a BiPAP. The patient is currently on IV Decadron. The patient received convalescent plasma. He did not qualify for Remdesivir. His repeat coronavirus/Covid 19 PCR was sent and this is still pending. He is on Lovenox at a dose of 40 mg subcu on a daily basis. Overnight, he became quite restless and agitated. He was started on Precedex; emains in the 100% on his BiPAP and his pulse ox is ranging between 86 and 90%. D-dimer is elevated at 21.7. His d-dimer is elevated and the patient's Lovenox will be adjusted to half a dose twice a day. He is in a normal sinus rhythm for now. 10/16/20 Patient currently remains in the MICU.. on BiPAP on FiO2 100%. Awake and alert. chest x-ray showed diffuse bilateral reticular nodular infiltrates without significant interval change. Patient has been afebrile today. Laboratory data showed absolute lymphocyte count 0.3, d-dimer level is 34.1 and BUN 28 and creatinine 0.76, ferritin level is 1318 and LDH is 2279 CRP to 25.9 pro calcitonin level is 0.08 not elevated Patient is being continued on Remdesivir. Pulmonary is following. 10/17/2020 Patient is currently on BiPAP with FiO2 100%. Remains in the MICU. Continued on Remdesivir, dexamethasone and patient received convalescent plasma. Continue on Lovenox subcu 50 g every 12 Chest x-ray showed bilateral interstitial infiltrates without much change from previous exam. Still having elevated inflammatory markers. 10/18/20 Patient is currently in the MICU. Intubated today. Patient was tachypneic and was in respiratory distress. Eventually patient was intubated. Currently sedated. FiO2 100% and PEEP of 16. Chest x-ray showed worsening interstitial infiltrates bilaterally. Code status discussed with with his by pulmonary. CODE STATUS was changed to DO NOT RESUSCITATE/DO NOT INTUBATE. 10/19/2020 Patient remained on mechanical ventilator. FiO2 90%. Currently sedated and on muscle relaxants. Patient is requiring pressor support with norepinephrine. Otherwise being continued on remdesivir, dexamethasone and Lovenox subcu 50 g twice daily. Chest x-ray showed bilateral interstitial infiltrates. Laboratory data reviewed. Inflammatory markers are still elevated significantly. Pulmonary is on board. Patient has been afebrile otherwise. Sodium level increased to 140 today and BUN 52 and creatinine 1.27 10/20/2020 Patient is currently on mechanical ventilator. Remains in the MICU. On pressor support. IV fluids changed to D5 water due to hyponatremia. Patient completed remdesivir course. And on dexamethasone and Lovenox 80 mg every 12. ABG showed pH 7.42, pCO2 38 and pO2 93 on 60% FiO2. Laboratory data showed obesity (0.7, hemoglobin 11.9 and platelets 155 Sodium 150, potassium 4.3, chloride 121, BUN 50 and creatinine 1.11 Patient still has elevated in [place] markers. Chest x-ray showed diffuse increase in lung markings can be compatible with atypical pneumonia or pulmonary edema. NG tube could be advanced 6-10 cm. Tolerating tube feeding. 10/21/2020 Patient remains in ICU and is on mechanical ventilator. Currently at FiO2 55% and PEEP of 16. Patient completed remdesivir course. Was also given convalescent plasma. Sodium level improved to 145 today. BUN 49 and creatinine 0.93. Still having elevated inflammatory markers. Chest x-ray showed stable diffuse interstitial changes with basilar infiltrate or atelectasis. Correlate interstitial pneumonia otherwise consider CHF. Patient is being continued on dexamethasone 6 mg daily. Pulmonary is following. Current Medications Reviewed. Objective - Vital Signs Vital signs: Vital Signs Temp 98.1 F 10/21/20 16:00 Pulse 61 10/21/20 16:00 Resp 30 H 10/21/20 16:00 BP 112/60 10/21/20 16:00 Pulse Ox 91 L 10/21/20 16:00 Intake & Output 10/20/20 10/21/20 10/21/20 18:59 06:59 18:59 Intake Total 2274.423 1494.212 2604.661 Output Total 745 690 480 Balance 0512.443 9285.578 1223.661 Weight 99 kg 99.5 kg Intake: IV 225 825 225 Dextrose 5% in Water 1, 825 225 000 ml @ 75 mls/hr IV . [id number] [facility] Rx#:[id number] Sodium Chloride 0.9% 1, 225 000 ml @ 75 mls/hr IV . [id number] [facility] Rx#:[id number] Intake, IV Titration 1329.423 416.578 944.661 Amount Cisatracurium 200 mg In 191.983 133.21 Sodium Chloride 0.9% 180 ml @ 1 MCG/KG/MIN 5.748 mls/hr IV .Q24H [facility] Rx#: [id number] Dextrose 5% in Water 1, 675 75 000 ml @ 75 mls/hr IV . [id number] [facility] Rx#:[id number] Insulin Regular 100 unit 49.541 44.423 In Sodium Chloride 0.9% 100 ml @ Per Protocol IV .Q0M [facility] Rx#:[id number] Norepinephrine 8 mg In 202.373 33.644 Sodium Chloride 0.9% 250 ml @ 0.05 MCG/KG/MIN 9. 269 mls/hr IV .Q24H [facility] Rx#:[id number] Sodium Chloride 0.9% 1, 525 000 ml @ 75 mls/hr IV . [id number] [facility] Rx#:[id number] fentaNYL (PF) 1,000 mcg 100 97.716 57.32 In Sodium Chloride 0.9% 80 ml @ Per Protocol IV . Q0M [facility] Rx#:[id number] propofoL 1,000 mg In 160.067 160.677 184.708 Empty Bag 1 bag @ Titrate IV .Q0M [facility] Rx#: [id number] Tube Feeding 520 427 400 Other 200 201 134 Output: Urine 745 690 480 Other: Voiding Method Indwelling Catheter Indwelling Catheter Indwelling Catheter ABP, PAP, CO, CI - Last Documented Arterial Blood Pressure 07/12 - Exam - Exam GENERAL: The patient is currently intubated and on mechanical ventilator. Sedated.. HEENT: Pupils are round and equally reacting to light. EOMI. No scleral icterus. No conjunctival pallor. Normocephalic, atraumatic. No pharyngeal erythema. No thyromegaly. CARDIOVASCULAR: S1 and S2 present. No murmurs, rubs, or gallops. PULMONARY: Coarse breath sounds bilaterally, no wheezing or crackles. ABDOMEN: Soft, nontender, nondistended, normoactive bowel sounds. No palpable organomegaly. MUSCULOSKELETAL: No joint swelling or deformity. EXTREMITIES: No cyanosis, clubbing, or pedal edema. NEUROLOGICAL: Gross neurological examination did not reveal any focal deficits. SKIN: No rashes. - Labs CBC & Chem 7: 10/22/20 05:47 10/22/20 05:47 Labs: Abnormal Lab Results - Last 24 Hours (Table) 10/19/20 10/20/20 10/20/20 Range/Units 10:10 17:45 19:08 RBC (4.30-5.90) m/uL Hgb (13.0-17.5) gm/dL Hct (39.0-53.0) % Plt Count (150-450) k/uL Neutrophils # (1.3-7.7) k/uL Lymphocytes # (1.0-4.8) k/uL D-Dimer (<0.60) mg/L FEU ABG pO2 (83-108) mmHg ABG Total CO2 (19-24) mmol/L ABG O2 Saturation (94-97) % Chloride (98-107) mmol/L BUN (9-20) mg/dL Glucose (74-99) mg/dL POC Glucose (mg/dL) 252 H 244 H (75-99) mg/dL Calcium (8.4-10.2) mg/dL Ferritin (22.0-322.0) ng/mL Lactate Dehydrogenase (313-618) U/L C-Reactive Protein (<10.0) mg/L Total Protein (6.3-8.2) g/dL Albumin (3.5-5.0) g/dL Interleukin 6 128.2 H (<6.4) pg/mL 10/20/20 10/20/20 10/20/20 Range/Units 20:25 21:06 23:17 RBC (4.30-5.90) m/uL Hgb (13.0-17.5) gm/dL Hct (39.0-53.0) % Plt Count (150-450) k/uL Neutrophils # (1.3-7.7) k/uL Lymphocytes # (1.0-4.8) k/uL D-Dimer (<0.60) mg/L FEU ABG pO2 (83-108) mmHg ABG Total CO2 (19-24) mmol/L ABG O2 Saturation (94-97) % Chloride (98-107) mmol/L BUN (9-20) mg/dL Glucose (74-99) mg/dL POC Glucose (mg/dL) 205 H 221 H 251 H (75-99) mg/dL Calcium (8.4-10.2) mg/dL Ferritin (22.0-322.0) ng/mL Lactate Dehydrogenase (313-618) U/L C-Reactive Protein (<10.0) mg/L Total Protein (6.3-8.2) g/dL Albumin (3.5-5.0) g/dL Interleukin 6 (<6.4) pg/mL 10/21/20 10/21/20 10/21/20 Range/Units 00:25 01:07 02:01 RBC (4.30-5.90) m/uL Hgb (13.0-17.5) gm/dL Hct (39.0-53.0) % Plt Count (150-450) k/uL Neutrophils # (1.3-7.7) k/uL Lymphocytes # (1.0-4.8) k/uL D-Dimer (<0.60) mg/L FEU ABG pO2 (83-108) mmHg ABG Total CO2 (19-24) mmol/L ABG O2 Saturation (94-97) % Chloride (98-107) mmol/L BUN (9-20) mg/dL Glucose (74-99) mg/dL POC Glucose (mg/dL) 188 H 196 H 237 H (75-99) mg/dL Calcium (8.4-10.2) mg/dL Ferritin (22.0-322.0) ng/mL Lactate Dehydrogenase (313-618) U/L C-Reactive Protein (<10.0) mg/L Total Protein (6.3-8.2) g/dL Albumin (3.5-5.0) g/dL Interleukin 6 (<6.4) pg/mL 10/21/20 10/21/20 10/21/20 Range/Units 03:09 03:54 05:13 RBC 3.50 L (4.30-5.90) m/uL Hgb 11.1 L (13.0-17.5) gm/dL Hct 34.4 L (39.0-53.0) % Plt Count 132 L (150-450) k/uL Neutrophils # 8.2 H (1.3-7.7) k/uL Lymphocytes # 0.4 L (1.0-4.8) k/uL D-Dimer (<0.60) mg/L FEU ABG pO2 (83-108) mmHg ABG Total CO2 (19-24) mmol/L ABG O2 Saturation (94-97) % Chloride (98-107) mmol/L BUN (9-20) mg/dL Glucose (74-99) mg/dL POC Glucose (mg/dL) 236 H 213 H (75-99) mg/dL Calcium (8.4-10.2) mg/dL Ferritin (22.0-322.0) ng/mL Lactate Dehydrogenase (313-618) U/L C-Reactive Protein (<10.0) mg/L Total Protein (6.3-8.2) g/dL Albumin (3.5-5.0) g/dL Interleukin 6 (<6.4) pg/mL 10/21/20 10/21/20 10/21/20 Range/Units 05:13 05:13 05:43 RBC (4.30-5.90) m/uL Hgb (13.0-17.5) gm/dL Hct (39.0-53.0) % Plt Count (150-450) k/uL Neutrophils # (1.3-7.7) k/uL Lymphocytes # (1.0-4.8) k/uL D-Dimer 3.88 H (<0.60) mg/L FEU ABG pO2 61 L (83-108) mmHg ABG Total CO2 26 H (19-24) mmol/L ABG O2 Saturation 92.5 L (94-97) % Chloride 119 H (98-107) mmol/L BUN 49 H (9-20) mg/dL Glucose 215 H (74-99) mg/dL POC Glucose (mg/dL) (75-99) mg/dL Calcium 7.3 L (8.4-10.2) mg/dL Ferritin 485.2 H (22.0-322.0) ng/mL Lactate Dehydrogenase 1343 H (313-618) U/L C-Reactive Protein 54.8 H (<10.0) mg/L Total Protein 4.6 L (6.3-8.2) g/dL Albumin 2.1 L (3.5-5.0) g/dL Interleukin 6 (<6.4) pg/mL 10/21/20 10/21/20 10/21/20 Range/Units 05:57 06:54 08:03 RBC (4.30-5.90) m/uL Hgb (13.0-17.5) gm/dL Hct (39.0-53.0) % Plt Count (150-450) k/uL Neutrophils # (1.3-7.7) k/uL Lymphocytes # (1.0-4.8) k/uL D-Dimer (<0.60) mg/L FEU ABG pO2 (83-108) mmHg ABG Total CO2 (19-24) mmol/L ABG O2 Saturation (94-97) % Chloride (98-107) mmol/L BUN (9-20) mg/dL Glucose (74-99) mg/dL POC Glucose (mg/dL) 205 H 202 H 209 H (75-99) mg/dL Calcium (8.4-10.2) mg/dL Ferritin (22.0-322.0) ng/mL Lactate Dehydrogenase (313-618) U/L C-Reactive Protein (<10.0) mg/L Total Protein (6.3-8.2) g/dL Albumin (3.5-5.0) g/dL Interleukin 6 (<6.4) pg/mL 10/21/20 10/21/20 10/21/20 Range/Units 09:00 10:05 10:58 RBC (4.30-5.90) m/uL Hgb (13.0-17.5) gm/dL Hct (39.0-53.0) % Plt Count (150-450) k/uL Neutrophils # (1.3-7.7) k/uL Lymphocytes # (1.0-4.8) k/uL D-Dimer (<0.60) mg/L FEU ABG pO2 (83-108) mmHg ABG Total CO2 (19-24) mmol/L ABG O2 Saturation (94-97) % Chloride (98-107) mmol/L BUN (9-20) mg/dL Glucose (74-99) mg/dL POC Glucose (mg/dL) 185 H 187 H 165 H (75-99) mg/dL Calcium (8.4-10.2) mg/dL Ferritin (22.0-322.0) ng/mL Lactate Dehydrogenase (313-618) U/L C-Reactive Protein (<10.0) mg/L Total Protein (6.3-8.2) g/dL Albumin (3.5-5.0) g/dL Interleukin 6 (<6.4) pg/mL 10/21/20 10/21/20 10/21/20 Range/Units 12:08 13:38 14:34 RBC (4.30-5.90) m/uL Hgb (13.0-17.5) gm/dL Hct (39.0-53.0) % Plt Count (150-450) k/uL Neutrophils # (1.3-7.7) k/uL Lymphocytes # (1.0-4.8) k/uL D-Dimer (<0.60) mg/L FEU ABG pO2 (83-108) mmHg ABG Total CO2 (19-24) mmol/L ABG O2 Saturation (94-97) % Chloride (98-107) mmol/L BUN (9-20) mg/dL Glucose (74-99) mg/dL POC Glucose (mg/dL) 160 H 190 H 194 H (75-99) mg/dL Calcium (8.4-10.2) mg/dL Ferritin (22.0-322.0) ng/mL Lactate Dehydrogenase (313-618) U/L C-Reactive Protein (<10.0) mg/L Total Protein (6.3-8.2) g/dL Albumin (3.5-5.0) g/dL Interleukin 6 (<6.4) pg/mL 10/21/20 10/21/20 10/21/20 Range/Units 15:07 16:09 17:12 RBC (4.30-5.90) m/uL Hgb (13.0-17.5) gm/dL Hct (39.0-53.0) % Plt Count (150-450) k/uL Neutrophils # (1.3-7.7) k/uL Lymphocytes # (1.0-4.8) k/uL D-Dimer (<0.60) mg/L FEU ABG pO2 (83-108) mmHg ABG Total CO2 (19-24) mmol/L ABG O2 Saturation (94-97) % Chloride (98-107) mmol/L BUN (9-20) mg/dL Glucose (74-99) mg/dL POC Glucose (mg/dL) 166 H 172 H 163 H (75-99) mg/dL Calcium (8.4-10.2) mg/dL Ferritin (22.0-322.0) ng/mL Lactate Dehydrogenase (313-618) U/L C-Reactive Protein (<10.0) mg/L Total Protein (6.3-8.2) g/dL Albumin (3.5-5.0) g/dL Interleukin 6 (<6.4) pg/mL Assessment and Plan Assessment: -Acute hypoxic respiratory failure: Secondary to COVID 19 pneumonia.. Computed tomography scan findings are consistent with ARDS. Patient is being continued on BiPAP--> on mechanical ventilator.. Continue with dexamethasone, Lovenox and was given convulsant plasma.. -Coronary artery disease with previous history of bypass surgery hyperlipidemia -Hypertension -Hypovolemic hyponatremia: Hydrochlorothiazide was discontinued patient was started on IV fluids -acute renal failure secondary to infection and possible ATN.. Time with Patient: Greater than 30
--- NOTE | 2020-10-22 22:28 | P.PN ---
Subjective Progress Note Date: 10/22/20 Principal diagnosis: Acute hypoxic respiratory failure secondary to Covid pneumonia 10/14/2020, the patient has been placed on a BiPAP at a pressure of 12/6 with an FiO2 of 100%. Initially was on regular oxygen flowing he was switched to high flow ox ygen 6 L and upon further decompensation, the patient was placed on a BiPAP. He is resting comfortably in bed. Patient is on IV Decadron. He is also on Lovenox for DVT prophylaxis. Patient didn't qualify for Remdesivir and he was given convalescent plasma one unit yesterday. His most recent blood gases from yesterday and no follow-up blood gases has been obtained today. He is looking lethargic. Is getting progressively more weak. A repeat chest x-ray is recommended by pulmonary and recommended transfer to ICU 10/15/2022 The patient got transferred to the intensive care unit because of worsening in hypoxemia and acute hypoxic respiratory failure; chest x-ray showing diffuse bilateral pulmonary infiltrates with groundglass changes Bilaterally more so on the right compared to the left. The patient is on a BiPAP. The patient is currently on IV Decadron. The patient received convalescent plasma. He did not qualify for Remdesivir. His repeat coronavirus/Covid 19 PCR was sent and this is still pending. He is on Lovenox at a dose of 40 mg subcu on a daily basis. Overnight, he became quite restless and agitated. He was started on Precedex; emains in the 100% on his BiPAP and his pulse ox is ranging between 86 and 90%. D-dimer is elevated at 21.7. His d-dimer is elevated and the patient's Lovenox will be adjusted to half a dose twice a day. He is in a normal sinus rhythm for now. 10/16/20 Patient currently remains in the MICU.. on BiPAP on FiO2 100%. Awake and alert. chest x-ray showed diffuse bilateral reticular nodular infiltrates without significant interval change. Patient has been afebrile today. Laboratory data showed absolute lymphocyte count 0.3, d-dimer level is 34.1 and BUN 28 and creatinine 0.76, ferritin level is 1318 and LDH is 2279 CRP to 25.9 pro calcitonin level is 0.08 not elevated Patient is being continued on Remdesivir. Pulmonary is following. 10/17/2020 Patient is currently on BiPAP with FiO2 100%. Remains in the MICU. Continued on Remdesivir, dexamethasone and patient received convalescent plasma. Continue on Lovenox subcu 50 g every 12 Chest x-ray showed bilateral interstitial infiltrates without much change from previous exam. Still having elevated inflammatory markers. 10/18/20 Patient is currently in the MICU. Intubated today. Patient was tachypneic and was in respiratory distress. Eventually patient was intubated. Currently sedated. FiO2 100% and PEEP of 16. Chest x-ray showed worsening interstitial infiltrates bilaterally. Code status discussed with with his by pulmonary. CODE STATUS was changed to DO NOT RESUSCITATE/DO NOT INTUBATE. 10/19/2020 Patient remained on mechanical ventilator. FiO2 90%. Currently sedated and on muscle relaxants. Patient is requiring pressor support with norepinephrine. Otherwise being continued on remdesivir, dexamethasone and Lovenox subcu 50 g twice daily. Chest x-ray showed bilateral interstitial infiltrates. Laboratory data reviewed. Inflammatory markers are still elevated significantly. Pulmonary is on board. Patient has been afebrile otherwise. Sodium level increased to 140 today and BUN 52 and creatinine 1.27 10/20/2020 Patient is currently on mechanical ventilator. Remains in the MICU. On pressor support. IV fluids changed to D5 water due to hyponatremia. Patient completed remdesivir course. And on dexamethasone and Lovenox 80 mg every 12. ABG showed pH 7.42, pCO2 38 and pO2 93 on 60% FiO2. Laboratory data showed obesity (0.7, hemoglobin 11.9 and platelets 155 Sodium 150, potassium 4.3, chloride 121, BUN 50 and creatinine 1.11 Patient still has elevated in [place] markers. Chest x-ray showed diffuse increase in lung markings can be compatible with atypical pneumonia or pulmonary edema. NG tube could be advanced 6-10 cm. Tolerating tube feeding. 10/21/2020 Patient remains in ICU and is on mechanical ventilator. Currently at FiO2 55% and PEEP of 16. Patient completed remdesivir course. Was also given convalescent plasma. Sodium level improved to 145 today. BUN 49 and creatinine 0.93. Still having elevated inflammatory markers. Chest x-ray showed stable diffuse interstitial changes with basilar infiltrate or atelectasis. Correlate interstitial pneumonia otherwise consider CHF. Patient is being continued on dexamethasone 6 mg daily. Pulmonary is following. 10/22/2020 Patient is currently on mechanical ventilator and sedated. Currently FiO2 55%. Chest x-ray showed patchy bilateral infiltrates remains unchanged. Patient is being continued dexamethasone 6 mg daily and Lovenox 80 mg twice daily. Patient is off pressor support. Patient was given remdesivir and convalescent plasma. Patient has been afebrile. Laboratory data showed hemoglobin 9.0, WBC 8.1, sodium 144, BUN 49 and creatinine 0.94 Ferritin level is 367.2 today. CRP 29.2 and LDH 1141 Current Medications Reviewed. Objective - Vital Signs Vital signs: Vital Signs Temp 98.7 F 10/22/20 12:00 Pulse 56 L 10/22/20 13:00 Resp 19 10/22/20 13:00 BP 105/50 10/22/20 13:00 Pulse Ox 93 L 10/22/20 13:00 Intake & Output 10/21/20 10/22/20 10/22/20 18:59 06:59 18:59 Intake Total 1995.305 1001.301 936.187 Output Total 570 775 545 Balance 4667.401 3716.301 391.187 Weight 98 kg Intake: IV 225 825 525 Dextrose 5% in Water 1, 225 000 ml @ 75 mls/hr IV . [id number] JOE Rx#:[id number] Sodium Chloride 0.9% 1, 150 000 ml @ 75 mls/hr IV . [id number] JOE Rx#:[id number] Sodium Chloride 0.9% 1, 675 525 000 ml @ 75 mls/hr IV . [id number] JOE Rx#:[id number] Intake, IV Titration 1237.341 527.301 101.187 Amount Cisatracurium 200 mg In 133.21 Sodium Chloride 0.9% 180 ml @ 1 MCG/KG/MIN 5.748 mls/hr IV .Q24H JOE Rx#: [id number] Insulin Regular 100 unit 44.423 45.399 1.187 In Sodium Chloride 0.9% 100 ml @ Per Protocol IV .Q0M JOE Rx#:[id number] Norepinephrine 8 mg In 105.103 Sodium Chloride 0.9% 250 ml @ 0.05 MCG/KG/MIN 9. 269 mls/hr IV .Q24H JOE Rx#:[id number] Sodium Chloride 0.9% 1, 675 75 000 ml @ 75 mls/hr IV . [id number] [facility]E Rx#:[id number] fentaNYL (PF) 1,000 mcg 100.00 24.189 In Sodium Chloride 0.9% 80 ml @ Per Protocol IV . Q0M JOE Rx#:[id number] propofoL 1,000 mg In 284.708 277.61 100 Empty Bag 1 bag @ Titrate IV .Q0M JOE Rx#: [id number] Tube Feeding 400 400 280 Other 134 201 30 Output: Urine 570 775 545 Other: Voiding Method Indwelling Catheter Indwelling Catheter ABP, PAP, CO, CI - Last Documented Arterial Blood Pressure 07/12 - Exam - Exam GENERAL: The patient is currently intubated and on mechanical ventilator. Sedated.. HEENT: Pupils are round and equally reacting to light. EOMI. No scleral icterus. No conjunctival pallor. Normocephalic, atraumatic. No pharyngeal erythema. No thyromegaly. CARDIOVASCULAR: S1 and S2 present. No murmurs, rubs, or gallops. PULMONARY: Coarse breath sounds bilaterally, no wheezing or crackles. ABDOMEN: Soft, nontender, nondistended, normoactive bowel sounds. No palpable organomegaly. MUSCULOSKELETAL: No joint swelling or deformity. EXTREMITIES: No cyanosis, clubbing, or pedal edema. NEUROLOGICAL: Gross neurological examination did not reveal any focal deficits. SKIN: No rashes. - Labs CBC & Chem 7: 10/22/20 05:47 10/22/20 05:47 Labs: Abnormal Lab Results - Last 24 Hours (Table) 10/21/20 10/21/20 10/21/20 Range/Units 15:07 16:09 17:12 RBC (4.30-5.90) m/uL Hgb (13.0-17.5) gm/dL Hct (39.0-53.0) % Plt Count (150-450) k/uL Lymphocytes # (1.0-4.8) k/uL D-Dimer (<0.60) mg/L FEU ABG pO2 (83-108) mmHg ABG Total CO2 (19-24) mmol/L ABG O2 Saturation (94-97) % Chloride (98-107) mmol/L BUN (9-20) mg/dL Glucose (74-99) mg/dL POC Glucose (mg/dL) 166 H 172 H 163 H (75-99) mg/dL Calcium (8.4-10.2) mg/dL Ferritin (22.0-322.0) ng/mL Lactate Dehydrogenase (313-618) U/L C-Reactive Protein (<10.0) mg/L Total Protein (6.3-8.2) g/dL Albumin (3.5-5.0) g/dL 10/21/20 10/21/20 10/21/20 Range/Units 18:19 19:10 19:55 RBC (4.30-5.90) m/uL Hgb (13.0-17.5) gm/dL Hct (39.0-53.0) % Plt Count (150-450) k/uL Lymphocytes # (1.0-4.8) k/uL D-Dimer (<0.60) mg/L FEU ABG pO2 (83-108) mmHg ABG Total CO2 (19-24) mmol/L ABG O2 Saturation (94-97) % Chloride (98-107) mmol/L BUN (9-20) mg/dL Glucose (74-99) mg/dL POC Glucose (mg/dL) 175 H 183 H 155 H (75-99) mg/dL Calcium (8.4-10.2) mg/dL Ferritin (22.0-322.0) ng/mL Lactate Dehydrogenase (313-618) U/L C-Reactive Protein (<10.0) mg/L Total Protein (6.3-8.2) g/dL Albumin (3.5-5.0) g/dL 10/21/20 10/21/20 10/21/20 Range/Units 21:10 21:58 23:06 RBC (4.30-5.90) m/uL Hgb (13.0-17.5) gm/dL Hct (39.0-53.0) % Plt Count (150-450) k/uL Lymphocytes # (1.0-4.8) k/uL D-Dimer (<0.60) mg/L FEU ABG pO2 (83-108) mmHg ABG Total CO2 (19-24) mmol/L ABG O2 Saturation (94-97) % Chloride (98-107) mmol/L BUN (9-20) mg/dL Glucose (74-99) mg/dL POC Glucose (mg/dL) 156 H 151 H 160 H (75-99) mg/dL Calcium (8.4-10.2) mg/dL Ferritin (22.0-322.0) ng/mL Lactate Dehydrogenase (313-618) U/L C-Reactive Protein (<10.0) mg/L Total Protein (6.3-8.2) g/dL Albumin (3.5-5.0) g/dL 10/22/20 10/22/20 10/22/20 Range/Units 00:17 02:06 03:50 RBC (4.30-5.90) m/uL Hgb (13.0-17.5) gm/dL Hct (39.0-53.0) % Plt Count (150-450) k/uL Lymphocytes # (1.0-4.8) k/uL D-Dimer (<0.60) mg/L FEU ABG pO2 (83-108) mmHg ABG Total CO2 (19-24) mmol/L ABG O2 Saturation (94-97) % Chloride (98-107) mmol/L BUN (9-20) mg/dL Glucose (74-99) mg/dL POC Glucose (mg/dL) 144 H 141 H 126 H (75-99) mg/dL Calcium (8.4-10.2) mg/dL Ferritin (22.0-322.0) ng/mL Lactate Dehydrogenase (313-618) U/L C-Reactive Protein (<10.0) mg/L Total Protein (6.3-8.2) g/dL Albumin (3.5-5.0) g/dL 10/22/20 10/22/20 10/22/20 Range/Units 04:33 04:58 05:45 RBC (4.30-5.90) m/uL Hgb (13.0-17.5) gm/dL Hct (39.0-53.0) % Plt Count (150-450) k/uL Lymphocytes # (1.0-4.8) k/uL D-Dimer (<0.60) mg/L FEU ABG pO2 64 L (83-108) mmHg ABG Total CO2 25 H (19-24) mmol/L ABG O2 Saturation 92.7 L (94-97) % Chloride (98-107) mmol/L BUN (9-20) mg/dL Glucose (74-99) mg/dL POC Glucose (mg/dL) 144 H 131 H (75-99) mg/dL Calcium (8.4-10.2) mg/dL Ferritin (22.0-322.0) ng/mL Lactate Dehydrogenase (313-618) U/L C-Reactive Protein (<10.0) mg/L Total Protein (6.3-8.2) g/dL Albumin (3.5-5.0) g/dL 10/22/20 10/22/20 10/22/20 Range/Units 05:47 05:47 05:47 RBC 3.37 L (4.30-5.90) m/uL Hgb 11.0 L (13.0-17.5) gm/dL Hct 32.9 L (39.0-53.0) % Plt Count 120 L (150-450) k/uL Lymphocytes # 0.6 L (1.0-4.8) k/uL D-Dimer 4.29 H (<0.60) mg/L FEU ABG pO2 (83-108) mmHg ABG Total CO2 (19-24) mmol/L ABG O2 Saturation (94-97) % Chloride 117 H (98-107) mmol/L BUN 49 H (9-20) mg/dL Glucose 128 H (74-99) mg/dL POC Glucose (mg/dL) (75-99) mg/dL Calcium 7.3 L (8.4-10.2) mg/dL Ferritin 367.2 H (22.0-322.0) ng/mL Lactate Dehydrogenase 1141 H (313-618) U/L C-Reactive Protein 29.2 H (<10.0) mg/L Total Protein 4.4 L (6.3-8.2) g/dL Albumin 2.1 L (3.5-5.0) g/dL 10/22/20 10/22/20 10/22/20 Range/Units 07:02 07:47 11:15 RBC (4.30-5.90) m/uL Hgb (13.0-17.5) gm/dL Hct (39.0-53.0) % Plt Count (150-450) k/uL Lymphocytes # (1.0-4.8) k/uL D-Dimer (<0.60) mg/L FEU ABG pO2 (83-108) mmHg ABG Total CO2 (19-24) mmol/L ABG O2 Saturation (94-97) % Chloride (98-107) mmol/L BUN (9-20) mg/dL Glucose (74-99) mg/dL POC Glucose (mg/dL) 126 H 119 H 125 H (75-99) mg/dL Calcium (8.4-10.2) mg/dL Ferritin (22.0-322.0) ng/mL Lactate Dehydrogenase (313-618) U/L C-Reactive Protein (<10.0) mg/L Total Protein (6.3-8.2) g/dL Albumin (3.5-5.0) g/dL 10/22/20 10/22/20 10/22/20 Range/Units 12:26 13:09 13:55 RBC (4.30-5.90) m/uL Hgb (13.0-17.5) gm/dL Hct (39.0-53.0) % Plt Count (150-450) k/uL Lymphocytes # (1.0-4.8) k/uL D-Dimer (<0.60) mg/L FEU ABG pO2 (83-108) mmHg ABG Total CO2 (19-24) mmol/L ABG O2 Saturation (94-97) % Chloride (98-107) mmol/L BUN (9-20) mg/dL Glucose (74-99) mg/dL POC Glucose (mg/dL) 140 H 155 H 165 H (75-99) mg/dL Calcium (8.4-10.2) mg/dL Ferritin (22.0-322.0) ng/mL Lactate Dehydrogenase (313-618) U/L C-Reactive Protein (<10.0) mg/L Total Protein (6.3-8.2) g/dL Albumin (3.5-5.0) g/dL Assessment and Plan Assessment: -Acute hypoxic respiratory failure: Secondary to COVID 19 pneumonia.. Computed tomography scan findings are consistent with ARDS. Patient is being continued on BiPAP--> on mechanical ventilator.. Continue with dexamethasone, Lovenox and was given convulsant plasma.. -Coronary artery disease with previous history of bypass surgery hyperlipidemia -Hypertension -Hypovolemic hyponatremia: Hydrochlorothiazide was discontinued patient was started on IV fluids -acute renal failure secondary to infection and possible ATN.. Time with Patient: Greater than 30
[2020-10-22 23:05] LABS: Glucose,Whole Blood 159 mg/dL (75-99)
[2020-10-23 00:09] LABS: Glucose,Whole Blood 130 mg/dL (75-99)
[2020-10-23 01:16] LABS: Glucose,Whole Blood 134 mg/dL (75-99)
[2020-10-23 03:20] LABS: Glucose,Whole Blood 133 mg/dL (75-99)
[2020-10-23 04:17] LABS: Glucose,Whole Blood 110 mg/dL (75-99)
[2020-10-23] MEDS: SODIUM CHLORIDE 0.9% 1,000 ML IV SCH ×2 (04:58→15:57)
[2020-10-23] MEDS: CLEVIDIPINE BUTYRATE 25 MG in EMPTY BAG 1 BAG IV SCH (04:59)
[2020-10-23] MEDS: ARTIFICIAL TEARS-HYPROMELLOSE DROPS 15 ML BTL BOTH EYES SCH ×6 (04:59→23:46)
[2020-10-23] MEDS: fentaNYL (PF) 1,000 MCG in SODIUM CHLORIDE 0.9% 80 ML IV SCH ×2 (05:00→15:58)
[2020-10-23 05:06] LABS: Glucose,Whole Blood 113 mg/dL (75-99)
[2020-10-23 05:23] LABS: ABG HCO3 23 mmol/L (21-25); ABG Oxygen Saturation 88.8 % (94-97); ABG PCO2 38 mmHg (35-45); ABG TCO2 24 mmol/L (19-24); Allen Test Performed? Yes
[2020-10-23 05:48] LABS: Basophils % (A) 0 %; Eosinophils # (A) 0.1 k/uL (0-0.7); Eosinophils % (A) 1 %; HCT 33.1 % (39.0-53.0); HGB 10.6 gm/dL (13.0-17.5); Hypochromasia Slight; Lymphocytes # (A) 0.5 k/uL (1.0-4.8); Lymphocytes % (A) 5 %; MCH 31.8 pg (25.0-35.0); MCV 99.4 fL (80.0-100.0); Mean Platelet Volume 9.7; Monocytes # (A) 0.3 k/uL (0-1.0); Monocytes % (A) 4 %; Neutrophils # (A) 8.5 k/uL (1.3-7.7); Neutrophils % (A) 90 %; Platelet Count 112 k/uL (150-450); RBC 3.33 m/uL (4.30-5.90); RDW 13.4 % (11.5-15.5); WBC 9.4 k/uL (3.8-10.6)
[2020-10-23 06:02] LABS: ALT 20 U/L (4-49); AST 30 U/L (17-59); African American GFR (CKD) >90 (>60 ml/min/1.73 sqM); Alkaline Phosphatase 45 U/L (38-126); Anion Gap 0 mmol/L; Blood Urea Nitrogen 43 mg/dL (9-20); C Reactive Protein 58.9 mg/L (<10.0); Calcium 7.3 mg/dL (8.4-10.2); Carbon Dioxide 26 mmol/L (22-30); Chloride 118 mmol/L (98-107); Glucose 114 mg/dL (74-99); LDH 1337 U/L (313-618); Non-African American GFR(CKD) 90 (>60 ml/min/1.73 sqM); Potassium 4.7 mmol/L (3.5-5.1); Sodium 144 mmol/L (137-145); Total Bilirubin 0.5 mg/dL (0.2-1.3); Total Protein 4.5 g/dL (6.3-8.2)
[2020-10-23 06:14] LABS: Glucose,Whole Blood 99 mg/dL (75-99)
[2020-10-23 06:52] LABS: Glucose,Whole Blood 116 mg/dL (75-99)
--- NOTE | 2020-10-23 07:26 | XR ---
EXAMINATION TYPE: XR chest 1V portable DATE OF EXAM: 10/23/2020 COMPARISON: 10/22/2020 HISTORY: SOB, Follow Up FINDINGS: Indwelling tubes and catheters are unchanged. Bilateral airspace infiltrates persist the decreasing lung bases. Stable appearance of the cardio-mediastinal structures at this time. IMPRESSION: 1. Bilateral airspace infiltrates persist the decreasing lung bases.
[2020-10-23] MEDS: ALBUTEROL HFA INHALER INHALATION SCH ×4 (07:41→20:12)
[2020-10-23 07:57] LABS: Glucose,Whole Blood 111 mg/dL (75-99)
[2020-10-23] MEDS: CLIDINIUM-chlordiazePOXIDE (2.5-5 MG) CAP PO SCH (08:04)
[2020-10-23] MEDS: PANTOPRAZOLE 40 MG/10 ML VIAL IVP SCH (08:04)
[2020-10-23] MEDS: ENOXAPARIN 80 MG/0.8 ML SYRINGE SQ SCH ×2 (08:04→19:50)
[2020-10-23] MEDS: ISOSORBIDE MONONITRATE ER 30 MG TAB.ER.24H PO SCH (08:05)
[2020-10-23] MEDS: RANOLAZINE 500 MG TAB.ER.12H PO SCH ×2 (08:05→19:50)
[2020-10-23] MEDS: atenoloL 25 MG TAB PO SCH (08:05)
[2020-10-23] MEDS: ASPIRIN 81 MG PO SCH (08:05)
[2020-10-23] MEDS: DEXAMETHASONE SOD PHOSPHATE 10 MG/ML 1 ML VIAL IV SCH (08:05)
[2020-10-23] MEDS: LOSARTAN 50 MG TAB PO SCH (08:05)
[2020-10-23] MEDS: CHLORHEXIDINE GLUCONATE 15 ML CUP MUCOUS MEM SCH ×2 (08:05→19:50)
[2020-10-23] MEDS: TIMOLOL 0.5% OPHTH DROPS 5 ML BTL BOTH EYES SCH (08:06)
[2020-10-23 09:31] LABS: Glucose,Whole Blood 127 mg/dL (75-99)
[2020-10-23 09:57] LABS: Glucose,Whole Blood 144 mg/dL (75-99)
[2020-10-23] MEDS: CISATRACURIUM 200 MG in SODIUM CHLORIDE 0.9% 180 ML IV SCH (10:17)
[2020-10-23] MEDS: NOREPINEPHRINE 8 MG in SODIUM CHLORIDE 0.9% 250 ML IV SCH (10:19)
[2020-10-23 11:26] LABS: Glucose,Whole Blood 139 mg/dL (75-99)
[2020-10-23 11:33] LABS: Ferritin 515.9 ng/mL (22.0-322.0)
--- NOTE | 2020-10-23 11:36 | PN ---
PROGRESS NOTE PULMONARY/CRITICAL CARE PROGRESS NOTE: DATE OF SERVICE: 10/23/2020 Critical care time 33 minutes. This is a 75-year-old male who was admitted back on October 11. He was admitted with a diagnosis of COVID-19 pneumonia/pneumonitis. He came to the ICU on October 13. He was intubated on October 18. He had a cardiopulmonary arrest briefly after intubation on October 18. He was in PEA. The resuscitation lasted just for a few minutes. Currently, when initially seen, he was on pressure assist control, the pressure 22, inspiratory time of 0.76, rate of 30, FiO2 of 60% PEEP of 16. His blood gases showed a pO2 of 55, pCO2 of 38, and pH of 7.40. We switched him to VC plus with inspiratory time of 0.7 seconds to a targeted tidal volume of 450, rate of 38, FiO2 of 60% PEEP of 16. Repeat blood gases will be done. The patient appeared to be a bit more comfortable on VC plus modality rather than pressure assist-control. He was less dyssynchronous on pressure regulated volume control. Currently, he is on saline at 75 mL an hour, fentanyl at 1 mcg/kg per hour, Diprivan at 30 mcg/kg per minute and Vital high-protein at 40, which is goal. Current vital signs are reviewed. His temperature is 99.2, T-max in the last 24 hours was 100.2, heart rate 63, respiratory rate 28, blood pressure 99/55 with mean of 69, and saturations are in the high 80s and low 90s. Appears in no acute distress. Currently sedated. HEENT: Examination is grossly unremarkable. He has an orally placed endotracheal tube and NG tube. Neck is supple, full range of motion. No adenopathy. Neck veins are flat. CARDIOVASCULAR: Examination reveals regular rhythm and rate. Heart rate in the mid 60s. S1, S2 normal. There is no murmur. Heart sounds are distant. LUNGS: Reveal diffuse coarse rhonchi. There are some bilateral crackles. No wheezes. Abdomen is soft, bowel sounds are heard. EXTREMITIES: Intact. Mild edema. SKIN: Without rash. NEUROLOGIC: Examination could not be adequately assessed because of his fentanyl and propofol. CURRENT LABORATORY DATA: Reviewed. White count 9.4, hemoglobin 10.6, hematocrit 33.1, platelet count 112,000, D- dimer is 6.35, PO2 is 55, pCO2 of 38, pH 7.40. Saturations are 89%. Sodium 144, potassium 4.7, chloride 118, CO2 is 26, anion gap is 0. BUN and creatinine were 43 and 0.74. Calcium 7.3, LDH 1337. C-reactive protein is 58.9 and interleukin 6 level on 10/19 was 128.2. Microbiology including blood and sputum sampling is negative. The most recent chest x-ray shows diffuse bilateral patchy infiltrates. Endotracheal tube is in good position. CURRENT MEDICATIONS: Reviewed. The patient is on Tylenol, albuterol inhaler, Artificial Tears, vitamin C, aspirin, atenolol, Lipitor, chlorhexidine, Cleviprex, Librax, Decadron, Lovenox, fentanyl, insulin, Imdur, Xalatan eye drops, Ativan, Cozaar, Singulair, Narcan, sublingual nitroglycerin, norepinephrine, Protonix, propofol, Ranexa, timolol eye drops, and Tramadol. ASSESSMENT: 1. Acute hypoxemic respiratory failure secondary to COVID-19 pneumonia, with acute lung injury, requiring intubation and mechanical ventilation on October 18. 2. Brief cardiac arrest, with PA, lasting just for a couple of minutes, with cardiopulmonary resuscitation and return of spontaneous circulation. 3. Benign essential hypertension. 4. Hyperlipidemia. 5. Obesity. PLAN: The patient is currently receiving fentanyl and Diprivan for sedation. The patient is being enterally nourished at goal. We did make a change in the ventilator settings going from pressure assist control to pressure regulated volume control or VC plus. He seems to be a bit more synchronous. Will assess that as we go along. Additional recommendations and suggestions are forthcoming. The patient did receive both Remdesivir and 2 units convalescent plasma. Other medications are reviewed. Will continue to follow. Prognosis is guarded. Additional recommendations and suggestions are forthcoming. Critical care time 33 minutes. MMODL / IJN: [id number] /
[2020-10-23 12:03] LABS: Glucose,Whole Blood 167 mg/dL (75-99)
[2020-10-23 13:35] LABS: Glucose,Whole Blood 181 mg/dL (75-99)
[2020-10-23 14:26] LABS: Glucose,Whole Blood 176 mg/dL (75-99)
[2020-10-23 15:25] LABS: Glucose,Whole Blood 174 mg/dL (75-99)
[2020-10-23 16:05] LABS: Glucose,Whole Blood 183 mg/dL (75-99)
[2020-10-23 17:26] LABS: Glucose,Whole Blood 199 mg/dL (75-99)
[2020-10-23 17:51] LABS: Glucose,Whole Blood 177 mg/dL (75-99)
[2020-10-23 19:11] LABS: Glucose,Whole Blood 157 mg/dL (75-99)
[2020-10-23] MEDS: LATANOPROST 0.005% OPHTH DROPS 2.5 ML BTL BOTH EYES SCH (19:50)
[2020-10-23] MEDS: ASCORBIC ACID 500 MG TAB PO SCH (19:50)
[2020-10-23 20:05] LABS: Glucose,Whole Blood 154 mg/dL (75-99)
[2020-10-23 21:14] LABS: Glucose,Whole Blood 178 mg/dL (75-99)
[2020-10-23 22:32] LABS: Glucose,Whole Blood 157 mg/dL (75-99)
[2020-10-23 23:33] LABS: Glucose,Whole Blood 142 mg/dL (75-99)
[2020-10-24] MEDS: fentaNYL (PF) 1,000 MCG in SODIUM CHLORIDE 0.9% 80 ML IV SCH ×3 (00:21→17:42)
[2020-10-24 00:27] LABS: Glucose,Whole Blood 136 mg/dL (75-99)
--- NOTE | 2020-10-24 00:46 | P.PN ---
Subjective Progress Note Date: 10/23/20 Principal diagnosis: Acute hypoxic respiratory failure secondary to Covid pneumonia 10/14/2020, the patient has been placed on a BiPAP at a pressure of 12/6 with an FiO2 of 100%. Initially was on regular oxygen flowing he was switched to high flow ox ygen 6 L and upon further decompensation, the patient was placed on a BiPAP. He is resting comfortably in bed. Patient is on IV Decadron. He is also on Lovenox for DVT prophylaxis. Patient didn't qualify for Remdesivir and he was given convalescent plasma one unit yesterday. His most recent blood gases from yesterday and no follow-up blood gases has been obtained today. He is looking lethargic. Is getting progressively more weak. A repeat chest x-ray is recommended by pulmonary and recommended transfer to ICU 10/15/2022 The patient got transferred to the intensive care unit because of worsening in hypoxemia and acute hypoxic respiratory failure; chest x-ray showing diffuse bilateral pulmonary infiltrates with groundglass changes Bilaterally more so on the right compared to the left. The patient is on a BiPAP. The patient is currently on IV Decadron. The patient received convalescent plasma. He did not qualify for Remdesivir. His repeat coronavirus/Covid 19 PCR was sent and this is still pending. He is on Lovenox at a dose of 40 mg subcu on a daily basis. Overnight, he became quite restless and agitated. He was started on Precedex; emains in the 100% on his BiPAP and his pulse ox is ranging between 86 and 90%. D-dimer is elevated at 21.7. His d-dimer is elevated and the patient's Lovenox will be adjusted to half a dose twice a day. He is in a normal sinus rhythm for now. 10/16/20 Patient currently remains in the MICU.. on BiPAP on FiO2 100%. Awake and alert. chest x-ray showed diffuse bilateral reticular nodular infiltrates without significant interval change. Patient has been afebrile today. Laboratory data showed absolute lymphocyte count 0.3, d-dimer level is 34.1 and BUN 28 and creatinine 0.76, ferritin level is 1318 and LDH is 2279 CRP to 25.9 pro calcitonin level is 0.08 not elevated Patient is being continued on Remdesivir. Pulmonary is following. 10/17/2020 Patient is currently on BiPAP with FiO2 100%. Remains in the MICU. Continued on Remdesivir, dexamethasone and patient received convalescent plasma. Continue on Lovenox subcu 50 g every 12 Chest x-ray showed bilateral interstitial infiltrates without much change from previous exam. Still having elevated inflammatory markers. 10/18/20 Patient is currently in the MICU. Intubated today. Patient was tachypneic and was in respiratory distress. Eventually patient was intubated. Currently sedated. FiO2 100% and PEEP of 16. Chest x-ray showed worsening interstitial infiltrates bilaterally. Code status discussed with with his by pulmonary. CODE STATUS was changed to DO NOT RESUSCITATE/DO NOT INTUBATE. 10/19/2020 Patient remained on mechanical ventilator. FiO2 90%. Currently sedated and on muscle relaxants. Patient is requiring pressor support with norepinephrine. Otherwise being continued on remdesivir, dexamethasone and Lovenox subcu 50 g twice daily. Chest x-ray showed bilateral interstitial infiltrates. Laboratory data reviewed. Inflammatory markers are still elevated significantly. Pulmonary is on board. Patient has been afebrile otherwise. Sodium level increased to 140 today and BUN 52 and creatinine 1.27 10/20/2020 Patient is currently on mechanical ventilator. Remains in the MICU. On pressor support. IV fluids changed to D5 water due to hyponatremia. Patient completed remdesivir course. And on dexamethasone and Lovenox 80 mg every 12. ABG showed pH 7.42, pCO2 38 and pO2 93 on 60% FiO2. Laboratory data showed obesity (0.7, hemoglobin 11.9 and platelets 155 Sodium 150, potassium 4.3, chloride 121, BUN 50 and creatinine 1.11 Patient still has elevated in [place] markers. Chest x-ray showed diffuse increase in lung markings can be compatible with atypical pneumonia or pulmonary edema. NG tube could be advanced 6-10 cm. Tolerating tube feeding. 10/21/2020 Patient remains in ICU and is on mechanical ventilator. Currently at FiO2 55% and PEEP of 16. Patient completed remdesivir course. Was also given convalescent plasma. Sodium level improved to 145 today. BUN 49 and creatinine 0.93. Still having elevated inflammatory markers. Chest x-ray showed stable diffuse interstitial changes with basilar infiltrate or atelectasis. Correlate interstitial pneumonia otherwise consider CHF. Patient is being continued on dexamethasone 6 mg daily. Pulmonary is following. 10/22/2020 Patient is currently on mechanical ventilator and sedated. Currently FiO2 55%. Chest x-ray showed patchy bilateral infiltrates remains unchanged. Patient is being continued dexamethasone 6 mg daily and Lovenox 80 mg twice daily. Patient is off pressor support. Patient was given remdesivir and convalescent plasma. Patient has been afebrile. Laboratory data showed hemoglobin 9.0, WBC 8.1, sodium 144, BUN 49 and creatinine 0.94 Ferritin level is 367.2 today. CRP 29.2 and LDH 1141 10/23/2020 Patient is currently in the MICU and is intubated and on mechanical ventilator. ABG showed pH of 7.4, PCO2 38 and PO2 55 on 60% FiO2. Chest x-ray showed bilateral airspace infiltrates persist with a decrease in lung bases. Laboratory showed WBC 9.4, hemoglobin 10.6 and platelets 112 BUN 43 and creatinine 0.74 Calcium 7.3 ferritin 515, LDH 1337, CRP 58.9 Pulmonary is on board. Current Medications Reviewed. Objective - Vital Signs Vital signs: Vital Signs Temp 98.5 F 10/23/20 20:00 Pulse 53 L 10/23/20 20:00 Resp 38 H 10/23/20 20:00 BP 107/51 10/23/20 20:00 Pulse Ox 91 L 10/23/20 20:00 Intake & Output 10/23/20 10/23/20 10/24/20 06:59 18:59 06:59 Intake Total 1119.904 6305.601 368.997 Output Total 1045 695 100 Balance 517.416 8147.601 268.997 Weight 103 kg 103 kg Intake: IV 900 900 150 Sodium Chloride 0.9% 1, 900 900 150 000 ml @ 75 mls/hr IV . [id number] Rx#:[id number] Intake, IV Titration 292.540 288.601 71.997 Amount Insulin Regular 100 unit 27.530 18.963 In Sodium Chloride 0.9% 100 ml @ Per Protocol IV .Q0M JOE Rx#:[id number] fentaNYL (PF) 1,000 mcg 95.96 100 In Sodium Chloride 0.9% 80 ml @ Per Protocol IV . Q0M JOE Rx#:[id number] propofoL 1,000 mg In 169.050 169.638 71.997 Empty Bag 1 bag @ Titrate IV .Q0M [facility] Rx#: [id number] Tube Feeding 440 440 80 Other 202 234 67 Output: Urine 1045 695 100 Other: Voiding Method Indwelling Catheter Indwelling Catheter ABP, PAP, CO, CI - Last Documented Arterial Blood Pressure 07/12 - Exam - Exam GENERAL: The patient is currently intubated and on mechanical ventilator. Sedated.. HEENT: Pupils are round and equally reacting to light. EOMI. No scleral icterus. No conjunctival pallor. Normocephalic, atraumatic. No pharyngeal erythema. No thyromegaly. CARDIOVASCULAR: S1 and S2 present. No murmurs, rubs, or gallops. PULMONARY: Coarse breath sounds bilaterally, no wheezing or crackles. ABDOMEN: Soft, nontender, nondistended, normoactive bowel sounds. No palpable organomegaly. MUSCULOSKELETAL: No joint swelling or deformity. EXTREMITIES: No cyanosis, clubbing, or pedal edema. NEUROLOGICAL: Gross neurological examination did not reveal any focal deficits. SKIN: No rashes. - Labs CBC & Chem 7: 10/23/20 05:22 10/23/20 05:22 Labs: Abnormal Lab Results - Last 24 Hours (Table) 10/22/20 10/22/20 10/22/20 Range/Units 21:11 22:17 23:02 RBC (4.30-5.90) m/uL Hgb (13.0-17.5) gm/dL Hct (39.0-53.0) % Plt Count (150-450) k/uL Neutrophils # (1.3-7.7) k/uL Lymphocytes # (1.0-4.8) k/uL D-Dimer (<0.60) mg/L FEU ABG pO2 (83-108) mmHg ABG O2 Saturation (94-97) % Chloride (98-107) mmol/L BUN (9-20) mg/dL Glucose (74-99) mg/dL POC Glucose (mg/dL) 153 H 142 H 159 H (75-99) mg/dL Calcium (8.4-10.2) mg/dL Ferritin (22.0-322.0) ng/mL Lactate Dehydrogenase (313-618) U/L C-Reactive Protein (<10.0) mg/L Total Protein (6.3-8.2) g/dL Albumin (3.5-5.0) g/dL 10/23/20 10/23/20 10/23/20 Range/Units 00:07 01:14 03:19 RBC (4.30-5.90) m/uL Hgb (13.0-17.5) gm/dL Hct (39.0-53.0) % Plt Count (150-450) k/uL Neutrophils # (1.3-7.7) k/uL Lymphocytes # (1.0-4.8) k/uL D-Dimer (<0.60) mg/L FEU ABG pO2 (83-108) mmHg ABG O2 Saturation (94-97) % Chloride (98-107) mmol/L BUN (9-20) mg/dL Glucose (74-99) mg/dL POC Glucose (mg/dL) 130 H 134 H 133 H (75-99) mg/dL Calcium (8.4-10.2) mg/dL Ferritin (22.0-322.0) ng/mL Lactate Dehydrogenase (313-618) U/L C-Reactive Protein (<10.0) mg/L Total Protein (6.3-8.2) g/dL Albumin (3.5-5.0) g/dL 10/23/20 10/23/20 10/23/20 Range/Units 04:14 05:03 05:21 RBC (4.30-5.90) m/uL Hgb (13.0-17.5) gm/dL Hct (39.0-53.0) % Plt Count (150-450) k/uL Neutrophils # (1.3-7.7) k/uL Lymphocytes # (1.0-4.8) k/uL D-Dimer (<0.60) mg/L FEU ABG pO2 55 L* (83-108) mmHg ABG O2 Saturation 88.8 L (94-97) % Chloride (98-107) mmol/L BUN (9-20) mg/dL Glucose (74-99) mg/dL POC Glucose (mg/dL) 110 H 113 H (75-99) mg/dL Calcium (8.4-10.2) mg/dL Ferritin (22.0-322.0) ng/mL Lactate Dehydrogenase (313-618) U/L C-Reactive Protein (<10.0) mg/L Total Protein (6.3-8.2) g/dL Albumin (3.5-5.0) g/dL 10/23/20 10/23/20 10/23/20 Range/Units 05:22 05:22 05:22 RBC 3.33 L (4.30-5.90) m/uL Hgb 10.6 L (13.0-17.5) gm/dL Hct 33.1 L (39.0-53.0) % Plt Count 112 L (150-450) k/uL Neutrophils # 8.5 H (1.3-7.7) k/uL Lymphocytes # 0.5 L (1.0-4.8) k/uL D-Dimer 6.35 H (<0.60) mg/L FEU ABG pO2 (83-108) mmHg ABG O2 Saturation (94-97) % Chloride 118 H (98-107) mmol/L BUN 43 H (9-20) mg/dL Glucose 114 H (74-99) mg/dL POC Glucose (mg/dL) (75-99) mg/dL Calcium 7.3 L (8.4-10.2) mg/dL Ferritin 515.9 H (22.0-322.0) ng/mL Lactate Dehydrogenase 1337 H (313-618) U/L C-Reactive Protein 58.9 H (<10.0) mg/L Total Protein 4.5 L (6.3-8.2) g/dL Albumin 2.0 L (3.5-5.0) g/dL 10/23/20 10/23/20 10/23/20 Range/Units 06:50 07:56 09:29 RBC (4.30-5.90) m/uL Hgb (13.0-17.5) gm/dL Hct (39.0-53.0) % Plt Count (150-450) k/uL Neutrophils # (1.3-7.7) k/uL Lymphocytes # (1.0-4.8) k/uL D-Dimer (<0.60) mg/L FEU ABG pO2 (83-108) mmHg ABG O2 Saturation (94-97) % Chloride (98-107) mmol/L BUN (9-20) mg/dL Glucose (74-99) mg/dL POC Glucose (mg/dL) 116 H 111 H 127 H (75-99) mg/dL Calcium (8.4-10.2) mg/dL Ferritin (22.0-322.0) ng/mL Lactate Dehydrogenase (313-618) U/L C-Reactive Protein (<10.0) mg/L Total Protein (6.3-8.2) g/dL Albumin (3.5-5.0) g/dL 10/23/20 10/23/20 10/23/20 Range/Units 09:56 11:24 12:01 RBC (4.30-5.90) m/uL Hgb (13.0-17.5) gm/dL Hct (39.0-53.0) % Plt Count (150-450) k/uL Neutrophils # (1.3-7.7) k/uL Lymphocytes # (1.0-4.8) k/uL D-Dimer (<0.60) mg/L FEU ABG pO2 (83-108) mmHg ABG O2 Saturation (94-97) % Chloride (98-107) mmol/L BUN (9-20) mg/dL Glucose (74-99) mg/dL POC Glucose (mg/dL) 144 H 139 H 167 H (75-99) mg/dL Calcium (8.4-10.2) mg/dL Ferritin (22.0-322.0) ng/mL Lactate Dehydrogenase (313-618) U/L C-Reactive Protein (<10.0) mg/L Total Protein (6.3-8.2) g/dL Albumin (3.5-5.0) g/dL 10/23/20 10/23/20 10/23/20 Range/Units 13:33 14:25 15:24 RBC (4.30-5.90) m/uL Hgb (13.0-17.5) gm/dL Hct (39.0-53.0) % Plt Count (150-450) k/uL Neutrophils # (1.3-7.7) k/uL Lymphocytes # (1.0-4.8) k/uL D-Dimer (<0.60) mg/L FEU ABG pO2 (83-108) mmHg ABG O2 Saturation (94-97) % Chloride (98-107) mmol/L BUN (9-20) mg/dL Glucose (74-99) mg/dL POC Glucose (mg/dL) 181 H 176 H 174 H (75-99) mg/dL Calcium (8.4-10.2) mg/dL Ferritin (22.0-322.0) ng/mL Lactate Dehydrogenase (313-618) U/L C-Reactive Protein (<10.0) mg/L Total Protein (6.3-8.2) g/dL Albumin (3.5-5.0) g/dL 10/23/20 10/23/20 10/23/20 Range/Units 16:04 17:25 17:50 RBC (4.30-5.90) m/uL Hgb (13.0-17.5) gm/dL Hct (39.0-53.0) % Plt Count (150-450) k/uL Neutrophils # (1.3-7.7) k/uL Lymphocytes # (1.0-4.8) k/uL D-Dimer (<0.60) mg/L FEU ABG pO2 (83-108) mmHg ABG O2 Saturation (94-97) % Chloride (98-107) mmol/L BUN (9-20) mg/dL Glucose (74-99) mg/dL POC Glucose (mg/dL) 183 H 199 H 177 H (75-99) mg/dL Calcium (8.4-10.2) mg/dL Ferritin (22.0-322.0) ng/mL Lactate Dehydrogenase (313-618) U/L C-Reactive Protein (<10.0) mg/L Total Protein (6.3-8.2) g/dL Albumin (3.5-5.0) g/dL 10/23/20 10/23/20 Range/Units 19:10 20:02 RBC (4.30-5.90) m/uL Hgb (13.0-17.5) gm/dL Hct (39.0-53.0) % Plt Count (150-450) k/uL Neutrophils # (1.3-7.7) k/uL Lymphocytes # (1.0-4.8) k/uL D-Dimer (<0.60) mg/L FEU ABG pO2 (83-108) mmHg ABG O2 Saturation (94-97) % Chloride (98-107) mmol/L BUN (9-20) mg/dL Glucose (74-99) mg/dL POC Glucose (mg/dL) 157 H 154 H (75-99) mg/dL Calcium (8.4-10.2) mg/dL Ferritin (22.0-322.0) ng/mL Lactate Dehydrogenase (313-618) U/L C-Reactive Protein (<10.0) mg/L Total Protein (6.3-8.2) g/dL Albumin (3.5-5.0) g/dL Assessment and Plan Assessment: -Acute hypoxic respiratory failure: Secondary to COVID 19 pneumonia.. Computed tomography scan findings are consistent with ARDS. Patient is being continued on BiPAP--> on mechanical ventilator.. Continue with dexamethasone, Lovenox and was given convulsant plasma.. -Coronary artery disease with previous history of bypass surgery hyperlipidemia -Hypertension -Hypovolemic hyponatremia: Hydrochlorothiazide was discontinued patient was started on IV fluids -acute renal failure secondary to infection and possible ATN.. Time with Patient: Greater than 30
[2020-10-24 01:42] LABS: Glucose,Whole Blood 168 mg/dL (75-99)
[2020-10-24] MEDS: ARTIFICIAL TEARS-HYPROMELLOSE DROPS 15 ML BTL BOTH EYES SCH ×5 (01:55→19:38)
[2020-10-24 02:26] LABS: Glucose,Whole Blood 125 mg/dL (75-99)
[2020-10-24 03:40] LABS: Glucose,Whole Blood 129 mg/dL (75-99)
[2020-10-24 04:52] LABS: Basophils % (A) 0 %; Eosinophils % (A) 0 %; HGB 9.6 gm/dL (13.0-17.5); Hypochromasia Slight; Lymphocytes # (A) 0.4 k/uL (1.0-4.8); Lymphocytes % (A) 3 %; MCH 30.6 pg (25.0-35.0); MCV 98.8 fL (80.0-100.0); Mean Platelet Volume 10.6; Monocytes # (A) 0.2 k/uL (0-1.0); Monocytes % (A) 2 %; Neutrophils # (A) 10.4 k/uL (1.3-7.7); Neutrophils % (A) 94 %; Platelet Count 115 k/uL (150-450); RBC 3.14 m/uL (4.30-5.90); RDW 13.6 % (11.5-15.5); WBC 11.1 k/uL (3.8-10.6)
[2020-10-24 05:13] LABS: Glucose,Whole Blood 114 mg/dL (75-99)
[2020-10-24 05:19] LABS: ABG Base Excess -2.3 mmol/L; ABG HCO3 23 mmol/L (21-25); ABG Oxygen Saturation 90.1 % (94-97); ABG PCO2 40 mmHg (35-45); ABG PH 7.37 (7.35-7.45); ABG PO2 60 mmHg (83-108); ABG TCO2 24 mmol/L (19-24); Allen Test Performed? Yes
[2020-10-24 05:28] LABS: ALT 22 U/L (4-49); AST 27 U/L (17-59); African American GFR (CKD) >90 (>60 ml/min/1.73 sqM); Albumin 1.9 g/dL (3.5-5.0); Alkaline Phosphatase 46 U/L (38-126); Anion Gap 2 mmol/L; Blood Urea Nitrogen 40 mg/dL (9-20); C Reactive Protein 88.4 mg/L (<10.0); Calcium 7.5 mg/dL (8.4-10.2); Carbon Dioxide 25 mmol/L (22-30); Chloride 117 mmol/L (98-107); Creatine Kinase 146 U/L (55-170); Glucose 128 mg/dL (74-99); LDH 1258 U/L (313-618); Non-African American GFR(CKD) 86 (>60 ml/min/1.73 sqM); Potassium 4.4 mmol/L (3.5-5.1); Sodium 144 mmol/L (137-145); Total Bilirubin 0.4 mg/dL (0.2-1.3); Total Protein 4.2 g/dL (6.3-8.2)
[2020-10-24 06:03] LABS: Glucose,Whole Blood 127 mg/dL (75-99)
[2020-10-24] MEDS: SODIUM CHLORIDE 0.9% 1,000 ML IV SCH ×2 (06:06→13:41)
[2020-10-24 06:58] LABS: Glucose,Whole Blood 88 mg/dL (75-99)
--- NOTE | 2020-10-24 07:29 | XR ---
EXAMINATION TYPE: XR chest 1V portable DATE OF EXAM: 10/24/2020 COMPARISON: Prior chest x-ray 10/23/2020 HISTORY: Intubated TECHNIQUE: Single frontal view of the chest is obtained. FINDINGS: Endotracheal tube and NG tube are overlying appropriate position, lung bases not entirely included on exam, distal tip of the NG tube not seen. Patient is post median sternotomy. Heart size i s stable and within normal limits. Interstitium is diffusely increased as on prior exam, likely there is mixed airspace disease. No evident pneumothorax. The hemidiaphragms remain obscured. IMPRESSION: Findings are similar to prior exam, correlate for congestive heart failure, pneumonia, A RDS.
[2020-10-24] MEDS: DEXAMETHASONE SOD PHOSPHATE 10 MG/ML 1 ML VIAL IV SCH (07:41)
[2020-10-24] MEDS: LOSARTAN 50 MG TAB PO SCH (07:43)
[2020-10-24] MEDS: CHLORHEXIDINE GLUCONATE 15 ML CUP MUCOUS MEM SCH ×2 (07:43→19:37)
[2020-10-24] MEDS: PANTOPRAZOLE 40 MG/10 ML VIAL IVP SCH (07:43)
[2020-10-24] MEDS: ASPIRIN 81 MG PO SCH (07:43)
[2020-10-24] MEDS: atenoloL 25 MG TAB PO SCH (07:44)
[2020-10-24] MEDS: RANOLAZINE 500 MG TAB.ER.12H PO SCH ×2 (07:44→19:37)
[2020-10-24] MEDS: ENOXAPARIN 80 MG/0.8 ML SYRINGE SQ SCH ×2 (07:44→19:37)
[2020-10-24] MEDS: ALBUTEROL HFA INHALER INHALATION SCH ×4 (07:55→21:08)
[2020-10-24 08:04] LABS: Glucose,Whole Blood 115 mg/dL (75-99)
[2020-10-24] MEDS ORDERED: CISATRACURIUM 2 MG/ML 5 ML VIAL IV ONE (08:44)
[2020-10-24] MEDS: CISATRACURIUM 200 MG in SODIUM CHLORIDE 0.9% 180 ML IV SCH ×2 (09:12→19:39)
[2020-10-24 09:27] LABS: Glucose,Whole Blood 119 mg/dL (75-99)
[2020-10-24] MEDS: TIMOLOL 0.5% OPHTH DROPS 5 ML BTL BOTH EYES SCH (09:44)
[2020-10-24 10:23] LABS: Glucose,Whole Blood 143 mg/dL (75-99)
--- NOTE | 2020-10-24 11:45 | PN ---
PROGRESS NOTE PULMONARY/CRITICAL CARE PROGRESS NOTE DATE OF SERVICE: October 24, 2020 CRITICAL CARE TIME: 33 minutes. This is a 75-year-old male who was admitted back on October 11. He was admitted with a diagnosis of COVID-19 pneumonia/pneumonitis. He came to the ICU on the 13 of October. He was intubated on October 18. He had a brief cardiopulmonary arrest after intubation. It was pulseless electrical activity according to the nurses. The resuscitation lasted only a few minutes before he had returned to spontaneous circulation. Currently, the patient remains on the ventilator and has not made much progress and in fact, overnight, he required higher doses of fentanyl and propofol because he was profoundly dyssynchronous with the ventilator. He is on the VC plus modality or pressure regulated volume control with a targeted tidal volume of 450 and an inspiratory time of 0.7 seconds. His rate is 38. His FiO2 is 60%, PEEP is 16. Gases show pO2 of 60, pCO2 of 40 and a pH of 7.37. Currently, he is on 0.9 at 75 mL an hour, fentanyl at 2 mcg/kg per hour, propofol at 50 mcg/kg per minute and Vital high- protein at 40 with a goal of 40 mL an hour and insulin has been turned off. Because of the dyssynchrony and his difficulty currently on the ventilator, the patient will get 10 of Nimbex IV push and be started on Nimbex drip at 2 mcg/kg per minute. Will also do [id number] monitoring. His overall prognosis remains poor. PHYSICAL EXAMINATION: VITAL SIGNS: Current vital signs include a temperature 99.5, heart rate 64, respiratory rate 38, blood pressure 135/63, mean 87 and saturations between 86% and 90% on the 60 FiO2 and 16 of PEEP. GENERAL: Appears sedated. Uncomfortable on the ventilator. Quite dyssynchronous currently. HEENT: Examination is grossly unremarkable. There is an orally placed endotracheal tube and NG tube. NECK: Supple. Full range of motion. No adenopathy. Neck veins are flat. CARDIOVASCULAR: Examination reveals a regular rhythm rate. Heart rate 64 to 75 beats per minute. S1, S2 normal. Heart sounds are distant. LUNGS: Reveal diffuse coarse rhonchi. Breath sounds equal. ABDOMEN: Soft. Bowel sounds are noted. EXTREMITIES: Are intact. Minimal edema. SKIN: Without rash. NEUROLOGIC: Examination cannot be adequately assessed because of his level of sedation. LABS: Labs are reviewed. White count 11.1, hemoglobin 9.6, hematocrit 31.0, platelet count 115,000. Blood gases have been noted. Repeat blood gases are currently pending. Sodium 144, potassium 4.4 chloride 117, CO2 of 25. Anion gap is 2. BUN and creatinine were 40 and 0.83. Calcium 7.5. Ferritin 702. LDH 1258. C-reactive protein 88.4. Albumin 1.9. Microbiology is currently all negative. Chest x-ray shows diffuse bilateral airspace disease. CURRENT MEDICATIONS: Current medications are reviewed. He is on Tylenol, albuterol inhaler, Artificial Tears, vitamin C, aspirin, Tenormin, chlorhexidine, Nimbex with a Nimbex drip, Decadron, Lovenox, fentanyl, insulin, eye drops, Cozaar, Narcan, Protonix, propofol, Ranexa, saline IV, and additional eye drops. ASSESSMENT: 1. Acute hypoxemic respiratory failure secondary to COVID-19 pneumonia with acute lung injury, requiring intubation and mechanical ventilation on October 18 and failure to wean from mechanical ventilation. 2. Brief cardiac arrest with PEA, lasting just a few minutes, with cardiopulmonary resuscitation and return of spontaneous circulation. 3. Benign essential hypertension. 4. Hyperlipidemia. 5. Obesity. PLAN: The patient is dyssynchronous with the ventilator. Last night they went up on sedation and fentanyl. Today we will go ahead and institute paralysis with Nimbex 10 mg IV push and a Nimbex drip at 2 mcg/kg per minute. Yesterday at the bedside we tried different modalities of ventilation including pressure assist-control, volume assist-control and pressure regulated volume control. It appeared the latter was best suited for the patient. Currently, he appears very uncomfortable. Additional recommendations and suggestions are forthcoming. Prognosis is guarded. His overall prognosis remains poor given the fact that he has not made much or any progression. CRITICAL CARE TIME: 33 minutes. MMHARMONYL / IJN: [id number] /
[2020-10-24 12:43] LABS: Glucose,Whole Blood 182 mg/dL (75-99)
[2020-10-24 13:53] LABS: ABG PO2 55 mmHg (83-108)
[2020-10-24 13:55] LABS: Glucose,Whole Blood 193 mg/dL (75-99)
[2020-10-24 16:23] LABS: Glucose,Whole Blood 217 mg/dL (75-99)
[2020-10-24 17:02] LABS: ABG Base Excess -4.8 mmol/L; ABG HCO3 22 mmol/L (21-25); ABG PCO2 45 mmHg (35-45); ABG PH 7.29 (7.35-7.45); ABG PO2 79 mmHg (83-108); ABG TCO2 23 mmol/L (19-24); Allen Test Performed? Yes
[2020-10-24 17:04] LABS: ABG Oxygen Saturation 95.9 % (94-97)
[2020-10-24 17:21] LABS: Glucose,Whole Blood 206 mg/dL (75-99)
[2020-10-24 18:54] LABS: Glucose,Whole Blood 185 mg/dL (75-99)
[2020-10-24 19:08] LABS: Glucose,Whole Blood 180 mg/dL (75-99)
[2020-10-24] MEDS: ASCORBIC ACID 500 MG TAB PO SCH (19:37)
[2020-10-24] MEDS: LATANOPROST 0.005% OPHTH DROPS 2.5 ML BTL BOTH EYES SCH (19:38)
[2020-10-24 19:54] LABS: Glucose,Whole Blood 183 mg/dL (75-99)
[2020-10-24] MEDS: INSULIN REGULAR 100 UNIT in SODIUM CHLORIDE 0.9% 100 ML IV SCH (20:22)
[2020-10-24 21:01] LABS: Glucose,Whole Blood 187 mg/dL (75-99)
[2020-10-24 22:47] LABS: Glucose,Whole Blood 176 mg/dL (75-99)
[2020-10-25 00:23] LABS: Glucose,Whole Blood 145 mg/dL (75-99)
[2020-10-25] MEDS: ARTIFICIAL TEARS-HYPROMELLOSE DROPS 15 ML BTL BOTH EYES SCH ×6 (00:35→20:59)
[2020-10-25 02:02] LABS: Glucose,Whole Blood 136 mg/dL (75-99)
[2020-10-25] MEDS: fentaNYL (PF) 1,000 MCG in SODIUM CHLORIDE 0.9% 80 ML IV SCH ×2 (03:03→14:26)
[2020-10-25 03:08] LABS: Glucose,Whole Blood 137 mg/dL (75-99)
[2020-10-25 03:53] LABS: Glucose,Whole Blood 153 mg/dL (75-99)
[2020-10-25 04:48] LABS: Glucose,Whole Blood 142 mg/dL (75-99)
[2020-10-25 04:59] LABS: Basophils % (A) 0 %; Eosinophils % (A) 0 %; HCT 27.7 % (39.0-53.0); HGB 9.1 gm/dL (13.0-17.5); Hypochromasia Moderate; Lymphocytes # (A) 0.3 k/uL (1.0-4.8); Lymphocytes % (A) 3 %; MCH 32.8 pg (25.0-35.0); MCHC 32.8 g/dL (31.0-37.0); Mean Platelet Volume 10.3; Monocytes # (A) 0.3 k/uL (0-1.0); Monocytes % (A) 3 %; Neutrophils # (A) 7.8 k/uL (1.3-7.7); Neutrophils % (A) 93 %; Platelet Count 100 k/uL (150-450); RBC 2.77 m/uL (4.30-5.90); RDW 13.5 % (11.5-15.5); WBC 8.5 k/uL (3.8-10.6)
[2020-10-25 05:19] LABS: ABG Base Excess -2.3 mmol/L; ABG HCO3 24 mmol/L (21-25); ABG Oxygen Saturation 93.9 % (94-97); ABG PCO2 46 mmHg (35-45); ABG PH 7.32 (7.35-7.45); ABG PO2 69 mmHg (83-108); ABG TCO2 25 mmol/L (19-24); Allen Test Performed? Yes
[2020-10-25 05:35] LABS: ALT 25 U/L (4-49); AST 27 U/L (17-59); African American GFR (CKD) >90 (>60 ml/min/1.73 sqM); Albumin 1.9 g/dL (3.5-5.0); Alkaline Phosphatase 48 U/L (38-126); Anion Gap -1 mmol/L; Blood Urea Nitrogen 46 mg/dL (9-20); Calcium 7.4 mg/dL (8.4-10.2); Carbon Dioxide 25 mmol/L (22-30); Chloride 119 mmol/L (98-107); Creatine Kinase 92 U/L (55-170); Glucose 132 mg/dL (74-99); LDH 914 U/L (313-618); Non-African American GFR(CKD) 85 (>60 ml/min/1.73 sqM); Potassium 4.8 mmol/L (3.5-5.1); Sodium 143 mmol/L (137-145); Total Bilirubin 0.4 mg/dL (0.2-1.3); Total Protein 4.2 g/dL (6.3-8.2)
[2020-10-25 05:47] LABS: C Reactive Protein 169.1 mg/L (<10.0)
[2020-10-25 06:04] LABS: Glucose,Whole Blood 114 mg/dL (75-99)
[2020-10-25 07:00] LABS: Glucose,Whole Blood 124 mg/dL (75-99)
--- NOTE | 2020-10-25 07:29 | XR ---
EXAMINATION TYPE: XR chest 1V portable DATE OF EXAM: 10/25/2020 COMPARISON: 10/24/2020 HISTORY: SOB, Follow Up FINDINGS: Indwelling tubes and catheters are unchanged. Persistent scattered reticulonodular infiltrates throughout both lung nagel greatest at the lung bas es. Stable appearance of the cardio-mediastinal structures at this time. Pleural effusion unchanged. IMPRESSION: 1. Stable portable chest. Clinical correlation and follow up until resolution is recommended.
[2020-10-25] MEDS: ALBUTEROL HFA INHALER INHALATION SCH ×4 (07:54→20:51)
[2020-10-25 07:56] LABS: Glucose,Whole Blood 120 mg/dL (75-99)
[2020-10-25] MEDS: CHLORHEXIDINE GLUCONATE 15 ML CUP MUCOUS MEM SCH ×2 (08:21→20:56)
[2020-10-25] MEDS: ZINC SULFATE 220 MG CAP PO SCH (08:22)
[2020-10-25] MEDS: DEXAMETHASONE SOD PHOSPHATE 10 MG/ML 1 ML VIAL IV SCH (08:22)
[2020-10-25] MEDS: ENOXAPARIN 80 MG/0.8 ML SYRINGE SQ SCH ×2 (08:22→20:58)
[2020-10-25] MEDS: PANTOPRAZOLE 40 MG/10 ML VIAL IVP SCH (08:22)
[2020-10-25] MEDS: LOSARTAN 50 MG TAB PO SCH (08:22)
[2020-10-25] MEDS: ASPIRIN 81 MG PO SCH (08:22)
[2020-10-25] MEDS: CHOLECALCIFEROL 400 UNIT TAB PO SCH (08:23)
[2020-10-25] MEDS: atenoloL 25 MG TAB PO SCH (08:23)
[2020-10-25] MEDS: TIMOLOL 0.5% OPHTH DROPS 5 ML BTL BOTH EYES SCH (08:24)
[2020-10-25] MEDS: CISATRACURIUM 200 MG in SODIUM CHLORIDE 0.9% 180 ML IV SCH (08:24)
[2020-10-25] MEDS: RANOLAZINE 500 MG TAB.ER.12H PO SCH ×2 (08:24→20:59)
[2020-10-25] MEDS: SODIUM CHLORIDE 0.9% 1,000 ML IV SCH (08:25)
[2020-10-25 08:40] LABS: Glucose,Whole Blood 118 mg/dL (75-99)
[2020-10-25] MEDS ORDERED: FUROSEMIDE 10 MG/ML 4 ML VIAL IV STA (08:57)
--- NOTE | 2020-10-25 11:00 | PN ---
PROGRESS NOTE PULMONARY/CRITICAL CARE PROGRESS NOTE: DATE OF SERVICE: October 25, 2020 CRITICAL CARE TIME: 34 minutes. A 75-year-old male admitted to the hospital on October 11. He was admitted with a diagnosis of COVID-19 pneumonia/pneumonitis. The patient came to the ICU on 13 of October. He was intubated on October 18. He did have a brief episode of cardiopulmonary arrest after intubation with pulseless electrical activity, requiring a brief period of cardiopulmonary resuscitation and eventual return of spontaneous circulation. He remains on mechanical ventilator. He is on the VC plus mode, rate 38, a targeted tidal volume 450, inspiratory time 0.7 seconds, FiO2 60%, PEEP of 16. Blood gases show pO2 of 69, pCO2 of 46 and a pH of 7.32. Currently, he is going to get Lasix 40 mg IV push. We are only going to give him one dose. In addition, we will switch him to NovoLog sliding scale q.4 or q.6 hours and turn his IV down to 0.9 at KVO. The patient is currently on Nimbex at 2 mcg/kg per minute, 0.9 at 75 mL an hour to be turned down to KVO, propofol at 35 mcg/kg per minute, fentanyl at 1 mcg/kg per hour, insulin which is off and vital high-protein at 40 with a goal of 40 mL an hour. We decided to paralyze the patient yesterday because of patient ventilator dyssynchrony. PHYSICAL EXAMINATION: VITAL SIGNS: Current vital signs include a temperature 98.3, heart rate 52, respiratory rate 38, blood pressure 120/58, mean 78, saturation 91%. GENERAL: Appears in no acute distress. HEENT: Examination is grossly unremarkable. NECK: Supple. Full range of motion. No adenopathy. Neck veins are flat. CARDIOVASCULAR: Examination reveals regular rhythm and rate. Heart rate 52 beats per minute. S1, S2 normal. LUNGS: Reveal diffuse coarse rhonchi. ABDOMEN: Soft. Bowel sounds are heard. EXTREMITIES: Are intact. No cyanosis or clubbing. He does have significant edema. There is also some diffuse anasarca. SKIN: Without rash except for areas of ecchymoses. NEUROLOGIC: Examination cannot be adequately assessed given the fact that he is currently on fentanyl, Diprivan and Nimbex. LABORATORY DATA: Current laboratory data is reviewed. His white count is 8.5, hemoglobin 9.1, hematocrit 27.7, platelet count 100,000. His D-dimer 3.89, which is coming down. Blood gases show pO2 of 69, pCO2 of 46 and pH of 7.32. His sodium 143, potassium 4.8, chloride 119, CO2 is 25. BUN and creatinine were 46 and 0.84. His LDH is 914, which is down from 1258 and C-reactive protein is 169.1. Albumin is 1.9. Microbiology is currently negative. Chest x-ray shows diffuse bilateral patchy infiltrates. CURRENT MEDICATIONS: Current medications are reviewed. He is on Tylenol, albuterol inhaler, Artificial Tears, vitamin C, aspirin, atenolol, chlorhexidine, vitamin D3, Nimbex, Decadron, Lovenox, fentanyl, NovoLog sliding scale, eye drops, losartan, Narcan, Protonix, propofol, Ranexa, and zinc. ASSESSMENT: 1. Acute hypoxemic respiratory failure secondary to COVID-19 pneumonia with acute lung injury, requiring intubation mechanical ventilation on October 18 and failure to wean from mechanical ventilation. 2. Brief cardiac arrest with PEA, lasting just a few minutes, with cardiopulmonary resuscitation and eventual return of spontaneous circulation. 3. Benign essential hypertension. 4. Hyperlipidemia. 5. Obesity. 6. Patient/ventilator dyssynchrony. PLAN: Because the patient was dyssynchronous on the ventilator, we started Nimbex yesterday. We will write for a good 48 hours. Currently, he remains on propofol and fentanyl. Doses have been given above. He remains on tube feeds which is at goal at 40 mL an hour. He will get a dose of Lasix 40 mg IV push. His insulin drip will be discontinued in favor of NovoLog sliding scale, every 4 or every 6 hours. In addition, the patient's IV is turned down from 75 mL an hour to KVO. Overall prognosis remains guarded. We will continue to follow. CRITICAL CARE TIME: 34 minutes. MMHARMONYL / IJN: [id number] /
[2020-10-25 11:45] LABS: Glucose,Whole Blood 157 mg/dL (75-99)
[2020-10-25] MEDS: INSULIN ASPART (NovoLOG) 100 UNIT/ML VIAL SQ SCH ×3 (11:51→20:57)
--- NOTE | 2020-10-25 14:26 | P.PN ---
Subjective Progress Note Date: 10/24/20 Principal diagnosis: Acute hypoxic respiratory failure 10/14/2020, the patient has been placed on a BiPAP at a pressure of 12/6 with an FiO2 of 100%. Initially was on regular oxygen flowing he was switched to high flow oxygen 6 L and upon further decompensation, the patient was placed on a BiPAP. He is resting comfortably in bed. Patient is on IV Decadron. He is also on Lovenox for DVT prophylaxis. Patient didn't qualify for Remdesivir and he was given convalescent plasma one unit yesterday. His most recent blood gases from yesterday and no follow-up blood gases has been obtained today. He is looking lethargic. Is getting progressively more weak. A repeat chest x-ray is recommended by pulmonary and recommended transfer to ICU 10/15/2022 The patient got transferred to the intensive care unit because of worsening in hypoxemia and acute hypoxic respiratory failure; chest x-ray showing diffuse bilateral pulmonary infiltrates with groundglass changes Bilaterally more so on the right compared to the left. The patient is on a BiPAP. The patient is currently on IV Decadron. The patient received convalescent plasma. He did not qualify for Remdesivir. His repeat coronavirus/Covid 19 PCR was sent and this is still pending. He is on Lovenox at a dose of 40 mg subcu on a daily basis. Overnight, he became quite restless and agitated. He was started on Precedex; emains in the 100% on his BiPAP and his pulse ox is ranging between 86 and 90%. D-dimer is elevated at 21.7. His d-dimer is elevated and the patient's Lovenox will be adjusted to half a dose twice a day. He is in a normal sinus rhythm for now. 10/24/2020 Patient is seen and evaluated at bedside in ICU; patient remains intubated and mechanically ventilated requiring higher doses of fentanyl and propofol; religious assistant service planning to start patient on Nimbex drip; prognosis remains guarded Objective - Vital Signs Vital signs: Vital Signs Temp 99.2 F 10/24/20 12:00 Pulse 59 L 10/24/20 13:00 Resp 38 H 10/24/20 13:00 BP 96/51 10/24/20 13:00 Pulse Ox 88 L 10/24/20 13:00 Intake & Output 10/23/20 10/24/20 10/24/20 18:59 06:59 18:59 Intake Total 8670.444 7579.577 995.503 Output Total 695 980 465 Balance 1167.601 932.577 530.503 Weight 103 kg 105.1 kg Intake: IV 900 900 525 Sodium Chloride 0.9% 1, 900 900 525 000 ml @ 75 mls/hr IV . [id number] JOE Rx#:[id number] Intake, IV Titration 288.601 331.577 163.503 Amount Insulin Regular 100 unit 18.963 14.460 0 In Sodium Chloride 0.9% 100 ml @ Per Protocol IV .Q0M JOE Rx#:[id number] fentaNYL (PF) 1,000 mcg 100 143.859 47.630 In Sodium Chloride 0.9% 80 ml @ Per Protocol IV . Q0M JOE Rx#:[id number] propofoL 1,000 mg In 169.638 173.258 115.873 Empty Bag 1 bag @ Titrate IV .Q0M JOE Rx#: [id number] Tube Feeding 440 480 240 Other 234 201 67 Output: Urine 695 980 465 Other: Voiding Method Indwelling Catheter Indwelling Catheter Indwelling Catheter ABP, PAP, CO, CI - Last Documented Arterial Blood Pressure 07/12 - Exam GENERAL: The patient remains intubated and mechanically ventilated HEENT: Pupils are round and equally reacting to light. CARDIOVASCULAR: S1 and S2 present. No murmurs, rubs, or gallops. PULMONARY: Chest is clear to auscultation, no wheezing or crackles. ABDOMEN: Soft, nontender, nondistended, normoactive bowel sounds. No palpable organomegaly. MUSCULOSKELETAL: No joint swelling or deformity. EXTREMITIES: No cyanosis, clubbing, or pedal edema. NEUROLOGICAL: Unable to evaluate SKIN: No rashes. - Labs CBC & Chem 7: 10/25/20 04:40 10/25/20 04:40 Labs: Abnormal Lab Results - Last 24 Hours (Table) 10/23/20 10/23/20 10/23/20 Range/Units 13:33 14:25 15:24 WBC (3.8-10.6) k/uL RBC (4.30-5.90) m/uL Hgb (13.0-17.5) gm/dL Hct (39.0-53.0) % Plt Count (150-450) k/uL Neutrophils # (1.3-7.7) k/uL Lymphocytes # (1.0-4.8) k/uL ABG pO2 (83-108) mmHg ABG O2 Saturation (94-97) % Chloride (98-107) mmol/L BUN (9-20) mg/dL Glucose (74-99) mg/dL POC Glucose (mg/dL) 181 H 176 H 174 H (75-99) mg/dL Calcium (8.4-10.2) mg/dL Ferritin (22.0-322.0) ng/mL Lactate Dehydrogenase (313-618) U/L C-Reactive Protein (<10.0) mg/L Total Protein (6.3-8.2) g/dL Albumin (3.5-5.0) g/dL 10/23/20 10/23/20 10/23/20 Range/Units 16:04 17:25 17:50 WBC (3.8-10.6) k/uL RBC (4.30-5.90) m/uL Hgb (13.0-17.5) gm/dL Hct (39.0-53.0) % Plt Count (150-450) k/uL Neutrophils # (1.3-7.7) k/uL Lymphocytes # (1.0-4.8) k/uL ABG pO2 (83-108) mmHg ABG O2 Saturation (94-97) % Chloride (98-107) mmol/L BUN (9-20) mg/dL Glucose (74-99) mg/dL POC Glucose (mg/dL) 183 H 199 H 177 H (75-99) mg/dL Calcium (8.4-10.2) mg/dL Ferritin (22.0-322.0) ng/mL Lactate Dehydrogenase (313-618) U/L C-Reactive Protein (<10.0) mg/L Total Protein (6.3-8.2) g/dL Albumin (3.5-5.0) g/dL 10/23/20 10/23/20 10/23/20 Range/Units 19:10 20:02 21:12 WBC (3.8-10.6) k/uL RBC (4.30-5.90) m/uL Hgb (13.0-17.5) gm/dL Hct (39.0-53.0) % Plt Count (150-450) k/uL Neutrophils # (1.3-7.7) k/uL Lymphocytes # (1.0-4.8) k/uL ABG pO2 (83-108) mmHg ABG O2 Saturation (94-97) % Chloride (98-107) mmol/L BUN (9-20) mg/dL Glucose (74-99) mg/dL POC Glucose (mg/dL) 157 H 154 H 178 H (75-99) mg/dL Calcium (8.4-10.2) mg/dL Ferritin (22.0-322.0) ng/mL Lactate Dehydrogenase (313-618) U/L C-Reactive Protein (<10.0) mg/L Total Protein (6.3-8.2) g/dL Albumin (3.5-5.0) g/dL 10/23/20 10/23/20 10/24/20 Range/Units 22:31 23:31 00:25 WBC (3.8-10.6) k/uL RBC (4.30-5.90) m/uL Hgb (13.0-17.5) gm/dL Hct (39.0-53.0) % Plt Count (150-450) k/uL Neutrophils # (1.3-7.7) k/uL Lymphocytes # (1.0-4.8) k/uL ABG pO2 (83-108) mmHg ABG O2 Saturation (94-97) % Chloride (98-107) mmol/L BUN (9-20) mg/dL Glucose (74-99) mg/dL POC Glucose (mg/dL) 157 H 142 H 136 H (75-99) mg/dL Calcium (8.4-10.2) mg/dL Ferritin (22.0-322.0) ng/mL Lactate Dehydrogenase (313-618) U/L C-Reactive Protein (<10.0) mg/L Total Protein (6.3-8.2) g/dL Albumin (3.5-5.0) g/dL 10/24/20 10/24/20 10/24/20 Range/Units 01:40 02:25 03:38 WBC (3.8-10.6) k/uL RBC (4.30-5.90) m/uL Hgb (13.0-17.5) gm/dL Hct (39.0-53.0) % Plt Count (150-450) k/uL Neutrophils # (1.3-7.7) k/uL Lymphocytes # (1.0-4.8) k/uL ABG pO2 (83-108) mmHg ABG O2 Saturation (94-97) % Chloride (98-107) mmol/L BUN (9-20) mg/dL Glucose (74-99) mg/dL POC Glucose (mg/dL) 168 H 125 H 129 H (75-99) mg/dL Calcium (8.4-10.2) mg/dL Ferritin (22.0-322.0) ng/mL Lactate Dehydrogenase (313-618) U/L C-Reactive Protein (<10.0) mg/L Total Protein (6.3-8.2) g/dL Albumin (3.5-5.0) g/dL 10/24/20 10/24/20 10/24/20 Range/Units 04:40 04:40 05:11 WBC 11.1 H (3.8-10.6) k/uL RBC 3.14 L (4.30-5.90) m/uL Hgb 9.6 L (13.0-17.5) gm/dL Hct 31.0 L (39.0-53.0) % Plt Count 115 L (150-450) k/uL Neutrophils # 10.4 H (1.3-7.7) k/uL Lymphocytes # 0.4 L (1.0-4.8) k/uL ABG pO2 60 L (83-108) mmHg ABG O2 Saturation 90.1 L (94-97) % Chloride 117 H (98-107) mmol/L BUN 40 H (9-20) mg/dL Glucose 128 H (74-99) mg/dL POC Glucose (mg/dL) (75-99) mg/dL Calcium 7.5 L (8.4-10.2) mg/dL Ferritin 702.0 H (22.0-322.0) ng/mL Lactate Dehydrogenase 1258 H (313-618) U/L C-Reactive Protein 88.4 H (<10.0) mg/L Total Protein 4.2 L (6.3-8.2) g/dL Albumin 1.9 L (3.5-5.0) g/dL 10/24/20 10/24/20 10/24/20 Range/Units 05:12 06:02 08:03 WBC (3.8-10.6) k/uL RBC (4.30-5.90) m/uL Hgb (13.0-17.5) gm/dL Hct (39.0-53.0) % Plt Count (150-450) k/uL Neutrophils # (1.3-7.7) k/uL Lymphocytes # (1.0-4.8) k/uL ABG pO2 (83-108) mmHg ABG O2 Saturation (94-97) % Chloride (98-107) mmol/L BUN (9-20) mg/dL Glucose (74-99) mg/dL POC Glucose (mg/dL) 114 H 127 H 115 H (75-99) mg/dL Calcium (8.4-10.2) mg/dL Ferritin (22.0-322.0) ng/mL Lactate Dehydrogenase (313-618) U/L C-Reactive Protein (<10.0) mg/L Total Protein (6.3-8.2) g/dL Albumin (3.5-5.0) g/dL 10/24/20 10/24/20 10/24/20 Range/Units 09:25 10:22 12:42 WBC (3.8-10.6) k/uL RBC (4.30-5.90) m/uL Hgb (13.0-17.5) gm/dL Hct (39.0-53.0) % Plt Count (150-450) k/uL Neutrophils # (1.3-7.7) k/uL Lymphocytes # (1.0-4.8) k/uL ABG pO2 (83-108) mmHg ABG O2 Saturation (94-97) % Chloride (98-107) mmol/L BUN (9-20) mg/dL Glucose (74-99) mg/dL POC Glucose (mg/dL) 119 H 143 H 182 H (75-99) mg/dL Calcium (8.4-10.2) mg/dL Ferritin (22.0-322.0) ng/mL Lactate Dehydrogenase (313-618) U/L C-Reactive Protein (<10.0) mg/L Total Protein (6.3-8.2) g/dL Albumin (3.5-5.0) g/dL Assessment and Plan Assessment: -Acute hypoxic respiratory failure: Possibly of a cough with 19 pneumonitis cannot be ruled out in spite of negative PCR. Patient may have a some other viral pneumonia as well. Computed tomography scan findings are consistent with ARDS. We'll continue with respiratory support. Patient is on systemic steroids. He is also on Lovenox. -Coronary artery disease with previous history of bypass surgery hyperlipidemia -Hypertension -Hypovolemic hyponatremia: Hydrochlorothiazide will be discontinued patient was started on IV fluids next and have an acute renal failure secondary to diuretics and and evidence of medications which will be held as mentioned above.
--- NOTE | 2020-10-25 14:54 | P.PN ---
Subjective Progress Note Date: 10/25/20 Principal diagnosis: Acute hypoxic respiratory failure 10/14/2020, the patient has been placed on a BiPAP at a pressure of 12/6 with an FiO2 of 100%. Initially was on regular oxygen flowing he was switched to high flow oxygen 6 L and upon further decompensation, the patient was placed on a BiPAP. He is resting comfortably in bed. Patient is on IV Decadron. He is also on Lovenox for DVT prophylaxis. Patient didn't qualify for Remdesivir and he was given convalescent plasma one unit yesterday. His most recent blood gases from yesterday and no follow-up blood gases has been obtained today. He is looking lethargic. Is getting progressively more weak. A repeat chest x-ray is recommended by pulmonary and recommended transfer to ICU 10/15/2022 The patient got transferred to the intensive care unit because of worsening in hypoxemia and acute hypoxic respiratory failure; chest x-ray showing diffuse bilateral pulmonary infiltrates with groundglass changes Bilaterally more so on the right compared to the left. The patient is on a BiPAP. The patient is currently on IV Decadron. The patient received convalescent plasma. He did not qualify for Remdesivir. His repeat coronavirus/Covid 19 PCR was sent and this is still pending. He is on Lovenox at a dose of 40 mg subcu on a daily basis. Overnight, he became quite restless and agitated. He was started on Precedex; emains in the 100% on his BiPAP and his pulse ox is ranging between 86 and 90%. D-dimer is elevated at 21.7. His d-dimer is elevated and the patient's Lovenox will be adjusted to half a dose twice a day. He is in a normal sinus rhythm for now. 10/24/2020 Patient is seen and evaluated at bedside in ICU; patient remains intubated and mechanically ventilated requiring higher doses of fentanyl and propofol; management department chair service planning to start patient on Nimbex drip; prognosis remains gua 10/25/2020 Patient is seen and evaluated in ICU; remains intubated and mechanically vent ilated Patient received a dose of IV Lasix 40 mg 1 and IV fluids have been turned down to KVO; patient remains on Nimbex due to ventilator dyssynchrony; patient remains on propofol and fentanyl; currently on tube feedings with plans to reach a goal of 40 m/h; insulin drip has been discontinued and patient will have Accu- Cheks every 4 hours with sliding scale Overall prognosis remains guarded Objective - Vital Signs Vital signs: Vital Signs Temp 97.8 F 10/25/20 12:00 Pulse 52 L 10/25/20 14:00 Resp 39 H 10/25/20 14:00 BP 101/57 10/25/20 14:00 Pulse Ox 92 L 10/25/20 14:00 Intake & Output 10/24/20 10/25/20 10/25/20 18:59 06:59 18:59 Intake Total 2029.853 0212.719 6296.212 Output Total 686 963 2322 Balance 8509.340 3703.868 -394.788 Weight 109 kg Intake: IV 900 900 275 Sodium Chloride 0.9% 1, 900 900 275 000 ml @ 10 mls/hr IV . Q24H JOE Rx#:[id number] Intake, IV Titration 448.853 350.868 336.212 Amount Cisatracurium 200 mg In 131.795 160.803 Sodium Chloride 0.9% 180 ml @ 1 MCG/KG/MIN 6.306 mls/hr IV .Q24H JOE Rx#: [id number] Insulin Regular 100 unit 15.445 29.500 In Sodium Chloride 0.9% 100 ml @ Per Protocol IV .Q0M JOE Rx#:[id number] fentaNYL (PF) 1,000 mcg 136.453 89.573 100 In Sodium Chloride 0.9% 80 ml @ Per Protocol IV . Q0M JOE Rx#:[id number] propofoL 1,000 mg In 296.955 100 75.409 Empty Bag 1 bag @ Titrate IV .Q0M JOE Rx#: [id number] Tube Feeding 480 480 320 Other 201 201 134 Output: Urine 660 874 3230 Other: Voiding Method Indwelling Catheter Indwelling Catheter Indwelling Catheter ABP, PAP, CO, CI - Last Documented Arterial Blood Pressure 07/12 - Exam GENERAL: The patient remains intubated and mechanically ventilated HEENT: Pupils are round and equally reacting to light. CARDIOVASCULAR: S1 and S2 present. No murmurs, rubs, or gallops. PULMONARY: Chest is clear to auscultation, no wheezing or crackles. ABDOMEN: Soft, nontender, nondistended, normoactive bowel sounds. No palpable organomegaly. MUSCULOSKELETAL: No joint swelling or deformity. EXTREMITIES: No cyanosis, clubbing, or pedal edema. NEUROLOGICAL: Unable to evaluate SKIN: No rashes. - Labs CBC & Chem 7: 10/25/20 04:40 10/25/20 04:40 Labs: Abnormal Lab Results - Last 24 Hours (Table) 10/24/20 10/24/20 10/24/20 Range/Units 16:21 16:49 17:20 RBC (4.30-5.90) m/uL Hgb (13.0-17.5) gm/dL Hct (39.0-53.0) % Plt Count (150-450) k/uL Neutrophils # (1.3-7.7) k/uL Lymphocytes # (1.0-4.8) k/uL D-Dimer (<0.60) mg/L FEU ABG pH 7.29 L (7.35-7.45) ABG pCO2 (35-45) mmHg ABG pO2 79 L (83-108) mmHg ABG Total CO2 (19-24) mmol/L ABG O2 Saturation (94-97) % Chloride (98-107) mmol/L BUN (9-20) mg/dL Glucose (74-99) mg/dL POC Glucose (mg/dL) 217 H 206 H (75-99) mg/dL Calcium (8.4-10.2) mg/dL Lactate Dehydrogenase (313-618) U/L C-Reactive Protein (<10.0) mg/L Total Protein (6.3-8.2) g/dL Albumin (3.5-5.0) g/dL 10/24/20 10/24/20 10/24/20 Range/Units 18:07 19:06 19:53 RBC (4.30-5.90) m/uL Hgb (13.0-17.5) gm/dL Hct (39.0-53.0) % Plt Count (150-450) k/uL Neutrophils # (1.3-7.7) k/uL Lymphocytes # (1.0-4.8) k/uL D-Dimer (<0.60) mg/L FEU ABG pH (7.35-7.45) ABG pCO2 (35-45) mmHg ABG pO2 (83-108) mmHg ABG Total CO2 (19-24) mmol/L ABG O2 Saturation (94-97) % Chloride (98-107) mmol/L BUN (9-20) mg/dL Glucose (74-99) mg/dL POC Glucose (mg/dL) 185 H 180 H 183 H (75-99) mg/dL Calcium (8.4-10.2) mg/dL Lactate Dehydrogenase (313-618) U/L C-Reactive Protein (<10.0) mg/L Total Protein (6.3-8.2) g/dL Albumin (3.5-5.0) g/dL 10/24/20 10/24/20 10/25/20 Range/Units 21:00 22:46 00:21 RBC (4.30-5.90) m/uL Hgb (13.0-17.5) gm/dL Hct (39.0-53.0) % Plt Count (150-450) k/uL Neutrophils # (1.3-7.7) k/uL Lymphocytes # (1.0-4.8) k/uL D-Dimer (<0.60) mg/L FEU ABG pH (7.35-7.45) ABG pCO2 (35-45) mmHg ABG pO2 (83-108) mmHg ABG Total CO2 (19-24) mmol/L ABG O2 Saturation (94-97) % Chloride (98-107) mmol/L BUN (9-20) mg/dL Glucose (74-99) mg/dL POC Glucose (mg/dL) 187 H 176 H 145 H (75-99) mg/dL Calcium (8.4-10.2) mg/dL Lactate Dehydrogenase (313-618) U/L C-Reactive Protein (<10.0) mg/L Total Protein (6.3-8.2) g/dL Albumin (3.5-5.0) g/dL 10/25/20 10/25/20 10/25/20 Range/Units 02:01 03:07 03:51 RBC (4.30-5.90) m/uL Hgb (13.0-17.5) gm/dL Hct (39.0-53.0) % Plt Count (150-450) k/uL Neutrophils # (1.3-7.7) k/uL Lymphocytes # (1.0-4.8) k/uL D-Dimer (<0.60) mg/L FEU ABG pH (7.35-7.45) ABG pCO2 (35-45) mmHg ABG pO2 (83-108) mmHg ABG Total CO2 (19-24) mmol/L ABG O2 Saturation (94-97) % Chloride (98-107) mmol/L BUN (9-20) mg/dL Glucose (74-99) mg/dL POC Glucose (mg/dL) 136 H 137 H 153 H (75-99) mg/dL Calcium (8.4-10.2) mg/dL Lactate Dehydrogenase (313-618) U/L C-Reactive Protein (<10.0) mg/L Total Protein (6.3-8.2) g/dL Albumin (3.5-5.0) g/dL 10/25/20 10/25/20 10/25/20 Range/Units 04:40 04:40 04:40 RBC 2.77 L (4.30-5.90) m/uL Hgb 9.1 L (13.0-17.5) gm/dL Hct 27.7 L (39.0-53.0) % Plt Count 100 L (150-450) k/uL Neutrophils # 7.8 H (1.3-7.7) k/uL Lymphocytes # 0.3 L (1.0-4.8) k/uL D-Dimer 3.89 H (<0.60) mg/L FEU ABG pH (7.35-7.45) ABG pCO2 (35-45) mmHg ABG pO2 (83-108) mmHg ABG Total CO2 (19-24) mmol/L ABG O2 Saturation (94-97) % Chloride 119 H (98-107) mmol/L BUN 46 H (9-20) mg/dL Glucose 132 H (74-99) mg/dL POC Glucose (mg/dL) (75-99) mg/dL Calcium 7.4 L (8.4-10.2) mg/dL Lactate Dehydrogenase 914 H (313-618) U/L C-Reactive Protein 169.1 H (<10.0) mg/L Total Protein 4.2 L (6.3-8.2) g/dL Albumin 1.9 L (3.5-5.0) g/dL 10/25/20 10/25/20 10/25/20 Range/Units 04:46 05:11 06:03 RBC (4.30-5.90) m/uL Hgb (13.0-17.5) gm/dL Hct (39.0-53.0) % Plt Count (150-450) k/uL Neutrophils # (1.3-7.7) k/uL Lymphocytes # (1.0-4.8) k/uL D-Dimer (<0.60) mg/L FEU ABG pH 7.32 L (7.35-7.45) ABG pCO2 46 H (35-45) mmHg ABG pO2 69 L (83-108) mmHg ABG Total CO2 25 H (19-24) mmol/L ABG O2 Saturation 93.9 L (94-97) % Chloride (98-107) mmol/L BUN (9-20) mg/dL Glucose (74-99) mg/dL POC Glucose (mg/dL) 142 H 114 H (75-99) mg/dL Calcium (8.4-10.2) mg/dL Lactate Dehydrogenase (313-618) U/L C-Reactive Protein (<10.0) mg/L Total Protein (6.3-8.2) g/dL Albumin (3.5-5.0) g/dL 10/25/20 10/25/20 10/25/20 Range/Units 06:59 07:54 08:39 RBC (4.30-5.90) m/uL Hgb (13.0-17.5) gm/dL Hct (39.0-53.0) % Plt Count (150-450) k/uL Neutrophils # (1.3-7.7) k/uL Lymphocytes # (1.0-4.8) k/uL D-Dimer (<0.60) mg/L FEU ABG pH (7.35-7.45) ABG pCO2 (35-45) mmHg ABG pO2 (83-108) mmHg ABG Total CO2 (19-24) mmol/L ABG O2 Saturation (94-97) % Chloride (98-107) mmol/L BUN (9-20) mg/dL Glucose (74-99) mg/dL POC Glucose (mg/dL) 124 H 120 H 118 H (75-99) mg/dL Calcium (8.4-10.2) mg/dL Lactate Dehydrogenase (313-618) U/L C-Reactive Protein (<10.0) mg/L Total Protein (6.3-8.2) g/dL Albumin (3.5-5.0) g/dL 10/25/20 Range/Units 11:43 RBC (4.30-5.90) m/uL Hgb (13.0-17.5) gm/dL Hct (39.0-53.0) % Plt Count (150-450) k/uL Neutrophils # (1.3-7.7) k/uL Lymphocytes # (1.0-4.8) k/uL D-Dimer (<0.60) mg/L FEU ABG pH (7.35-7.45) ABG pCO2 (35-45) mmHg ABG pO2 (83-108) mmHg ABG Total CO2 (19-24) mmol/L ABG O2 Saturation (94-97) % Chloride (98-107) mmol/L BUN (9-20) mg/dL Glucose (74-99) mg/dL POC Glucose (mg/dL) 157 H (75-99) mg/dL Calcium (8.4-10.2) mg/dL Lactate Dehydrogenase (313-618) U/L C-Reactive Protein (<10.0) mg/L Total Protein (6.3-8.2) g/dL Albumin (3.5-5.0) g/dL Assessment and Plan Assessment: -Acute hypoxic respiratory failure: Possibly of a cough with 19 pneumonitis cannot be ruled out in spite of negative PCR. Patient may have a some other viral pneumonia as well. Computed tomography scan findings are consistent with ARDS. We'll continue with respiratory support. Patient is on systemic st eroids. He is also on Lovenox. -Coronary artery disease with previous history of bypass surgery hyperlipidemia -Hypertension -Hypovolemic hyponatremia: Hydrochlorothiazide will be discontinued patient was started on IV fluids next and have an acute renal failure secondary to diuretics and and evidence of medications which will be held as mentioned above.
[2020-10-25 15:54] LABS: Glucose,Whole Blood 202 mg/dL (75-99)
[2020-10-25 18:04] LABS: Glucose,Whole Blood 176 mg/dL (75-99)
[2020-10-25 20:32] LABS: Glucose,Whole Blood 192 mg/dL (75-99)
[2020-10-25] MEDS: ASCORBIC ACID 500 MG TAB PO SCH (20:58)
[2020-10-25] MEDS: LATANOPROST 0.005% OPHTH DROPS 2.5 ML BTL BOTH EYES SCH (20:59)
[2020-10-26] MEDS: INSULIN ASPART (NovoLOG) 100 UNIT/ML VIAL SQ SCH ×6 (00:06→20:10)
[2020-10-26 00:07] LABS: Ferritin 575.4 ng/mL (22.0-322.0)
[2020-10-26] MEDS: CISATRACURIUM 200 MG in SODIUM CHLORIDE 0.9% 180 ML IV SCH ×2 (00:09→20:35)
[2020-10-26] MEDS: ARTIFICIAL TEARS-HYPROMELLOSE DROPS 15 ML BTL BOTH EYES SCH ×6 (00:25→19:40)
[2020-10-26] MEDS: SODIUM CHLORIDE 0.9% 1,000 ML IV SCH ×2 (00:31→19:40)
[2020-10-26] MEDS: fentaNYL (PF) 1,000 MCG in SODIUM CHLORIDE 0.9% 80 ML IV SCH ×2 (01:22→21:26)
[2020-10-26 05:07] LABS: Basophils % (A) 0 %; Eosinophils % (A) 0 %; HCT 27.9 % (39.0-53.0); HGB 8.6 gm/dL (13.0-17.5); Hypochromasia Moderate; Lymphocytes # (A) 0.4 k/uL (1.0-4.8); Lymphocytes % (A) 4 %; MCH 30.8 pg (25.0-35.0); MCHC 30.8 g/dL (31.0-37.0); MCV 99.8 fL (80.0-100.0); Monocytes # (A) 0.4 k/uL (0-1.0); Monocytes % (A) 4 %; Neutrophils # (A) 7.4 k/uL (1.3-7.7); Neutrophils % (A) 90 %; Platelet Count 129 k/uL (150-450); RDW 13.7 % (11.5-15.5); WBC 8.2 k/uL (3.8-10.6)
[2020-10-26 05:26] LABS: Allen Test Performed? Yes
[2020-10-26 05:28] LABS: ABG Base Excess 0.3 mmol/L; ABG HCO3 25 mmol/L (21-25); ABG Oxygen Saturation 95.2 % (94-97); ABG PCO2 43 mmHg (35-45); ABG PH 7.38 (7.35-7.45); ABG PO2 71 mmHg (83-108); ABG TCO2 27 mmol/L (19-24)
[2020-10-26 05:31] LABS: African American GFR (CKD) >90 (>60 ml/min/1.73 sqM); Anion Gap -1 mmol/L; Blood Urea Nitrogen 44 mg/dL (9-20); Calcium 7.7 mg/dL (8.4-10.2); Carbon Dioxide 29 mmol/L (22-30); Chloride 115 mmol/L (98-107); Glucose 123 mg/dL (74-99); Non-African American GFR(CKD) 86 (>60 ml/min/1.73 sqM); Potassium 4.8 mmol/L (3.5-5.1); Sodium 143 mmol/L (137-145)
[2020-10-26] MEDS: ALBUTEROL HFA INHALER INHALATION SCH ×4 (07:34→20:28)
[2020-10-26] MEDS: LOSARTAN 50 MG TAB PO SCH (08:11)
[2020-10-26] MEDS: ENOXAPARIN 80 MG/0.8 ML SYRINGE SQ SCH ×2 (08:12→19:38)
[2020-10-26] MEDS: PANTOPRAZOLE 40 MG/10 ML VIAL IVP SCH (08:12)
[2020-10-26] MEDS: DEXAMETHASONE SOD PHOSPHATE 10 MG/ML 1 ML VIAL IV SCH (08:12)
[2020-10-26] MEDS: ASPIRIN 81 MG PO SCH (08:12)
[2020-10-26] MEDS: CHLORHEXIDINE GLUCONATE 15 ML CUP MUCOUS MEM SCH ×2 (08:12→19:38)
[2020-10-26] MEDS: atenoloL 25 MG TAB PO SCH (08:12)
[2020-10-26] MEDS: ZINC SULFATE 220 MG CAP PO SCH (08:13)
[2020-10-26] MEDS: CHOLECALCIFEROL 400 UNIT TAB PO SCH (08:13)
[2020-10-26] MEDS: RANOLAZINE 500 MG TAB.ER.12H PO SCH ×2 (08:13→19:38)
[2020-10-26] MEDS: TIMOLOL 0.5% OPHTH DROPS 5 ML BTL BOTH EYES SCH (08:14)
[2020-10-26] MEDS ORDERED: FUROSEMIDE 10 MG/ML 4 ML VIAL IV STA (08:19)
--- NOTE | 2020-10-26 12:12 | PN ---
PROGRESS NOTE PULMONARY/CRITICAL CARE PROGRESS NOTE: DATE OF SERVICE: October 26, 2020 CRITICAL CARE TIME: 33 minutes. This is a 75-year-old male admitted to the hospital on October 11. He was admitted with a diagnosis of COVID-19 pneumonia/pneumonitis. The patient came to the ICU on the 13 of October. He was intubated on October 18. He also had a brief episode of cardiopulmonary arrest after intubation with pulseless electrical activity, requiring a brief period of cardiopulmonary resuscitation with eventual return of spontaneous circulation. He remains on the ventilator. He is on the pressure regulated pressure regulated volume control modality or VC plus, with a targeted tidal volume of 450, inspiratory timer or TI of 0.7 seconds, respiratory rate 38, FiO2 of 60%, PEEP of 16. Blood gases show pO2 of 71 pCO2 of 43 and a pH of 7.38. The patient is on Nimbex at 2 mcg/kg per minute with [id number] monitoring, saline at 10 mL an hour, propofol at 35 mcg/kg per minute, fentanyl at 1 mcg/kg per hour and Vital high-protein at 40 with a goal of 40 mL an hour. The patient is a DNR. The patient has really not made any progress. I am attempting to stabilize the patient with 48-hours of paralysis. We will let him off paralysis tomorrow. PHYSICAL EXAMINATION: VITAL SIGNS: Current vital signs reviewed. Temperature is 99.2, heart rate 68, respiratory rate 38, blood pressure 123/53, mean 76, saturations are right around 90%. GENERAL: He appears in no acute distress. Currently sedated heavily and paralyzed. HEENT: Examination is grossly unremarkable. He has got an orally placed endotracheal tube and NG tube. NECK: Supple. Full range of motion. No adenopathy. Neck veins are flat. CARDIOVASCULAR: Examination reveals regular rhythm and rate. Heart sounds are distant. S1, S2 normal. Heart rate 68. LUNGS: Reveal diffuse coarse rhonchi. Breath sounds equal. Few crackles are appreciated. ABDOMEN: Soft. Bowel sounds are heard. EXTREMITIES: Are intact. There is some edema. SKIN: Without rash. NEUROLOGIC: Examination cannot be adequately assessed. LABS: Labs are reviewed. White count 8.2, hemoglobin 8.6, hematocrit 27.9, platelet count 129,000. Blood gases have been noted. Sodium 143, potassium 4.8, chloride 115, CO2 of 29. BUN and creatinine were 44 and 0.82. Calcium 7.7. Microbiology is all negative. A chest x-ray that was done this morning shows diffuse patchy infiltrates. The chest x- ray is essentially unchanged in my opinion. CURRENT MEDICATIONS: Current medications are reviewed. The patient is currently on Tylenol, albuterol inhaler, Artificial Tears, vitamin C, aspirin, atenolol, chlorhexidine, vitamin D3, Nimbex, Decadron, Lovenox, fentanyl, insulin, eye drops, losartan, Narcan, Protonix, propofol, Ranexa, timolol, and zinc. ASSESSMENT: 1. Acute hypoxemic respiratory failure secondary to COVID-19 pneumonia with acute lung injury, requiring intubation mechanical ventilation on October 18 with failure to wean from mechanical ventilation. 2. Brief cardiac arrest with PEA, lasting just a few minutes, with cardiopulmonary resuscitation and eventual return of spontaneous circulation. 3. Benign essential hypertension. 4. Hyperlipidemia. 5. Obesity. 6. Patient/ventilator dyssynchrony, requiring heavy sedation and Nimbex. PLAN: The patient will be taken off the Nimbex tomorrow morning. The patient will get another dose of Lasix 40 mg IV push today. The patient is currently being sedated with both fentanyl and propofol. The patient is receiving Nimbex at 2 mcg/kg per minute with [id number] monitoring. Blood gases are reasonable. The patient is a DNR. Overall prognosis remains poor. We will probably talk to the family about comfort measures should he not improve. Additional recommendations and suggestions are forthcoming. CRITICAL CARE TIME: 33 minutes. VANDANA / CELINA: [phone] /
[2020-10-26] MEDS ORDERED: ACETAMINOPHEN IV (For NPO) 1,000 MG in EMPTY BAG 1 BAG IVPB PRN (18:14)
[2020-10-26] MEDS: ASCORBIC ACID 500 MG TAB PO SCH (19:40)
[2020-10-26] MEDS: LATANOPROST 0.005% OPHTH DROPS 2.5 ML BTL BOTH EYES SCH (19:40)
[2020-10-27] MEDS: ARTIFICIAL TEARS-HYPROMELLOSE DROPS 15 ML BTL BOTH EYES SCH ×7 (00:09→23:46)
[2020-10-27] MEDS: INSULIN ASPART (NovoLOG) 100 UNIT/ML VIAL SQ SCH ×7 (00:11→23:47)
[2020-10-27 04:58] LABS: Basophils % (A) 0 %; Eosinophils # (A) 0.1 k/uL (0-0.7); Eosinophils % (A) 1 %; HCT 30.1 % (39.0-53.0); HGB 9.5 gm/dL (13.0-17.5); Hypochromasia Slight; Lymphocytes # (A) 0.3 k/uL (1.0-4.8); Lymphocytes % (A) 5 %; MCH 31.4 pg (25.0-35.0); MCHC 31.5 g/dL (31.0-37.0); MCV 99.8 fL (80.0-100.0); Monocytes # (A) 0.3 k/uL (0-1.0); Monocytes % (A) 4 %; Neutrophils # (A) 6.4 k/uL (1.3-7.7); Neutrophils % (A) 90 %; Platelet Count 135 k/uL (150-450); RBC 3.01 m/uL (4.30-5.90); WBC 7.1 k/uL (3.8-10.6)
[2020-10-27 05:23] LABS: ABG HCO3 28 mmol/L (21-25); ABG PCO2 50 mmHg (35-45); ABG PH 7.36 (7.35-7.45); ABG TCO2 30 mmol/L (19-24); Allen Test Performed? Yes
[2020-10-27 05:28] LABS: ABG PO2 56 mmHg (83-108)
[2020-10-27 06:06] LABS: ALT 47 U/L (4-49); AST 32 U/L (17-59); African American GFR (CKD) >90 (>60 ml/min/1.73 sqM); Alkaline Phosphatase 55 U/L (38-126); Anion Gap 2 mmol/L; Blood Urea Nitrogen 47 mg/dL (9-20); Calcium 8.4 mg/dL (8.4-10.2); Carbon Dioxide 29 mmol/L (22-30); Chloride 113 mmol/L (98-107); Creatine Kinase 56 U/L (55-170); Glucose 137 mg/dL (74-99); LDH 694 U/L (313-618); Non-African American GFR(CKD) 78 (>60 ml/min/1.73 sqM); Potassium 4.9 mmol/L (3.5-5.1); Sodium 144 mmol/L (137-145); Total Bilirubin 0.5 mg/dL (0.2-1.3); Total Protein 4.4 g/dL (6.3-8.2)
[2020-10-27 06:38] LABS: C Reactive Protein 203.7 mg/L (<10.0)
[2020-10-27] MEDS: fentaNYL (PF) 1,000 MCG in SODIUM CHLORIDE 0.9% 80 ML IV SCH ×2 (07:17→17:52)
--- NOTE | 2020-10-27 07:17 | XR ---
EXAM: XR Chest, 1 View CLINICAL HISTORY: ITS.REASON XR Reason: COVID pna ARDS TECHNIQUE: Frontal view of the chest. COMPARISON: Chest x-ray dated 10/25/20 and 10/26/20 FINDINGS: Lungs: Extensive pulmonary opacities are seen bilaterally consistent with extensive pneumonitis. Findings appear similar. Pleural space: Unremarkable. No pneumothorax. Heart: Unremarkable. No cardiomegaly. Mediastinum: Compared to the prior study, there are slightly more linear lucencies in the superior mediastinum, question subtle pneumomediastinum. Subtle lucencies are also seen in bilateral perihilar regions as well. Bones/joints: Sternotomy wires. Degenerative changes of the spine.. Vasculature: Atherosclerosis of the aorta. Tubes, lines and devices: ET tube tip 6.7 cm above the melecio. Gastric tube tip within the proximal stomach. IMPRESSION: 1. ET tube tip 6.7 cm above the melecio. 2. Extensive pulmonary opacities are seen bilaterally consistent with extensive pneumonitis. Findings appear similar. 3. Compared to the prior study, there are slightly more linear lucencies in the superior mediastinum, question subtle pneumomediastinum. Subtle lucencies are also seen in bilateral perihilar regions as well. <MYCVCSECTION> Communications: 10/27/20 08:13 Call Doctor Regarding Above results, called Dr. Martinez on 10/27 08:13 (-05:00)
[2020-10-27] MEDS: LOSARTAN 50 MG TAB PO SCH (07:26)
[2020-10-27] MEDS: CHLORHEXIDINE GLUCONATE 15 ML CUP MUCOUS MEM SCH ×2 (07:26→20:28)
[2020-10-27] MEDS: PANTOPRAZOLE 40 MG/10 ML VIAL IVP SCH (07:26)
[2020-10-27] MEDS: DEXAMETHASONE SOD PHOSPHATE 10 MG/ML 1 ML VIAL IV SCH (07:26)
[2020-10-27] MEDS: CHOLECALCIFEROL 400 UNIT TAB PO SCH (07:26)
[2020-10-27] MEDS: RANOLAZINE 500 MG TAB.ER.12H PO SCH ×2 (07:27→20:28)
[2020-10-27] MEDS: ZINC SULFATE 220 MG CAP PO SCH (07:27)
[2020-10-27] MEDS: ENOXAPARIN 80 MG/0.8 ML SYRINGE SQ SCH ×2 (07:27→20:36)
[2020-10-27] MEDS: ASPIRIN 81 MG PO SCH (07:27)
[2020-10-27] MEDS: atenoloL 25 MG TAB PO SCH (07:27)
[2020-10-27] MEDS: ALBUTEROL HFA INHALER INHALATION SCH ×4 (07:58→20:18)
[2020-10-27] MEDS: TIMOLOL 0.5% OPHTH DROPS 5 ML BTL BOTH EYES SCH (08:06)
--- NOTE | 2020-10-27 09:41 | PN ---
PROGRESS NOTE PULMONARY/CRITICAL CARE PROGRESS NOTE: DATE OF SERVICE: 10/27/2020 Critical care time greater than 30 minutes. HISTORY OF PRESENT ILLNESS: A 75-year-old male admitted to the hospital on October 11. He was admitted with a diagnosis of COVID-19 pneumonia/pneumonitis and acute hypoxemic respiratory failure. Because of worsening hypoxemia, he was transferred to the ICU on the . He was intubated on the and remains on the mechanical ventilator. In addition, after he was intubated, there was a brief episode of cardiopulmonary arrest, requiring cardiopulmonary resuscitation. He had pulseless electrical activity during that period of time. He eventually had return of spontaneous circulation. He remains on the ventilator and the VC plus modality, with a targeted tidal volume of 450, inspiratory time of 0.7 seconds, FiO2 60%, PEEP of 16, a rate of 38. Blood gases show a pO2 of 56, a PaCO2 of 50, a pH of 7.36. Currently, the patient is on Vital high-protein at 47 cc an hour which is goal, Diprivan at 35 mcg/kg per minute, saline at 10 mL an hour, fentanyl at 1 mcg/kg per hour, Nimbex at 2 mcg/kg per minute. He has been on Nimbex because of ventilator patient dyssynchrony for 48 hours. We will stop the Nimbex today. I also took the time to call the . I spoke to her on the phone about the fact that her was not getting any better. He is currently a DO NOT RESUSCITATE. I think we are at the point right now whether we should consider withdrawing life support and instituting comfort measure orders. She was not in disagreement with that, but did not want to do it today. PHYSICAL EXAMINATION: VITAL SIGNS: Current vital signs are reviewed. His temperature is 100.3, respiratory rate is 38, heart rate is 86, blood pressure 106/52, mean 70, saturations are in the high 80s. Appears in no acute distress. Currently sedated and paralyzed. HEENT: Examination is grossly unremarkable. He has had an orally placed endotracheal tube and NG tube. NECK: Supple. Full range of motion. No adenopathy, thyromegaly or neck vein distention. CARDIOVASCULAR: Examination reveals regular rhythm and rate. Heart rate 72. S1, S2 normal. LUNGS: Reveal diffuse coarse rhonchi. Breath sounds equal. No wheezes. ABDOMEN: Soft. Bowel sounds are heard. EXTREMITIES: Reveal some edema. SKIN: Without rash. NEUROLOGIC: Examination could not be adequately assessed. LABS: Reviewed. White count 7.1, hemoglobin 9.5, hematocrit 30.1, platelet count 135,000. D- dimer 3.67. Blood gases have been noted. Sodium 144, potassium 4.9, chloride 113, CO2 29, anion gap is 2. BUN and creatinine were 47 and 0.95. LDH 694, bilirubin 0.5. C- reactive protein 4.4. Microbiology is negative. IMAGING: Chest x-ray from today continues to show diffuse bilateral infiltrates. The patient does have some subtle changes of pneumomediastinum. CURRENT MEDICATIONS: Reviewed. The patient is on Tylenol IV, albuterol inhaler, Artificial Tears, vitamin C, aspirin, atenolol, chlorhexidine, vitamin D3, Nimbex, which will be discontinued today, Decadron, Lovenox, fentanyl, insulin, eye drops, Cozaar, Narcan, Protonix, Diprivan, Ranexa, timolol, and zinc. ASSESSMENT: 1. Acute hypoxemic respiratory failure secondary to COVID-19 pneumonia, with development of acute respiratory distress syndrome, requiring intubation and mechanical ventilation on October 18, with failure to wean and progress off of mechanical ventilation. 2. Brief cardiac arrest with pulseless electrical activity (PEA), lasting just a few minutes, with cardiopulmonary resuscitation and eventual return of spontaneous circulation. 3. Benign essential hypertension. 4. Hyperlipidemia. 5. Obesity. 6. Patient/ventilator dyssynchrony, requiring heavy sedation and Nimbex. 7. Pneumomediastinum. PLAN: I did call the today. We spoke on the phone. I told her that I thought that her was not going to survive this illness. He is already a DNR. I talked to her about comfort measures. She was agreeable to this, but not today. Today we will DC the Nimbex. Additional recommendations and suggestions forthcoming. Prognosis is very poor. Critical care time greater than 30 minutes. MMHARMONYL / ALANN: [id number] / MTDD
[2020-10-27 10:57] LABS: Ferritin 530.8 ng/mL (22.0-322.0)
--- NOTE | 2020-10-27 14:19 | P.PN ---
Subjective Progress Note Date: 10/26/20 Principal diagnosis: Acute hypoxic respiratory failure 10/14/2020, the patient has been placed on a BiPAP at a pressure of 12/6 with an FiO2 of 100%. Initially was on regular oxygen flowing he was switched to high flow oxygen 6 L and upon further decompensation, the patient was placed on a BiPAP. He is resting comfortably in bed. Patient is on IV Decadron. He is also on Lovenox for DVT prophylaxis. Patient didn't qualify for Remdesivir and he was given convalescent plasma one unit yesterday. His most recent blood gases from yesterday and no follow-up blood gases has been obtained today. He is looking lethargic. Is getting progressively more weak. A repeat chest x-ray is recommended by pulmonary and recommended transfer to ICU 10/15/2022 The patient got transferred to the intensive care unit because of worsening in hypoxemia and acute hypoxic respiratory failure; chest x-ray showing diffuse bilateral pulmonary infiltrates with groundglass changes Bilaterally more so on the right compared to the left. The patient is on a BiPAP. The patient is currently on IV Decadron. The patient received convalescent plasma. He did not qualify for Remdesivir. His repeat coronavirus/Covid 19 PCR was sent and this is still pending. He is on Lovenox at a dose of 40 mg subcu on a daily basis. Overnight, he became quite restless and agitated. He was started on Precedex; emains in the 100% on his BiPAP and his pulse ox is ranging between 86 and 90%. D-dimer is elevated at 21.7. His d-dimer is elevated and the patient's Lovenox will be adjusted to half a dose twice a day. He is in a normal sinus rhythm for now. 10/24/2020 Patient is seen and evaluated at bedside in ICU; patient remains intubated and mechanically ventilated requiring higher doses of fentanyl and propofol; high school science teacher service planning to start patient on Nimbex drip; prognosis remains gua 10/25/2020 Patient is seen and evaluated in ICU; remains intubated and mechanically vent ilated Patient received a dose of IV Lasix 40 mg 1 and IV fluids have been turned down to KVO; patient remains on Nimbex due to ventilator dyssynchrony; patient remains on propofol and fentanyl; currently on tube feedings with plans to reach a goal of 40 m/h; insulin drip has been discontinued and patient will have Accu- Cheks every 4 hours with sliding scale Overall prognosis remains guarded 10/26/2020 Patient remains in ICU; intubated and mechanically ventilated; remains sedated and paralyzed on fentanyl, propofol and Nimbex; high school science teacher service planning to stabilize patient for 48 hours prior to discontinuing Nimbex tomorrow Vital signs with temperature of 99.2, heart rate 68, respiration 38 and blood pressure 123/53 Patient is received a dose of Lasix 40 mg IV 1; blood gases are reasonable; plan is to discontinue Nimbex in next 24 hours; patient has been made DO NOT RESUSCITATE due to overall poor prognosis; plan is to have a family meeting to discuss possible comfort measures if patient fails to improve Objective - Vital Signs Vital signs: Vital Signs Temp 100.7 F H 10/26/20 12:00 Pulse 84 10/26/20 15:00 Resp 38 H 10/26/20 15:00 BP 128/54 10/26/20 15:00 Pulse Ox 89 L 10/26/20 15:00 Intake & Output 10/25/20 10/26/20 10/26/20 18:59 06:59 18:59 Intake Total 3461.534 1867.139 510 Output Total 1775 1085 3225 Balance -379.788 310.139 -2715 Weight 109.4 kg 109.4 kg Intake: IV 315 120 90 Sodium Chloride 0.9% 1, 315 120 90 000 ml @ 10 mls/hr IV . Q24H JOE Rx#:[id number] Intake, IV Titration 436.212 585.139 Amount Cisatracurium 200 mg In 160.803 198.639 Sodium Chloride 0.9% 180 ml @ 1 MCG/KG/MIN 6.306 mls/hr IV .Q24H JOE Rx#: [id number] fentaNYL (PF) 1,000 mcg 100 100 In Sodium Chloride 0.9% 80 ml @ Per Protocol IV . Q0M JOE Rx#:[id number] propofoL 1,000 mg In 175.409 286.500 Empty Bag 1 bag @ Titrate IV .Q0M JOE Rx#: [id number] Tube Feeding 480 600 360 Other 164 90 60 Output: Urine 1775 1085 3225 Other: Voiding Method Indwelling Catheter Indwelling Catheter Indwelling Catheter ABP, PAP, CO, CI - Last Documented Arterial Blood Pressure 07/12 - Exam GENERAL: The patient remains intubated and mechanically ventilated HEENT: Pupils are round and equally reacting to light. CARDIOVASCULAR: S1 and S2 present. No murmurs, rubs, or gallops. PULMONARY: Chest is clear to auscultation, no wheezing or crackles. ABDOMEN: Soft, nontender, nondistended, normoactive bowel sounds. No palpable organomegaly. MUSCULOSKELETAL: No joint swelling or deformity. EXTREMITIES: No cyanosis, clubbing, or pedal edema. NEUROLOGICAL: Unable to evaluate SKIN: No rashes. - Labs CBC & Chem 7: 10/27/20 04:45 10/27/20 04:45 Labs: Abnormal Lab Results - Last 24 Hours (Table) 10/25/20 10/25/20 10/25/20 Range/Units 04:40 15:53 18:03 RBC (4.30-5.90) m/uL Hgb (13.0-17.5) gm/dL Hct (39.0-53.0) % MCHC (31.0-37.0) g/dL Plt Count (150-450) k/uL Lymphocytes # (1.0-4.8) k/uL ABG pO2 (83-108) mmHg ABG Total CO2 (19-24) mmol/L Chloride (98-107) mmol/L BUN (9-20) mg/dL Glucose (74-99) mg/dL POC Glucose (mg/dL) 202 H 176 H (75-99) mg/dL Calcium (8.4-10.2) mg/dL Ferritin 575.4 H (22.0-322.0) ng/mL 10/25/20 10/26/20 10/26/20 Range/Units 20:30 04:36 04:36 RBC 2.80 L (4.30-5.90) m/uL Hgb 8.6 L (13.0-17.5) gm/dL Hct 27.9 L (39.0-53.0) % MCHC 30.8 L (31.0-37.0) g/dL Plt Count 129 L (150-450) k/uL Lymphocytes # 0.4 L (1.0-4.8) k/uL ABG pO2 (83-108) mmHg ABG Total CO2 (19-24) mmol/L Chloride 115 H (98-107) mmol/L BUN 44 H (9-20) mg/dL Glucose 123 H (74-99) mg/dL POC Glucose (mg/dL) 192 H (75-99) mg/dL Calcium 7.7 L (8.4-10.2) mg/dL Ferritin (22.0-322.0) ng/mL 10/26/20 Range/Units 05:17 RBC (4.30-5.90) m/uL Hgb (13.0-17.5) gm/dL Hct (39.0-53.0) % MCHC (31.0-37.0) g/dL Plt Count (150-450) k/uL Lymphocytes # (1.0-4.8) k/uL ABG pO2 71 L (83-108) mmHg ABG Total CO2 27 H (19-24) mmol/L Chloride (98-107) mmol/L BUN (9-20) mg/dL Glucose (74-99) mg/dL POC Glucose (mg/dL) (75-99) mg/dL Calcium (8.4-10.2) mg/dL Ferritin (22.0-322.0) ng/mL Assessment and Plan Assessment: -Acute hypoxic respiratory failure: Possibly of a cough with 19 pneumonitis cannot be ruled out in spite of negative PCR. Patient may have a some other viral pneumonia as well. Computed tomography scan findings are consistent with ARDS. We'll continue with respiratory support. Patient is on systemic steroids. He is also on Lovenox. -Coronary artery disease with previous history of bypass surgery hyperlipidemia -Hypertension -Hypovolemic hyponatremia: Hydrochlorothiazide will be discontinued patient was started on IV fluids next and have an acute renal failure secondary to diuretics and and evidence of medications which will be held as mentioned above.
--- NOTE | 2020-10-27 14:25 | P.PN ---
Subjective Progress Note Date: 10/27/20 Principal diagnosis: Acute hypoxic respiratory failure 10/14/2020, the patient has been placed on a BiPAP at a pressure of 12/6 with an FiO2 of 100%. Initially was on regular oxygen flowing he was switched to high flow oxygen 6 L and upon further decompensation, the patient was placed on a BiPAP. He is resting comfortably in bed. Patient is on IV Decadron. He is also on Lovenox for DVT prophylaxis. Patient didn't qualify for Remdesivir and he was given convalescent plasma one unit yesterday. His most recent blood gases from yesterday and no follow-up blood gases has been obtained today. He is looking lethargic. Is getting progressively more weak. A repeat chest x-ray is recommended by pulmonary and recommended transfer to ICU 10/15/2022 The patient got transferred to the intensive care unit because of worsening in hypoxemia and acute hypoxic respiratory failure; chest x-ray showing diffuse bilateral pulmonary infiltrates with groundglass changes Bilaterally more so on the right compared to the left. The patient is on a BiPAP. The patient is currently on IV Decadron. The patient received convalescent plasma. He did not qualify for Remdesivir. His repeat coronavirus/Covid 19 PCR was sent and this is still pending. He is on Lovenox at a dose of 40 mg subcu on a daily basis. Overnight, he became quite restless and agitated. He was started on Precedex; emains in the 100% on his BiPAP and his pulse ox is ranging between 86 and 90%. D-dimer is elevated at 21.7. His d-dimer is elevated and the patient's Lovenox will be adjusted to half a dose twice a day. He is in a normal sinus rhythm for now. 10/24/2020 Patient is seen and evaluated at bedside in ICU; patient remains intubated and mechanically ventilated requiring higher doses of fentanyl and propofol; flight attendant service planning to start patient on Nimbex drip; prognosis remains gua 10/25/2020 Patient is seen and evaluated in ICU; remains intubated and mechanically vent ilated Patient received a dose of IV Lasix 40 mg 1 and IV fluids have been turned down to KVO; patient remains on Nimbex due to ventilator dyssynchrony; patient remains on propofol and fentanyl; currently on tube feedings with plans to reach a goal of 40 m/h; insulin drip has been discontinued and patient will have Accu- Cheks every 4 hours with sliding scale Overall prognosis remains guarded 10/26/2020 Patient remains in ICU; intubated and mechanically ventilated; remains sedated and paralyzed on fentanyl, propofol and Nimbex; flight attendant service planning to stabilize patient for 48 hours prior to discontinuing Nimbex tomorrow Vital signs with temperature of 99.2, heart rate 68, respiration 38 and blood pressure 123/53 Patient is received a dose of Lasix 40 mg IV 1; blood gases are reasonable; plan is to discontinue Nimbex in next 24 hours; patient has been made DO NOT RESUSCITATE due to overall poor prognosis; plan is to have a family meeting to discuss possible comfort measures if patient fails to improve 10/27/2020 Patient remains in ICU and intubated; plan is to discontinue Nimbex today; patient remains DO NOT RESUSCITATE Patient had chest x-ray done which revealed questionable subtle pneumomediastinum Patient was discussed with family by intensive care service with recommendations to withdraw life support and institute comfort measures; family is agreeable but not ready to withdraw life support today; continue current treatment Objective - Vital Signs Vital signs: Vital Signs Temp 100.3 F H 10/27/20 09:00 Pulse 72 10/27/20 14:00 Resp 40 H 10/27/20 14:00 BP 93/46 10/27/20 14:00 Pulse Ox 89 L 10/27/20 14:00 Intake & Output 10/26/20 10/27/20 10/27/20 18:59 06:59 18:59 Intake Total 1139 784 856.120 Output Total 3575 1020 720 Balance -2436 -236 136.120 Weight 109.4 kg 108.5 kg 108.5 kg Intake: IV 120 120 80 Sodium Chloride 0.9% 1, 120 120 80 000 ml @ 10 mls/hr IV . Q24H JOE Rx#:[id number] Intake, IV Titration 400 100 353.120 Amount Cisatracurium 200 mg In 200 171.944 Sodium Chloride 0.9% 180 ml @ 1 MCG/KG/MIN 6.306 mls/hr IV .Q24H JOE Rx#: [id number] fentaNYL (PF) 1,000 mcg 100 94.363 In Sodium Chloride 0.9% 80 ml @ Per Protocol IV . Q0M JOE Rx#:[id number] propofoL 1,000 mg In 100 100 86.813 Empty Bag 1 bag @ Titrate IV .Q0M JOE Rx#: [id number] Tube Feeding 529 564 423 Other 90 Output: Urine 3575 1020 720 Other: Voiding Method Indwelling Catheter Indwelling Catheter Indwelling Catheter ABP, PAP, CO, CI - Last Documented Arterial Blood Pressure 07/12 - Exam GENERAL: The patient remains intubated and mechanically ventilated HEENT: Pupils are round and equally reacting to light. CARDIOVASCULAR: S1 and S2 present. No murmurs, rubs, or gallops. PULMONARY: Chest is clear to auscultation, no wheezing or crackles. ABDOMEN: Soft, nontender, nondistended, normoactive bowel sounds. No palpable organomegaly. MUSCULOSKELETAL: No joint swelling or deformity. EXTREMITIES: No cyanosis, clubbing, or pedal edema. NEUROLOGICAL: Unable to evaluate SKIN: No rashes. - Labs CBC & Chem 7: 10/27/20 04:45 10/27/20 04:45 Labs: Abnormal Lab Results - Last 24 Hours (Table) 10/27/20 10/27/20 10/27/20 Range/Units 04:45 04:45 04:45 RBC 3.01 L (4.30-5.90) m/uL Hgb 9.5 L (13.0-17.5) gm/dL Hct 30.1 L (39.0-53.0) % Plt Count 135 L (150-450) k/uL Lymphocytes # 0.3 L (1.0-4.8) k/uL D-Dimer 3.67 H (<0.60) mg/L FEU ABG pCO2 (35-45) mmHg ABG pO2 (83-108) mmHg ABG HCO3 (21-25) mmol/L ABG Total CO2 (19-24) mmol/L ABG O2 Saturation (94-97) % Chloride 113 H (98-107) mmol/L BUN 47 H (9-20) mg/dL Glucose 137 H (74-99) mg/dL Ferritin 530.8 H (22.0-322.0) ng/mL Lactate Dehydrogenase 694 H (313-618) U/L C-Reactive Protein 203.7 H (<10.0) mg/L Total Protein 4.4 L (6.3-8.2) g/dL Albumin 2.0 L (3.5-5.0) g/dL 10/27/ Range/Units 05:11 RBC (4.30-5.90) m/uL Hgb (13.0-17.5) gm/dL Hct (39.0-53.0) % Plt Count (150-450) k/uL Lymphocytes # (1.0-4.8) k/uL D-Dimer (<0.60) mg/L FEU ABG pCO2 50 H (35-45) mmHg ABG pO2 56 L* (83-108) mmHg ABG HCO3 28 H (21-25) mmol/L ABG Total CO2 30 H (19-24) mmol/L ABG O2 Saturation 89.0 L (94-97) % Chloride (98-107) mmol/L BUN (9-20) mg/dL Glucose (74-99) mg/dL Ferritin (22.0-322.0) ng/mL Lactate Dehydrogenase (313-618) U/L C-Reactive Protein (<10.0) mg/L Total Protein (6.3-8.2) g/dL Albumin (3.5-5.0) g/dL Assessment and Plan Assessment: -Acute hypoxic respiratory failure: Possibly of a cough with 19 pneumonitis cannot be ruled out in spite of negative PCR. Patient may have a some other viral pneumonia as well. Computed tomography scan findings are consistent with ARDS. We'll continue with respiratory support. Patient is on systemic steroids. He is also on Lovenox. -Coronary artery disease with previous history of bypass surgery hyperlipidemia -Hypertension -Hypovolemic hyponatremia: Hydrochlorothiazide will be discontinued patient was started on IV fluids next and have an acute renal failure secondary to diuretics and and evidence of medications which will be held as mentioned above.
[2020-10-27] MEDS: CISATRACURIUM 200 MG in SODIUM CHLORIDE 0.9% 180 ML IV SCH (17:51)
[2020-10-27] MEDS: ASCORBIC ACID 500 MG TAB PO SCH (20:28)
[2020-10-27] MEDS: ACETAMINOPHEN TAB 325 MG TAB PO PRN (20:28)
[2020-10-27] MEDS: SODIUM CHLORIDE 0.9% 1,000 ML IV SCH (20:34)
[2020-10-27] MEDS: LATANOPROST 0.005% OPHTH DROPS 2.5 ML BTL BOTH EYES SCH (20:35)
[2020-10-28] MEDS: ARTIFICIAL TEARS-HYPROMELLOSE DROPS 15 ML BTL BOTH EYES SCH ×6 (03:57→23:37)
[2020-10-28] MEDS: INSULIN ASPART (NovoLOG) 100 UNIT/ML VIAL SQ SCH ×6 (04:01→23:36)
[2020-10-28] MEDS: fentaNYL (PF) 1,000 MCG in SODIUM CHLORIDE 0.9% 80 ML IV SCH ×2 (04:26→16:10)
[2020-10-28 05:21] LABS: ABG Base Excess 2.6 mmol/L; ABG HCO3 28 mmol/L (21-25); ABG PCO2 51 mmHg (35-45); ABG PH 7.35 (7.35-7.45); ABG TCO2 30 mmol/L (19-24); Allen Test Performed? Yes
[2020-10-28 05:32] LABS: ALT 36 U/L (4-49); AST 26 U/L (17-59); African American GFR (CKD) >90 (>60 ml/min/1.73 sqM); Alkaline Phosphatase 47 U/L (38-126); Anion Gap 0 mmol/L; Blood Urea Nitrogen 55 mg/dL (9-20); Calcium 8.1 mg/dL (8.4-10.2); Carbon Dioxide 30 mmol/L (22-30); Chloride 113 mmol/L (98-107); Creatine Kinase 95 U/L (55-170); Glucose 134 mg/dL (74-99); LDH 728 U/L (313-618); Non-African American GFR(CKD) 78 (>60 ml/min/1.73 sqM); Potassium 4.8 mmol/L (3.5-5.1); Sodium 143 mmol/L (137-145); Total Bilirubin 0.5 mg/dL (0.2-1.3); Total Protein 4.6 g/dL (6.3-8.2)
[2020-10-28 05:37] LABS: D-Dimer 3.49 mg/L FEU (<0.60)
[2020-10-28 05:41] LABS: HCT 27.1 % (39.0-53.0); HGB 8.7 gm/dL (13.0-17.5); Hypochromasia Slight; MCH 32.1 pg (25.0-35.0); MCHC 32.2 g/dL (31.0-37.0); MCV 99.9 fL (80.0-100.0); Mean Platelet Volume 10.4; Platelet Count 128 k/uL (150-450); RBC 2.71 m/uL (4.30-5.90); RDW 13.7 % (11.5-15.5); WBC 4.1 k/uL (3.8-10.6)
[2020-10-28 05:58] LABS: Band Neutrophils % 16 %; Eosinophils # (M) 0.04 k/uL (0-0.7); Lymphocytes # (M) 0.33 k/uL (1.0-4.8); Monocytes # (M) 0.25 k/uL (0-1.0); Neutrophils % (M) 69 %; Nucleated Red Blood Cells 0 /100 WBC (0-0); Total Cells Counted 200; Toxic Granulation Present
--- NOTE | 2020-10-28 06:07 | XR ---
EXAM: XR Chest, 1 View CLINICAL HISTORY: ITS.REASON XR Reason: assess lungs TECHNIQUE: Frontal view of the chest. COMPARISON: 10/27/2020 IMPRESSION: Mildly worsened lung opacities in the right mid to lower lobes. Lines and tubes are unchanged.
[2020-10-28 06:18] LABS: C Reactive Protein 291.2 mg/L (<10.0)
[2020-10-28] MEDS: ENOXAPARIN 80 MG/0.8 ML SYRINGE SQ SCH ×2 (09:02→19:55)
[2020-10-28] MEDS: PANTOPRAZOLE 40 MG/10 ML VIAL IVP SCH (09:03)
[2020-10-28] MEDS: LOSARTAN 50 MG TAB PO SCH (09:03)
[2020-10-28] MEDS: ZINC SULFATE 220 MG CAP PO SCH (09:04)
[2020-10-28] MEDS: RANOLAZINE 500 MG TAB.ER.12H PO SCH ×2 (09:04→19:54)
[2020-10-28] MEDS: TIMOLOL 0.5% OPHTH DROPS 5 ML BTL BOTH EYES SCH (09:05)
[2020-10-28] MEDS: ASPIRIN 81 MG PO SCH (09:08)
[2020-10-28] MEDS: CHLORHEXIDINE GLUCONATE 15 ML CUP MUCOUS MEM SCH ×2 (09:09→19:54)
[2020-10-28] MEDS: CHOLECALCIFEROL 400 UNIT TAB PO SCH (09:09)
[2020-10-28] MEDS: DEXAMETHASONE SOD PHOSPHATE 10 MG/ML 1 ML VIAL IV SCH (09:10)
[2020-10-28] MEDS: atenoloL 25 MG TAB PO SCH (09:23)
[2020-10-28 09:43] LABS: Ferritin 580.9 ng/mL (22.0-322.0)
[2020-10-28] MEDS: ALBUTEROL HFA INHALER INHALATION SCH ×4 (09:53→21:23)
[2020-10-28] MEDS: ACETAMINOPHEN TAB 325 MG TAB PO PRN (10:15)
--- NOTE | 2020-10-28 12:05 | PN ---
PROGRESS NOTE PULMONARY/CRITICAL CARE PROGRESS NOTE: DATE OF SERVICE: October 28, 2020. Critical care time 34 minutes. INTERVAL HISTORY: This is a 75-year-old gentleman who was admitted back on October 11. He was admitted with a diagnosis of COVID-19 pneumonia/pneumonitis and acute hypoxemic respiratory failure. Because of worsening hypoxemia, he was transferred to the ICU on October 13 and was intubated on the for sondra respiratory failure. He remains on the mechanical ventilator and really has not made any progress at all. The patient had a brief episode of cardiopulmonary arrest following intubation and was resuscitated. At that time, he developed pulseless electrical activity. He did have eventual return of spontaneous circulation. Currently, the patient remains on the pressure regulated volume control modality or PC plus. His targeted tidal volume is 450, inspiratory time of 0.7 seconds, FiO2 60%, PEEP of 16, and rate of 38. The patient's blood gases this morning show pO2 of 58, a pCO2 of 51 and a pH of 7.35. Saturations are 90%. In addition, the patient is on Vital high-protein at 47, which is goal, Nimbex at 1.5 mcg/kg per minute with train of 4 monitoring, fentanyl at 1 mcg/kg per hour, and propofol at 40 mcg/kg per minute. I had a long discussion with the yesterday. The plan was to go ahead today and make the patient a comfort measures and remove him from life support, given the fact that he has not really made any progress, but apparently the has changed her mind. The patient's apparently wants the family doctor from [facility] involved and also potentially wants the patient transferred to [facility]. I am fine with that. She needs to find an accepting physician and orthopaedic physician assistant and we would be glad to send Kapil over to the other hospital. I am not sure exactly why the change from the standpoint. Anyway, the patient remains relatively stable but very critically ill. PHYSICAL EXAMINATION: VITAL SIGNS: Current vital signs include temperature 99.4, T-max in the last 24 hours was 100.6, heart rate 92, respiratory rate 38, blood pressure 162/70, mean 100, saturations between 89 and 91%. Appears in no acute distress, currently sedated and paralyzed. HEENT: Examination is grossly unremarkable. NECK: Supple. Full range of motion. He has an orally placed endotracheal tube and NG tube. CARDIOVASCULAR: Examination reveals regular rhythm and rate. Heart rate 92 beats per minute. S1, S2 normal. Heart sounds are distant. LUNGS: Reveal diffuse coarse rhonchi. Breath sounds are diminished. There are no wheezes. There are some crackles. ABDOMEN: Soft. Bowel sounds are noted. EXTREMITIES: Intact. There is some edema. No cyanosis or clubbing. SKIN: Without rash. NEUROLOGIC: Examination, given his current level of sedation and paralysis, could not be adequately assessed. LABS: Reviewed. White count 4.1, hemoglobin 8.7, hematocrit 27.1, platelet count 128,000. His fibrinogen level is 868. His D-dimer is 3.49. Blood gases have been noted. Sodium 143, potassium 4.8, chloride 113, CO2 30, anion gap is 0. BUN and creatinine were 55 and 0.95. Ferritin is 581, LDH 728. C-reactive protein 291 and albumin is 2. Microbiology is currently all negative. IMAGING: A chest x-ray today shows stable bilateral infiltrates. The infiltrates at the bases may be a bit worse. CURRENT MEDICATIONS: Reviewed. The patient is on Tylenol, albuterol inhaler, Artificial Tears, vitamin C, aspirin, Tenormin, Peridex, vitamin D3, Nimbex, Decadron, Lovenox, fentanyl, insulin, eye drops, Cozaar, Narcan, Protonix, propofol, Ranexa, timolol eye drops, and zinc. ASSESSMENT: 1. Acute hypoxemic respiratory failure secondary to COVID-19 pneumonia, with development of acute respiratory distress syndrome, requiring intubation and mechanical ventilation on October 08 with failure to wean and progress off of mechanical ventilation. 2. Brief period of cardiac arrest with PEA, following intubation, with return of spontaneous circulation. 3. Benign essential hypertension. 4. Hyperlipidemia. 5. Obesity. 6. Patient/ventilator dyssynchrony, requiring heavy sedation and Nimbex. 7. Pneumomediastinum. PLAN: Yesterday I spoke to the about comfort measures. At that time, she was in agreement. The patient has been DNR all along. Apparently today she has changed her mind. She would like the patient transferred to [facility]. We will try to accommodate her wish. Additional recommendations and suggestions are forthcoming. The patient will continue with paralysis. The patient remains on fentanyl and propofol as well. The patient is receiving enteral nutrition at goal. No vent changes at this time. We will continue to follow closely. Prognosis is poor. Critical care time 34 minutes. VANDANA / CELINA: [id number] /
[2020-10-28] MEDS ORDERED: propofoL 100 ML IV ONE (12:06)
--- NOTE | 2020-10-28 13:53 | XR ---
EXAMINATION TYPE: XR chest 1V DATE OF EXAM: 10/26/2020 COMPARISON: 10/25/2020 HISTORY: 75-year-old male on ventilator, ICU follow-up TECHNIQUE: Single frontal view of the chest is obtained. FINDINGS: ET tube is satisfactory. NG tube is short. The sidehole is above the GE junction. It could be further advanced by 10 cm into the stomach. Median sternotomy wires with postoperative clips in the mediasti num. Heart borderline enlarged. Diffuse interstitial opacities along with small pleural effusions and more confluent opacity at the left base persists. Changes are slightly worsened from prior. IMPRESSION: 1. Continued interstitial lung disease. Consolidation slightly increased at the left greater than rig ht lung bases along with a small left effusion. 2. The NG tube is short. Advance by 10 cm so that the sidehole enters the stomach.
[2020-10-28] MEDS: CISATRACURIUM 200 MG in SODIUM CHLORIDE 0.9% 180 ML IV SCH (18:59)
[2020-10-28] MEDS: ASCORBIC ACID 500 MG TAB PO SCH (19:54)
[2020-10-28] MEDS: LATANOPROST 0.005% OPHTH DROPS 2.5 ML BTL BOTH EYES SCH (19:59)
[2020-10-28] MEDS: SODIUM CHLORIDE 0.9% 1,000 ML IV SCH (19:59)
[2020-10-29] MEDS ORDERED: DEXTROSE 5% IN WATER 100 ML with AMIODARONE 150 MG IV ONE (01:45)
[2020-10-29] MEDS: DILTIAZEM 125 MG in SODIUM CHLORIDE 0.9% 100 ML IV SCH ×2 (01:50→18:08)
[2020-10-29] MEDS ORDERED: AMIODARONE 360 MG in DEXTROSE 5% IN WATER 200 ML IV ONE ×2 (02:00)
[2020-10-29] MEDS: ARTIFICIAL TEARS-HYPROMELLOSE DROPS 15 ML BTL BOTH EYES SCH ×6 (03:52→23:35)
[2020-10-29] MEDS: INSULIN ASPART (NovoLOG) 100 UNIT/ML VIAL SQ SCH ×6 (03:52→23:35)
[2020-10-29 05:01] LABS: D-Dimer 2.25 mg/L FEU (<0.60)
[2020-10-29 05:09] LABS: ALT 35 U/L (4-49); AST 35 U/L (17-59); African American GFR (CKD) >90 (>60 ml/min/1.73 sqM); Albumin 2.3 g/dL (3.5-5.0); Alkaline Phosphatase 42 U/L (38-126); Anion Gap 0 mmol/L; Blood Urea Nitrogen 52 mg/dL (9-20); Calcium 8.3 mg/dL (8.4-10.2); Carbon Dioxide 29 mmol/L (22-30); Chloride 113 mmol/L (98-107); Creatine Kinase 151 U/L (55-170); Glucose 172 mg/dL (74-99); LDH 605 U/L (313-618); Non-African American GFR(CKD) 88 (>60 ml/min/1.73 sqM); Sodium 142 mmol/L (137-145); Total Bilirubin 0.4 mg/dL (0.2-1.3); Total Protein 5.7 g/dL (6.3-8.2)
[2020-10-29 05:26] LABS: Basophils % (A) 1 %; Eosinophils % (A) 0 %; HCT 25.3 % (39.0-53.0); HGB 7.9 gm/dL (13.0-17.5); Hypochromasia Moderate; Lymphocytes # (A) 0.3 k/uL (1.0-4.8); Lymphocytes % (A) 9 %; MCH 31.1 pg (25.0-35.0); MCHC 31.2 g/dL (31.0-37.0); MCV 99.7 fL (80.0-100.0); Mean Platelet Volume 11.7; Monocytes # (A) 0.2 k/uL (0-1.0); Monocytes % (A) 7 %; Neutrophils # (A) 2.7 k/uL (1.3-7.7); Neutrophils % (A) 81 %; Platelet Count 156 k/uL (150-450); RBC 2.54 m/uL (4.30-5.90); RDW 13.8 % (11.5-15.5); WBC 3.3 k/uL (3.8-10.6)
[2020-10-29 05:30] LABS: ABG Base Excess 2.8 mmol/L; ABG HCO3 29 mmol/L (21-25); ABG Oxygen Saturation 92.5 % (94-97); ABG PCO2 56 mmHg (35-45); ABG PH 7.32 (7.35-7.45); ABG PO2 66 mmHg (83-108); ABG TCO2 31 mmol/L (19-24); Allen Test Performed? Yes
[2020-10-29 06:03] LABS: C Reactive Protein 255.9 mg/L (<10.0)
[2020-10-29 06:42] LABS: Large Platelets Present
[2020-10-29 06:54] LABS: Anisocytosis (M) Present; Poikilocytosis (M) Present
--- NOTE | 2020-10-29 07:53 | XR ---
EXAMINATION TYPE: XR chest 1V portable DATE OF EXAM: 10/29/2020 Comparison: 10/28/2020 Clinical History: 75-year-old male ICU follow-up, assess lungs Findings: NG tube courses below the diaphragm. Median sternotomy wires and post-CABG clips in the mediastinum. Heart mildly enlarged. Mild hyperinflation. Diffuse interstitial opacities persists. Some improvement in aeration in the airspace disease at the right lower lung. No sizable effusion. Impression: Continued diffuse bilateral interstitial infiltrates. Improving airspace disease at the right base.
[2020-10-29] MEDS: AMIODARONE 300 MG in DEXTROSE 5% IN WATER 250 ML IV SCH ×4 (08:26→18:04)
[2020-10-29] MEDS: DEXAMETHASONE SOD PHOSPHATE 10 MG/ML 1 ML VIAL IV SCH (08:27)
[2020-10-29] MEDS: atenoloL 25 MG TAB PO SCH (08:28)
[2020-10-29] MEDS: ASPIRIN 81 MG PO SCH (08:28)
[2020-10-29] MEDS: CHLORHEXIDINE GLUCONATE 15 ML CUP MUCOUS MEM SCH ×2 (08:28→20:08)
[2020-10-29] MEDS: CHOLECALCIFEROL 400 UNIT TAB PO SCH (08:28)
[2020-10-29] MEDS: RANOLAZINE 500 MG TAB.ER.12H PO SCH ×2 (08:29→20:08)
[2020-10-29] MEDS: LOSARTAN 50 MG TAB PO SCH (08:29)
[2020-10-29] MEDS: PANTOPRAZOLE 40 MG/10 ML VIAL IVP SCH (08:29)
[2020-10-29] MEDS: ZINC SULFATE 220 MG CAP PO SCH (08:29)
[2020-10-29] MEDS: ENOXAPARIN 80 MG/0.8 ML SYRINGE SQ SCH ×2 (08:29→20:08)
[2020-10-29] MEDS: TIMOLOL 0.5% OPHTH DROPS 5 ML BTL BOTH EYES SCH (08:29)
[2020-10-29] MEDS: ALBUTEROL HFA INHALER INHALATION SCH ×4 (08:54→20:15)
[2020-10-29 09:30] LABS: Glucose,Whole Blood 130 mg/dL (75-99)
[2020-10-29 09:30] LABS: Glucose,Whole Blood 144 mg/dL (75-99)
[2020-10-29 09:30] LABS: Glucose,Whole Blood 168 mg/dL (75-99)
[2020-10-29 09:31] LABS: Glucose,Whole Blood 137 mg/dL (75-99)
[2020-10-29 09:31] LABS: Glucose,Whole Blood 125 mg/dL (75-99)
[2020-10-29 09:31] LABS: Glucose,Whole Blood 118 mg/dL (75-99)
[2020-10-29 09:32] LABS: Glucose,Whole Blood 123 mg/dL (75-99)
[2020-10-29 09:32] LABS: Glucose,Whole Blood 159 mg/dL (75-99)
[2020-10-29 09:32] LABS: Glucose,Whole Blood 162 mg/dL (75-99)
[2020-10-29 09:33] LABS: Glucose,Whole Blood 186 mg/dL (75-99)
[2020-10-29 09:33] LABS: Glucose,Whole Blood 195 mg/dL (75-99)
[2020-10-29 09:33] LABS: Glucose,Whole Blood 164 mg/dL (75-99)
[2020-10-29 09:34] LABS: Glucose,Whole Blood 123 mg/dL (75-99)
[2020-10-29 09:34] LABS: Glucose,Whole Blood 152 mg/dL (75-99)
[2020-10-29 09:34] LABS: Glucose,Whole Blood 158 mg/dL (75-99)
[2020-10-29 09:35] LABS: Glucose,Whole Blood 180 mg/dL (75-99)
[2020-10-29 09:35] LABS: Glucose,Whole Blood 171 mg/dL (75-99)
[2020-10-29 09:35] LABS: Glucose,Whole Blood 127 mg/dL (75-99)
[2020-10-29 09:35] LABS: Glucose,Whole Blood 205 mg/dL (75-99)
[2020-10-29 09:35] LABS: Glucose,Whole Blood 180 mg/dL (75-99)
[2020-10-29 09:35] LABS: Glucose,Whole Blood 184 mg/dL (75-99)
[2020-10-29 10:03] LABS: Ferritin 562.1 ng/mL (22.0-322.0)
--- NOTE | 2020-10-29 10:36 | CONS ---
CONSULTATION REASON FOR CONSULTATION: I have been consulted for atrial fibrillation. HISTORY OF PRESENT ILLNESS: The patient was admitted to hospital on 10/12/2020 with the symptoms of fever, shortness of breath and cough. He had a COVID test initially that was negative and as his symptoms were worsening, he came in. In the emergency room he was hypoxic and had an infiltrate in the left lower lobe and was subsequently admitted. He had another COVID test that came back negative. PAST MEDICAL HISTORY: Significant for coronary artery disease status post CABG, hypertension, dyslipidemia, prior angioplasties. MEDICATIONS: At home included Ranexa, Imdur, Xalatan, multivitamins, Tenormin, "losartan hydrochlorothiazide" aspirin, amlodipine, prednisone, and tramadol. ALLERGIES: There are no known drug allergies. FAMILY HISTORY: Negative for premature coronary artery disease. SOCIAL HISTORY: Negative for smoking, EtOH abuse, or drug abuse. REVIEW OF SYSTEMS: I am unable to obtain from the patient who is currently intubated and on vent. I reviewed his chart. PHYSICAL EXAMINATION: Physical exam shows that the heart rate is 98 beats per minute. Blood pressure is 120/68, respiratory is 38. He is intubated and mechanically ventilated. I did not perform physical exam on this patient, but I reviewed the physical exam of other physicians on the case. Rhythm strips show that he is in atrial fibrillation with controlled ventricular rate. The patient is currently on IV amiodarone, aspirin, Tenormin, Lovenox 80 subcu b.i.d. and intravenous Cardizem. ASSESSMENT: Persistent atrial fibrillation with controlled ventricular rate. PLAN: I will continue the amiodarone, Cardizem and Lovenox that he is currently on. Obtain a 2D echo to evaluate his LV function and adjust therapies as needed. MMODL / IJN: [id number] /
--- NOTE | 2020-10-29 10:44 | PN ---
PROGRESS NOTE PULMONARY/CRITICAL CARE PROGRESS NOTE: DATE OF SERVICE: October 29, 2020. Critical care time greater than 30 minute. HISTORY OF PRESENT ILLNESS: A 75-year-old male admitted back on October 11. He was admitted with diagnosis of COVID-19 pneumonia/pneumonitis and acute hypoxemic respiratory failure. He was transferred to the ICU for worsening hypoxemia on October 13 and unfortunately, required intubation on the for sondra respiratory failure. He remains on the ventilator. He has not really made much progress at all. After intubation, he had a brief episode of cardiopulmonary arrest secondary to pulseless electrical activity (PEA) and was resuscitated. The patient remains on the pressure regulated volume control modality or VC plus. His targeted tidal volume is 450, inspiratory time is 0.7 seconds, FiO2 60%, PEEP 16, rate is 38. Blood gases show pO2 of 66, pCO2 of 56 and a pH of 7.32. The patient remains on fentanyl at 1 mcg/kg per hour, Nimbex at 1.5 mcg/kg per minute, propofol at 40 mcg/kg per minute, amiodarone at 0.5 mg/minute and Cardizem drip of 5 mg an hour. The amiodarone and Cardizem were added recently because of atrial fibrillation with RVR. The patient is also receiving Vital high-protein at goal which is 47 cc an hour. The patient is a DNR. A couple days ago, the had agreed to make the patient a comfort measures only. She changed her mind. I will speak to her again about her ultimate wishes. She also wanted the patient transferred to [facility], but they do not have any beds at this time. The primary service has been in contact with the primary care physician. PHYSICAL EXAMINATION: VITAL SIGNS: Current vital signs include a temperature 98.6, heart rate 90, respiratory rate 38, blood pressure 129/68, mean 88 and saturations are 93%. Appears in no acute distress. Currently sedated and paralyzed. HEENT: Examination is grossly unremarkable. There is an orally placed endotracheal tube and NG tube. NECK: Supple. Full range of motion. No adenopathy. Neck veins are flat. CARDIOVASCULAR: Examination reveals regular rhythm and rate. Heart rate 90 beats per minute. S1, S2 normal. Heart sounds are distant. No distinct murmur. LUNGS: Reveal diffuse coarse rhonchi. Breath sounds equal. No wheezes. A few scattered crackles. ABDOMEN: Soft. Bowel sounds are heard. EXTREMITIES: Intact. There is some edema. No cyanosis or clubbing. SKIN: Without rash. NEUROLOGIC: Examination could not be adequately assessed. LABORATORY DATA: White count 3.3, hemoglobin 7.9, hematocrit 25.3, platelet count 81,000. Fibrinogen 882. D-dimer 2.25. Sodium 142, potassium 5, chloride 113, CO2 29, anion gap is zero. BUN and creatinine were 52 and 0.78. C-reactive protein 256. Albumin 2.3. Microbiology is currently all negative. IMAGING: The most recent chest x-ray dated October 29 continues to show diffuse bilateral patchy infiltrates consistent with COVID-19 infection. CURRENT MEDICATIONS: Reviewed. The patient is on Tylenol, albuterol inhaler, Cordarone, Artificial Tears, vitamin C, aspirin, Tenormin, Cardizem drip, chlorhexidine, vitamin D3, Nimbex, Decadron, Lovenox, fentanyl, insulin, eye drops, losartan, Narcan, Protonix, propofol, Ranexa, timolol eye drops, and zinc. ASSESSMENT: 1. Acute hypoxemic respiratory failure secondary to COVID-19 pneumonia, with development of acute respiratory distress syndrome (ARDS), requiring intubation and mechanical ventilation on October 18 with failure to wean from mechanical ventilation. 2. Brief period of cardiac arrest, with PEA following intubation with return of spontaneous circulation. 3. Benign essential hypertension. 4. Hyperlipidemia. 5. Obesity. 6. Patient/ventilator dyssynchrony, requiring heavy sedation and paralysis. 7. Atrial fibrillation with rapid ventricular response, currently on amiodarone and Cardizem. 8. Pneumomediastinum. PLAN: The patient is a DNR. Initially, the agreed to comfort measures. She did change her mind. Then she wanted the patient transferred to [facility]. We called there. No beds available. Apparently, the primary service has talk to the patient's primary care physician. He will talk to the today. He is in agreement that comfort measures would not be inappropriate for this patient. We will wait for additional information from the and family doctor. Overall prognosis is poor. Critical care time greater than 30 minutes. MMODL / IJN: [id number] /
[2020-10-29 10:58] LABS: Glucose,Whole Blood 158 mg/dL (75-99)
[2020-10-29 11:10] LABS: ABG PO2 58 mmHg (83-108)
[2020-10-29] MEDS: fentaNYL (PF) 1,000 MCG in SODIUM CHLORIDE 0.9% 80 ML IV SCH ×2 (12:52→22:34)
[2020-10-29] MEDS: CISATRACURIUM 200 MG in SODIUM CHLORIDE 0.9% 180 ML IV SCH (15:35)
[2020-10-29 15:47] LABS: Glucose,Whole Blood 176 mg/dL (75-99)
[2020-10-29 19:52] LABS: Glucose,Whole Blood 183 mg/dL (75-99)
[2020-10-29] MEDS: SODIUM CHLORIDE 0.9% 1,000 ML IV SCH (20:07)
[2020-10-29] MEDS: LATANOPROST 0.005% OPHTH DROPS 2.5 ML BTL BOTH EYES SCH (20:07)
[2020-10-29] MEDS: ASCORBIC ACID 500 MG TAB PO SCH (20:08)
[2020-10-29 23:34] LABS: Glucose,Whole Blood 191 mg/dL (75-99)
[2020-10-29] MEDS: ACETAMINOPHEN TAB 325 MG TAB PO PRN (23:42)
[2020-10-30 02:57] LABS: Glucose,Whole Blood 162 mg/dL (75-99)
[2020-10-30] MEDS: INSULIN ASPART (NovoLOG) 100 UNIT/ML VIAL SQ SCH ×3 (03:22→12:49)
[2020-10-30] MEDS: ARTIFICIAL TEARS-HYPROMELLOSE DROPS 15 ML BTL BOTH EYES SCH ×3 (03:22→12:50)
[2020-10-30] MEDS: AMIODARONE 300 MG in DEXTROSE 5% IN WATER 250 ML IV SCH ×2 (03:23)
[2020-10-30 04:21] LABS: HCT 25.8 % (39.0-53.0); HGB 8.4 gm/dL (13.0-17.5); Hypochromasia Moderate; MCH 32.2 pg (25.0-35.0); MCHC 32.4 g/dL (31.0-37.0); MCV 99.3 fL (80.0-100.0); Mean Platelet Volume 11.3; Platelet Count 125 k/uL (150-450); RDW 13.6 % (11.5-15.5)
[2020-10-30 04:29] VITALS: TEMP 99.1
[2020-10-30 04:36] LABS: ALT 43 U/L (4-49); AST 39 U/L (17-59); African American GFR (CKD) >90 (>60 ml/min/1.73 sqM); Alkaline Phosphatase 39 U/L (38-126); Anion Gap 0 mmol/L; Blood Urea Nitrogen 50 mg/dL (9-20); Calcium 7.7 mg/dL (8.4-10.2); Carbon Dioxide 28 mmol/L (22-30); Chloride 111 mmol/L (98-107); Creatine Kinase 169 U/L (55-170); Glucose 154 mg/dL (74-99); LDH 762 U/L (313-618); Non-African American GFR(CKD) >90 (>60 ml/min/1.73 sqM); Potassium 5.3 mmol/L (3.5-5.1); Sodium 139 mmol/L (137-145); Total Bilirubin 0.5 mg/dL (0.2-1.3); Total Protein 4.7 g/dL (6.3-8.2)
[2020-10-30 05:04] LABS: Band Neutrophils % 34 %; Neutrophils % (M) 49 %; Nucleated Red Blood Cells 6 /100 WBC (0-0); Total Cells Counted 200
[2020-10-30 05:05] LABS: Lymphocytes # (M) 0.35 k/uL (1.0-4.8); Monocytes # (M) 0.15 k/uL (0-1.0); WBC 2.9 k/uL (3.8-10.6)
[2020-10-30 05:12] LABS: ABG Base Excess 3.3 mmol/L; ABG HCO3 29 mmol/L (21-25); ABG Oxygen Saturation 91.4 % (94-97); ABG PCO2 55 mmHg (35-45); ABG PH 7.34 (7.35-7.45); ABG PO2 61 mmHg (83-108); ABG TCO2 31 mmol/L (19-24); Allen Test Performed? Yes
[2020-10-30 06:00] LABS: C Reactive Protein 177.2 mg/L (<10.0)
--- NOTE | 2020-10-30 06:28 | XR ---
EXAMINATION TYPE: XR chest 1V portable DATE OF EXAM: 10/30/2020 CLINICAL HISTORY: Difficulty breathing progress study. Covid 19 infection. TECHNIQUE: Single AP portable semiupright view of the chest is obtained. COMPARISON: Chest x-ray from one day earlier and older studies. FINDINGS: Stable endotracheal and orogastric tubes. Overlying sternal wires and mediastinal clips re demonstrated. Bilateral increased reticulonodular opacities redemonstrated . Cardiac silhouette size stable and upp er limits of normal with atherosclerotic thoracic aorta. Background chronic parenchymal changes. Osse ous structures are intact. IMPRESSION: Persistent bilateral multifocal acute infiltrates consistent with covid 19 infection. No significant change from most recent x-ray.
[2020-10-30] MEDS: fentaNYL (PF) 1,000 MCG in SODIUM CHLORIDE 0.9% 80 ML IV SCH (07:40)
--- NOTE | 2020-10-30 07:41 | P.PN ---
Subjective Progress Note Date: 10/30/20 75-year-old patient, known history of coronary artery disease hypertension and previous bypass surgery, came into the emergency department feeling sick for almost a week. He had fever and shortness of breath and cough. He had tested COVID 19 and the results came back negative. Because of his worsening condition, he was told them to come to the ED by his PCP. He was not improving. He stated that he was getting progressively more short of breath. He started off by having symptoms of URI. Denies having any loss in the taste or smell. Denies having any chest pain. He was alert and oriented 3. In the emergency department, the patient was found to be hypoxic and the patient is currently on 15 L about 2 by nasal cannula. She is chest x-ray showed bilateral interstitial pulmonary infiltrates worse in the left lower lobe. The patient had some lymphopenia on his blood work with a d-dimer of 0.3. CRP was 36.5. LDH was 855 and a repeat coronavirus Covid 19 testing was done that came back negative by PCR. She is on level is at 0.08. . Subsequently, the patient's condition decompensated. She was moved to the 100% nonrebreather facemask and later on to a BiPAP and he was transferred to the intensive care units. His subsequent covert 19 testing came back positive. He was transferred to the intensive care unit and required intubation on 10/18/2020. Since then, the patient has r emained on a mechanical ventilator. Post intubation, he had a brief episode of cardiopulmonary arrest secondary to have pulseless electrical activity, PEA and he was resuscitated. Currently the patient is being treated with a VC plus mode volume cycled mechanical ventilator with a tidal volume of 450, I time of 0.7, FiO2 of 60% with a PEEP of 16 and the respiratory of 38. He remains on a combin ation of propofol running at 40 mcg/kg per minute and fentanyl at 1 mcg/kg per minute and Nimbex at 1.5 mcg/kg per minute. Note that his course was also accompanied by development of atrial fibrillation with rapid ventricular response. The patient was given a combination of amiodarone and Cardizem drips for the same. He is on therapeutic causes of Lovenox for now. The chest x-ray continues to show diffuse bilateral interstitial infiltrates with some improvement in airspace disease at the right lung base. NG tube is in a good location. ET tube is in a good location. On today's evaluation of 10/30/2020, the patient remains sedated and paralyzed. His blood. From today showed a pH of 7.33 with a pCO2 of 54 and pO2 of 61. He has significant amount of fluid overload and the patient has been a positive fluid balance. His chest x-ray remains unchanged with diffuse bilateral pulmonary infiltrates. The patient remains in atrial fibrillation. He remains on a combination of amiodarone drip and Cardizem drip for rate control. He is also on long-term anticoagulation. The code status is DO NOT RESUSCITATE for now. The inflammatory markers have been improving. CRP is down to 177, his ferritin is pending from this morning, LDH level is at 762. Objective - Vital Signs Vital signs: Vital Signs Temp 99.1 F 10/30/20 04:00 Pulse 87 10/30/20 07:00 Resp 38 H 10/30/20 07:00 BP 105/60 10/30/20 07:00 Pulse Ox 91 L 10/30/20 07:00 Intake & Output 10/29/20 10/30/20 10/30/20 18:59 06:59 18:59 Intake Total 6179.097 1691.164 57 Output Total 1070 1170 100 Balance 617.237 372.164 -43 Weight 107.4 kg Intake: IV 120 120 10 Sodium Chloride 0.9% 1, 120 120 10 000 ml @ 10 mls/hr IV . Q24H [facility] Rx#:[id number] Intake, IV Titration 652.237 627.164 Amount Amiodarone 300 mg In 240.833 232.917 Dextrose 5% in Water 250 ml @ 0.5 MG/MIN 25 mls/hr IV .Q10H [facility] Rx#: [id number] Cisatracurium 200 mg In 129.904 Sodium Chloride 0.9% 180 ml @ 1 MCG/KG/MIN 6.306 mls/hr IV .Q24H [facility] Rx#: [id number] Diltiazem 125 mg In 81.5 Sodium Chloride 0.9% 100 ml @ Per Protocol IV .Q0M [facility] Rx#:[id number] fentaNYL (PF) 1,000 mcg 100 In Sodium Chloride 0.9% 80 ml @ Per Protocol IV . Q0M [facility] Rx#:[id number] propofoL 1,000 mg In 200 294.247 Empty Bag 1 bag @ Titrate IV .Q0M [facility] Rx#: [id number] Oral 180 Tube Feeding 705 705 47 Other 30 90 Output: Urine 1070 1170 100 Other: Voiding Method Indwelling Catheter Indwelling Catheter ABP, PAP, CO, CI - Last Documented Arterial Blood Pressure 07/12 - Exam GENERAL EXAM: Revealed 75-year-old white male, intubated and mechanically ventilated, sedated , paralyzed. The patient is mechanical ventilator. The patient is having some leaks around the orotracheal tube. HEAD: Normocephalic/atraumatic. Endotracheal tube and orogastric tubes are intact HEENT: PERRLA, EOMI, neck test, no neck masses, no JVD, no stridor. CHEST: No chest wall deformity. Symmetrical expansion. LUNGS: Crackles and rhonchi noted bilaterally. CVS: Regular rate and rhythm, normal S1 and S2, no gallops, no murmurs, no rubs ABDOMEN: Obese, soft, nontender, no megaly, no rebound. EXTREMITIES: No clubbing, no edema, no cyanosis, 2+ pulses and upper and lower extremities. MUSCULOSKELETAL: Could not assess mostly because of sedation. SKIN: No rashes CENTRAL NERVOUS SYSTEM: Could not be assessed. Psychiatric: Could not assess - Labs CBC & Chem 7: 10/30/20 03:54 10/30/20 03:46 Labs: Abnormal Lab Results - Last 24 Hours (Table) 10/25/20 10/26/20 10/26/20 Range/Units 23:51 04:31 07:46 WBC (3.8-10.6) k/uL RBC (4.30-5.90) m/uL Hgb (13.0-17.5) gm/dL Hct (39.0-53.0) % Plt Count (150-450) k/uL Lymphocytes # (Manual) (1.0-4.8) k/uL Nucleated RBCs (0-0) /100 WBC ABG pH (7.35-7.45) ABG pCO2 (35-45) mmHg ABG pO2 (83-108) mmHg ABG HCO3 (21-25) mmol/L ABG Total CO2 (19-24) mmol/L ABG O2 Saturation (94-97) % Potassium (3.5-5.1) mmol/L Chloride (98-107) mmol/L BUN (9-20) mg/dL Creatinine (0.66-1.25) mg/dL Glucose (74-99) mg/dL POC Glucose (mg/dL) 168 H 144 H 130 H (75-99) mg/dL Calcium (8.4-10.2) mg/dL Ferritin (22.0-322.0) ng/mL Lactate Dehydrogenase (313-618) U/L C-Reactive Protein (<10.0) mg/L Total Protein (6.3-8.2) g/dL Albumin (3.5-5.0) g/dL 10/26/20 10/26/20 10/26/20 Range/Units 12:35 15:24 20:07 WBC (3.8-10.6) k/uL RBC (4.30-5.90) m/uL Hgb (13.0-17.5) gm/dL Hct (39.0-53.0) % Plt Count (150-450) k/uL Lymphocytes # (Manual) (1.0-4.8) k/uL Nucleated RBCs (0-0) /100 WBC ABG pH (7.35-7.45) ABG pCO2 (35-45) mmHg ABG pO2 (83-108) mmHg ABG HCO3 (21-25) mmol/L ABG Total CO2 (19-24) mmol/L ABG O2 Saturation (94-97) % Potassium (3.5-5.1) mmol/L Chloride (98-107) mmol/L BUN (9-20) mg/dL Creatinine (0.66-1.25) mg/dL Glucose (74-99) mg/dL POC Glucose (mg/dL) 125 H 118 H 137 H (75-99) mg/dL Calcium (8.4-10.2) mg/dL Ferritin (22.0-322.0) ng/mL Lactate Dehydrogenase (313-618) U/L C-Reactive Protein (<10.0) mg/L Total Protein (6.3-8.2) g/dL Albumin (3.5-5.0) g/dL 10/26/20 10/27/20 10/27/20 Range/Units 23:32 04:34 07:22 WBC (3.8-10.6) k/uL RBC (4.30-5.90) m/uL Hgb (13.0-17.5) gm/dL Hct (39.0-53.0) % Plt Count (150-450) k/uL Lymphocytes # (Manual) (1.0-4.8) k/uL Nucleated RBCs (0-0) /100 WBC ABG pH (7.35-7.45) ABG pCO2 (35-45) mmHg ABG pO2 (83-108) mmHg ABG HCO3 (21-25) mmol/L ABG Total CO2 (19-24) mmol/L ABG O2 Saturation (94-97) % Potassium (3.5-5.1) mmol/L Chloride (98-107) mmol/L BUN (9-20) mg/dL Creatinine (0.66-1.25) mg/dL Glucose (74-99) mg/dL POC Glucose (mg/dL) 162 H 159 H 123 H (75-99) mg/dL Calcium (8.4-10.2) mg/dL Ferritin (22.0-322.0) ng/mL Lactate Dehydrogenase (313-618) U/L C-Reactive Protein (<10.0) mg/L Total Protein (6.3-8.2) g/dL Albumin (3.5-5.0) g/dL 10/27/20 10/27/20 10/27/20 Range/Units 11:45 16:54 19:53 WBC (3.8-10.6) k/uL RBC (4.30-5.90) m/uL Hgb (13.0-17.5) gm/dL Hct (39.0-53.0) % Plt Count (150-450) k/uL Lymphocytes # (Manual) (1.0-4.8) k/uL Nucleated RBCs (0-0) /100 WBC ABG pH (7.35-7.45) ABG pCO2 (35-45) mmHg ABG pO2 (83-108) mmHg ABG HCO3 (21-25) mmol/L ABG Total CO2 (19-24) mmol/L ABG O2 Saturation (94-97) % Potassium (3.5-5.1) mmol/L Chloride (98-107) mmol/L BUN (9-20) mg/dL Creatinine (0.66-1.25) mg/dL Glucose (74-99) mg/dL POC Glucose (mg/dL) 186 H 195 H 164 H (75-99) mg/dL Calcium (8.4-10.2) mg/dL Ferritin (22.0-322.0) ng/mL Lactate Dehydrogenase (313-618) U/L C-Reactive Protein (<10.0) mg/L Total Protein (6.3-8.2) g/dL Albumin (3.5-5.0) g/dL 10/27/20 10/28/20 10/28/20 Range/Units 23:41 03:34 05:16 WBC (3.8-10.6) k/uL RBC (4.30-5.90) m/uL Hgb (13.0-17.5) gm/dL Hct (39.0-53.0) % Plt Count (150-450) k/uL Lymphocytes # (Manual) (1.0-4.8) k/uL Nucleated RBCs (0-0) /100 WBC ABG pH (7.35-7.45) ABG pCO2 (35-45) mmHg ABG pO2 58 L* (83-108) mmHg ABG HCO3 (21-25) mmol/L ABG Total CO2 (19-24) mmol/L ABG O2 Saturation (94-97) % Potassium (3.5-5.1) mmol/L Chloride (98-107) mmol/L BUN (9-20) mg/dL Creatinine (0.66-1.25) mg/dL Glucose (74-99) mg/dL POC Glucose (mg/dL) 158 H 123 H (75-99) mg/dL Calcium (8.4-10.2) mg/dL Ferritin (22.0-322.0) ng/mL Lactate Dehydrogenase (313-618) U/L C-Reactive Protein (<10.0) mg/L Total Protein (6.3-8.2) g/dL Albumin (3.5-5.0) g/dL 10/28/20 10/28/20 10/28/20 Range/Units 08:27 12:00 16:19 WBC (3.8-10.6) k/uL RBC (4.30-5.90) m/uL Hgb (13.0-17.5) gm/dL Hct (39.0-53.0) % Plt Count (150-450) k/uL Lymphocytes # (Manual) (1.0-4.8) k/uL Nucleated RBCs (0-0) /100 WBC ABG pH (7.35-7.45) ABG pCO2 (35-45) mmHg ABG pO2 (83-108) mmHg ABG HCO3 (21-25) mmol/L ABG Total CO2 (19-24) mmol/L ABG O2 Saturation (94-97) % Potassium (3.5-5.1) mmol/L Chloride (98-107) mmol/L BUN (9-20) mg/dL Creatinine (0.66-1.25) mg/dL Glucose (74-99) mg/dL POC Glucose (mg/dL) 152 H 127 H 205 H (75-99) mg/dL Calcium (8.4-10.2) mg/dL Ferritin (22.0-322.0) ng/mL Lactate Dehydrogenase (313-618) U/L C-Reactive Protein (<10.0) mg/L Total Protein (6.3-8.2) g/dL Albumin (3.5-5.0) g/dL 10/28/20 10/28/20 10/29/20 Range/Units 19:48 23:28 03:46 WBC (3.8-10.6) k/uL RBC (4.30-5.90) m/uL Hgb (13.0-17.5) gm/dL Hct (39.0-53.0) % Plt Count (150-450) k/uL Lymphocytes # (Manual) (1.0-4.8) k/uL Nucleated RBCs (0-0) /100 WBC ABG pH (7.35-7.45) ABG pCO2 (35-45) mmHg ABG pO2 (83-108) mmHg ABG HCO3 (21-25) mmol/L ABG Total CO2 (19-24) mmol/L ABG O2 Saturation (94-97) % Potassium (3.5-5.1) mmol/L Chloride (98-107) mmol/L BUN (9-20) mg/dL Creatinine (0.66-1.25) mg/dL Glucose (74-99) mg/dL POC Glucose (mg/dL) 171 H 180 H 180 H (75-99) mg/dL Calcium (8.4-10.2) mg/dL Ferritin (22.0-322.0) ng/mL Lactate Dehydrogenase (313-618) U/L C-Reactive Protein (<10.0) mg/L Total Protein (6.3-8.2) g/dL Albumin (3.5-5.0) g/dL 10/29/20 10/29/20 10/29/20 Range/Units 04:35 08:03 10:57 WBC (3.8-10.6) k/uL RBC (4.30-5.90) m/uL Hgb (13.0-17.5) gm/dL Hct (39.0-53.0) % Plt Count (150-450) k/uL Lymphocytes # (Manual) (1.0-4.8) k/uL Nucleated RBCs (0-0) /100 WBC ABG pH (7.35-7.45) ABG pCO2 (35-45) mmHg ABG pO2 (83-108) mmHg ABG HCO3 (21-25) mmol/L ABG Total CO2 (19-24) mmol/L ABG O2 Saturation (94-97) % Potassium (3.5-5.1) mmol/L Chloride (98-107) mmol/L BUN (9-20) mg/dL Creatinine (0.66-1.25) mg/dL Glucose (74-99) mg/dL POC Glucose (mg/dL) 184 H 158 H (75-99) mg/dL Calcium (8.4-10.2) mg/dL Ferritin 562.1 H (22.0-322.0) ng/mL Lactate Dehydrogenase (313-618) U/L C-Reactive Protein (<10.0) mg/L Total Protein (6.3-8.2) g/dL Albumin (3.5-5.0) g/dL 10/29/20 10/29/20 10/29/20 Range/Units 15:45 19:51 23:32 WBC (3.8-10.6) k/uL RBC (4.30-5.90) m/uL Hgb (13.0-17.5) gm/dL Hct (39.0-53.0) % Plt Count (150-450) k/uL Lymphocytes # (Manual) (1.0-4.8) k/uL Nucleated RBCs (0-0) /100 WBC ABG pH (7.35-7.45) ABG pCO2 (35-45) mmHg ABG pO2 (83-108) mmHg ABG HCO3 (21-25) mmol/L ABG Total CO2 (19-24) mmol/L ABG O2 Saturation (94-97) % Potassium (3.5-5.1) mmol/L Chloride (98-107) mmol/L BUN (9-20) mg/dL Creatinine (0.66-1.25) mg/dL Glucose (74-99) mg/dL POC Glucose (mg/dL) 176 H 183 H 191 H (75-99) mg/dL Calcium (8.4-10.2) mg/dL Ferritin (22.0-322.0) ng/mL Lactate Dehydrogenase (313-618) U/L C-Reactive Protein (<10.0) mg/L Total Protein (6.3-8.2) g/dL Albumin (3.5-5.0) g/dL 10/30/20 10/30/20 10/30/20 Range/Units 02:56 03:46 03:54 WBC 2.9 L (3.8-10.6) k/uL RBC 2.60 L (4.30-5.90) m/uL Hgb 8.4 L (13.0-17.5) gm/dL Hct 25.8 L (39.0-53.0) % Plt Count 125 L (150-450) k/uL Lymphocytes # (Manual) 0.35 L (1.0-4.8) k/uL Nucleated RBCs 6 H (0-0) /100 WBC ABG pH (7.35-7.45) ABG pCO2 (35-45) mmHg ABG pO2 (83-108) mmHg ABG HCO3 (21-25) mmol/L ABG Total CO2 (19-24) mmol/L ABG O2 Saturation (94-97) % Potassium 5.3 H (3.5-5.1) mmol/L Chloride 111 H (98-107) mmol/L BUN 50 H (9-20) mg/dL Creatinine 0.64 L (0.66-1.25) mg/dL Glucose 154 H (74-99) mg/dL POC Glucose (mg/dL) 162 H (75-99) mg/dL Calcium 7.7 L (8.4-10.2) mg/dL Ferritin (22.0-322.0) ng/mL Lactate Dehydrogenase 762 H (313-618) U/L C-Reactive Protein 177.2 H (<10.0) mg/L Total Protein 4.7 L (6.3-8.2) g/dL Albumin 2.0 L (3.5-5.0) g/dL 10/30/20 Range/Units 05:10 WBC (3.8-10.6) k/uL RBC (4.30-5.90) m/uL Hgb (13.0-17.5) gm/dL Hct (39.0-53.0) % Plt Count (150-450) k/uL Lymphocytes # (Manual) (1.0-4.8) k/uL Nucleated RBCs (0-0) /100 WBC ABG pH 7.34 L (7.35-7.45) ABG pCO2 55 H (35-45) mmHg ABG pO2 61 L (83-108) mmHg ABG HCO3 29 H (21-25) mmol/L ABG Total CO2 31 H (19-24) mmol/L ABG O2 Saturation 91.4 L (94-97) % Potassium (3.5-5.1) mmol/L Chloride (98-107) mmol/L BUN (9-20) mg/dL Creatinine (0.66-1.25) mg/dL Glucose (74-99) mg/dL POC Glucose (mg/dL) (75-99) mg/dL Calcium (8.4-10.2) mg/dL Ferritin (22.0-322.0) ng/mL Lactate Dehydrogenase (313-618) U/L C-Reactive Protein (<10.0) mg/L Total Protein (6.3-8.2) g/dL Albumin (3.5-5.0) g/dL Assessment and Plan Plan: 1 acute hypoxic respiratory failure with development of interstitial bilateral pulmonary infiltrates, most consistent with a viral COVID 19 related pneumonia/ARDS. The patient received a combination of steroids, anticoagulation, Remdesivir and 2 units of convalescent plasma. The chest x-ray still showing diffuse bilateral pulmonary infiltrates along with some limited improvement with airspace disease in the right lung base. The d-dimer has been declining progressively. The rest of the inflammatory markers show a CRP of 177, ferritin of 562, LDH of 762 2 Cardiac arrest requiring brief CPR for less than 1 minute , this happened while the patient was being intubated. 3 elevated inflammatory markers likely secondary to above 4 coronary artery disease appears bypass surgery and previous coronary stenting 5 hypertension 6 hyperlipidemia 7 Paroxysmal Atrial fibrillation, currently on a combination of amiodarone, metoprolol and long-term anticoagulation with Lovenox 80 mg subcu every 12 hours. The patient remains in atrial fibrillation with a controlled rate for now. PLAN The patient IV Lasix 40 mg every 8 hours and attempted negative fluid balance over the next 24 hours. Discontinue the Decadron up with the patient on Solu-Medrol 60 mg every 6 hours Dropped a respiratory rate down to 30 We'll give the patient a paralytic holiday and continue the combination of fentanyl and propofol We are going to discontinue the Cardizem drip and switch this patient to oral Cardizem 400 mg by mouth twice a day. Cardizem drip will be also discontinued and the patient was switched to oral Cardizem 60 mg by mouth 3 times a day. Obtain a blood gases on a daily basis Obtain a follow-up chest x-ray on a daily basis Repeat inflammatory markers, every 24-48 hours Lovenox 80 mg subcu twice a day Patient is critical. The patient will be kept in ICU. We'll continue to follow make further recommendations based on his progress. Highly likely with the patient may require intubation mechanical ventilation. DNR/DNI status Will contact the and have a discussion with her CC management , >30 min Time with Patient: Greater than 30
[2020-10-30] MEDS: CISATRACURIUM 200 MG in SODIUM CHLORIDE 0.9% 180 ML IV SCH (07:44)
[2020-10-30] MEDS: ALBUTEROL HFA INHALER INHALATION SCH ×3 (07:58→16:57)
--- NOTE | 2020-10-30 08:16 | P.PN ---
Subjective Progress Note Date: 10/28/20 Principal diagnosis: Acute hypoxic respiratory failure 10/14/2020, the patient has been placed on a BiPAP at a pressure of 12/6 with an FiO2 of 100%. Initially was on regular oxygen flowing he was switched to high flow oxygen 6 L and upon further decompensation, the patient was placed on a BiPAP. He is resting comfortably in bed. Patient is on IV Decadron. He is also on Lovenox for DVT prophylaxis. Patient didn't qualify for Remdesivir and he was given convalescent plasma one unit yesterday. His most recent blood gases from yesterday and no follow-up blood gases has been obtained today. He is looking lethargic. Is getting progressively more weak. A repeat chest x-ray is recommended by pulmonary and recommended transfer to ICU 10/15/2022 The patient got transferred to the intensive care unit because of worsening in hypoxemia and acute hypoxic respiratory failure; chest x-ray showing diffuse bilateral pulmonary infiltrates with groundglass changes Bilaterally more so on the right compared to the left. The patient is on a BiPAP. The patient is currently on IV Decadron. The patient received convalescent plasma. He did not qualify for Remdesivir. His repeat coronavirus/Covid 19 PCR was sent and this is still pending. He is on Lovenox at a dose of 40 mg subcu on a daily basis. Overnight, he became quite restless and agitated. He was started on Precedex; emains in the 100% on his BiPAP and his pulse ox is ranging between 86 and 90%. D-dimer is elevated at 21.7. His d-dimer is elevated and the patient's Lovenox will be adjusted to half a dose twice a day. He is in a normal sinus rhythm for now. 10/24/2020 Patient is seen and evaluated at bedside in ICU; patient remains intubated and mechanically ventilated requiring higher doses of fentanyl and propofol; central melt specialist service planning to start patient on Nimbex drip; prognosis remains gua 10/25/2020 Patient is seen and evaluated in ICU; remains intubated and mechanically vent ilated Patient received a dose of IV Lasix 40 mg 1 and IV fluids have been turned down to KVO; patient remains on Nimbex due to ventilator dyssynchrony; patient remains on propofol and fentanyl; currently on tube feedings with plans to reach a goal of 40 m/h; insulin drip has been discontinued and patient will have Accu- Cheks every 4 hours with sliding scale Overall prognosis remains guarded 10/26/2020 Patient remains in ICU; intubated and mechanically ventilated; remains sedated and paralyzed on fentanyl, propofol and Nimbex; central melt specialist service planning to stabilize patient for 48 hours prior to discontinuing Nimbex tomorrow Vital signs with temperature of 99.2, heart rate 68, respiration 38 and blood pressure 123/53 Patient is received a dose of Lasix 40 mg IV 1; blood gases are reasonable; plan is to discontinue Nimbex in next 24 hours; patient has been made DO NOT RESUSCITATE due to overall poor prognosis; plan is to have a family meeting to discuss possible comfort measures if patient fails to improve 10/27/2020 Patient remains in ICU and intubated; plan is to discontinue Nimbex today; patient remains DO NOT RESUSCITATE Patient had chest x-ray done which revealed questionable subtle pneumomediastinum Patient was discussed with family by intensive care service with recommendations to withdraw life support and institute comfort measures; family is agreeable but not ready to withdraw life support today; continue current treatment 10/28/2020 patient is seen and evaluated in ICU; clinically remains unchanged; patient was discussed with and was made DNR with plans to make him comfort measures today; patient's changed her mind; staets that PCP told her to hold off any decisions and wants patient to be transferred to [facility] to involve his PCP; transfer process was initiated; I spoke with transfer service and patient was discussed with central melt specialist who declined to accept patient due to no ICU beds available. I did get hold of patient's PCP, Dr Meredith through transfer line and gave him a detailed account of patients hospital course and guarded prognosis, given no progress for last 1 week; PCP is agreeable with comfort care and will call patient's tomorrow, with his recs to proceed with comfort care. Objective - Vital Signs Vital signs: Vital Signs Temp 100.6 F H 10/28/20 12:00 Pulse 75 10/28/20 12:00 Resp 36 H 10/28/20 12:00 BP 97/54 10/28/20 12:00 Pulse Ox 88 L 10/28/20 12:00 Intake & Output 10/27/20 10/28/20 10/28/20 18:59 06:59 18:59 Intake Total 6058.954 2358.118 776 Output Total 880 1235 560 Balance 291.176 -75.882 216 Weight 108.5 kg 107.2 kg Intake: IV 120 120 60 Sodium Chloride 0.9% 1, 120 120 60 000 ml @ 10 mls/hr IV . Q24H JOE Rx#:[id number] Intake, IV Titration 581.176 261.118 100 Amount Cisatracurium 200 mg In 200.000 Sodium Chloride 0.9% 180 ml @ 1 MCG/KG/MIN 6.306 mls/hr IV .Q24H JOE Rx#: [id number] fentaNYL (PF) 1,000 mcg 194.363 100 In Sodium Chloride 0.9% 80 ml @ Per Protocol IV . Q0M JOE Rx#:[id number] propofoL 1,000 mg In 186.813 161.118 100 Empty Bag 1 bag @ Titrate IV .Q0M JOE Rx#: [id number] Tube Feeding 470 658 376 Other 120 240 Output: Urine 880 1235 560 Other: Voiding Method Indwelling Catheter Indwelling Catheter Indwelling Catheter ABP, PAP, CO, CI - Last Documented Arterial Blood Pressure 07/12 - Exam GENERAL: The patient remains intubated and mechanically ventilated HEENT: Pupils are round and equally reacting to light. CARDIOVASCULAR: S1 and S2 present. No murmurs, rubs, or gallops. PULMONARY: Chest is clear to auscultation, no wheezing or crackles. ABDOMEN: Soft, nontender, nondistended, normoactive bowel sounds. No palpable organomegaly. MUSCULOSKELETAL: No joint swelling or deformity. EXTREMITIES: No cyanosis, clubbing, or pedal edema. NEUROLOGICAL: Unable to evaluate SKIN: No rashes. - Labs CBC & Chem 7: 10/30/20 03:54 10/30/20 03:46 Labs: Abnormal Lab Results - Last 24 Hours (Table) 10/28/20 10/28/20 10/28/20 Range/Units 04:40 04:40 04:40 RBC 2.71 L (4.30-5.90) m/uL Hgb 8.7 L (13.0-17.5) gm/dL Hct 27.1 L (39.0-53.0) % Plt Count 128 L (150-450) k/uL Lymphocytes # (Manual) 0.33 L (1.0-4.8) k/uL Fibrinogen 868 H (200-500) mg/dL D-Dimer 3.49 H (<0.60) mg/L FEU ABG pCO2 (35-45) mmHg ABG pO2 (83-108) mmHg ABG HCO3 (21-25) mmol/L ABG Total CO2 (19-24) mmol/L ABG O2 Saturation (94-97) % Chloride 113 H (98-107) mmol/L BUN 55 H (9-20) mg/dL Glucose 134 H (74-99) mg/dL Calcium 8.1 L (8.4-10.2) mg/dL Ferritin 580.9 H (22.0-322.0) ng/mL Lactate Dehydrogenase 728 H (313-618) U/L C-Reactive Protein 291.2 H (<10.0) mg/L Total Protein 4.6 L (6.3-8.2) g/dL Albumin 2.0 L (3.5-5.0) g/dL 10/28/20 Range/Units 05:16 RBC (4.30-5.90) m/uL Hgb (13.0-17.5) gm/dL Hct (39.0-53.0) % Plt Count (150-450) k/uL Lymphocytes # (Manual) (1.0-4.8) k/uL Fibrinogen (200-500) mg/dL D-Dimer (<0.60) mg/L FEU ABG pCO2 51 H (35-45) mmHg ABG pO2 58 L* (83-108) mmHg ABG HCO3 28 H (21-25) mmol/L ABG Total CO2 30 H (19-24) mmol/L ABG O2 Saturation 90.0 L (94-97) % Chloride (98-107) mmol/L BUN (9-20) mg/dL Glucose (74-99) mg/dL Calcium (8.4-10.2) mg/dL Ferritin (22.0-322.0) ng/mL Lactate Dehydrogenase (313-618) U/L C-Reactive Protein (<10.0) mg/L Total Protein (6.3-8.2) g/dL Albumin (3.5-5.0) g/dL Assessment and Plan Assessment: -Acute hypoxic respiratory failure: Possibly of a cough with 19 pneumonitis cannot be ruled out in spite of negative PCR. Patient may have a some other viral pneumonia as well. Computed tomography scan findings are consistent with ARDS. We'll continue with respiratory support. Patient is on systemic megan roids. He is also on Lovenox. -Coronary artery disease with previous history of bypass surgery hyperlipidemia -Hypertension -Hypovolemic hyponatremia: Hydrochlorothiazide will be discontinued patient was started on IV fluids next and have an acute renal failure secondary to diuretics and and evidence of medications which will be held as mentioned above.
--- NOTE | 2020-10-30 08:25 | P.PN ---
Subjective Progress Note Date: 10/29/20 Principal diagnosis: Acute hypoxic respiratory failure 10/14/2020, the patient has been placed on a BiPAP at a pressure of 12/6 with an FiO2 of 100%. Initially was on regular oxygen flowing he was switched to high flow oxygen 6 L and upon further decompensation, the patient was placed on a BiPAP. He is resting comfortably in bed. Patient is on IV Decadron. He is also on Lovenox for DVT prophylaxis. Patient didn't qualify for Remdesivir and he was given convalescent plasma one unit yesterday. His most recent blood gases from yesterday and no follow-up blood gases has been obtained today. He is looking lethargic. Is getting progressively more weak. A repeat chest x-ray is recommended by pulmonary and recommended transfer to ICU 10/15/2022 The patient got transferred to the intensive care unit because of worsening in hypoxemia and acute hypoxic respiratory failure; chest x-ray showing diffuse bilateral pulmonary infiltrates with groundglass changes Bilaterally more so on the right compared to the left. The patient is on a BiPAP. The patient is currently on IV Decadron. The patient received convalescent plasma. He did not qualify for Remdesivir. His repeat coronavirus/Covid 19 PCR was sent and this is still pending. He is on Lovenox at a dose of 40 mg subcu on a daily basis. Overnight, he became quite restless and agitated. He was started on Precedex; emains in the 100% on his BiPAP and his pulse ox is ranging between 86 and 90%. D-dimer is elevated at 21.7. His d-dimer is elevated and the patient's Lovenox will be adjusted to half a dose twice a day. He is in a normal sinus rhythm for now. 10/24/2020 Patient is seen and evaluated at bedside in ICU; patient remains intubated and mechanically ventilated requiring higher doses of fentanyl and propofol; fuel island attendant service planning to start patient on Nimbex drip; prognosis remains gua 10/25/2020 Patient is seen and evaluated in ICU; remains intubated and mechanically vent ilated Patient received a dose of IV Lasix 40 mg 1 and IV fluids have been turned down to KVO; patient remains on Nimbex due to ventilator dyssynchrony; patient remains on propofol and fentanyl; currently on tube feedings with plans to reach a goal of 40 m/h; insulin drip has been discontinued and patient will have Accu- Cheks every 4 hours with sliding scale Overall prognosis remains guarded 10/26/2020 Patient remains in ICU; intubated and mechanically ventilated; remains sedated and paralyzed on fentanyl, propofol and Nimbex; fuel island attendant service planning to stabilize patient for 48 hours prior to discontinuing Nimbex tomorrow Vital signs with temperature of 99.2, heart rate 68, respiration 38 and blood pressure 123/53 Patient is received a dose of Lasix 40 mg IV 1; blood gases are reasonable; plan is to discontinue Nimbex in next 24 hours; patient has been made DO NOT RESUSCITATE due to overall poor prognosis; plan is to have a family meeting to discuss possible comfort measures if patient fails to improve 10/27/2020 Patient remains in ICU and intubated; plan is to discontinue Nimbex today; patient remains DO NOT RESUSCITATE Patient had chest x-ray done which revealed questionable subtle pneumomediastinum Patient was discussed with family by intensive care service with recommendations to withdraw life support and institute comfort measures; family is agreeable but not ready to withdraw life support today; continue current treatment 10/28/2020 patient is seen and evaluated in ICU; clinically remains unchanged; patient was discussed with and was made DNR with plans to make him comfort measures today; patient's changed her mind; staets that PCP told her to hold off any decisions and wants patient to be transferred to [facility] to involve his PCP; transfer process was initiated; I spoke with transfer service and patient was discussed with fuel island attendant who declined to accept patient due to no ICU beds available. I did get hold of patient's PCP, Dr Meredith through transfer line and gave him a detailed account of patients hospital course and guarded prognosis, given no progress for last 1 week; PCP is agreeable with comfort care and will call patient's tomorrow, with his recs to proceed with comfort care. 10/29/2020 patient remains in ICU; remains intubated and mechanically ventilated; VS are reviewed; temp 98.6, HR 90, BP 129/68 Lab review shows WBC 3.3; hgb 7.9; d-dimer 2.25; Na 142; K 5; BUN/Cr 52/0.78 Patient remains DNR; await family to make further decisions after they talk to PCP; PCP was updated yesterday and agrees comfort care might be appropriate for the patient; Dr Meredith will call today to help family make further decisions Objective - Vital Signs Vital signs: Vital Signs Temp 99.5 F 10/29/20 16:00 Pulse 73 10/29/20 17:00 Resp 39 H 10/29/20 17:00 BP 101/54 10/29/20 17:00 Pulse Ox 91 L 10/29/20 17:00 Intake & Output 10/28/20 10/29/20 10/29/20 18:59 06:59 18:59 Intake Total 4997.692 0697 1207.904 Output Total 955 1375 920 Balance 718.491 -60 287.904 Weight 102.6 kg Intake: IV 120 120 110 Sodium Chloride 0.9% 1, 120 120 110 000 ml @ 10 mls/hr IV . Q24H JOE Rx#:[id number] Intake, IV Titration 458.491 400 229.904 Amount Cisatracurium 200 mg In 158.491 129.904 Sodium Chloride 0.9% 180 ml @ 1 MCG/KG/MIN 6.306 mls/hr IV .Q24H JOE Rx#: [id number] fentaNYL (PF) 1,000 mcg 100 100 In Sodium Chloride 0.9% 80 ml @ Per Protocol IV . Q0M JOE Rx#:[id number] propofoL 1,000 mg In 200 300 100 Empty Bag 1 bag @ Titrate IV .Q0M JOE Rx#: [id number] Oral 180 Tube Feeding 705 705 658 Other 390 90 30 Output: Urine 955 1375 920 Other: Voiding Method Indwelling Catheter Indwelling Catheter Indwelling Catheter ABP, PAP, CO, CI - Last Documented Arterial Blood Pressure 07/12 - Exam GENERAL: The patient remains intubated and mechanically ventilated HEENT: Pupils are round and equally reacting to light. CARDIOVASCULAR: S1 and S2 present. No murmurs, rubs, or gallops. PULMONARY: Chest is clear to auscultation, no wheezing or crackles. ABDOMEN: Soft, nontender, nondistended, normoactive bowel sounds. No palpable organomegaly. MUSCULOSKELETAL: No joint swelling or deformity. EXTREMITIES: No cyanosis, clubbing, or pedal edema. NEUROLOGICAL: Unable to evaluate SKIN: No rashes. - Labs CBC & Chem 7: 10/30/20 03:54 10/30/20 03:46 Labs: Abnormal Lab Results - Last 24 Hours (Table) 10/25/20 10/26/20 10/26/20 Range/Units 23:51 04:31 07:46 WBC (3.8-10.6) k/uL RBC (4.30-5.90) m/uL Hgb (13.0-17.5) gm/dL Hct (39.0-53.0) % Lymphocytes # (1.0-4.8) k/uL Fibrinogen (200-500) mg/dL D-Dimer (<0.60) mg/L FEU ABG pH (7.35-7.45) ABG pCO2 (35-45) mmHg ABG pO2 (83-108) mmHg ABG HCO3 (21-25) mmol/L ABG Total CO2 (19-24) mmol/L ABG O2 Saturation (94-97) % Chloride (98-107) mmol/L BUN (9-20) mg/dL Glucose (74-99) mg/dL POC Glucose (mg/dL) 168 H 144 H 130 H (75-99) mg/dL Calcium (8.4-10.2) mg/dL Ferritin (22.0-322.0) ng/mL C-Reactive Protein (<10.0) mg/L Total Protein (6.3-8.2) g/dL Albumin (3.5-5.0) g/dL 10/26/20 10/26/20 10/26/20 Range/Units 12:35 15:24 20:07 WBC (3.8-10.6) k/uL RBC (4.30-5.90) m/uL Hgb (13.0-17.5) gm/dL Hct (39.0-53.0) % Lymphocytes # (1.0-4.8) k/uL Fibrinogen (200-500) mg/dL D-Dimer (<0.60) mg/L FEU ABG pH (7.35-7.45) ABG pCO2 (35-45) mmHg ABG pO2 (83-108) mmHg ABG HCO3 (21-25) mmol/L ABG Total CO2 (19-24) mmol/L ABG O2 Saturation (94-97) % Chloride (98-107) mmol/L BUN (9-20) mg/dL Glucose (74-99) mg/dL POC Glucose (mg/dL) 125 H 118 H 137 H (75-99) mg/dL Calcium (8.4-10.2) mg/dL Ferritin (22.0-322.0) ng/mL C-Reactive Protein (<10.0) mg/L Total Protein (6.3-8.2) g/dL Albumin (3.5-5.0) g/dL 10/26/20 10/27/20 10/27/20 Range/Units 23:32 04:34 07:22 WBC (3.8-10.6) k/uL RBC (4.30-5.90) m/uL Hgb (13.0-17.5) gm/dL Hct (39.0-53.0) % Lymphocytes # (1.0-4.8) k/uL Fibrinogen (200-500) mg/dL D-Dimer (<0.60) mg/L FEU ABG pH (7.35-7.45) ABG pCO2 (35-45) mmHg ABG pO2 (83-108) mmHg ABG HCO3 (21-25) mmol/L ABG Total CO2 (19-24) mmol/L ABG O2 Saturation (94-97) % Chloride (98-107) mmol/L BUN (9-20) mg/dL Glucose (74-99) mg/dL POC Glucose (mg/dL) 162 H 159 H 123 H (75-99) mg/dL Calcium (8.4-10.2) mg/dL Ferritin (22.0-322.0) ng/mL C-Reactive Protein (<10.0) mg/L Total Protein (6.3-8.2) g/dL Albumin (3.5-5.0) g/dL 10/27/20 10/27/20 10/27/20 Range/Units 11:45 16:54 19:53 WBC (3.8-10.6) k/uL RBC (4.30-5.90) m/uL Hgb (13.0-17.5) gm/dL Hct (39.0-53.0) % Lymphocytes # (1.0-4.8) k/uL Fibrinogen (200-500) mg/dL D-Dimer (<0.60) mg/L FEU ABG pH (7.35-7.45) ABG pCO2 (35-45) mmHg ABG pO2 (83-108) mmHg ABG HCO3 (21-25) mmol/L ABG Total CO2 (19-24) mmol/L ABG O2 Saturation (94-97) % Chloride (98-107) mmol/L BUN (9-20) mg/dL Glucose (74-99) mg/dL POC Glucose (mg/dL) 186 H 195 H 164 H (75-99) mg/dL Calcium (8.4-10.2) mg/dL Ferritin (22.0-322.0) ng/mL C-Reactive Protein (<10.0) mg/L Total Protein (6.3-8.2) g/dL Albumin (3.5-5.0) g/dL 10/27/20 10/28/20 10/28/20 Range/Units 23:41 03:34 05:16 WBC (3.8-10.6) k/uL RBC (4.30-5.90) m/uL Hgb (13.0-17.5) gm/dL Hct (39.0-53.0) % Lymphocytes # (1.0-4.8) k/uL Fibrinogen (200-500) mg/dL D-Dimer (<0.60) mg/L FEU ABG pH (7.35-7.45) ABG pCO2 (35-45) mmHg ABG pO2 58 L* (83-108) mmHg ABG HCO3 (21-25) mmol/L ABG Total CO2 (19-24) mmol/L ABG O2 Saturation (94-97) % Chloride (98-107) mmol/L BUN (9-20) mg/dL Glucose (74-99) mg/dL POC Glucose (mg/dL) 158 H 123 H (75-99) mg/dL Calcium (8.4-10.2) mg/dL Ferritin (22.0-322.0) ng/mL C-Reactive Protein (<10.0) mg/L Total Protein (6.3-8.2) g/dL Albumin (3.5-5.0) g/dL 10/28/20 10/28/20 10/28/20 Range/Units 08:27 12:00 16:19 WBC (3.8-10.6) k/uL RBC (4.30-5.90) m/uL Hgb (13.0-17.5) gm/dL Hct (39.0-53.0) % Lymphocytes # (1.0-4.8) k/uL Fibrinogen (200-500) mg/dL D-Dimer (<0.60) mg/L FEU ABG pH (7.35-7.45) ABG pCO2 (35-45) mmHg ABG pO2 (83-108) mmHg ABG HCO3 (21-25) mmol/L ABG Total CO2 (19-24) mmol/L ABG O2 Saturation (94-97) % Chloride (98-107) mmol/L BUN (9-20) mg/dL Glucose (74-99) mg/dL POC Glucose (mg/dL) 152 H 127 H 205 H (75-99) mg/dL Calcium (8.4-10.2) mg/dL Ferritin (22.0-322.0) ng/mL C-Reactive Protein (<10.0) mg/L Total Protein (6.3-8.2) g/dL Albumin (3.5-5.0) g/dL 10/28/20 10/28/20 10/29/20 Range/Units 19:48 23:28 03:46 WBC (3.8-10.6) k/uL RBC (4.30-5.90) m/uL Hgb (13.0-17.5) gm/dL Hct (39.0-53.0) % Lymphocytes # (1.0-4.8) k/uL Fibrinogen (200-500) mg/dL D-Dimer (<0.60) mg/L FEU ABG pH (7.35-7.45) ABG pCO2 (35-45) mmHg ABG pO2 (83-108) mmHg ABG HCO3 (21-25) mmol/L ABG Total CO2 (19-24) mmol/L ABG O2 Saturation (94-97) % Chloride (98-107) mmol/L BUN (9-20) mg/dL Glucose (74-99) mg/dL POC Glucose (mg/dL) 171 H 180 H 180 H (75-99) mg/dL Calcium (8.4-10.2) mg/dL Ferritin (22.0-322.0) ng/mL C-Reactive Protein (<10.0) mg/L Total Protein (6.3-8.2) g/dL Albumin (3.5-5.0) g/dL 10/29/20 10/29/20 10/29/20 Range/Units 04:35 04:35 04:35 WBC 3.3 L (3.8-10.6) k/uL RBC 2.54 L (4.30-5.90) m/uL Hgb 7.9 L (13.0-17.5) gm/dL Hct 25.3 L (39.0-53.0) % Lymphocytes # 0.3 L (1.0-4.8) k/uL Fibrinogen 882 H (200-500) mg/dL D-Dimer 2.25 H (<0.60) mg/L FEU ABG pH (7.35-7.45) ABG pCO2 (35-45) mmHg ABG pO2 (83-108) mmHg ABG HCO3 (21-25) mmol/L ABG Total CO2 (19-24) mmol/L ABG O2 Saturation (94-97) % Chloride 113 H (98-107) mmol/L BUN 52 H (9-20) mg/dL Glucose 172 H (74-99) mg/dL POC Glucose (mg/dL) (75-99) mg/dL Calcium 8.3 L (8.4-10.2) mg/dL Ferritin 562.1 H (22.0-322.0) ng/mL C-Reactive Protein 255.9 H (<10.0) mg/L Total Protein 5.7 L (6.3-8.2) g/dL Albumin 2.3 L (3.5-5.0) g/dL 10/29/20 10/29/20 10/29/20 Range/Units 05:20 08:03 10:57 WBC (3.8-10.6) k/uL RBC (4.30-5.90) m/uL Hgb (13.0-17.5) gm/dL Hct (39.0-53.0) % Lymphocytes # (1.0-4.8) k/uL Fibrinogen (200-500) mg/dL D-Dimer (<0.60) mg/L FEU ABG pH 7.32 L (7.35-7.45) ABG pCO2 56 H (35-45) mmHg ABG pO2 66 L (83-108) mmHg ABG HCO3 29 H (21-25) mmol/L ABG Total CO2 31 H (19-24) mmol/L ABG O2 Saturation 92.5 L (94-97) % Chloride (98-107) mmol/L BUN (9-20) mg/dL Glucose (74-99) mg/dL POC Glucose (mg/dL) 184 H 158 H (75-99) mg/dL Calcium (8.4-10.2) mg/dL Ferritin (22.0-322.0) ng/mL C-Reactive Protein (<10.0) mg/L Total Protein (6.3-8.2) g/dL Albumin (3.5-5.0) g/dL 10/29/20 Range/Units 15:45 WBC (3.8-10.6) k/uL RBC (4.30-5.90) m/uL Hgb (13.0-17.5) gm/dL Hct (39.0-53.0) % Lymphocytes # (1.0-4.8) k/uL Fibrinogen (200-500) mg/dL D-Dimer (<0.60) mg/L FEU ABG pH (7.35-7.45) ABG pCO2 (35-45) mmHg ABG pO2 (83-108) mmHg ABG HCO3 (21-25) mmol/L ABG Total CO2 (19-24) mmol/L ABG O2 Saturation (94-97) % Chloride (98-107) mmol/L BUN (9-20) mg/dL Glucose (74-99) mg/dL POC Glucose (mg/dL) 176 H (75-99) mg/dL Calcium (8.4-10.2) mg/dL Ferritin (22.0-322.0) ng/mL C-Reactive Protein (<10.0) mg/L Total Protein (6.3-8.2) g/dL Albumin (3.5-5.0) g/dL Assessment and Plan Assessment: -Acute hypoxic respiratory failure: Possibly of a cough with 19 pneumonitis cannot be ruled out in spite of negative PCR. Patient may have a some other viral pneumonia as well. Computed tomography scan findings are consistent with ARDS. We'll continue with respiratory support. Patient is on systemic steroids. He is also on Lovenox. -Coronary artery disease with previous history of bypass surgery hyperlipidemia -Hypertension -Hypovolemic hyponatremia: Hydrochlorothiazide will be discontinued patient was started on IV fluids next and have an acute renal failure secondary to diuretics and and evidence of medications which will be held as mentioned above.
[2020-10-30] MEDS ORDERED: FUROSEMIDE 10 MG/ML 4 ML VIAL IV SCH (08:30)
[2020-10-30 08:52] LABS: Glucose,Whole Blood 156 mg/dL (75-99)
[2020-10-30] MEDS ORDERED: AMIODARONE 200 MG TAB PO SCH (09:00)
[2020-10-30] MEDS ORDERED: DILTIAZEM ORAL 60 MG TAB PO SCH (09:00)
[2020-10-30] MEDS: TIMOLOL 0.5% OPHTH DROPS 5 ML BTL BOTH EYES SCH (09:05)
[2020-10-30] MEDS: methylPREDNISolone SOD SUCCI 125 MG/2 ML VIAL IV SCH ×2 (09:06→12:49)
[2020-10-30] MEDS: ASPIRIN 81 MG PO SCH (09:07)
[2020-10-30] MEDS: CHLORHEXIDINE GLUCONATE 15 ML CUP MUCOUS MEM SCH (09:07)
[2020-10-30] MEDS: atenoloL 25 MG TAB PO SCH (09:07)
[2020-10-30] MEDS: CHOLECALCIFEROL 400 UNIT TAB PO SCH (09:07)
[2020-10-30] MEDS: RANOLAZINE 500 MG TAB.ER.12H PO SCH (09:08)
[2020-10-30] MEDS: PANTOPRAZOLE 40 MG/10 ML VIAL IVP SCH (09:08)
[2020-10-30] MEDS: ZINC SULFATE 220 MG CAP PO SCH (09:08)
[2020-10-30] MEDS: LOSARTAN 50 MG TAB PO SCH (09:08)
[2020-10-30] MEDS: ENOXAPARIN 80 MG/0.8 ML SYRINGE SQ SCH (09:08)
[2020-10-30 10:31] LABS: Ferritin 864.6 ng/mL (22.0-322.0)
[2020-10-30 11:48] LABS: Glucose,Whole Blood 173 mg/dL (75-99)
--- NOTE | 2020-10-30 13:00 | ECHOF ---
Referral Reason:afib MEASUREMENTS -------- HEIGHT: 172.7 cm WEIGHT: 107.0 kg BP: 105/60 IVSd: 1.5 cm (0.6 - 1.1) LVIDd: 4.0 cm (3.9 - 5.3) LVPWd: 1.5 cm (0.6 - 1.1) IVSs: 2.3 cm LVIDs: 2.0 cm LVPWs: 1.6 cm RVIDd: 3.9 cm (< 3.3) LAESV Index (A-L): 26.62 ml/m Ao Diam: 3.1 cm (2.0 - 3.7) AV Cusp: 1.8 cm (1.5 - 2.6) EPSS: 0.1 cm AV maxP.41 mmHg AV meanP.12 mmHg RAP: 5.00 mmHg RVSP: 44.20 mmHg MV EF SLOPE: 70.34 mm/s (70 - 150) MV EXCURSION: 15.86 mm (> 18.000) FINDINGS -------- Atrial fibrillation. This was a technically difficult study with suboptimal apical views. The left ventricular size is normal. There is moderate concentric left ventricular hypertrophy. O verall left ventricular systolic function is normal with, an EF between 55 - 60 %. Septal wall sigrid on is delayed and consistent with prior cardiac surgery. The right ventricle is severely enlarged. Normal LA size by volume 22+/-6 ml/m2. The right atrial size is normal. 5.0mg of Lumason was utilized for enhancement of images Interatrial and interventricular septum intact. The aortic valve is trileaflet and appears structurally normal. There is no evidence of aortic regu rgitation. There is moderate aortic stenosis present. There is trace to mild mitral regurgitation. Moderate tricuspid regurgitation present. There is moderate pulmonary hypertension. The right nishant tricular systolic pressure, as measured by Doppler, is 44.20mmHg. There is no pulmonic regurgitation present. The aortic root size is normal. IVC Not well visulized. There is a small, generalized pericardial effusion present. CONCLUSIONS -------- 1. The left ventricular size is normal. 2. There is moderate concentric left ventricular hypertrophy. 3. Overall left ventricular systolic function is normal with, an EF between 55 - 60 %. 4. The right ventricle is severely enlarged. 5. There is moderate aortic stenosis present. 6. There is trace to mild mitral regurgitation. 7. Moderate tricuspid regurgitation present. 8. There is moderate pulmonary hypertension. 9. The right ventricular systolic pressure, as measured by Doppler, is 44.20mmHg. 10. There is a small, generalized pericardial effusion present. [employer]: Angelia Sanford RDCS
[2020-10-30 13:31] VITALS: BMI 36.0
--- NOTE | 2020-10-30 14:25 | P.PN ---
Subjective Progress Note Date: 10/30/20 Principal diagnosis: Paroxysmal atrial fibrillation This is a 75-year-old female patient who was admitted to the hospital initially with fever and shortness of breath and cough and she was diagnosed was infection with COVID-19. The patient subsequently developed acute hypoxic respiratory failure. We involving her care because of paroxysmal atrial fibrillation. The patient was seen this morning. She continues to be in atrial fibrillation but controlled heart rate. She is on oral anticoagulation beach she was on Cardizem IV and that was switched to Cardizem by mouth earlier today. She is on Lasix IV to achieve negative fluid balance. Objective - Vital Signs Vital signs: Vital Signs Temp 99.1 F 10/30/20 08:00 Pulse 75 10/30/20 13:00 Resp 30 H 10/30/20 13:00 BP 127/60 10/30/20 13:00 Pulse Ox 92 L 10/30/20 13:00 Intake & Output 10/29/20 10/30/20 10/30/20 18:59 06:59 18:59 Intake Total 9054.205 8051.164 808.624 Output Total 1070 1170 2450 Balance 617.237 472.164 -1641.376 Weight 107.4 kg 107.4 kg Intake: IV 120 120 70 Sodium Chloride 0.9% 1, 120 120 70 000 ml @ 10 mls/hr IV . Q24H [facility] Rx#:[id number] Intake, IV Titration 652.237 727.164 349.624 Amount Amiodarone 300 mg In 240.833 232.917 Dextrose 5% in Water 250 ml @ 0.5 MG/MIN 25 mls/hr IV .Q10H [facility] Rx#: [id number] Cisatracurium 200 mg In 129.904 112.457 Sodium Chloride 0.9% 180 ml @ 1 MCG/KG/MIN 6.306 mls/hr IV .Q24H [facility] Rx#: [id number] Diltiazem 125 mg In 81.5 Sodium Chloride 0.9% 100 ml @ Per Protocol IV .Q0M [facility] Rx#:[id number] fentaNYL (PF) 1,000 mcg 200 71.132 In Sodium Chloride 0.9% 80 ml @ Per Protocol IV . Q0M [facility] Rx#:[id number] propofoL 1,000 mg In 200 294.247 166.035 Empty Bag 1 bag @ Titrate IV .Q0M [facility] Rx#: [id number] Oral 180 Tube Feeding 705 705 329 Other 30 90 60 Output: Urine 1070 1170 2450 Other: Voiding Method Indwelling Catheter Indwelling Catheter Indwelling Catheter ABP, PAP, CO, CI - Last Documented Arterial Blood Pressure 07/12 - Constitutional General appearance: Present: no acute distress - Labs CBC & Chem 7: 10/30/20 03:54 10/30/20 03:46 Labs: Abnormal Lab Results - Last 24 Hours (Table) 10/29/20 10/29/20 10/29/20 Range/Units 15:45 19:51 23:32 WBC (3.8-10.6) k/uL RBC (4.30-5.90) m/uL Hgb (13.0-17.5) gm/dL Hct (39.0-53.0) % Plt Count (150-450) k/uL Lymphocytes # (Manual) (1.0-4.8) k/uL Nucleated RBCs (0-0) /100 WBC ABG pH (7.35-7.45) ABG pCO2 (35-45) mmHg ABG pO2 (83-108) mmHg ABG HCO3 (21-25) mmol/L ABG Total CO2 (19-24) mmol/L ABG O2 Saturation (94-97) % Potassium (3.5-5.1) mmol/L Chloride (98-107) mmol/L BUN (9-20) mg/dL Creatinine (0.66-1.25) mg/dL Glucose (74-99) mg/dL POC Glucose (mg/dL) 176 H 183 H 191 H (75-99) mg/dL Calcium (8.4-10.2) mg/dL Ferritin (22.0-322.0) ng/mL Lactate Dehydrogenase (313-618) U/L C-Reactive Protein (<10.0) mg/L Total Protein (6.3-8.2) g/dL Albumin (3.5-5.0) g/dL 10/30/20 10/30/20 10/30/20 Range/Units 02:56 03:46 03:54 WBC 2.9 L (3.8-10.6) k/uL RBC 2.60 L (4.30-5.90) m/uL Hgb 8.4 L (13.0-17.5) gm/dL Hct 25.8 L (39.0-53.0) % Plt Count 125 L (150-450) k/uL Lymphocytes # (Manual) 0.35 L (1.0-4.8) k/uL Nucleated RBCs 6 H (0-0) /100 WBC ABG pH (7.35-7.45) ABG pCO2 (35-45) mmHg ABG pO2 (83-108) mmHg ABG HCO3 (21-25) mmol/L ABG Total CO2 (19-24) mmol/L ABG O2 Saturation (94-97) % Potassium 5.3 H (3.5-5.1) mmol/L Chloride 111 H (98-107) mmol/L BUN 50 H (9-20) mg/dL Creatinine 0.64 L (0.66-1.25) mg/dL Glucose 154 H (74-99) mg/dL POC Glucose (mg/dL) 162 H (75-99) mg/dL Calcium 7.7 L (8.4-10.2) mg/dL Ferritin 864.6 H (22.0-322.0) ng/mL Lactate Dehydrogenase 762 H (313-618) U/L C-Reactive Protein 177.2 H (<10.0) mg/L Total Protein 4.7 L (6.3-8.2) g/dL Albumin 2.0 L (3.5-5.0) g/dL 10/30/20 10/30/20 10/30/20 Range/Units 05:10 08:51 11:46 WBC (3.8-10.6) k/uL RBC (4.30-5.90) m/uL Hgb (13.0-17.5) gm/dL Hct (39.0-53.0) % Plt Count (150-450) k/uL Lymphocytes # (Manual) (1.0-4.8) k/uL Nucleated RBCs (0-0) /100 WBC ABG pH 7.34 L (7.35-7.45) ABG pCO2 55 H (35-45) mmHg ABG pO2 61 L (83-108) mmHg ABG HCO3 29 H (21-25) mmol/L ABG Total CO2 31 H (19-24) mmol/L ABG O2 Saturation 91.4 L (94-97) % Potassium (3.5-5.1) mmol/L Chloride (98-107) mmol/L BUN (9-20) mg/dL Creatinine (0.66-1.25) mg/dL Glucose (74-99) mg/dL POC Glucose (mg/dL) 156 H 173 H (75-99) mg/dL Calcium (8.4-10.2) mg/dL Ferritin (22.0-322.0) ng/mL Lactate Dehydrogenase (313-618) U/L C-Reactive Protein (<10.0) mg/L Total Protein (6.3-8.2) g/dL Albumin (3.5-5.0) g/dL Assessment and Plan Assessment: Assessment #1 acute hypoxic respiratory failure #2 COVD-19 infection #3 paroxysmal atrial fibrillation #4 coronary artery disease #5 multiple comorbid conditions Plan #1 continue the current medical regimen #2 continue anticoagulation #3 follow-up with the patient
[2020-10-30] MEDS ORDERED: MORPHINE SULFATE 4 MG/ML SYRINGE IV PRN (14:39)
[2020-10-30] MEDS ORDERED: MORPHINE SULFATE (100 MG/2 ML) 100 MG in SODIUM CHLORIDE 0.9% 100 ML IV SCH (15:15)
[2020-10-30 15:17] VITALS: BP 173/80
--- NOTE | 2020-10-30 15:47 | P.PN ---
Subjective Progress Note Date: 10/30/20 Principal diagnosis: Acute hypoxic respiratory failure 10/14/2020, the patient has been placed on a BiPAP at a pressure of 12/6 with an FiO2 of 100%. Initially was on regular oxygen flowing he was switched to high flow oxygen 6 L and upon further decompensation, the patient was placed on a BiPAP. He is resting comfortably in bed. Patient is on IV Decadron. He is also on Lovenox for DVT prophylaxis. Patient didn't qualify for Remdesivir and he was given convalescent plasma one unit yesterday. His most recent blood gases from yesterday and no follow-up blood gases has been obtained today. He is looking lethargic. Is getting progressively more weak. A repeat chest x-ray is recommended by pulmonary and recommended transfer to ICU 10/15/2022 The patient got transferred to the intensive care unit because of worsening in hypoxemia and acute hypoxic respiratory failure; chest x-ray showing diffuse bilateral pulmonary infiltrates with groundglass changes Bilaterally more so on the right compared to the left. The patient is on a BiPAP. The patient is currently on IV Decadron. The patient received convalescent plasma. He did not qualify for Remdesivir. His repeat coronavirus/Covid 19 PCR was sent and this is still pending. He is on Lovenox at a dose of 40 mg subcu on a daily basis. Overnight, he became quite restless and agitated. He was started on Precedex; emains in the 100% on his BiPAP and his pulse ox is ranging between 86 and 90%. D-dimer is elevated at 21.7. His d-dimer is elevated and the patient's Lovenox will be adjusted to half a dose twice a day. He is in a normal sinus rhythm for now. 10/24/2020 Patient is seen and evaluated at bedside in ICU; patient remains intubated and mechanically ventilated requiring higher doses of fentanyl and propofol; ship officer service planning to start patient on Nimbex drip; prognosis remains gua 10/25/2020 Patient is seen and evaluated in ICU; remains intubated and mechanically vent ilated Patient received a dose of IV Lasix 40 mg 1 and IV fluids have been turned down to KVO; patient remains on Nimbex due to ventilator dyssynchrony; patient remains on propofol and fentanyl; currently on tube feedings with plans to reach a goal of 40 m/h; insulin drip has been discontinued and patient will have Accu- Cheks every 4 hours with sliding scale Overall prognosis remains guarded 10/26/2020 Patient remains in ICU; intubated and mechanically ventilated; remains sedated and paralyzed on fentanyl, propofol and Nimbex; ship officer service planning to stabilize patient for 48 hours prior to discontinuing Nimbex tomorrow Vital signs with temperature of 99.2, heart rate 68, respiration 38 and blood pressure 123/53 Patient is received a dose of Lasix 40 mg IV 1; blood gases are reasonable; plan is to discontinue Nimbex in next 24 hours; patient has been made DO NOT RESUSCITATE due to overall poor prognosis; plan is to have a family meeting to discuss possible comfort measures if patient fails to improve 10/27/2020 Patient remains in ICU and intubated; plan is to discontinue Nimbex today; patient remains DO NOT RESUSCITATE Patient had chest x-ray done which revealed questionable subtle pneumomediastinum Patient was discussed with family by intensive care service with recommendations to withdraw life support and institute comfort measures; family is agreeable but not ready to withdraw life support today; continue current treatment 10/28/2020 patient is seen and evaluated in ICU; clinically remains unchanged; patient was discussed with and was made DNR with plans to make him comfort measures today; patient's changed her mind; staets that PCP told her to hold off any decisions and wants patient to be transferred to [facility] to involve his PCP; transfer process was initiated; I spoke with transfer service and patient was discussed with ship officer who declined to accept patient due to no ICU beds available. I did get hold of patient's PCP, Dr Meredith through transfer line and gave him a detailed account of patients hospital course and guarded prognosis, given no progress for last 1 week; PCP is agreeable with comfort care and will call patient's tomorrow, with his recs to proceed with comfort care. 10/29/2020 patient remains in ICU; remains intubated and mechanically ventilated; VS are reviewed; temp 98.6, HR 90, BP 129/68 Lab review shows WBC 3.3; hgb 7.9; d-dimer 2.25; Na 142; K 5; BUN/Cr 52/0.78 Patient remains DNR; await family to make further decisions after they talk to PCP; PCP was updated yesterday and agrees comfort care might be appropriate for the patient; Dr Meredith will call today to help family make further decisions 10/30/2020 has made decision to make patient Comfort care after discussion with ship officer; patient will be taken off ventilator support Objective - Vital Signs Vital signs: Vital Signs Temp 99.1 F 10/30/20 04:00 Pulse 87 10/30/20 07:00 Resp 38 H 10/30/20 07:00 BP 105/60 10/30/20 07:00 Pulse Ox 91 L 10/30/20 07:00 Intake & Output 10/29/20 10/30/20 10/30/20 18:59 06:59 18:59 Intake Total 6127.659 3246.164 158.842 Output Total 1070 1170 100 Balance 617.237 472.164 58.842 Weight 107.4 kg Intake: IV 120 120 10 Sodium Chloride 0.9% 1, 120 120 10 000 ml @ 10 mls/hr IV . Q24H [facility] Rx#:[id number] Intake, IV Titration 652.237 727.164 101.842 Amount Amiodarone 300 mg In 240.833 232.917 Dextrose 5% in Water 250 ml @ 0.5 MG/MIN 25 mls/hr IV .Q10H [facility] Rx#: [id number] Cisatracurium 200 mg In 129.904 101.842 Sodium Chloride 0.9% 180 ml @ 1 MCG/KG/MIN 6.306 mls/hr IV .Q24H [facility] Rx#: [id number] Diltiazem 125 mg In 81.5 Sodium Chloride 0.9% 100 ml @ Per Protocol IV .Q0M [facility] Rx#:[id number] fentaNYL (PF) 1,000 mcg 200 In Sodium Chloride 0.9% 80 ml @ Per Protocol IV . Q0M [facility] Rx#:[id number] propofoL 1,000 mg In 200 294.247 Empty Bag 1 bag @ Titrate IV .Q0M [facility] Rx#: [id number] Oral 180 Tube Feeding 705 705 47 Other 30 90 Output: Urine 1070 1170 100 Other: Voiding Method Indwelling Catheter Indwelling Catheter ABP, PAP, CO, CI - Last Documented Arterial Blood Pressure 07/12 - Exam GENERAL: The patient remains intubated and mechanically ventilated HEENT: Pupils are round and equally reacting to light. CARDIOVASCULAR: S1 and S2 present. No murmurs, rubs, or gallops. PULMONARY: Chest is clear to auscultation, no wheezing or crackles. ABDOMEN: Soft, nontender, nondistended, normoactive bowel sounds. No palpable organomegaly. MUSCULOSKELETAL: No joint swelling or deformity. EXTREMITIES: No cyanosis, clubbing, or pedal edema. NEUROLOGICAL: Unable to evaluate SKIN: No rashes. - Labs CBC & Chem 7: 10/30/20 03:54 10/30/20 03:46 Labs: Abnormal Lab Results - Last 24 Hours (Table) 10/25/20 10/26/20 10/26/20 Range/Units 23:51 04:31 07:46 WBC (3.8-10.6) k/uL RBC (4.30-5.90) m/uL Hgb (13.0-17.5) gm/dL Hct (39.0-53.0) % Plt Count (150-450) k/uL Lymphocytes # (Manual) (1.0-4.8) k/uL Nucleated RBCs (0-0) /100 WBC ABG pH (7.35-7.45) ABG pCO2 (35-45) mmHg ABG pO2 (83-108) mmHg ABG HCO3 (21-25) mmol/L ABG Total CO2 (19-24) mmol/L ABG O2 Saturation (94-97) % Potassium (3.5-5.1) mmol/L Chloride (98-107) mmol/L BUN (9-20) mg/dL Creatinine (0.66-1.25) mg/dL Glucose (74-99) mg/dL POC Glucose (mg/dL) 168 H 144 H 130 H (75-99) mg/dL Calcium (8.4-10.2) mg/dL Ferritin (22.0-322.0) ng/mL Lactate Dehydrogenase (313-618) U/L C-Reactive Protein (<10.0) mg/L Total Protein (6.3-8.2) g/dL Albumin (3.5-5.0) g/dL 10/26/20 10/26/20 10/26/20 Range/Units 12:35 15:24 20:07 WBC (3.8-10.6) k/uL RBC (4.30-5.90) m/uL Hgb (13.0-17.5) gm/dL Hct (39.0-53.0) % Plt Count (150-450) k/uL Lymphocytes # (Manual) (1.0-4.8) k/uL Nucleated RBCs (0-0) /100 WBC ABG pH (7.35-7.45) ABG pCO2 (35-45) mmHg ABG pO2 (83-108) mmHg ABG HCO3 (21-25) mmol/L ABG Total CO2 (19-24) mmol/L ABG O2 Saturation (94-97) % Potassium (3.5-5.1) mmol/L Chloride (98-107) mmol/L BUN (9-20) mg/dL Creatinine (0.66-1.25) mg/dL Glucose (74-99) mg/dL POC Glucose (mg/dL) 125 H 118 H 137 H (75-99) mg/dL Calcium (8.4-10.2) mg/dL Ferritin (22.0-322.0) ng/mL Lactate Dehydrogenase (313-618) U/L C-Reactive Protein (<10.0) mg/L Total Protein (6.3-8.2) g/dL Albumin (3.5-5.0) g/dL 10/26/20 10/27/20 10/27/20 Range/Units 23:32 04:34 07:22 WBC (3.8-10.6) k/uL RBC (4.30-5.90) m/uL Hgb (13.0-17.5) gm/dL Hct (39.0-53.0) % Plt Count (150-450) k/uL Lymphocytes # (Manual) (1.0-4.8) k/uL Nucleated RBCs (0-0) /100 WBC ABG pH (7.35-7.45) ABG pCO2 (35-45) mmHg ABG pO2 (83-108) mmHg ABG HCO3 (21-25) mmol/L ABG Total CO2 (19-24) mmol/L ABG O2 Saturation (94-97) % Potassium (3.5-5.1) mmol/L Chloride (98-107) mmol/L BUN (9-20) mg/dL Creatinine (0.66-1.25) mg/dL Glucose (74-99) mg/dL POC Glucose (mg/dL) 162 H 159 H 123 H (75-99) mg/dL Calcium (8.4-10.2) mg/dL Ferritin (22.0-322.0) ng/mL Lactate Dehydrogenase (313-618) U/L C-Reactive Protein (<10.0) mg/L Total Protein (6.3-8.2) g/dL Albumin (3.5-5.0) g/dL 10/27/20 10/27/20 10/27/20 Range/Units 11:45 16:54 19:53 WBC (3.8-10.6) k/uL RBC (4.30-5.90) m/uL Hgb (13.0-17.5) gm/dL Hct (39.0-53.0) % Plt Count (150-450) k/uL Lymphocytes # (Manual) (1.0-4.8) k/uL Nucleated RBCs (0-0) /100 WBC ABG pH (7.35-7.45) ABG pCO2 (35-45) mmHg ABG pO2 (83-108) mmHg ABG HCO3 (21-25) mmol/L ABG Total CO2 (19-24) mmol/L ABG O2 Saturation (94-97) % Potassium (3.5-5.1) mmol/L Chloride (98-107) mmol/L BUN (9-20) mg/dL Creatinine (0.66-1.25) mg/dL Glucose (74-99) mg/dL POC Glucose (mg/dL) 186 H 195 H 164 H (75-99) mg/dL Calcium (8.4-10.2) mg/dL Ferritin (22.0-322.0) ng/mL Lactate Dehydrogenase (313-618) U/L C-Reactive Protein (<10.0) mg/L Total Protein (6.3-8.2) g/dL Albumin (3.5-5.0) g/dL 10/27/20 10/28/20 10/28/20 Range/Units 23:41 03:34 05:16 WBC (3.8-10.6) k/uL RBC (4.30-5.90) m/uL Hgb (13.0-17.5) gm/dL Hct (39.0-53.0) % Plt Count (150-450) k/uL Lymphocytes # (Manual) (1.0-4.8) k/uL Nucleated RBCs (0-0) /100 WBC ABG pH (7.35-7.45) ABG pCO2 (35-45) mmHg ABG pO2 58 L* (83-108) mmHg ABG HCO3 (21-25) mmol/L ABG Total CO2 (19-24) mmol/L ABG O2 Saturation (94-97) % Potassium (3.5-5.1) mmol/L Chloride (98-107) mmol/L BUN (9-20) mg/dL Creatinine (0.66-1.25) mg/dL Glucose (74-99) mg/dL POC Glucose (mg/dL) 158 H 123 H (75-99) mg/dL Calcium (8.4-10.2) mg/dL Ferritin (22.0-322.0) ng/mL Lactate Dehydrogenase (313-618) U/L C-Reactive Protein (<10.0) mg/L Total Protein (6.3-8.2) g/dL Albumin (3.5-5.0) g/dL 10/28/20 10/28/20 10/28/20 Range/Units 08:27 12:00 16:19 WBC (3.8-10.6) k/uL RBC (4.30-5.90) m/uL Hgb (13.0-17.5) gm/dL Hct (39.0-53.0) % Plt Count (150-450) k/uL Lymphocytes # (Manual) (1.0-4.8) k/uL Nucleated RBCs (0-0) /100 WBC ABG pH (7.35-7.45) ABG pCO2 (35-45) mmHg ABG pO2 (83-108) mmHg ABG HCO3 (21-25) mmol/L ABG Total CO2 (19-24) mmol/L ABG O2 Saturation (94-97) % Potassium (3.5-5.1) mmol/L Chloride (98-107) mmol/L BUN (9-20) mg/dL Creatinine (0.66-1.25) mg/dL Glucose (74-99) mg/dL POC Glucose (mg/dL) 152 H 127 H 205 H (75-99) mg/dL Calcium (8.4-10.2) mg/dL Ferritin (22.0-322.0) ng/mL Lactate Dehydrogenase (313-618) U/L C-Reactive Protein (<10.0) mg/L Total Protein (6.3-8.2) g/dL Albumin (3.5-5.0) g/dL 10/28/20 10/28/20 10/29/20 Range/Units 19:48 23:28 03:46 WBC (3.8-10.6) k/uL RBC (4.30-5.90) m/uL Hgb (13.0-17.5) gm/dL Hct (39.0-53.0) % Plt Count (150-450) k/uL Lymphocytes # (Manual) (1.0-4.8) k/uL Nucleated RBCs (0-0) /100 WBC ABG pH (7.35-7.45) ABG pCO2 (35-45) mmHg ABG pO2 (83-108) mmHg ABG HCO3 (21-25) mmol/L ABG Total CO2 (19-24) mmol/L ABG O2 Saturation (94-97) % Potassium (3.5-5.1) mmol/L Chloride (98-107) mmol/L BUN (9-20) mg/dL Creatinine (0.66-1.25) mg/dL Glucose (74-99) mg/dL POC Glucose (mg/dL) 171 H 180 H 180 H (75-99) mg/dL Calcium (8.4-10.2) mg/dL Ferritin (22.0-322.0) ng/mL Lactate Dehydrogenase (313-618) U/L C-Reactive Protein (<10.0) mg/L Total Protein (6.3-8.2) g/dL Albumin (3.5-5.0) g/dL 10/29/20 10/29/20 10/29/20 Range/Units 04:35 08:03 10:57 WBC (3.8-10.6) k/uL RBC (4.30-5.90) m/uL Hgb (13.0-17.5) gm/dL Hct (39.0-53.0) % Plt Count (150-450) k/uL Lymphocytes # (Manual) (1.0-4.8) k/uL Nucleated RBCs (0-0) /100 WBC ABG pH (7.35-7.45) ABG pCO2 (35-45) mmHg ABG pO2 (83-108) mmHg ABG HCO3 (21-25) mmol/L ABG Total CO2 (19-24) mmol/L ABG O2 Saturation (94-97) % Potassium (3.5-5.1) mmol/L Chloride (98-107) mmol/L BUN (9-20) mg/dL Creatinine (0.66-1.25) mg/dL Glucose (74-99) mg/dL POC Glucose (mg/dL) 184 H 158 H (75-99) mg/dL Calcium (8.4-10.2) mg/dL Ferritin 562.1 H (22.0-322.0) ng/mL Lactate Dehydrogenase (313-618) U/L C-Reactive Protein (<10.0) mg/L Total Protein (6.3-8.2) g/dL Albumin (3.5-5.0) g/dL 10/29/20 10/29/20 10/29/20 Range/Units 15:45 19:51 23:32 WBC (3.8-10.6) k/uL RBC (4.30-5.90) m/uL Hgb (13.0-17.5) gm/dL Hct (39.0-53.0) % Plt Count (150-450) k/uL Lymphocytes # (Manual) (1.0-4.8) k/uL Nucleated RBCs (0-0) /100 WBC ABG pH (7.35-7.45) ABG pCO2 (35-45) mmHg ABG pO2 (83-108) mmHg ABG HCO3 (21-25) mmol/L ABG Total CO2 (19-24) mmol/L ABG O2 Saturation (94-97) % Potassium (3.5-5.1) mmol/L Chloride (98-107) mmol/L BUN (9-20) mg/dL Creatinine (0.66-1.25) mg/dL Glucose (74-99) mg/dL POC Glucose (mg/dL) 176 H 183 H 191 H (75-99) mg/dL Calcium (8.4-10.2) mg/dL Ferritin (22.0-322.0) ng/mL Lactate Dehydrogenase (313-618) U/L C-Reactive Protein (<10.0) mg/L Total Protein (6.3-8.2) g/dL Albumin (3.5-5.0) g/dL 10/30/20 10/30/20 10/30/20 Range/Units 02:56 03:46 03:54 WBC 2.9 L (3.8-10.6) k/uL RBC 2.60 L (4.30-5.90) m/uL Hgb 8.4 L (13.0-17.5) gm/dL Hct 25.8 L (39.0-53.0) % Plt Count 125 L (150-450) k/uL Lymphocytes # (Manual) 0.35 L (1.0-4.8) k/uL Nucleated RBCs 6 H (0-0) /100 WBC ABG pH (7.35-7.45) ABG pCO2 (35-45) mmHg ABG pO2 (83-108) mmHg ABG HCO3 (21-25) mmol/L ABG Total CO2 (19-24) mmol/L ABG O2 Saturation (94-97) % Potassium 5.3 H (3.5-5.1) mmol/L Chloride 111 H (98-107) mmol/L BUN 50 H (9-20) mg/dL Creatinine 0.64 L (0.66-1.25) mg/dL Glucose 154 H (74-99) mg/dL POC Glucose (mg/dL) 162 H (75-99) mg/dL Calcium 7.7 L (8.4-10.2) mg/dL Ferritin (22.0-322.0) ng/mL Lactate Dehydrogenase 762 H (313-618) U/L C-Reactive Protein 177.2 H (<10.0) mg/L Total Protein 4.7 L (6.3-8.2) g/dL Albumin 2.0 L (3.5-5.0) g/dL 10/30/20 Range/Units 05:10 WBC (3.8-10.6) k/uL RBC (4.30-5.90) m/uL Hgb (13.0-17.5) gm/dL Hct (39.0-53.0) % Plt Count (150-450) k/uL Lymphocytes # (Manual) (1.0-4.8) k/uL Nucleated RBCs (0-0) /100 WBC ABG pH 7.34 L (7.35-7.45) ABG pCO2 55 H (35-45) mmHg ABG pO2 61 L (83-108) mmHg ABG HCO3 29 H (21-25) mmol/L ABG Total CO2 31 H (19-24) mmol/L ABG O2 Saturation 91.4 L (94-97) % Potassium (3.5-5.1) mmol/L Chloride (98-107) mmol/L BUN (9-20) mg/dL Creatinine (0.66-1.25) mg/dL Glucose (74-99) mg/dL POC Glucose (mg/dL) (75-99) mg/dL Calcium (8.4-10.2) mg/dL Ferritin (22.0-322.0) ng/mL Lactate Dehydrogenase (313-618) U/L C-Reactive Protein (<10.0) mg/L Total Protein (6.3-8.2) g/dL Albumin (3.5-5.0) g/dL Assessment and Plan Assessment: -Acute hypoxic respiratory failure: Possibly of a cough with 19 pneumonitis cannot be ruled out in spite of negative PCR. Patient may have a some other viral pneumonia as well. Computed tomography scan findings are consistent with ARDS. We'll continue with respiratory support. Patient is on systemic steroids. He is also on Lovenox. -Coronary artery disease with previous history of bypass surgery hyperlipidemia -Hypertension -Hypovolemic hyponatremia: Hydrochlorothiazide will be discontinued patient was started on IV fluids next and have an acute renal failure secondary to diuretics and and evidence of medications which will be held as mentioned above.
[2020-10-30 16:01] VITALS: PULSE 101; RESP 35
--- NOTE | 2020-11-06 08:24 | CDI ---
Documentation Clarification Form Date: 11/06/2020 08:07:57 AM From: Mirian Haynes CCS, CCDS Admit Date: 10/11/2020 05:14:00 PM Patient Name: Kapil Kimball Visit Number: [id number] Discharge Date: 10/30/2020 06:50:00 PM ATTENTION: The Clinical Documentation Specialists (CDI) and [facility] Coding Staff appreciate your assistance in clarifying documentation. Please respond to the clarification below the line at the bottom and electronically sign. The CDI & [facility] Coding staff will review the response and follow-up if needed. Please note: Queries are made part of the Legal Health Record. If you have any questions, please contact the author of this message via ITS. Dr. Maisha Worrell: CHF and Heart Failure is documented in the following documentation without further specificity: 10/21 CXR: Consider CHF 10/21 through 10/23 Attending Progress Notes: Consider CHF 10/24 CXR: Correlate for CHF, Pneumonia, ARDS History/Risk Factors: CAD status post CABG, Hypertension, Hyperlipidemia. Clinical Indicators: Presented to the ED on 10/11 with worsening SOB, cough & fever. Initial COVID test was negative, repeat positive. Admitted and treated for COVID 19 infection and pneumonia. Patient on 10/30, Preliminary Cause of is pending. VS 10/11: T 97.8, P 72, R 18 - 22 (SOB), BP 110/75, PO 91 15L nc 10/11 BNP 512 Echocardiogram Results 10/30: Moderate LVH, Left ventricular systolic function is normal w/EF 55-60%, Moderate aortic stenosis, Trace - mild MR, Moderate TR, Moderate pulmonary hypertension, small generalized pericardial effusion present. CXR 10/11: Diffuse scattered bilateral infiltrates can be compatible with atypical pneumonia. CXR 10/21: Stable diffuse interstitial changes with basilar infiltrate or atelectasis. Correlate for interstitial pneumonia otherwise consider CHF. CXR 10/24: Findings are similar to prior exam, correlate for CHF, Pneumonia, ARDS. Treatment: Antibiotics for COVID 19 pna: IV Azithromycin, IV Rocephin, IV Decadron, Vit C & Lovenoz sq. IV Remdesivir started 10/13. Convalescent Plasma transfusions given 10/13 & 10/19. IV Lasix 40 mg given 10/25, 10/26 & 10/30. Started on BiPAP 10/13, Intubated & put on vent 10/18. In your professional opinion, can you please clarify the acuity and type of CHF if known? Heart Failure is ruled out Heart Failure is ruled in, please specify: Systolic Heart Failure: o Acute o Chronic o Acute on Chronic Diastolic Heart Failure: o Acute o Chronic o Acute on Chronic Systolic & Diastolic Heart Failure: o Acute o Chronic o Acute on Chronic Heart Failure Unable to Determine Other, please specify (Last Revision: February 2018) Heart Failure is ruled out MTDD
== END 2020-10-30 18:50 | disposition expired | DRG 207 ==
LOC: EC 14:46 → 4SSUR 17:14 → 3SCARD 20:13 → 2SICU 10-14 20:43
PROVIDERS: ADMIT Internal Medicine; ATTEND Internal Medicine
PROC: 5A09557 Assistance with Respiratory Ventilation, Greater than 96 Consecutive Hours, Continuous Positive Airway Pressure (ICD-10-PCS; 2020-10-11)
PROC: 0BH17EZ Insertion of Endotracheal Airway into Trachea, Via Natural or Artificial Opening (ICD-10-PCS; principal; 2020-10-18)
PROC: 5A1955Z Respiratory Ventilation, Greater than 96 Consecutive Hours (ICD-10-PCS; principal; 2020-10-18)
PROC: XW13325 Transfusion of Convalescent Plasma (Nonautologous) into Peripheral Vein, Percutaneous Approach, New Technology Group 5 (ICD-10-PCS; 2020-10-18)
PROC: XW033E5 Introduction of Remdesivir Anti-infective into Peripheral Vein, Percutaneous Approach, New Technology Group 5 (ICD-10-PCS; 2020-10-18)
PROC: 5A12012 Performance of Cardiac Output, Single, Manual (ICD-10-PCS; 2020-10-18)
PROC: 06HY33Z Insertion of Infusion Device into Lower Vein, Percutaneous Approach (ICD-10-PCS; 2020-10-18)
PROC: 03HY32Z Insertion of Monitoring Device into Upper Artery, Percutaneous Approach (ICD-10-PCS; 2020-10-18)
PROC: 4A133B1 Monitoring of Arterial Pressure, Peripheral, Percutaneous Approach (ICD-10-PCS; 2020-10-18)
PROC: 4A133J1 Monitoring of Arterial Pulse, Peripheral, Percutaneous Approach (ICD-10-PCS; 2020-10-18)
PROC: 0DH67UZ Insertion of Feeding Device into Stomach, Via Natural or Artificial Opening (ICD-10-PCS; 2020-10-18)
PROC: 3E0G76Z Introduction of Nutritional Substance into Upper GI, Via Natural or Artificial Opening (ICD-10-PCS; 2020-10-18)
DX: U07.1 COVID-19 (principal); J80 Acute respiratory distress syndrome; J12.89 Other viral pneumonia; N17.0 Acute kidney failure with tubular necrosis; E87.1 Hypo-osmolality and hyponatremia; I48.19 Other persistent atrial fibrillation; J98.11 Atelectasis; I46.9 Cardiac arrest, cause unspecified; Z66 Do not resuscitate; Z51.5 Encounter for palliative care; J98.2 Interstitial emphysema; T50.2X5A Adverse effect of carbonic-anhydrase inhibitors, benzothiadiazides and other diuretics, initial encounter; E78.5 Hyperlipidemia, unspecified; I25.10 Atherosclerotic heart disease of native coronary artery without angina pectoris; I10 Essential (primary) hypertension; E86.1 Hypovolemia; E66.9 Obesity, unspecified; D72.810 Lymphocytopenia; E87.70 Fluid overload, unspecified; Z95.1 Presence of aortocoronary bypass graft; Z79.899 Other long term (current) drug therapy; Z79.1 Long term (current) use of non-steroidal anti-inflammatories (NSAID); Z79.82 Long term (current) use of aspirin; Z79.01 Long term (current) use of anticoagulants; Z98.890 Other specified postprocedural states; Z82.49 Family history of ischemic heart disease and other diseases of the circulatory system; Z87.891 Personal history of nicotine dependence; Z68.36 Body mass index [BMI] 36.0-36.9, adult; Z95.5 Presence of coronary angioplasty implant and graft; Z87.19 Personal history of other diseases of the digestive system
CPT/HCPCS: 36410; 36415; 36600; 71045; 71275; 76937; 80048; 80053; 82550; 82728; 82805; 83520; 83605; 83615; 83735; 83880; 84145; 85025; 85379; 85384; 85610; 85730; 86140; 86850; 86900; 86901; 87040; 87070; 87205; 87502; 87635; 92950; 93005; 93306; 94002; 94003; 94640; 94660; 94760; 94770; 96361; 96365; 96366; 96375; 99285